=== PATIENT | female | born 1975 | race Caucasian/White ===

== ENCOUNTER 2022-09-27 07:20 | Outpatient (OUT) | payer OTHER, SELFPAY | END 2022-09-27 07:21 | disposition home or self-care (01) | LOC: LAB 07:24 | PROVIDERS: PCP Nurse Practitioner; Visit Provider Nurse Practitioner | DX: E55.9 Vitamin D deficiency, unspecified (principal) | CPT/HCPCS: 36415; 82306 ==

== ENCOUNTER 2022-10-06 09:23 | Outpatient (OUT) | payer OTHER, SELFPAY ==
--- NOTE | 2022-10-06 09:49 | XR_ITS ---
[address] [address] Patient Name: CACHORRO HAGAN MRN: [id number] date: 1975 Sex: F Assigned Patient Location: LAB Current Patient Location: LAB Accession/Order Number: [id number] Exam Date: 10/06/2022 09:54 Report Date: 10/06/2022 10:14 At the request of: ED CHAPMAN Procedure: XR chest 2V PROCEDURE: XR chest 2V DATE: 10/06/2022 8:54 AM CDT COMPARISONS: None. CLINICAL INDICATION: 46 years Female Dyspnea R06.00 FINDINGS: The cardiomediastinal silhouette and pulmonary vasculature are within normal limits. The lungs are clear. There is no evidence of pleural effusion or pneumothorax. XR/XR chest 2V IMPRESSION: Chest radiograph is within normal limits. Electronically authenticated by: ZURI MACKENZIE Date: 10/06/2022 10:14
[2022-10-06 09:59] LABS: Bilirubin Urine NEGATIVE (NEGATIVE); Blood Urine NEGATIVE (NEGATIVE); Clarity Urine CLEAR (CLEAR); Color Urine YELLOW (YELLOW); Glucose Urine UA NEGATIVE (NEGATIVE); Ketones Urine NEGATIVE (NEGATIVE); Leukocyte Esterase Urine NEGATIVE (NEGATIVE); Nitrite Urine NEGATIVE (NEGATIVE); Protein Urine NEGATIVE (NEG/TRACE); Specific Gravity Urine >=1.030 (1.005-1.025); Urobilinogen Urine 0.2 EU/dL (0.2-1.0)
[2022-10-06 10:00] LABS: Basophils Percent Auto 0.4 % (0.2-2.0); Eosinophils Absolute Auto 0.1 10^3/uL (0.0-0.7); Eosinophils Percent Auto 1.5 % (0.9-7.0); Hematocrit 40.7 % (36.0-48.0); Hemoglobin 13.3 g/dL (12.0-16.0); Immature Granulocytes Abs Auto 0.05 10^3/uL (0.00-0.03); Immature Granulocytes Pct Auto 0.5 % (0.0-0.5); Lymphocytes Absolute Auto 2.8 10^3/uL (1.2-3.8); Lymphocytes Percent Auto 29.4 % (20.5-60.0); Mean Corpuscular HGB Conc 32.7 g/dL (29.9-35.2); Mean Corpuscular Hemoglobin 29.8 pg (26.7-34.0); Mean Corpuscular Volume 91.3 fL (81.0-99.0); Mean Platelet Volume 8.3 fL (9.5-13.5); Monocytes Absolute Auto 0.4 10^3/uL (0.3-0.8); Monocytes Percent Auto 4.6 % (1.7-12.0); Neutrophils Percent Auto 63.6 % (43.0-75.0); Platelet Count 321 10^3/uL (150-450); Red Blood Count 4.46 10^6/uL (4.20-5.40); Red Cell Distribution Width 13.6 % (11.0-15.0); White Blood Count 9.5 10^3/uL (4.0-11.0)
[2022-10-06 10:10] LABS: Estimated Average Glucose 117 mg/dL; Glycohemoglobin A1C 5.7 % (4.5-6.2)
[2022-10-06 10:14] LABS: Alanine Aminotransferase 33 U/L (14-59); Albumin Globulin Ratio 0.9; Albumin Level 3.8 g/dL (3.4-5.0); Alkaline Phosphatase 91 U/L (46-116); Anion Gap 14.8; Aspartate Amino Transferase 26 U/L (15-37); BUN Creatinine Ratio 11.8; Bilirubin Total 0.3 mg/dL (0.2-1.0); Calcium 9.4 mg/dL (8.5-10.1); Carbon Dioxide 22.1 mmol/L (21.0-32.0); Chloride 103 mmol/L (98-107); Estimated GFR (African America >60 (>=60); Estimated GFR (Non-African Ame >60 (>=60); Globulin 4.1 g/dL; Glucose 105 mg/dL (74-106); Potassium 3.9 mmol/L (3.5-5.1); Sodium 136 mmol/L (136-145); Total Protein 7.9 g/dL (6.4-8.2)
[2022-10-06 10:22] LABS: Erythrocyte Sedimentation Rate 35 mm/hr (<=20)
[2022-10-06 10:25] LABS: Thyroid Stimulating Hormone 6.601 uIU/mL (0.358-3.740)
[2022-10-06 10:27] LABS: RBC Urine NONE SEEN #/HPF (0-2); WBC Urine 0-2 #/HPF (NONE SEEN)
[2022-10-06 10:28] LABS: Bacteria Urine NONE SEEN #/HPF (NONE SEEN); Mucus Urine MODERATE (NONE SEEN); Squamous Epithelial Cell Urine MODERATE #/LPF (NONE/RARE)
[2022-10-06 11:30] LABS: Free T4 1.06 ng/dL (0.76-1.46)
[2022-10-07 06:12] LABS: Thyroid Peroxidase (TPO) Ab 33 IU/mL (0-34); Vitamin B12 450 pg/mL (232-1245)
[2022-10-07 16:11] LABS: Thyroglobulin Antibody <1.0 IU/mL (0.0-0.9)
== END 2022-10-06 09:24 | disposition home or self-care (01) ==
LOC: LAB 09:24
PROVIDERS: PCP Nurse Practitioner; Visit Provider Nurse Practitioner
DX: E03.9 Hypothyroidism, unspecified (principal); E55.9 Vitamin D deficiency, unspecified; R53.83 Other fatigue; E66.01 Morbid (severe) obesity due to excess calories; R06.00 Dyspnea, unspecified
CPT/HCPCS: 36415; 71046; 80053; 81001; 82306; 82607; 83036; 83540; 84439; 84443; 85025; 85652; 86140; 86376; 86800

== ENCOUNTER 2022-10-07 10:35 | Outpatient (OUT) | payer OTHER, SELFPAY ==
[2022-10-07 11:21] LABS: D Dimer 0.31 mg/L FEU (<=0.59)
== END 2022-10-07 10:42 | disposition home or self-care (01) ==
PROVIDERS: PCP Nurse Practitioner; Visit Provider Nurse Practitioner
DX: R07.9 Chest pain, unspecified (principal); R06.02 Shortness of breath
CPT/HCPCS: 36415; 85378

== ENCOUNTER 2022-11-01 12:50 | Outpatient (OUT) | payer OTHER, SELFPAY ==
--- NOTE | 2022-11-01 14:07 | RT_ITS ---
The [facility] Test Date: 2022-11-01 Pat Name: CACHORRO DORADO Department: Room: - Gender: Female [employer]illing [employer] Operator: Layo Peres RRT : 1975 Requested By: ED CHAPMAN Order Number: [id number] Reading MD: Grant Figueroa Interpretive Statements Pulmonary function testing was completed according to ATS criteria. Findings were considered accurate and reproducible, with exception of DLCO which did not meet ATS standards. No bronchodilator was administered due to normal spirometric values. No prior studies available for comparison. Spirometry: -FEV1/FVC: Normal @ 88% -FEV1: Normal @ 85% -FVC: Mildly reduced @ 77% Lung volumes by plethysmography: -RV: Reduced @ 48% -TLC: Normal @ 84% Diffusion capacity: -DLCO: Mild reduction @ 70% when corrected for Hb 13.3g/dL Flow-volume loop: -Mild restrictive pattern Impressions: -Spirometry shows a mild restrictive pattern with a reduced RV and normal TLC: this suggests an obesity pattern based on stated BMI of 51.1. DLCO is mildly decreased - unclear if this is due to not meeting ATS standards or if there is a true mild diffusion impairment. Clinical correlation required. Electronically Signed On 11-01-2022 17:29:16 EDT by Grant Figueroa
--- NOTE | 2022-11-01 14:25 | CA_ITS ---
Patient: CACHORRO DORADO Exam Date: 11/01/2022 : 1975 Gender:F Ordering : AIDEN ED CHAPMAN [facility] Admission #: [id number] Family : Order #: [id number] CLICK HERE TO VIEW EXAM ECHOCARDIOGRAM REPORT PROCEDURE: CA ECHO DOPPLER COMPLETE INDICATIONS: DYSPNEA COMPARISON: None. DESCRIPTION: COMPLETE ECHOCARDIOGRAM Real-time transthoracic echocardiography with 2D, M-mode, spectral and color flow Doppler performed. QUALITY: Technically difficult due to patients condition. LEFT VENTRICLE: Normal chamber size. Normal left ventricular wall thickness. Normal systolic function. LV EF: Normal left ventricular ejection fraction, (>55%). DIASTOLIC: Normal diastolic function. ATRIAL SEPTUM: LEFT ATRIUM: Normal chamber size. RIGHT ATRIUM: Normal chamber size. RIGHT VENTRICLE: Normal chamber size. TRICUSPID VALVE: Normal mobility and thickness. No stenosis with trivial regurgitation. No evidence of pulmonary hypertension. RVSP 25 mmHg MITRAL VALVE: Normal mobility and thickness. No evidence of mitral valve stenosis. There is no mitral annular calcification. No mitral regurgitation. AORTIC VALVE: Normal trileaflet appearance. No visible sclerosis. Normal leaflet mobility. No evidence of aortic valve stenosis. No aortic regurgitation. AORTIC ROOT: Normal diameter and appearance. PULMONIC VALVE: Not well visualized. No stenosis. No regurgitation. PERICARDIUM: No evidence of pericardial effusion. IVC: Collapses with inspirations. IVC is normal in size. PLEURA: CONCLUSION: 1. Technically difficult study due to poor sound transmission. 2. Normal ventricular systolic function. LVEF is 55 to 60%. 3. No significant valvular dysfunction. 4. Normal right-sided pressures. Adult Echocardiography Procedure Report Left Ventricle LVEDD (3.7 - 5.6 cm): 4.46 cm LVESD (2.2 - 4.0 cm): 3.09 cm LVIVS thickness (0.6 - 1.2 cm): 1.09 cm LVPW thickness (0.5 - 1.0 cm): 1.00 cm LVOT Max Gradient: 2 mm[Hg] Peak Velocity (LVOT): 75.30 cm/s LVOT Diameter 2.10 cm Left Ventricular Ejection Fraction: 58.50 % Left Atrium Left Atrium Systolic Dimension: 3.70 cm Mitral Valve MV E to A Ratio: 1.10 Mitral Valve A-Wave Peak Velocity: 82.40 cm/s Mitral Valve E-Wave Peak Velocity: 92.80 cm/s Right Ventricle Aorta AO Root Diam: 3.50 cm Aortic Valve AoV Area (Peak Pato): 3.00 cm2 Peak Velocity(Antegrade Flow): 86.90 cm/s Peak Gradient(Antegrade Flow): 3 mm[Hg] Tricuspid Valve Peak Velocity (Regurgitant Flow): 235.00 cm/s Peak Velocity: 79.60 cm/s Pulmonic Valve Peak Velocity: 95.00 cm/s, 107.00 cm/s Peak Gradient: 4 mm[Hg] Right Atrium Dictated by: Andrew Carias M.D. on 11/01/2022 at 19:43 Approved by: Andrew Carias M.D. on 11/01/2022 at 19:45
== END 2022-11-01 12:51 | disposition home or self-care (01) ==
LOC: CARD 12:51
PROVIDERS: PCP Nurse Practitioner; Visit Provider Nurse Practitioner
DX: R06.00 Dyspnea, unspecified (principal)
CPT/HCPCS: 93306; 94010; 94726; 94729

== ENCOUNTER 2023-01-04 20:17 | Emergency (ER) | payer OTHER, SELFPAY ==
[2023-01-04 20:26] VITALS: BP 153/94; PULSE 88; RESP 20; TEMP 36.7; O2SAT 98; BMI 48.1
--- NOTE | 2023-01-04 20:40 | CT_ITS ---
The [address] [address] Patient Name: CACHORRO DORADO MRN: [id number] date: 1975 Sex: F Assigned Patient Location: ER Current Patient Location: Accession/Order Number: [id number] Exam Date: 01/04/2023 21:18 Report Date: 01/04/2023 21:56 At the request of: BRIAN DUMONT Procedure: CT head/brain wo con EXAMINATION: CT head/brain wo con HISTORY: Headache - TECHNIQUE: CT head without contrast. All CT scans at this facility use dose modulation, iterative reconstruction, and/or weight based dosing when appropriate to reduce radiation dose to as low as reasonably achievable. COMPARISON: None. RESULT: Post-operative change: None. Acute change: No evidence of an acute intracranial process. Hemorrhage: No evidence of acute intracranial hemorrhage. Mass Lesion / Mass Effect: No evidence of an intracranial mass or extraaxial fluid collection. No significant mass effect. Chronic change: None apparent. Parenchyma: No significant parenchymal volume loss. Ventricles: Normal caliber and morphology. Other: The calvarium, skull base, imaged paranasal sinuses, mastoids, orbits and extracranial soft tissues are unremarkable. CT/CT head/brain wo con IMPRESSION: 1. No acute intracranial abnormality; no acute infarct, intracranial hemorrhage or extra-axial collection. Electronically authenticated by: NIXON KNIGHT Date: 01/04/2023 21:56
--- NOTE | 2023-01-04 20:41 | ED.HA1 ---
HPI - Headache General Chief Complaint: Headache Stated Complaint: Migraine, Nausea/Vomiting Time Seen by Provider: 01/04/23 20:26 Source: patient and family Limitations: no limitations History of Present Illness HPI Narrative: patient is a 47-year-old female who presents to the emergency department for the evaluation of headache that began this morning. She states she has a history of migraines although they are infrequent. She states her typical headaches are located behind the right eye. She states this headache today is much more significant and radiates from the back of the right eye to the back of the head and right side of the neck. She did not take any medications prior to arrival. She has had nausea and vomiting. She denies visual changes, she has chronic paresthesias to the hands and legs from neuropathy that is not different or worse today. She has had minimal sinus symptoms but no other flulike illness. No fevers, no concern for . She denies any injuries or traumas. She states she does feel like she has vertigo since the headache started today. Related Data Home Medications Medication Instructions Recorded Confirmed albuterol sulfate 90 mcg/actuation inhalation 01/04/23 aerosol inhaler diclofenac sodium 75 mg mg PO 01/04/23 tablet,delayed release ergocalciferol (vitamin D2) 1,250 01/04/23 mcg (50,000 unit) capsule (Vitamin D2) gabapentin enacarbil 600 mg mg PO 01/04/23 tablet,extended release (Horizant ER) levothyroxine 25 mcg tablet mcg 01/04/23 montelukast 10 mg tablet mg 01/04/23 naltrexone 1.5 mg capsule mg PO 01/04/23 omeprazole 40 mg capsule,delayed mg 01/04/23 release sertraline 50 mg tablet mg 01/04/23 solifenacin 10 mg tablet mg PO 01/04/23 Previous Rx's Medication Instructions Recorded xgdqjbklho-howetoeyuwixj-epbmqhdo 1 cap PO Q6H PRN headache #10 caps 01/04/23 50 mg-300 mg-40 mg capsule (Fioricet) methocarbamol 750 mg tablet 750 mg PO TID PRN pain #12 tabs 01/04/23 ondansetron 4 mg disintegrating 4 mg PO Q6H PRN nausea and 01/04/23 tablet vomiting #12 tabs Allergies Allergy/AdvReac Type Severity Reaction Status Date / Time duloxetine [From Cymbalta] Allergy Verified 01/04/23 20:31 nalbuphine [From Nubain] Allergy Verified 01/04/23 20:31 Sulfa (Sulfonamide Allergy Verified 01/04/23 20:31 Antibiotics) topiramate [From Topamax] Allergy Verified 01/04/23 20:31 Review of Systems ROS Constitutional Denies: fever or chills Ears, nose, mouth, and throat Denies: throat pain or neck pain Respiratory Denies: shortness of breath or cough Gastrointestinal Reports: nausea and vomiting Musculoskeletal Denies: back pain, neck pain, extremity pain or extremity swelling Integumentary/Breast Denies: rash Neurological Reports: headache, numbness in extremities and vertigo Hematologic/Lymphatic Denies: easy bruising PFSH PFSH Social History Smoking status: Never smoker Exam Narrative Exam Narrative: Gen.: Awake, alert, in no distress Head: Normocephalic, atraumatic ENT: Moist mucous membranes; no posterior cervical tenderness, no nuchal rigidity or meningismus Respiratory: No respiratory distress, lungs clear bilaterally Cardio: Regular rate and rhythm Extremities: Moves extremities equally Psych: Normal mood and affect Neuro: No focal neuro deficit Skin: Warm, dry, intact Constitutional Vital Signs, click to edit/add: Last Vital Signs Temp 98.0 F 01/04/23 20:26 Pulse 70 01/04/23 23:01 Resp 16 01/04/23 23:01 BP 122/76 01/04/23 23:01 Pulse Ox 96 01/04/23 23:01 O2 Del Method Room Air 01/04/23 20:26 Course Vital Signs Vital signs: Vital Signs Temperature 98.0 F 01/04/23 20:26 Pulse Rate 88 01/04/23 20:26 Respiratory Rate 20 01/04/23 20:26 Blood Pressure 153/94 H 01/04/23 20:26 Pulse Oximetry 98 01/04/23 20:26 Oxygen Delivery Method Room Air 01/04/23 20:26 Temperature 98.0 F 01/04/23 20:26 Pulse Rate 70 01/04/23 23:01 Respiratory Rate 16 01/04/23 23:01 Blood Pressure 122/76 01/04/23 23:01 Pulse Oximetry 96 01/04/23 23:01 Oxygen Delivery Method Room Air 01/04/23 20:26 MDM - Headache MDM Narrative Medical decision making narrative: patient treated with IV fluids, Reglan, Benadryl, Decadron, Norflex. CT of the brain is unremarkable and lab studies are stable, patient with mild elevation of CRP and sedimentation rate's but no critical values. CRP and sedimentation rate were elevated previously on lab study several months ago. She has no focal neuro deficits in the Emergency Room. She was given additional Toradol and Valium after her CT resulted negative. she is resting comfortably, stable vital signs and no focal neuro deficits. She will be discharged home with Zofran and Fioricet, follow-up with PCP and return to the Emergency Room if symptoms change or worsen Medical Records Attestation: I reviewed the patient's medical records. Lab Data Attestation: I reviewed the patient's lab results. Labs: Lab Results 01/04/23 Range/Units 21:00 WBC 10.8 (4.0-11.0) 10^3/uL RBC 4.42 (4.20-5.40) 10^6/uL Hgb 12.9 (12.0-16.0) g/dL Hct 40.6 (36.0-48.0) % MCV 91.9 (81.0-99.0) fL MCH 29.2 (26.7-34.0) pg MCHC 31.8 (29.9-35.2) g/dL RDW 13.7 (11.0-15.0) % Plt Count 326 (150-450) 10^3/uL MPV 8.2 L (9.5-13.5) fL Neut % (Auto) 65.0 (43.0-75.0) % Lymph % (Auto) 25.8 (20.5-60.0) % [place] % (Auto) 5.3 (1.7-12.0) % Eos % (Auto) 2.4 (0.9-7.0) % Baso % (Auto) 0.6 (0.2-2.0) % Neut # (Auto) 7.1 H (1.4-6.5) 10^3/uL Lymph # (Auto) 2.8 (1.2-3.8) 10^3/uL [place] # (Auto) 0.6 (0.3-0.8) 10^3/uL Eos # (Auto) 0.3 (0.0-0.7) 10^3/uL Baso # (Auto) 0.1 (0.0-0.1) 10^3/uL Abs Immat Gran (auto) 0.10 H (0.00-0.03) 10^3/uL Imm/Tot Granulo (auto) 0.9 H (0.0-0.5) % ESR 49 H (<=20) mm/hr Sodium 132 L (136-145) mmol/L Potassium 3.8 (3.5-5.1) mmol/L Chloride 103 (98-107) mmol/L Carbon Dioxide 21.1 (21.0-32.0) mmol/L Anion Gap 11.7 BUN 18.0 (7.0-18.0) mg/dL Creatinine 0.83 (0.55-1.02) mg/dL Est GFR ( Amer) >60 (>=60) Est GFR (Non-Af Amer) >60 (>=60) BUN/Creatinine Ratio 21.7 Glucose 104 (74-106) mg/dL Calcium 8.7 (8.5-10.1) mg/dL Total Bilirubin 0.2 (0.2-1.0) mg/dL AST 14 L (15-37) U/L ALT 26 (14-59) U/L Alkaline Phosphatase 92 (46-116) U/L C-Reactive Protein 3.9 H (<=1.0) mg/dL Total Protein 7.3 (6.4-8.2) g/dL Albumin 3.2 L (3.4-5.0) g/dL Globulin 4.1 g/dL Albumin/Globulin Ratio 0.[address] scan - head: Attestation: I have reviewed the pertinent imaging results. Radiologist's impression: Procedure: CT head/brain wo con EXAMINATION: CT head/brain wo con HISTORY: Headache - TECHNIQUE: CT head without contrast. All CT scans at this facility use dose modulation, iterative reconstruction, and/or weight based dosing when appropriate to reduce radiation dose to as low as reasonably achievable. COMPARISON: None. RESULT: Post-operative change: None. Acute change: No evidence of an acute intracranial process. Hemorrhage: No evidence of acute intracranial hemorrhage. Mass Lesion / Mass Effect: No evidence of an intracranial mass or extraaxial fluid collection. No significant mass effect. Chronic change: None apparent. Parenchyma: No significant parenchymal volume loss. Ventricles: Normal caliber and morphology. Other: The calvarium, skull base, imaged paranasal sinuses, mastoids, orbits and extracranial soft tissues are unremarkable. IMPRESSION: 1. No acute intracranial abnormality; no acute infarct, intracranial hemorrhage or extra-axial collection. Electronically authenticated by: NIXON KNIGHT Date: 01/04/2023 21:56 Discharge Plan Discharge Chief Complaint: Headache Clinical Impression: Headache Patient Disposition: Home, Self-Care Time of Disposition Decision: 22:28 Condition: Good Prescriptions / Home Meds: New methocarbamol 750 mg tablet 750 mg PO TID PRN (Reason: pain) Qty: 12 0RF ondansetron 4 mg tablet,disintegrating 4 mg PO Q6H PRN (Reason: nausea and vomiting) Qty: 12 0RF ysrvbmzcgx-pugiqsledymsy-tlxz [Fioricet] 50-300-40 mg capsule 1 cap PO Q6H PRN (Reason: headache) Qty: 10 0RF Rx Instructions: DX: R51.9 No Action levothyroxine 25 mcg tablet diclofenac sodium 75 mg tablet,delayed release (DR/EC) PO montelukast 10 mg tablet ergocalciferol (vitamin D2) [Vitamin D2] 1,250 mcg (50,000 unit) capsule albuterol sulfate 90 mcg/actuation HFA aerosol inhaler INHALATION Horizant 600 mg tablet extended release PO naltrexone 1.5 mg capsule PO omeprazole 40 mg capsule,delayed release(DR/EC) sertraline 50 mg tablet solifenacin 10 mg tablet PO Instructions: Acute Headache (ED) Stand Alone Forms: Portal Instructions Referrals: Odalis Gu [Primary Care Provider] - 1 week Discharge Date/Time: 01/04/23 23:14
[2023-01-04] MEDS: ORPHENADRINE 60 MG/ 2 ML VIAL IV (21:08)
[2023-01-04] MEDS: 0.9 % SODIUM CHLORIDE 1,000 ML 999 ML IV (21:08)
[2023-01-04] MEDS: DEXAMETHASONE SODIUM PHOSPHATE 10 MG/ML VIAL IV (21:08)
[2023-01-04] MEDS: DIPHENHYDRAMINE HCL 50 MG/ML (1ML) VIAL 25 MG IV (21:08)
[2023-01-04] MEDS: METOCLOPRAMIDE HCL 10 MG/2 ML VIAL INJ (21:08)
[2023-01-04] MEDS: ONDANSETRON PF 4 MG/2 ML VIAL IV (21:19)
[2023-01-04 21:25] LABS: Basophils Absolute Auto 0.1 10^3/uL (0.0-0.1); Basophils Percent Auto 0.6 % (0.2-2.0); Eosinophils Absolute Auto 0.3 10^3/uL (0.0-0.7); Eosinophils Percent Auto 2.4 % (0.9-7.0); Hematocrit 40.6 % (36.0-48.0); Hemoglobin 12.9 g/dL (12.0-16.0); Immature Granulocytes Pct Auto 0.9 % (0.0-0.5); Lymphocytes Absolute Auto 2.8 10^3/uL (1.2-3.8); Lymphocytes Percent Auto 25.8 % (20.5-60.0); Mean Corpuscular HGB Conc 31.8 g/dL (29.9-35.2); Mean Corpuscular Hemoglobin 29.2 pg (26.7-34.0); Mean Corpuscular Volume 91.9 fL (81.0-99.0); Mean Platelet Volume 8.2 fL (9.5-13.5); Monocytes Absolute Auto 0.6 10^3/uL (0.3-0.8); Monocytes Percent Auto 5.3 % (1.7-12.0); Neutrophils Absolute Auto 7.1 10^3/uL (1.4-6.5); Platelet Count 326 10^3/uL (150-450); Red Blood Count 4.42 10^6/uL (4.20-5.40); Red Cell Distribution Width 13.7 % (11.0-15.0); White Blood Count 10.8 10^3/uL (4.0-11.0)
[2023-01-04 21:59] LABS: Alanine Aminotransferase 26 U/L (14-59); Albumin Globulin Ratio 0.8; Albumin Level 3.2 g/dL (3.4-5.0); Alkaline Phosphatase 92 U/L (46-116); Anion Gap 11.7; Aspartate Amino Transferase 14 U/L (15-37); BUN Creatinine Ratio 21.7; Bilirubin Total 0.2 mg/dL (0.2-1.0); C Reactive Protein 3.9 mg/dL (<=1.0); Calcium 8.7 mg/dL (8.5-10.1); Carbon Dioxide 21.1 mmol/L (21.0-32.0); Chloride 103 mmol/L (98-107); Erythrocyte Sedimentation Rate 49 mm/hr (<=20); Estimated GFR (African America >60 (>=60); Estimated GFR (Non-African Ame >60 (>=60); Globulin 4.1 g/dL; Glucose 104 mg/dL (74-106); Potassium 3.8 mmol/L (3.5-5.1); Sodium 132 mmol/L (136-145); Total Protein 7.3 g/dL (6.4-8.2)
[2023-01-04] MEDS: DIAZEPAM 5 MG/ML - 2 ML INJ SYRINGE 2.5 MG IV (22:15)
[2023-01-04] MEDS: KETOROLAC TROMETHAMINE 30 MG/ML VIAL IVP (22:15)
[2023-01-04 23:01] VITALS: BP 122/76; PULSE 70; RESP 16; O2SAT 96
[2023-01-04] MEDS: BUTALB/ACETAMINOPHEN/CAFFEINE 50-325-40MG TABLET 1 TAB PO (23:10)
[2023-01-04] MEDS: ONDANSETRON 4 MG RAPDIS TABLET SL (23:11)
== END 2023-01-04 23:14 | disposition home or self-care (01) ==
PROVIDERS: Physician Assistant; Emergency Provider Emergency Medicine; PCP Nurse Practitioner
DX: R51.9 Headache, unspecified (principal); G62.9 Polyneuropathy, unspecified; Z79.899 Other long term (current) drug therapy; Z79.890 Hormone replacement therapy
CPT/HCPCS: 36415; 70450; 80053; 85025; 85652; 86140; 96361; 96372; 96374; 96375; 99285; J1100

== ENCOUNTER 2023-01-13 10:36 | Emergency (ER) | payer OTHER, SELFPAY ==
[2023-01-13 10:42] VITALS: BP 123/82; PULSE 88; RESP 16; TEMP 36.6; O2SAT 96; BMI 48.4
--- NOTE | 2023-01-13 11:05 | ECG_ITS ---
The [facility] Test Date: 2023-01-13 Pat Name: CACHORRO DORADO Department: Room: - Gender: Female Corporation Pilot: : 1975 Requested By: ED CHAPMAN Order Number: [id number] Reading MD: SERENITY ELLIS Measurements Intervals [place] Rate: 80 P: 57 MS: 176 QRS: -3 QRSD: 74 T: 39 QT: 354 QTc: 390 Interpretive Statements 1100 Sinus rhythm 3113 Cannot rule out anterior myocardial infarction, probably old 8102 Low QRS voltage in chest leads 9150 abnormal ECG No previous ECG available for comparison Electronically Signed On 01-14-2023 7:02:53 EDT by SERENITY ELLIS
--- NOTE | 2023-01-13 11:06 | ED_ITS ---
HPI - Dizziness General Chief Complaint: Dizziness Stated Complaint: DIZZINESS Time Seen by Provider: 01/13/23 10:45 Source: patient Mode of arrival: Wheelchair Limitations: other Limitations comment: dizziness History of Present Illness HPI Narrative: 47-year-old female presents for dizziness. She was at work today when it came on abruptly and she felt like she couldn't walk straight. She had to have somebody drive her here. She was here last week for similar circumstances and was diagnosed with vertigo. She hasn't had any medicine for it today. No fever or headache or localized weakness. Related Data Home Medications Medication Instructions Recorded Confirmed albuterol sulfate 90 mcg/actuation inhalation 01/04/23 aerosol inhaler diclofenac sodium 75 mg mg PO 01/04/23 tablet,delayed release ergocalciferol (vitamin D2) 1,250 01/04/23 mcg (50,000 unit) capsule (Vitamin D2) gabapentin enacarbil 600 mg mg PO 01/04/23 tablet,extended release (Horizant ER) levothyroxine 25 mcg tablet mcg 01/04/23 montelukast 10 mg tablet mg 01/04/23 naltrexone 1.5 mg capsule mg PO 01/04/23 omeprazole 40 mg capsule,delayed mg 01/04/23 release sertraline 50 mg tablet mg 01/04/23 solifenacin 10 mg tablet mg PO 01/04/23 Previous Rx's Medication Instructions Recorded bpkzzfxesj-oxqzupdhtdzmq-sjecwyqj 1 cap PO Q6H PRN headache #10 caps 01/04/23 50 mg-300 mg-40 mg capsule (Fioricet) methocarbamol 750 mg tablet 750 mg PO TID PRN pain #12 tabs 01/04/23 ondansetron 4 mg disintegrating 4 mg PO Q6H PRN nausea and 01/04/23 tablet vomiting #12 tabs sgibefkllx-tefrbvrlfimuc-kmpdzfyf 1 cap PO Q6H PRN pain #20 caps 01/13/23 50 mg-300 mg-40 mg capsule (Fioricet) diazepam 5 mg tablet (Valium) 5 mg PO Q8H PRN dizziness or 01/13/23 vertigo #14 tabs methocarbamol 750 mg tablet 750 mg PO Q8H pain #20 tabs 01/13/23 Allergies Allergy/AdvReac Type Severity Reaction Status Date / Time duloxetine [From Cymbalta] Allergy Verified 01/13/23 10:48 nalbuphine [From Nubain] Allergy Verified 01/13/23 10:48 Sulfa (Sulfonamide Allergy Verified 01/13/23 10:48 Antibiotics) topiramate [From Topamax] Allergy Verified 01/13/23 10:48 Review of Systems ROS Narrative A ten point review of systems is negative except as noted above. PFSH PFSH Social History Smoking status: Never smoker Exam Narrative Exam Narrative: Nurses note and vital signs reviewed and patient is not hypoxic. General: The patient appears well and in no apparent distress. Patient is resting comfortably on cart. Skin: Warm, dry, no pallor noted. There is no rash noted. Head: Normocephalic, atraumatic Eye: Normal conjunctiva, no drainage Ears, Nose, Mouth, and Throat: oral mucosa is moist. Nares patent. Cardiovascular: Regular Rate and Rhythm Respiratory: Patient is in no distress, no accessory muscle use, lungs are clear to auscultation, no wheezing, rales or rhonchi Back: non-tender GI: obese and nontender Musculoskeletal: The patient has no evidence of calf tenderness, no pitting edema, symmetrical pulses noted bilaterally Neurological: A&O x4, normal speech; upper and lower extremity strength intact. Psychiatric: Cooperative Constitutional Vital Signs, click to edit/add: Last Vital Signs Temp 97.8 F 01/13/23 10:42 Pulse 88 01/13/23 10:42 Resp 16 01/13/23 10:42 BP 123/82 01/13/23 10:42 Pulse Ox 96 01/13/23 10:42 O2 Del Method Room Air 01/13/23 10:42 Course Vital Signs Vital signs: Vital Signs Temperature 97.8 F 01/13/23 10:42 Pulse Rate 88 01/13/23 10:42 Respiratory Rate 16 01/13/23 10:42 Blood Pressure 123/82 01/13/23 10:42 Pulse Oximetry 96 01/13/23 10:42 Oxygen Delivery Method Room Air 01/13/23 10:42 Temperature 97.8 F 01/13/23 10:42 Pulse Rate 88 01/13/23 10:42 Respiratory Rate 16 01/13/23 10:42 Blood Pressure 123/82 01/13/23 10:42 Pulse Oximetry 96 01/13/23 10:42 Oxygen Delivery Method Room Air 01/13/23 10:42 MDM - Dizziness MDM Narrative Medical decision making narrative: CAT scan from last week was reviewed and found to be negative. She is feeling improved now with IV Valium and will be discharged home on Valium. Treatment diagnosis and follow-up were discussed with the patient. Differential Diagnosis Differential diagnosis: Likely benign paroxysmal positional vertigo, orthostatic hypotension and cerebrovascular accident Medical Records Attestation: I reviewed the patient's medical records. Lab Data Attestation: I reviewed the patient's lab results. Labs: Lab Results 01/13/23 Range/Units 11:13 WBC 8.7 (4.0-11.0) 10^3/uL RBC 4.22 (4.20-5.40) 10^6/uL Hgb 12.5 (12.0-16.0) g/dL Hct 37.5 (36.0-48.0) % MCV 88.9 (81.0-99.0) fL MCH 29.6 (26.7-34.0) pg MCHC 33.3 (29.9-35.2) g/dL RDW 13.6 (11.0-15.0) % Plt Count 308 (150-450) 10^3/uL MPV 8.2 L (9.5-13.5) fL Neut % (Auto) 65.5 (43.0-75.0) % Lymph % (Auto) 26.7 (20.5-60.0) % [place] % (Auto) 4.9 (1.7-12.0) % Eos % (Auto) 1.3 (0.9-7.0) % Baso % (Auto) 0.6 (0.2-2.0) % Neut # (Auto) 5.7 (1.4-6.5) 10^3/uL Lymph # (Auto) 2.3 (1.2-3.8) 10^3/uL [place] # (Auto) 0.4 (0.3-0.8) 10^3/uL Eos # (Auto) 0.1 (0.0-0.7) 10^3/uL Baso # (Auto) 0.1 (0.0-0.1) 10^3/uL Abs Immat Gran (auto) 0.09 H (0.00-0.03) 10^3/uL Imm/Tot Granulo (auto) 1.0 H (0.0-0.5) % Sodium 136 (136-145) mmol/L Potassium 4.0 (3.5-5.1) mmol/L Chloride 102 (98-107) mmol/L Carbon Dioxide 23.9 (21.0-32.0) mmol/L Anion Gap 14.1 BUN 14.0 (7.0-18.0) mg/dL Creatinine 0.91 (0.55-1.02) mg/dL Est GFR ( Amer) >60 (>=60) Est GFR (Non-Af Amer) >60 (>=60) BUN/Creatinine Ratio 15.4 Glucose 102 (74-106) mg/dL Calcium 9.1 (8.5-10.1) mg/dL Discharge Plan Discharge Chief Complaint: Dizziness Clinical Impression: Benign paroxysmal positional vertigo Patient Disposition: Home, Self-Care Time of Disposition Decision: 13:12 Condition: Good Mode of Transportation: Private Vehicle Prescriptions / Home Meds: New diazepam [Valium] 5 mg tablet 5 mg PO Q8H PRN (Reason: dizziness or vertigo) Qty: 14 0RF lizaazkhqg-rxigigzknezoz-teph [Fioricet] 50-300-40 mg capsule 1 cap PO Q6H PRN (Reason: pain) Qty: 20 0RF methocarbamol 750 mg tablet 750 mg PO Q8H Qty: 20 0RF No Action levothyroxine 25 mcg tablet diclofenac sodium 75 mg tablet,delayed release (DR/EC) PO montelukast 10 mg tablet ergocalciferol (vitamin D2) [Vitamin D2] 1,250 mcg (50,000 unit) capsule albuterol sulfate 90 mcg/actuation HFA aerosol inhaler INHALATION Horizant 600 mg tablet extended release PO naltrexone 1.5 mg capsule PO omeprazole 40 mg capsule,delayed release(DR/EC) sertraline 50 mg tablet solifenacin 10 mg tablet PO methocarbamol 750 mg tablet 750 mg PO TID PRN (Reason: pain) Qty: 12 0RF ondansetron 4 mg tablet,disintegrating 4 mg PO Q6H PRN (Reason: nausea and vomiting) Qty: 12 0RF ffjaruiovp-jjtnfqdaqgmox-eizh [Fioricet] 50-300-40 mg capsule 1 cap PO Q6H PRN (Reason: headache) Qty: 10 0RF Rx Instructions: DX: R51.9 Instructions: Vertigo (ED) Stand Alone Forms: Portal Instructions Referrals: Odalis Gu [Primary Care Provider] - 1 week Discharge Date/Time: 01/13/23 13:25
[2023-01-13 11:22] LABS: Basophils Absolute Auto 0.1 10^3/uL (0.0-0.1); Basophils Percent Auto 0.6 % (0.2-2.0); Eosinophils Absolute Auto 0.1 10^3/uL (0.0-0.7); Eosinophils Percent Auto 1.3 % (0.9-7.0); Hematocrit 37.5 % (36.0-48.0); Hemoglobin 12.5 g/dL (12.0-16.0); Immature Granulocytes Abs Auto 0.09 10^3/uL (0.00-0.03); Lymphocytes Absolute Auto 2.3 10^3/uL (1.2-3.8); Lymphocytes Percent Auto 26.7 % (20.5-60.0); Mean Corpuscular HGB Conc 33.3 g/dL (29.9-35.2); Mean Corpuscular Hemoglobin 29.6 pg (26.7-34.0); Mean Corpuscular Volume 88.9 fL (81.0-99.0); Mean Platelet Volume 8.2 fL (9.5-13.5); Monocytes Absolute Auto 0.4 10^3/uL (0.3-0.8); Monocytes Percent Auto 4.9 % (1.7-12.0); Neutrophils Absolute Auto 5.7 10^3/uL (1.4-6.5); Neutrophils Percent Auto 65.5 % (43.0-75.0); Platelet Count 308 10^3/uL (150-450); Red Blood Count 4.22 10^6/uL (4.20-5.40); Red Cell Distribution Width 13.6 % (11.0-15.0); White Blood Count 8.7 10^3/uL (4.0-11.0)
[2023-01-13] MEDS: DIAZEPAM 5 MG/ML - 2 ML INJ SYRINGE 2.5 MG IV (11:23)
[2023-01-13 11:32] LABS: Anion Gap 14.1; BUN Creatinine Ratio 15.4; Calcium 9.1 mg/dL (8.5-10.1); Carbon Dioxide 23.9 mmol/L (21.0-32.0); Chloride 102 mmol/L (98-107); Estimated GFR (African America >60 (>=60); Estimated GFR (Non-African Ame >60 (>=60); Glucose 102 mg/dL (74-106); Sodium 136 mmol/L (136-145)
[2023-01-13] MEDS: KETOROLAC TROMETHAMINE 30 MG/ML VIAL IVP (11:58)
--- NOTE | 2023-01-13 12:49 | PC.NURSE ---
pt walked to bathroom & back -- pt did not experience any dizziness or unsteady gait
== END 2023-01-13 13:25 | disposition home or self-care (01) ==
PROVIDERS: Emergency Provider Emergency Medicine; PCP Nurse Practitioner
DX: H81.10 Benign paroxysmal vertigo, unspecified ear (principal); Z79.899 Other long term (current) drug therapy; Z79.890 Hormone replacement therapy
CPT/HCPCS: 36415; 80048; 85025; 93005; 96374; 96375; 99285

== ENCOUNTER 2023-03-31 12:01 | Outpatient (OUT) | payer OTHER, SELFPAY ==
--- OUTSIDE RECORDS SUMMARY | 2023-03-31 12:04 | XMS_ITS | CCD ---
Author Name Unknown Address [address] [place] [address] Organization [facility] Care Team Providers Care Marine Diesel Technician Name Role Phone ODALIS GU Primary Care Physician Rola Reinoso Unavailable Padma Ramirez Unavailable Jessica Dong Unavailable Rylan Collado Unavailable DO Rylan Collado Attending Provider [phone] Odalis Gu Primary Care Provider [phone] Yelitza Johnson Unavailable Rola Gant Unavailable AICHHOLZ, EXERCISE SPECIALIST ODALIS Attending Unavailable AICHHOLZ, EXERCISE SPECIALIST ODALIS Admitting Unavailable AICHHOLZ, EXERCISE SPECIALIST ODALIS Primary Care Unavailable DR RAMBO SEVERINO V Consulting Unavailable AICHHOLZ, EXERCISE SPECIALIST ODALIS Consulting Unavailable AICHHOLZ, EXERCISE SPECIALIST ODALIS Attending Unavailable AICHHOLZ, EXERCISE SPECIALIST ODALIS Consulting Unavailable AICHHOLZ, EXERCISE SPECIALIST ODALIS Admitting Unavailable AICHHOLZ, EXERCISE SPECIALIST ODALIS Primary Care Unavailable AICHHOLZ, EXERCISE SPECIALIST ODALIS Attending Unavailable AICHHOLZ, EXERCISE SPECIALIST ODALIS Consulting Unavailable AICHHOLZ, EXERCISE SPECIALIST ODALIS Admitting Unavailable AICHHOLZ, EXERCISE SPECIALIST ODALIS Primary Care Unavailable AICHHOLZ, EXERCISE SPECIALIST ODALIS Attending Unavailable AICHHOLZ, EXERCISE SPECIALIST ODALIS Consulting Unavailable AICHHOLZ, EXERCISE SPECIALIST ODALIS Admitting Unavailable AICHHOLZ, EXERCISE SPECIALIST ODALIS Primary Care Unavailable DR PADMA RANDOLPH Consulting Unavailable DR PADMA RANDOLPH Attending Unavailable AICHHOLZ, EXERCISE SPECIALIST ODALIS Primary Care Unavailable DR PADMA RANDOLPH Admitting Unavailable AICHHOLZ, EXERCISE SPECIALIST ODALIS Primary Care Unavailable JOSÉ MIGUEL ., DR LOVELACE Consulting Unavailable HOY ., DR LOVELACE Attending Unavailable HOY ., DR LOVELACE Admitting Unavailable KATHY CURRAN Consulting Unavailable FRANCISCA DOMINGUEZ Consulting Unavailable DORIS CROWE Consulting Unavailable MACKENZIE ., DOTTIE Consulting Unavailable MACKENZIE ., DOTTIE Attending Unavailable AICHHOLZ, EXERCISE SPECIALIST ODALIS Primary Care Unavailable MACKENZIE ., DOTTIE Admitting Unavailable AICHHOLZ, EXERCISE SPECIALIST ODALIS Primary Care Unavailable PAY ., DR DURHAM Consulting Unavailable PAY ., DR DURHAM Attending Unavailable PAY ., DR DURHAM Admitting Unavailable AICHHOLZ, EXERCISE SPECIALIST ODALIS Attending Unavailable AICHHOLZ, EXERCISE SPECIALIST ODALIS Primary Care Unavailable AICHHOLZ, EXERCISE SPECIALIST ODALIS Admitting Unavailable AICHHOLZ, EXERCISE SPECIALIST ODALIS Attending Unavailable AICHHOLZ, EXERCISE SPECIALIST ODALIS Primary Care Unavailable AICHHOLZ, EXERCISE SPECIALIST ODALIS Consulting Unavailable AICHHOLZ, EXERCISE SPECIALIST ODALIS Admitting Unavailable MARCELINO, DR DEEP Ruffin Consulting Unavailable AICHHOLZ, EXERCISE SPECIALIST ODALIS Attending Unavailable AICHHOLZ, EXERCISE SPECIALIST ODALIS Primary Care Unavailable AICHHOLZ, EXERCISE SPECIALIST ODALIS Consulting Unavailable AICHHOLZ, EXERCISE SPECIALIST ODALIS Admitting Unavailable AICHHOLZ, EXERCISE SPECIALIST ODALIS Attending Unavailable AICHHOLZ, EXERCISE SPECIALIST ODALIS Primary Care Unavailable MERE, DR RAMBO Hoang Consulting Unavailable AICHHOLZ, EXERCISE SPECIALIST ODALIS Admitting Unavailable AICHHOLZ, EXERCISE SPECIALIST ODALIS Consulting Unavailable AICHHOLZ, EXERCISE SPECIALIST ODALIS Attending Unavailable AICHHOLZ, EXERCISE SPECIALIST ODALIS Admitting Unavailable AICHHOLZ, EXERCISE SPECIALIST ODALIS Primary Care Unavailable AICHHOLZ, EXERCISE SPECIALIST ODALIS Consulting Unavailable AICHHOLZ, EXERCISE SPECIALIST ODALIS Attending Unavailable AICHHOLZ, EXERCISE SPECIALIST ODALIS Admitting Unavailable AICHHOLZ, EXERCISE SPECIALIST ODALIS Primary Care Unavailable AICHHOLZ, ODALIS Attending Unavailable MD Rambo Martinez Attending Provider Riccardo, Odalis J Primary Care Provider Riccardo, Odalis J Referring Provider Rambo Martinez Unavailable Riccardo, Odalis J Referring Unavailable Aichholz, Odalis J Primary Care Unavailable Rambo Martinez Attending Unavailable Rambo Martinez Admitting Unavailable Allergies Allergy Classification Reported Allergen(s) Allergy Type Date of Onset Reaction(s) Facility (11 sources) DULoxetine; Translations: [duloxetine] Drug Allergy 02-09-20 19 Eruption of skin (disorder) [facility] Other (1 source) Nalbuphine; Translations: [nalbuphine] Drug Allergy 05-26-19 16 Headache (finding), Hallucinations (finding) [facility] (11 sources) Sulfacetamide; Translations: [sodium sulfacetamide ophthalmic] Drug Allergy Eruption of skin (disorder) [facility] Other (1 source) Sulfonamides (Antibiotic); Translations: [sulfa drugs] Drug allergy Eruption of skin (disorder) [facility] (11 sources) topiramate; Translations: [topiramate] Drug Allergy Clouded consciousness (finding) [facility]urio [facility] [employer] Other (12 sources) Nalbuphine; Translations: [Nubain] Drug Allergy 05-27-19 16 hallucinations and violent headache [facility] (1 source) DULoxetine Drug Allergy 02-10-20 19 [facility] (2 sources) Sulfonamides (Antibiotic) Drug allergy (disorder) 05-27-19 16 [facility] (1 source) topiramate Drug Allergy [facility] Medications Current Medications Medication Drug Class(es) Dates Sig (Normalized) Sig (Original) [id number] actuat albuterol 0.09 mg/actuat metered dose inhaler (10 sources) beta2-Adrenergic Agonist Start: 05-24-2022 take 2 puff(s) by inhalation every four to six hours as needed Albuterol Sulfate HFA 108 (90 Base) MCG/ACT 2 puffs as needed Inhalation every 4-6 hours for 14 days Apr, Active Start: 05-24-2022 take 2 puff(s) by in halation every four to six hours as needed Albuterol Sulfate HFA 108 (90 Base) MCG/ACT 2 puffs as needed Inhalation every 4-6 hours for 14 days Apr, Active Start: 05-24-2022 take 2 puff(s) by in halation every four to six hours as needed Albuterol Sulfate HFA 108 (90 Base) MCG/ACT 2 puffs as needed Inhalation every 4-6 hours for 14 days Apr, Active Start: 06-18-2017 take 2 puff(s) by in halation every six hours as needed Ventolin HFA 108 (90 Base) MCG/ACT 2 puffs as needed Inhalation every 6 hrs May, Not-Taking Start: 06-18-2017 albuterol HFA 90 mcg/inh MDI (1 source) Start: 06-01-2021 take 2 puff(s) by inhalation every six hours as needed for wheezing albuterol HFA 90 mcg/inh MDI 2 puff(s), Inhalation, q6hr as needed for wheezing, Refill(s) 0 Start Date: 06/01/21 Status: Ordered azithromycin 250 mg oral tablet (2 sources) Macrolide Antimicrobial Start: 05-24-2022 Azithromycin 250 MG 2 tablet on the first day, then 1 tablet daily for 4 days Orally Once a day for 5 day(s) Apr, Active baclofen 10 mg oral tablet (1 source) gamma-Aminobutyric Acid-ergic Agonist dextromethorphan hydrobromide 1.5 mg/ml / pyrilamine maleate 1.5 mg/ml oral solution (7 sources) Uncompetitive S-ejbhbj-H-asparta te Receptor Antagonist, Sigma-1 Agonist Start: 05-24-2022 take 10 mL by mouth every eight hours Baker DM 7.5-7.5 MG/5ML 10 mL Orally every 8 hours for 5 days Apr, Active Start: 03-26-2021 diclofenac sodium 75 mg delayed release oral tablet (10 sources) Nonsteroidal Anti-inflammatory Drug take 1 tablet by mouth every twelve hours Diclofenac Sodium 75 MG 1 tablet Orally Twice a day for 30 day(s) Active Diclofenac 75mg Tab-DR (1 source) Start: take 1 tablet by mouth once daily Diclofenac 75mg Tab-DR = 1 tab(s), Oral, Daily, Refills(s) 0 Start Date: 06/01/21 Status: Ordered fluticasone (1 source) Corticosteroid Start: Flonase Refill(s) 0 Start Date: 06/01/21 Status: Ordered gabapentin enacarbil 300 mg extended release oral tablet (2 sources) Anti-epileptic Agent take 1 tablet by mouth once daily at mealtime Horizant 300 MG 1 tablet in the evening (5pm) with food Orally Once a day Active gemtesa 75 mg tablet (1 source) take 1 tablet by mouth every twenty-four hours Gemtesa 75 MG 1 tablet Orally Once a day Active levothyroxine sodium 0.2 mg oral tablet (11 sources) l-Thyroxine Start: 022 take 1 tablet by mouth once daily levothyroxine 200 mcg (0.2 mg) Tab 200 mcg = 1 tab(s), Oral, Daily, Refills(s) 0 Start Date: 06/01/21 Status: Ordered take 1 tablet by mikey th every twenty-four hours Levothyroxine Sodium 200 MCG 1 capsule p.o. Daily pt states dose is 175 mcg Active take 1 tablet by mikey th every twenty-four hours Levothyroxine Sodium 150 MCG 1 capsule p.o. Daily pt states dose is 175 mcg Active Lidocaine & Adhesive Sheets 5 % (Patch) (2 sources) Start: 01-25-2023 Lidocaine & Adhesive Sheets 5 % (Patch) as directed Externally Dec, Active loperamide hydrochloride 2 mg oral capsule (2 sources) Opioid Agonist take 1 capsule by mouth every six hours Loperamide HCl 2 MG 1 capsule as needed Orally Four times a day Active losartan potassium 50 mg oral tablet (1 source) Angiotensin 2 Receptor Kennedy Losartan Potassium 5 0 MG Oral for 30 Days Active methylPREDNISolone 4 mg oral tablet (6 sources) Corticosteroid Start: 05-24-2022 methylPREDNISolone 4 MG as directed Orally for daily dose take half with breakfast, half with dinner for 6 days Apr, Active Start: 06-18-2017 Medrol (Driss) 4 MG as directed Orally May, Not-Taking montelukast 5 mg chewable tablet (2 sources) Leukotriene Receptor Antagonist Singulair 5 MG as directed Orally Active omeprazole 40 mg delayed release oral capsule (6 sources) Proton Pump Inhibitor take 1 capsule by mouth once daily Omeprazole 40 MG 1 capsule 30 minutes before morning meal Orally Once a day Active OXcarbazepine 300 mg oral tablet (11 sources) Anti-epileptic Agent Start: Trileptal 300 mg Tab 750 mg = 2.5 tab(s), Oral, Daily, Refills(s) 0 Start Date: 06/01/21 Status: Ordered take 0.5 tablet by m outh in the morning, then take 2 tablets by mouth twice daily at bedtime OXcarbazepine 300 MG 1/2 tab am, 2 at hs Orally bid Active pantoprazole 40 mg extended release oral tablet (1 source) Proton Pump Inhibitor Start: 06-01-2021 take 1 tablet by mouth once daily Pantoprazole [address] Tab 40 mg = 1 tab(s), Oral, Daily, Refills(s) 0 Start Date: 06/01/21 Status: Ordered pramipexole dihydrochloride 0.25 mg oral tablet (3 sources) Nonergot Dopamine Agonist Start: 06-01-2021 take 1 tablet by mouth at bedtime pramipexole 0.25 mg Tab 0.25 mg = 1 tab(s), Oral, Bedtime, Refills(s) 0 Start Date: 06/01/21 Status: Ordered Pramipexole Dihy drochloride 0.75 MG Oral for 30 Days Active sertraline 50 mg oral tablet (2 sources) Serotonin Reuptake Inhibitor take 1 tablet by mouth every twenty-four hours Zoloft 50 MG 1 tablet Orally Once a day Active take 1 tablet by mikey th every twenty-four hours Zoloft 100 MG 1 tablet Orally Once a day Active spironolactone 100 mg oral tablet (9 sources) Aldosterone Antagonist Start: 06-01-2021 take 1 tablet by mouth once daily spironolactone 100 mg Tab 100 mg = 1 tab(s), Oral, Daily, Refills(s) 0 Start Date: 06/01/21 Status: Ordered Spironolactone A ctive SUMAtriptan 25 mg oral tablet (1 source) Serotonin-1b and Serotonin-1d Receptor Agonist Start: 06-01-2021 take 1 tablet by mouth once Imitrex 25 mg Tab 25 mg = 1 tab(s), Oral, Once, Refills(s) 0 Start Date: 06/01/21 Status: Ordered 24 hr trospium chloride 60 mg extended release oral capsule (7 sources) Cholinergic Muscarinic Antagonist Start: 06-01-2021 take 1 capsule by mouth once daily in the morning trospium 60 mg oral capsule, extended release 60 mg = 1 cap(s), Oral, qAM Start Date: 06/01/21 Status: Ordered vibegron 75 MG Oral Tablet [Gemtesa] (5 sources) take 1 tablet by mouth every twenty-four hours Gemtesa 75 MG 1 tablet Orally Once a day Active Vitamin D (10 sources) Vitamin D Active Completed/Discontinued Medications Medication Drug Class(es) Dates Sig (Normalized) Sig (Original) doxycycline monohydrate 100 mg oral capsule (4 sources) Tetracycline-cla ss Drug Start: 06-18-2017 take 1 capsule by mouth every twelve hours Doxycycline Monohydrate 100 MG 1 capsule Orally every 12 hrs for 7 days May, Not-Taking ergocalciferol 1.25 mg oral capsule (1 source) Provitamin D2 Compound Start: 06-01-2021 take 1 capsule by mouth every week Vitamin D 50,000 intl units (1.25 mg) oral capsule 50,000 International_Unit = 1 cap(s), Oral, qWeek, Refills(s) 0 Start Date: 06/01/21 Status: Ordered Methocarbamol (4 sources) Muscle Relaxant Methocarbamol Not-Taking pregabalin (4 sources) Lyrica Not-Takin g sucralfate 1000 mg oral tablet (7 sources) Aluminum Complex Start: 07-03-2021 take 1 tablet by mouth at bedtime sucralfate tab 120 EA, TAKE ONE TABLET BY MOUTH BEFORE MEALS AND AT BEDTIME, Refills(s) 0 Start Date: 07/03/21 Status: Ordered take 1 tablet by mikey th every twelve hours Sucralfate 1 GM 1 tablet on an empty stomach Orally Twice a day Active take 1 tablet by mouth twice cleo ly Sucralfate 1 GM 1 tablet on an empty stomach Orally Twice a day Active TENS Unit (10 sources) Start: 11-08-2019 TENS Unit Use as directed. Oct, Not-Taking/PRN Start: 11-08-2019 TENS Unit Use as directed. Oct, Not-Taking Start: 11-08-2019 TENS Unit Use as directed. Oct, Active Start: 11-08-2019 topiramate (4 sources) Topiramate Not-T aking triamcinolone acetonide 40 mg/ml injectable suspension (6 sources) Corticosteroid Start: 05-04-2022 Kenalog-40 Apr, 40 mg Wrist Splint - (9 sources) Start: 08-08-2021 Wrist Splint - as directed left thumb sprain July, Not-Taking/PRN Start: 08-08-2021 Wrist Splint - as directed left thumb sprain July, Not-Taking Start: 08-08-2021 Wrist Splint - as directed left thumb sprain July, Active Problems Active Problems Problem Classification Problem Date Documented Da te Episodic/Chronic Anxiety disorders (3 sources) Anxiety disorder, unspecified; Translations: [Claustrophobia] Onset: 2 Chronic Chronic obstructive pulmonary disease and bronchiectasis (1 source) Bronchitis, not specified as acute or chronic Episodic Disorders of lipid metabolism (2 sources) Hyperlipidemia; Translations: [Pure hypercholesterolemia, unspecified] Onset: 2 06-01-2021 Chronic Esophageal disorders (2 sources) Gastroesophageal reflux disease; Translations: [Gastro-esophageal reflux disease without esophagitis] Onset: 2 06-01-2021 Chronic Essential hypertension (3 sources) Essential (primary) hypertension; Translations: [Essential hypertension] Onset: 2 Chronic Gastritis and duodenitis (2 sources) Chronic superficial gastritis; Translations: [Chronic superficial gastritis without bleeding] Onset: 2 Chronic Headache; including migraine (3 sources) Migraine; Translations: [Migraine, unspecified, not intractable, without status migrainosus] 06-01-2021 Chronic Miscellaneous mental health disorders (2 sources) Chronic insomnia; Translations: [Psychophysiologic insomnia] Chronic Mood disorders (1 source) Major depressive disorder, single episode, unspecified; Translations: [OMAR DEPRESS D/O SINGLE EPIS UNS] Onset: 2 Chronic Nutritional deficiencies (5 sources) Vitamin D deficiency; Translations: [Vitamin D deficiency, unspecified] Onset: 3 06-01-2021 Chronic Osteoarthritis (1 source) Unspecified osteoarthritis, unspecified site; Translations: [UNSPECIFIED OSTEOARTHRITIS UNS SITE] Onset: 2 Chronic Other circulatory disease (1 source) Feeling of lump in throat 06-03-2021 Episodic Other connective tissue disease (11 sources) Fibromyalgia; Translations: [Fibromyalgia] 06-01-2021 Episodic Other diseases of bladder and urethra (1 source) Urethral stricture 06-01-2021 Episodic Other gastrointestinal disorders (1 source) Dysphagia 06-01-2021 Episodic Other hereditary and degenerative nervous system conditions (1 source) Restless legs; Translations: [Restless legs syndrome] Chronic Other hereditary and degenerative nervous system conditions (1 source) Restless legs syndrome Chronic Other nervous system disorders (1 source) Neuropathy 06-01-2021 Chronic Other nervous system disorders (10 sources) Chronic pain; Translations: [Other chronic pain] Chronic Other nervous system disorders (1 source) Polyneuropathy, unspecified; Translations: [POLYNEUROPATHY UNSPECIFIED] Onset: 2 Chronic Other nervous system disorders (1 source) Circadian rhythm sleep disorder of shift work type; Translations: [Circadian rhythm sleep disorder, shift work type] Chronic Other nervous system disorders (1 source) Circadian rhythm sleep disorder, shift work type Chronic Other nutritional; endocrine; and metabolic disorders (2 sources) Body mass index 40+ - severely obese; Translations: [Body mass index (BMI) 50.0-59.9, adult] 06-03-2021 Chronic Other nutritional; endocrine; and metabolic disorders (1 source) Morbid (severe) obesity due to excess calories; Translations: [MORBID SEVERE OBES D/T EXCESS TAWNYA] Onset: 3 Chronic Other nutritional; endocrine; and metabolic disorders (1 source) Body mass index (BMI) 45.0-49.9, adult; Translations: [BODY MASS INDEX BMI 45.0-49.9 ADULT] Onset: 2 Chronic Other nutritional; endocrine; and metabolic disorders (1 source) Body mass index (BMI) 50.0-59.9, adult Chronic Other nutritional; endocrine; and metabolic disorders (1 source) History of iron deficiency; Translations: [Personal history of other endocrine, nutritional and metabolic disease] Episodic Other nutritional; endocrine; and metabolic disorders (1 source) Personal history of other endocrine, nutritional and metabolic disease Episodic Other upper respiratory disease (1 source) Nasal congestion Episodic Ovarian cyst (1 source) Cyst of ovary 06-01-2021 Episodic Residual codes; unclassified (2 sources) Obstructive sleep apnea syndrome; Translations: [Obstructive sleep apnea (adult) (pediatric)] 06-01-2021 Chronic Residual codes; unclassified (1 source) Sleep apnea, unspecified; Translations: [SLEEP APNEA UNSPECIFIED] Onset: 2 Chronic Residual codes; unclassified (1 source) Sleep apnea; Translations: [Sleep apnea, unspecified] Chronic Residual codes; unclassified (1 source) Obstructive sleep apnea (adult) (pediatric) Chronic Residual codes; unclassified (1 source) Obstructive sleep apnea (adult)(pediatric); Translations: [Obstructive sleep apnea (adult) (pediatric)] Onset: 3 Chronic Residual codes; unclassified (1 source) Bilateral lower limb edema 06-01-2021 Episodic Residual codes; unclassified (1 source) Insomnia 06-01-2021 Episodic Residual codes; unclassified (1 source) Localized edema; Translations: [LOCALIZED EDEMA] Onset: 3 Episodic Residual codes; unclassified (1 source) Other specified health status Episodic Spondylosis; intervertebral disc disorders; other back problems (10 sources) Arthritis of lumbosacral spine; Translations: [Spondylosis without myelopathy or radiculopathy, lumbosacral region] Chronic Sprains and strains (11 sources) Unspecified sprain of left thumb, initial encounter; Translations: [Unspecified sprain of left thumb, subsequent encounter] Onset: 2 Resolved: 2 Episodic Thyroid disorders (4 sources) Hypothyroidism; Translations: [Hypothyroidism, unspecified] Onset: 3 06-01-2021 Chronic Unclassified (1 source) Patient encounter status 06-03-2021 Unclassified (3 sources) LOW BACK PAIN, UNSPECIFIED; Translations: [LOW BACK PAIN, UNSPECIFIED] Onset: 2 Unclassified (4 sources) CONTACT W/AND (SUSP) EXPOS COVID-19; Translations: [CONTACT W/AND (SUSP) EXPOS COVID-19] Onset: 2 Viral infection (1 source) COVID-19; Translations: [COVID-19] Onset: 2 Past or Other Problems Problem Classification Problem Date Documented Date Episodic/Chronic Disorders of teeth and jaw (4 sources) Other specified disorders of teeth and supporting structures; Translations: [OTH SPEC DISORDERS TEETH SUPP STRCT] Onset: 01-06-2022 Episodic Immunizations and screening for infectious disease (1 source) Contact with and (suspected) exposure to other viral communicable diseases Onset: 03-26-2021 Resolved: 03-26-2021 Episodic Other aftercare (1 source) Other termite treater (current) drug therapy; Translations: [OTH HALF-WAY CURRENT DRUG THERAPY] Onset: 02-10-2022 Episodic Other connective tissue disease (1 source) Pain in left finger(s) Onset: 08-08-2021 Resolved: 08-08-2021 Episodic Other connective tissue disease (1 source) Fibromyalgia; Translations: [FIBROMYALGIA] Onset: 02-10-2022 Episodic Other nervous system disorders (1 source) Atypical facial pain; Translations: [ATYPICAL FACIAL PAIN] Onset: 01-07-2022 Episodic Other non-traumatic joint disorders (4 sources) Pain in left shoulder; Translations: [PAIN IN LEFT SHOULDER] Onset: 04-14-2022 Episodic Other screening for suspected conditions (not mental disorders or infectious disease) (4 sources) Encounter for screening mammogram for malignant neoplasm of breast; Translations: [ENC SCR MAMMO MALIG NEOPLASM BREAST] Onset: 11-26-2021 Episodic Residual codes; unclassified (1 source) Family history of malignant neoplasm of trachea, bronchus and lung; Translations: [FAM HX MALIG NEOPLSM TRACH BRON LNG] Onset: 11-27-2021 Episodic Spondylosis; intervertebral disc disorders; other back problems (1 source) Intervertebral disc disorders with radiculopathy, lumbar region; Translations: [IV DISC D/O W/RADICULOPATHY LUMB] Onset: 02-10-2022 Episodic Unclassified (1 source) Contact with and (suspected) exposure to covid-19 Z20.822 Unclassified (1 source) LOW BACK PAIN, UNSPECIFIED; Translations: [LOW BACK PAIN, UNSPECIFIED] Onset: 02-02-2022 Unclassified (1 source) CONTACT W/AND (SUSP) EXPOS COVID-19; Translations: [CONTACT W/AND (SUSP) EXPOS COVID-19] Onset: 01-05-2022 Results Test Name Value Interpretation Reference Range [facility] SARS-CoV-2 (COVID-19) RNA LILIANA+probe Ql (Unsp spec) Not detected Normal NOT DETECTED [facility] Comment on above: Performed By: #### C [facility] #### [facility] [address] [place] [address] Dr. Verenice Smallwood SYMPTOMATIC COVID-19 ANTIGEN on 08-11-2022 EUA Statement SEE BELOW Normal [facility] Comment on above: Result Comment: This test has not been FDA cleared or approved, but has been authorized by the FDA under an Emergency Use Authorization (EUA) for use by authorized laboratories certified under CLIA that meet the requirements to perform moderate or high complexity testing. This test has been authorized only for the detection of proteins from SARS-CoV-2, not for any other viruses or pathogens. The emergency use of this test is authorized for the duration of the declaration that circumstances exist justifying the authorization of emergency use of in vitro diagnostic tests for detection and/or diagnosis of Covid-19 under section 564(b)(1) of the Act, 21 U.S.C. 360bbb-3(b)(1), unless the declaration is terminated or authorization is revoked sooner. Performed By: #### C VDAGS #### [facility] [address] [place] [address] Dr. Verenice Smallwood SARS-CoV-2 (COVID-19) RNA LILIANA+probe Ql (Unsp spec) Negative Normal NEGATIVE [facility] Comment on above: Performed By: #### C VDAGS #### [facility] [address] [place] [address] Dr. Verenice Smallwood XR DEXA BONE DENSITYon 07-12 XR DEXA BONE DENSITY EXAMINATION: XR DEXA BONE DENSITY, 07/12/2022 10:50 AM EDT HISTORY: Vitamin D deficiency COMPARISON: None. TECHNIQUE: Dual-energy X-ray absorptiometry (DEXA) bone density study performed for the axial skeleton. FINDINGS: Bone mineral density AP spine L1-L4 measures 1.417 g/sq cm. T score 2.0. WHO classification: Normal. Lowest bone mineral density right femoral neck measures 1.111 g/sq cm. T score 0.5. WHO classification: Normal IMPRESSION: Normal bone mineral density. Low fracture risk Electronically authenticated by: RAMBO SEVERINO Date: 2022-07-12 18:19 Normal [facility] PHOSPHORUSon 07-02-2022 Phosphate [Mass/Vol] 3.2 mg/dL Normal 2.6-4.7 [facility] Comment on above: Performed By: #### P HOS #### [facility] [address] [place] [address] Dr. Verenice Smallwood PROGESTERONEon 06-29-2022 Progesterone 0.4 ng/mL Normal [facility] [facility] Comment on above: Result Comment: Foll icular phase 0.1 - 0.9 Luteal phase 1.8 - 23.9 Ovulation phase 0.1 - 12.0 First trimester 11.0 - 44.3 Second trimester 25.4 - 83.3 Third trimester 58.7 - 214.0 Postmenopausal 0.0 - 0.1 Performed By: #### C VDTBH #### [facility] [address] [place] [address] Dr. Verenice Smallwood PTH INTACTon 06-29-2022 PTH, Intact 35 pg/mL Normal 15-65 [facility] Comment on above: Performed By: #### C RP, BMP #### [facility] [address] [place] [address] Dr. Verenice Smallwood CBC AUTO DIFFon 06-09-2022 BASO # 0.1 103/ul Normal 0.0-0.1 [facility] Comment on above: Performed By: #### C BC #### [facility] [address] [place] [address] Dr. Verenice Smallwood Basophils/100 WBC (Bld) 0.7 % Normal 0.2-2.0 [facility] Comment on above: Performed By: #### C BC #### [facility] [address] [place] [address] Dr. Verenice Smallwood EO # 0.1 103/ul Normal 0.0-0.7 [facility] Comment on above: Performed By: #### C BC #### [facility] [address] [place] [address] Dr. Verenice Smallwood Eosinophils/100 WBC (Bld) 1.6 % Normal 0.9-7.0 [facility] Comment on above: Performed By: #### C BC #### [facility] [address] [place] [address] Dr. Verenice Smallwood Erythrocyte distribution width (RBC) [Ratio] 12.9 % Normal 11.0-15.0 [facility] Comment on above: Performed By: #### C BC #### [facility] [address] [place] [address] Dr. Verenice Smallwood Hematocrit (Bld) [Volume fraction] 44.6 % Normal 36.0-48.0 [facility] Comment on above: Performed By: #### C BC #### [facility] [address] [place] [address] Dr. Verenice Smallwood Hemoglobin (Bld) [Mass/Vol] 14.6 g/dL Normal 12.0-16.0 [facility] Comment on above: Performed By: #### C BC #### [facility] [address] [place] [address] Dr. Verenice Smallwood IG # 0.10 10e3/ul Critically high 0.00-0.03 [facility] Comment on above: Performed By: #### C BC #### [facility] [address] [place] [address] Dr. Verenice Smallwood IG % 1.1 % Critically high 0.0-0.5 [facility] Comment on above: Performed By: #### C BC #### [facility] [address] [place] [address] Dr. Verenice Smallwood LYMPH # 2.4 103/ul Normal 1.2-3.8 [facility] Comment on above: Performed By: #### C BC #### [facility] [address] [place] [address] Dr. Verenice Smallwood Lymphocytes/100 WBC (Bld) 27.3 % Normal 20.5-60.0 [facility] Comment on above: Performed By: #### C BC #### [facility] [address] [place] [address] Dr. Verenice Smallwood MANUAL DIFF REQ NO Normal [facility] Comment on above: Performed By: #### C BC #### [facility] [address] [place] [address] Dr. Verenice Smallwood MCH (RBC) [Entitic mass] 30.2 pg Normal 26.7-34.0 [facility] Comment on above: Performed By: #### C BC #### [facility] [address] [address] [address] Verenice Smallwood MCHC (RBC) [Mass/Vol] 32.7 g/dL Normal 29.9-35.2 [facility] Comment on above: Performed By: #### C BC #### [facility] [address] [address] [address] Verenice Smallwood MCV (RBC) [Entitic vol] 92.1 fL Normal 81.0-99.0 [facility] Comment on above: Performed By: #### C BC #### [facility] [address] [place] [address] Dr. Verenice Smallwood MONO # 0.6 103/ul Normal 0.3-0.8 [facility] Comment on above: Performed By: #### C BC #### [facility] [address] [place] [address] Dr. Verenice Smallwood Monocytes/100 WBC (Bld) 6.3 % Normal 1.7-12.0 [facility] Comment on above: Performed By: #### C BC #### [facility] [address] [place] [address] Dr. Verenice Smallwood NEUT # 5.5 103/ul Normal 1.4-6.5 [facility] Comment on above: Performed By: #### C BC #### [facility] [address] [place] [address] Dr. Verenice Smallwood Neutrophils/100 WBC (Bld) 63.0 % Normal 43.0-75.0 [facility] Comment on above: Performed By: #### C BC #### [facility] [address] [place] [address] Dr. Verenice Smallwood Platelet mean volume (Bld) [Entitic vol] 8.4 fL Critically low 9.5-13.5 [facility] Comment on above: Performed By: #### C BC #### [facility] [address] [place] [address] Dr. Verenice Smallwood PLT 300 103/ul Normal 150-450 [facility] Comment on above: Performed By: #### C BC #### [facility] [address] [place] [address] Dr. Verenice Smallwood RBC 4.84 106/ul Normal 4.20-5.40 [facility] Comment on above: Performed By: #### C BC #### [facility] [address] [place] [address] Dr. Verenice Smallwood WBC 8.8 103/ul Normal 4.0-11.0 [facility] Comment on above: Performed By: #### C BC #### [facility] [address] [place] [address] Dr. Verenice Smallwood FREE T4on 06-09-2022 Free T4 [Mass/Vol] 1.08 ng/dL Normal 0.76-1.46 [facility] Comment on above: Performed By: #### C RP, BMP #### [facility] [address] [place] [address] Dr. Verenice Smallwood GLYCOHEMOGLOBIN A1Con 2022 ADA RECOMMENDATION SEE BELOW Normal [facility] Comment on above: Result Comment: ADA RECOMMENDED LIMIT 4.0 - 6.0 ADA THERAPEUTIC TARGET < 7.0 ACTION SUGGESTED > 7.0 Performed By: #### C BC #### [facility] [address] [place] [address] Dr. Verenice Smallwood Glucose [Mass/Vol] 123 mg/dL Normal [facility] Comment on above: Performed By: #### C BC #### [facility] [address] [place] [address] Dr. Verenice Smallwood HbA1c (Bld) [Mass fraction] 5.9 % Normal 4.5-6.2 [facility] Comment on above: Performed By: #### C BC #### [facility] [address] [place] [address] Dr. Verenice Smallwood LIPID PROFILEon 06-09-2022 CHOL-HDL RATIO NORM SEE BELOW Normal [facility] Comment on above: Result Comment: 3.3 - 4.4 LOW RISK 4.4 - 7.1 AVERAGE RISK 7.1 - 11.0 MODERATE RISK >11.0 HIGH RISK Performed By: #### C BC #### [facility] [address] [place], [place] [address] Dr. Verenice Smallwood Cholesterol [Mass/Vol] 255 mg/dL Critically high <=200 [facility] Comment on above: Performed By: #### C BC #### [facility] [address] [place], [place] [address] Dr. Verenice Smallwood Cholesterol in HDL [Mass/Vol] 56 mg/dL Normal 40-60 [facility] Comment on above: Performed By: #### C BC #### [facility] [address] [address] [address] Verenice Smallwood Cholesterol in LDL [Mass/Vol] 144.6 mg/dL Normal [facility] Comment on above: Performed By: #### C BC #### [facility] [address] [address] [address] Verenice Smallwood Cholesterol.total /Cholesterol in HDL [Mass ratio] 4.6 {ratio} Normal [facility] Comment on above: Performed By: #### C BC #### [facility] [address] [address] [address] Verenice Smallwood HDL NORMAL > or = 60 mg/dl - LO W CARDIOVASCULAR RISK <40 mg/dl - HIGH CARDIOVASCULAR RISK Normal [facility] Comment on above: Performed By: #### C BC #### [facility] [address] [id number] Verenice Smallwood LDL CALC NORMAL SEE BELOW Normal [facility] Comment on above: Result Comment: <100 mg/dl OPTIMAL 100 - 129 mg/dl NEAR OR ABOVE OPTIMAL 130 - 159 mg/dl BORDERLINE HIGH 160 - 189 mg/dl HIGH >190 mg/dl VERY HIGH Performed By: #### C BC #### [facility] [address] [id number] Verenice Smallwood Triglyceride [Mass/Vol] 272 mg/dL Critically high <=150 [facility] Comment on above: Performed By: #### C BC #### [facility] [address] [id number] Verenice Smallwood VLDL CALC 54.4 mg/dL Normal [facility] Comment on above: Performed By: #### C BC #### [facility] [address] [place] [address] Dr. Verenice Smallwood PROF 14(COMP METB)on 023 Albumin [Mass/Vol] 3.7 g/dL Normal 3.4-5.0 [facility] Comment on above: Performed By: #### C BC #### [facility] [address] [place] [address] Dr. Verenice Smallwood Albumin/Globulin [Mass ratio] 0.9 {ratio} Normal [facility] Comment on above: Performed By: #### C BC #### [facility] [address] [place] [address] Dr. Verenice Smallwood ALP [Catalytic activity/Vol] 80 U/L Normal 46-116 [facility] Comment on above: Performed By: #### C BC #### [facility] [address] [place] [address] Dr. Verenice Smallwood ALT [Catalytic activity/Vol] 29 U/L Normal 14-59 [facility] Comment on above: Performed By: #### C BC #### [facility] [address] [place] [address] Dr. Verenice Smallwood Anion gap [Moles/Vol] 13.4 mmol/L Normal [facility] Comment on above: Performed By: #### C BC #### [facility] [address] [place] [address] Dr. Verenice Smallwood AST [Catalytic activity/Vol] 24 U/L Normal 15-37 [facility] Comment on above: Performed By: #### C BC #### [facility] [address] [place] [address] Dr. Verenice Smallwood Bilirubin [Mass/Vol] 0.2 mg/dL Normal 0.2-1.0 [facility] Comment on above: Performed By: #### C BC #### [facility] [address] [place] [address] Dr. Verenice Smallwood Calcium [Mass/Vol] 9.7 mg/dL Normal 8.5-10.1 [facility] Comment on above: Performed By: #### C BC #### [facility] [address] [place] [address] Dr. Verenice Smallwood Chloride [Moles/Vol] 104 mmol/L Normal 98-107 [facility] Comment on above: Performed By: #### C BC #### [facility] [address] [place] [address] Dr. Verenice Smallwood CO2 [Moles/Vol] 25.4 mmol/L Normal 21.0-32.0 [facility] Comment on above: Performed By: #### C BC #### [facility] [address] [place] [address] Dr. Verenice Smallwood Creatinine [Mass/Vol] 0.77 mg/dL Normal 0.55-1.02 [facility] Comment on above: Performed By: #### C BC #### [facility] [address] [place] [address] Dr. Verenice Smallwood EGFR-AF SLOVENIAN >60 Normal >=60 [facility] Comment on above: Performed By: #### C BC #### [facility] [address] [place] [address] Dr. Verenice Smallwood EGFR-NON AF SLOVENIAN >60 Normal >=60 [facility] Comment on above: Performed By: #### C BC #### [facility] [address] [place] [address] Dr. Verenice Smallwood Globulin (S) [Mass/Vol] 4.1 g/dL Normal [facility] Comment on above: Performed By: #### C BC #### [facility] [address] [place] [address] Dr. Verenice Smallwood Glucose [Mass/Vol] 110 mg/dL Critically high 74-106 [facility] Comment on above: Performed By: #### C BC #### [facility] [address] [place] [address] Dr. Verenice Smallwood Potassium [Moles/Vol] 4.8 mmol/L Normal 3.5-5.1 [facility] Comment on above: Performed By: #### C BC #### [facility] [address] [place] [address] Dr. Verenice Smallwood Protein [Mass/Vol] 7.8 g/dL Normal 6.4-8.2 [facility] Comment on above: Performed By: #### C BC #### [facility] [address] [place] [address] Dr. Verenice Smallwood Sodium [Moles/Vol] 138 mmol/L Normal 136-145 [facility] Comment on above: Performed By: #### C BC #### [facility] [address] [place] [address] Dr. Verenice Smallwood Urea nitrogen [Mass/Vol] 15.0 mg/dL Normal 7.0-18.0 [facility] Comment on above: Performed By: #### C BC #### [facility] [address] [place] [address] Dr. Verenice Smallwood Urea nitrogen/Creatini ne [Mass ratio] 19.5 mg/mg Normal [facility] Comment on above: Performed By: #### C BC #### [facility] [address] [place] [address] Dr. Verenice Smallwood TSHon 06-09-2022 TSH 1.964 uIU/mL Normal 0.358-3.740 [facility] Comment on above: Performed By: #### C BC #### [facility] [address] [place] [address] Dr. Verenice Smallwood UA RANDOM W/MICROSCOPICon BACTERIA TRACE Abnormal NONE SEEN [facility] Comment on above: Performed By: #### C BC #### [facility] [address] [place] [address] Dr. Verenice Smallwood Bilirubin Ql (U) Negative Normal NEGATIVE [facility] Comment on above: Performed By: #### C BC #### [facility] [address] [place] [address] Dr. Verenice Smallwood CAST NONE SEEN Normal NONE SEEN [facility] Comment on above: Performed By: #### C BC #### [facility] [address] [place] [address] Dr. Verenice Smallwood Clarity (U) CLEAR Normal CLEAR [facility] Comment on above: Performed By: #### C BC #### [facility] [address] [place] [address] Dr. Verenice Smallwood Color (U) LT. YELLOW Normal YELLOW [facility] Comment on above: Performed By: #### C BC #### [facility] [address] [place] [address] Dr. Verenice Smallwood Crystals LM Nom (Urine sed) NONE SEEN Normal NONE SEEN [facility] Comment on above: Performed By: #### C BC #### [facility] [address] [place] [address] Dr. Verenice Smallwood Epithelial cells LM Ql (Urine sed) FEW Abnormal NONE SEEN /RARE [facility] Comment on above: Performed By: #### C BC #### [facility] [address] [place] [address] Dr. Verenice Smallwood Glucose Ql (U) Negative Normal NEGATIVE [facility] Comment on above: Performed By: #### C BC #### [facility] [address] [place] [address] Dr. Verenice Smallwood Hemoglobin Ql (U) Negative Normal NEGATIVE [facility] Comment on above: Performed By: #### C BC #### [facility] [address] [place] [address] Dr. Verenice Smallwood Ketones Ql (U) Negative Normal NEGATIVE [facility] Comment on above: Performed By: #### C BC #### [facility] [address] [place] [address] Dr. Verenice Smallwood LEUKOCYTES Negative Normal NEGATIVE [facility] Comment on above: Performed By: #### C BC #### [facility] [address] [place] [address] Dr. Verenice Smallwood MUCOUS NONE SEEN Normal NONE SEEN [facility] Comment on above: Performed By: #### C BC #### [facility] [address] [place] [address] Dr. Verenice Smallwood Nitrite Ql (U) Negative Normal NEGATIVE [facility] Comment on above: Performed By: #### C BC #### [facility] [address] [place] [address] Dr. Verenice Smallwood pH (U) 6.0 [pH] Normal 5-9 [facility] Comment on above: Performed By: #### C BC #### [facility] [address] [place] [address] Dr. Verenice Smallwood RBC NONE SEEN Abnormal 0-2 [facility] Comment on above: Performed By: #### C BC #### [facility] [address] [place] [address] Dr. Verenice Smallwood SPEC GRAVITY 1.025 Normal 1.005-<=1.0 25 [facility] Comment on above: Performed By: #### C BC #### [facility] [address] [place] [address] Dr. Verenice Smallwood UA PROTEIN Negative Normal NEGATIVE/ TRACE [facility] Comment on above: Performed By: #### C BC #### [facility] [address] [place] [address] Dr. Verenice Smallwood Urobilinogen Qn (U) 0.2 {Brett'U}/dL Normal 0.2 - 1.0 [facility] Comment on above: Performed By: #### C BC #### [facility] [address] [place] [address] Dr. Verenice Smallwood WBC NONE SEEN Normal NONE SEEN [facility] Comment on above: Performed By: #### C BC #### [facility] [address] [place] [address] Dr. Verenice Smallwood VITAMIN D 25 OHon 06-09-2022 VIT D 25-OH 23.2 ng/mL Normal [facility] Comment on above: Performed By: #### C RP, BMP #### [facility] [address] [place] [address] Dr. Verenice Smallwood VIT D RANGES SEE BELOW Normal [facility] Comment on above: Result Comment: <20 ng/mL Vit D deficient 20 - <30 ng/mL Vit D insufficient 30 - 100 ng/mL Vit D sufficient >100 ng/mL Potential Toxicity Performed By: #### C RP, BMP #### [facility] [address] [place] [address] Dr. Verenice Smallwood COVID + FLU Quick Testingon 05-24-2022 SARS-CoV-2 (COVID-19) RNA LILIANA+probe Ql (Unsp spec) Negative [facility] [employer] Other COVID + FLU Quick Testing Negative [facility] [employer] Other CBC AUTO DIFFon 02-04-2022 BASO # 0.1 103/ul Normal 0.0-0.1 [facility] Comment on above: Performed By: #### C RP, BMP #### [facility] [address] [place] [address] Dr. Verenice Smallwood Basophils/100 WBC (Bld) 0.4 % Normal 0.2-2.0 [facility] Comment on above: Performed By: #### C RP, BMP #### [facility] [address] [place] [address] Dr. Verenice Smallwood EO # 0.0 103/ul Normal 0.0-0.7 [facility] Comment on above: Performed By: #### C RP, BMP #### [facility] [address] [place] [address] Dr. Verenice Smallwood Eosinophils/100 WBC (Bld) 0.1 % Critically low 0.9-7.0 [facility] Comment on above: Performed By: #### C RP, BMP #### [facility] [address] [place] [address] Dr. Verenice Smallwood Erythrocyte distribution width (RBC) [Ratio] 14.2 % Normal 11.0-15.0 [facility] Comment on above: Performed By: #### C RP, BMP #### [facility] [address] [place] [address] Dr. Verenice Smallwood Hematocrit (Bld) [Volume fraction] 41.6 % Normal 36.0-48.0 [facility] Comment on above: Performed By: #### C RP, BMP #### [facility] [address] [place] [address] Dr. Verenice Smallwood Hemoglobin (Bld) [Mass/Vol] 13.6 g/dL Normal 12.0-16.0 [facility] Comment on above: Performed By: #### C RP, BMP #### [facility] [address] [address] [address] Verenice Smallwood IG # 0.38 10e3/ul Critically high 0.00-0.03 [facility] Comment on above: Performed By: #### C RP, BMP #### [facility] [address] [address] [address] Verenice Smallwood IG % 2.6 % Critically high 0.0-0.5 [facility] Comment on above: Performed By: #### C RP, BMP #### [facility] [address] [place] [address] Dr. Verenice Smallwood LYMPH # 1.5 103/ul Normal 1.2-3.8 [facility] Comment on above: Performed By: #### C RP, BMP #### [facility] [address] [place] [address] Dr. Verenice Smallwood Lymphocytes/100 WBC (Bld) 10.6 % Critically low 20.5-60.0 [facility] Comment on above: Performed By: #### C RP, BMP #### [facility] [address] [place] [address] Dr. Verenice Smallwood MANUAL DIFF REQ NO Normal [facility] Comment on above: Performed By: #### C RP, BMP #### [facility] [address] [place] [address] Dr. Verenice Smallwood MCH (RBC) [Entitic mass] 29.5 pg Normal 26.7-34.0 [facility] Comment on above: Performed By: #### C RP, BMP #### [facility] [address] [place] [address] Dr. Verenice Smallwood MCHC (RBC) [Mass/Vol] 32.7 g/dL Normal 29.9-35.2 [facility] Comment on above: Performed By: #### C RP, BMP #### [facility] [address] [place] [address] Dr. Verenice Smallwood MCV (RBC) [Entitic vol] 90.2 fL Normal 81.0-99.0 [facility] Comment on above: Performed By: #### C RP, BMP #### [facility] [address] [place] [address] Dr. Verenice Smallwood MONO # 0.3 103/ul Normal 0.3-0.8 [facility] Comment on above: Performed By: #### C RP, BMP #### [facility] [address] [place] [address] Dr. Verenice Smallwood Monocytes/100 WBC (Bld) 2.3 % Normal 1.7-12.0 [facility] Comment on above: Performed By: #### C RP, BMP #### [facility] [address] [place] [address] Dr. Verenice Smallwood NEUT # 12.2 103/ul Critically high 1.4-6.5 [facility] Comment on above: Performed By: #### C RP, BMP #### [facility] [address] [place] [address] Dr. Verenice Smallwood Neutrophils/100 WBC (Bld) 84.0 % Critically high 43.0-75.0 [facility] Comment on above: Performed By: #### C RP, BMP #### [facility] [address] [place] [address] Dr. Verenice Smallwood Platelet mean volume (Bld) [Entitic vol] 8.4 fL Critically low 9.5-13.5 [facility] Comment on above: Performed By: #### C RP, BMP #### [facility] [address] [place] [address] Dr. Verenice Smallwood PLT 337 103/ul Normal 150-450 [facility] Comment on above: Performed By: #### C RP, BMP #### [facility] [address] [place] [address] Dr. Verenice Smallwood RBC 4.61 106/ul Normal 4.20-5.40 [facility] Comment on above: Performed By: #### C RP, BMP #### [facility] [address] [place] [address] Dr. Verenice Smallwood WBC 14.5 103/ul Critically high 4.0-11.0 [facility] Comment on above: Performed By: #### C RP, BMP #### [facility] [address] [address] [address] Verenice Smallwood CRPon 02-04-2022 CRP [Mass/Vol] mg/L Normal <=1.0 [facility] Comment on above: Performed By: #### C BC #### [facility] [address] [place] [address] Dr. Verenice Smallwood PROF 14(COMP METB)on 022 Albumin [Mass/Vol] 3.0 g/dL Critically low 3.4-5.0 [facility] Comment on above: Performed By: #### C BC #### [facility] [address] [place] [address] Dr. eVrenice Smallwood Albumin/Globulin [Mass ratio] 0.8 {ratio} Normal [facility] Comment on above: Performed By: #### C BC #### [facility] [address] [place] [address] Dr. Verenice Smallwood ALP [Catalytic activity/Vol] 65 U/L Normal 46-116 [facility] Comment on above: Performed By: #### C BC #### [facility] [address] [place] [address] Dr. Verenice Smallwood ALT [Catalytic activity/Vol] 18 U/L Normal 14-59 [facility] Comment on above: Performed By: #### C BC #### [facility] [address] [place] [address] Dr. Verenice Smallwood Anion gap [Moles/Vol] 12.3 mmol/L Normal [facility] Comment on above: Performed By: #### C BC #### [facility] [address] [place] [address] Dr. Verenice Smallwood AST [Catalytic activity/Vol] 11 U/L Critically low 15-37 [facility] Comment on above: Performed By: #### C BC #### [facility] [address] [place] [address] Dr. Verenice Smallwood Bilirubin [Mass/Vol] 0.1 mg/dL Critically low 0.2-1.0 [facility] Comment on above: Performed By: #### C BC #### [facility] [address] [address] [address] Verenice Smallwood Calcium [Mass/Vol] 8.7 mg/dL Normal 8.5-10.1 [facility] Comment on above: Performed By: #### C BC #### [facility] [address] [address] [address] Verenice Smallwood Chloride [Moles/Vol] 101 mmol/L Normal 98-107 [facility] Comment on above: Performed By: #### C BC #### [facility] [address] [address] [address] Verenice Smallwood CO2 [Moles/Vol] 23.1 mmol/L Normal 21.0-32.0 [facility] Comment on above: Performed By: #### C BC #### [facility] [address] [place] [address] Dr. Verenice Smallwood Creatinine [Mass/Vol] 0.92 mg/dL Normal 0.55-1.02 [facility] Comment on above: Performed By: #### C BC #### [facility] [address] [place] [address] Dr. Verenice Smallwood EGFR-AF SLOVENIAN >60 Normal >=60 [facility] Comment on above: Performed By: #### C BC #### [facility] [address] [place] [address] Dr. Verenice Smallwood EGFR-NON AF SLOVENIAN >60 Normal >=60 [facility] Comment on above: Performed By: #### C BC #### [facility] [address] [address] [address] Verenice Smallwood Globulin (S) [Mass/Vol] 3.8 g/dL Normal [facility] Comment on above: Performed By: #### C BC #### [facility] [address] [place] [address] Dr. Verenice Smallwood Glucose [Mass/Vol] 161 mg/dL Critically high 74-106 [facility] Comment on above: Performed By: #### C BC #### [facility] [address] [place] [address] Dr. Verenice Smallwood Potassium [Moles/Vol] 4.4 mmol/L Normal 3.5-5.1 [facility] Comment on above: Performed By: #### C BC #### [facility] [address] [place] [address] Dr. Verenice Smallwood Protein [Mass/Vol] 6.8 g/dL Normal 6.4-8.2 [facility] Comment on above: Performed By: #### C BC #### [facility] [address] [place] [address] Dr. Verenice Smallwood Sodium [Moles/Vol] 132 mmol/L Critically low 136-145 [facility] Comment on above: Performed By: #### C BC #### [facility] [address] [place] [address] Dr. Verenice Smallwood Urea nitrogen [Mass/Vol] 25.0 mg/dL Critically high 7.0-18.0 [facility] Comment on above: Performed By: #### C BC #### [facility] [address] [place] [address] Dr. Verenice Smallwood Urea nitrogen/Creatini ne [Mass ratio] 27.2 mg/mg Normal [facility] Comment on above: Performed By: #### C BC #### [facility] [address] [place] [address] Dr. Verenice Smallwood CBC AUTO DIFFon 02-03-2022 BASO # 0.0 103/ul Normal 0.0-0.1 [facility] Comment on above: Performed By: #### C BC #### [facility] [address] [place] [address] Dr. Verenice Smallwood Basophils/100 WBC (Bld) 0.3 % Normal 0.2-2.0 [facility] Comment on above: Performed By: #### C BC #### [facility] [address] [place] [address] Dr. Verenice Smallwood EO # 0.0 103/ul Normal 0.0-0.7 [facility] Comment on above: Performed By: #### C BC #### [facility] [address] [place] [address] Dr. Verenice Smallwood Eosinophils/100 WBC (Bld) 0.0 % Critically low 0.9-7.0 [facility] Comment on above: Performed By: #### C BC #### [facility] [address] [place] [address] Dr. Verenice Smallwood Erythrocyte distribution width (RBC) [Ratio] 13.6 % Normal 11.0-15.0 [facility] Comment on above: Performed By: #### C BC #### [facility] [address] [place] [address] Dr. Verenice Smallwood Hematocrit (Bld) [Volume fraction] 40.5 % Normal 36.0-48.0 [facility] Comment on above: Performed By: #### C BC #### [facility] [address] [place] [address] Dr. Verenice Smallwood Hemoglobin (Bld) [Mass/Vol] 13.4 g/dL Normal 12.0-16.0 [facility] Comment on above: Performed By: #### C BC #### [facility] [address] [place] [address] Dr. Verenice Smallwood IG # 0.24 10e3/ul Critically high 0.00-0.03 [facility] Comment on above: Performed By: #### C BC #### [facility] [address] [place] [address] Dr. Verenice Smallwood IG % 2.0 % Critically high 0.0-0.5 [facility] Comment on above: Performed By: #### C BC #### [facility] [address] [place] [address] Dr. Verenice Smallwood LYMPH # 1.5 103/ul Normal 1.2-3.8 [facility] Comment on above: Performed By: #### C BC #### [facility] [address] [place] [address] Dr. Verenice Smallwood Lymphocytes/100 WBC (Bld) 12.3 % Critically low 20.5-60.0 [facility] Comment on above: Performed By: #### C BC #### [facility] [address] [place] [address] Dr. Verenice Smallwood MANUAL DIFF REQ NO Normal [facility] Comment on above: Performed By: #### C BC #### [facility] [address] [place] [address] Dr. Verneice Smallwood MCH (RBC) [Entitic mass] 29.8 pg Normal 26.7-34.0 [facility] Comment on above: Performed By: #### C BC #### [facility] [address] [place] [address] Dr. Verenice Smallwood MCHC (RBC) [Mass/Vol] 33.1 g/dL Normal 29.9-35.2 [facility] Comment on above: Performed By: #### C BC #### [facility] [address] [place] [address] Dr. Verenice Smallwood MCV (RBC) [Entitic vol] 90.2 fL Normal 81.0-99.0 [facility] Comment on above: Performed By: #### C BC #### [facility] [address] [place] [address] Dr. Verenice Smallwood MONO # 0.2 103/ul Critically low 0.3-0.8 [facility] Comment on above: Performed By: #### C BC #### [facility] [address] [place] [address] Dr. Verenice Smallwood Monocytes/100 WBC (Bld) 1.5 % Critically low 1.7-12.0 [facility] Comment on above: Performed By: #### C BC #### [facility] [address] [place] [address] Dr. Verenice Smallwood NEUT # 10.0 103/ul Critically high 1.4-6.5 [facility] Comment on above: Performed By: #### C BC #### [facility] [address] [place] [address] Dr. Verenice Smallwood Neutrophils/100 WBC (Bld) 83.9 % Critically high 43.0-75.0 [facility] Comment on above: Performed By: #### C BC #### [facility] [address] [place] [address] Dr. Verenice Smallwood Platelet mean volume (Bld) [Entitic vol] 8.5 fL Critically low 9.5-13.5 [facility] Comment on above: Performed By: #### C BC #### [facility] [address] [place] [address] Dr. Verenice Smallwood PLT 309 103/ul Normal 150-450 [facility] Comment on above: Performed By: #### C BC #### [facility] [address] [place] [address] Dr. Verenice Smallwood RBC 4.49 106/ul Normal 4.20-5.40 [facility] Comment on above: Performed By: #### C BC #### [facility] [address] [place] [address] Dr. Verenice Smallwood WBC 11.9 103/ul Critically high 4.0-11.0 [facility] Comment on above: Performed By: #### C BC #### [facility] [address] [place] [address] Dr. Verenice Smallwood CRPon 02-03-2022 CRP [Mass/Vol] mg/L Normal <=1.0 [facility] Comment on above: Performed By: #### C MP, CRP #### [facility] [address] [place] [address] Dr. Verenice Smallwood PROF 14(COMP METB)on 022 Albumin [Mass/Vol] 3.1 g/dL Critically low 3.4-5.0 [facility] Comment on above: Performed By: #### C MP, CRP #### [facility] [address] [place] [address] Dr. Verenice Smallwood Albumin/Globulin [Mass ratio] 0.8 {ratio} Normal [facility] Comment on above: Performed By: #### C MP, CRP #### [facility] [address] [place] [address] Dr. Verenice Smallwood ALP [Catalytic activity/Vol] 66 U/L Normal 46-116 [facility] Comment on above: Performed By: #### C MP, CRP #### [facility] [address] [place] [address] Dr. Verenice Smallwood ALT [Catalytic activity/Vol] 22 U/L Normal 14-59 [facility] Comment on above: Performed By: #### C MP, CRP #### [facility] [address] [place] [address] Dr. Verenice Smallwood Anion gap [Moles/Vol] 11.4 mmol/L Normal [facility] Comment on above: Performed By: #### C MP, CRP #### [facility] [address] [address] [address] Verenice Smallwood AST [Catalytic activity/Vol] 11 U/L Critically low 15-37 [facility] Comment on above: Performed By: #### C MP, CRP #### [facility] [address] [place] [address] Dr. Verenice Smallwood Bilirubin [Mass/Vol] 0.1 mg/dL Critically low 0.2-1.0 [facility] Comment on above: Performed By: #### C MP, CRP #### [facility] [address] [place] [address] Dr. Verenice Smallwood Calcium [Mass/Vol] 8.9 mg/dL Normal 8.5-10.1 [facility] Comment on above: Performed By: #### C MP, CRP #### [facility] [address] [place] [address] Dr. Verenice Smallwood Chloride [Moles/Vol] 102 mmol/L Normal 98-107 [facility] Comment on above: Performed By: #### C MP, CRP #### [facility] [address] [place] [address] Dr. Verenice Smallwood CO2 [Moles/Vol] 22.0 mmol/L Normal 21.0-32.0 [facility] Comment on above: Performed By: #### C MP, CRP #### [facility] [address] [place] [address] Dr. Verenice Smallwood Creatinine [Mass/Vol] 0.84 mg/dL Normal 0.55-1.02 [facility] Comment on above: Performed By: #### C MP, CRP #### [facility] [address] [place] [address] Dr. Verenice Smallwood EGFR-AF SLOVENIAN >60 Normal >=60 [facility] Comment on above: Performed By: #### C MP, CRP #### [facility] [address] [place] [address] Dr. Verenice Smallwood EGFR-NON AF SLOVENIAN >60 Normal >=60 [facility] Comment on above: Performed By: #### C MP, CRP #### [facility] [address] [address] [address] Verenice Smallwood Globulin (S) [Mass/Vol] 4.0 g/dL Normal [facility] Comment on above: Performed By: #### C MP, CRP #### [facility] [address] [address] [address] Verenice Smallwood Glucose [Mass/Vol] 158 mg/dL Critically high 74-106 [facility] Comment on above: Performed By: #### C MP, CRP #### [facility] [address] [address] [address] Verenice Smallwood Potassium [Moles/Vol] 4.4 mmol/L Normal 3.5-5.1 [facility] Comment on above: Performed By: #### C MP, CRP #### [facility] [address] [place] [address] Dr. Verenice Smallwood Protein [Mass/Vol] 7.1 g/dL Normal 6.4-8.2 [facility] Comment on above: Performed By: #### C MP, CRP #### [facility] [address] [place] [address] Dr. Verenice Smallwood Sodium [Moles/Vol] 131 mmol/L Critically low 136-145 [facility] Comment on above: Performed By: #### C MP, CRP #### [facility] [address] [address] [address] Verenice Smallwood Urea nitrogen [Mass/Vol] 20.0 mg/dL Critically high 7.0-18.0 [facility] Comment on above: Performed By: #### C MP, CRP #### [facility] [address] [address] [address] Verenice Smallwood Urea nitrogen/Creatini ne [Mass ratio] 23.8 mg/mg Normal [facility] Comment on above: Performed By: #### C MP, CRP #### [facility] [address] [place] [address] Dr. Verenice Smallwood CBC AUTO DIFFon 02-02-2022 BASO # 0.1 103/ul Normal 0.0-0.1 [facility] Comment on above: Performed By: #### C BC #### [facility] [address] [place] [address] Dr. Verenice Smallwood Basophils/100 WBC (Bld) 0.5 % Normal 0.2-2.0 [facility] Comment on above: Performed By: #### C BC #### [facility] [address] [place] [address] Dr. Verenice Smallwood EO # 0.1 103/ul Normal 0.0-0.7 [facility] Comment on above: Performed By: #### C BC #### [facility] [address] [place] [address] Dr. Verenice Smallwood Eosinophils/100 WBC (Bld) 1.2 % Normal 0.9-7.0 [facility] Comment on above: Performed By: #### C BC #### [facility] [address] [place] [address] Dr. Verenice Smallwood Erythrocyte distribution width (RBC) [Ratio] 14.3 % Normal 11.0-15.0 [facility] Comment on above: Performed By: #### C BC #### [facility] [address] [place] [address] Dr. Verenice Smallwood Hematocrit (Bld) [Volume fraction] 41.1 % Normal 36.0-48.0 [facility] Comment on above: Performed By: #### C BC #### [facility] [address] [place] [address] Dr. Verenice Smallwood Hemoglobin (Bld) [Mass/Vol] 13.7 g/dL Normal 12.0-16.0 [facility] Comment on above: Performed By: #### C BC #### [facility] [address] [place] [address] Dr. Verenice Smallwood IG # 0.16 10e3/ul Critically high 0.00-0.03 [facility] Comment on above: Performed By: #### C BC #### [facility] [address] [place] [address] Dr. Verenice Smallwood IG % 1.6 % Critically high 0.0-0.5 [facility] Comment on above: Performed By: #### C BC #### [facility] [address] [place] [address] Dr. Verenice Smallwood LYMPH # 3.1 103/ul Normal 1.2-3.8 [facility] Comment on above: Performed By: #### C BC #### [facility] [address] [place] [address] Dr. Verenice Smallwood Lymphocytes/100 WBC (Bld) 30.2 % Normal 20.5-60.0 [facility] Comment on above: Performed By: #### C BC #### [facility] [address] [place] [address] Dr. Verenice Smallwood MANUAL DIFF REQ NO Normal [facility] Comment on above: Performed By: #### C BC #### [facility] [address] [place] [address] Dr. Verenice Smallwood MCH (RBC) [Entitic mass] 30.2 pg Normal 26.7-34.0 [facility] Comment on above: Performed By: #### C BC #### [facility] [address] [place] [address] Dr. Verenice Smallwood MCHC (RBC) [Mass/Vol] 33.3 g/dL Normal 29.9-35.2 [facility] Comment on above: Performed By: #### C BC #### [facility] [address] [place] [address] Dr. Verenice Smallwood MCV (RBC) [Entitic vol] 90.5 fL Normal 81.0-99.0 [facility] Comment on above: Performed By: #### C BC #### [facility] [address] [place] [address] Dr. Verenice Smallwood MONO # 0.5 103/ul Normal 0.3-0.8 [facility] Comment on above: Performed By: #### C BC #### [facility] [address] [place] [address] Dr. Verenice Smallwood Monocytes/100 WBC (Bld) 4.7 % Normal 1.7-12.0 [facility] Comment on above: Performed By: #### C BC #### [facility] [address] [place] [address] Dr. Verenice Smallwood NEUT # 6.3 103/ul Normal 1.4-6.5 [facility] Comment on above: Performed By: #### C BC #### [facility] [address] [place] [address] Dr. Verenice Smallwood Neutrophils/100 WBC (Bld) 61.8 % Normal 43.0-75.0 [facility] Comment on above: Performed By: #### C BC #### [facility] [address] [place] [address] Dr. Verenice Smallwood Platelet mean volume (Bld) [Entitic vol] 8.6 fL Critically low 9.5-13.5 [facility] Comment on above: Performed By: #### C BC #### [facility] [address] [place] [address] Dr. Verenice Smallwood PLT 313 103/ul Normal 150-450 [facility] Comment on above: Performed By: #### C BC #### [facility] [address] [place] [address] Dr. Verenice Smallwood RBC 4.54 106/ul Normal 4.20-5.40 [facility] Comment on above: Performed By: #### C BC #### [facility] [address] [place] [address] Dr. Verenice Smallwood WBC 10.1 103/ul Normal 4.0-11.0 [facility] Comment on above: Performed By: #### C BC #### [facility] [address] [place] [address] Dr. Verenice Smallowod CRPon 02-02-2022 CRP 0.3 mg/dL Normal <=1.0 [facility] Comment on above: Performed By: #### C RP, [facility] #### [facility] [address] [address] [address] LSPINE WO CONon 2 CT LSPINE WO CON CT LSPINE WO CON INDICATION: 46 years old; Female.DORSALGIA, UNSPECIFIED. Acute on chronic low back pain. Left-sided lumbar pain worse today. TECHNIQUE: CT of the lumbar spine.Contrast None. Sagittal and coronal images as well as axial reconstructions through the disc spaces were produced. 3-D reformats were created and reviewed for better evaluation of the lumbar spine alignment. Ionizing radiation dose reduced via iterative reconstruction/FBP blend and body size kV/mA adjustment. COMPARISON: Lumbar MRI dated 12/08/2018. FINDINGS: POSTOPERATIVE CHANGES: None ALIGNMENT AND LORDOSIS: Normal lumbar lordosis. No spondylolysis or spondylolisthesis. VERTEBRAE: No fracture or vertebral body collapse is seen. No lytic or blastic lesions. DISC LEVELS: L1-L2: Disc space narrowing. Anterior osteophyte formation. No focal disc herniation. There is facet degeneration and ligamentous thickening, worse on the right than the left. Central canal is patent. Neural foramina are patent. L2-L3: No disc herniation. No spinal canal or foraminal narrowing. L3-L4: No disc herniation. No spinal canal or foraminal narrowing. L4-L5: Disc bulging and endplate osteophyte formation. Facet degeneration. No focal disc herniation. Central canal, neural foramina, and lateral recesses are patent. L5-S1: Question left, lateral, intraforaminal protrusion type disc herniation, image 70/series 4. There is compression of the left L5 nerve root. Correlation with MRI is recommended. Facet degeneration is noted. No bony stenosis is seen. LOWER THORACIC DISCS: Disc space narrowing with anterior osteophyte formation at T12-L1 and T11-T12. Central canal and neural foramina remain patent. The study does not visualize the distal cord or conus. OTHER: Posterior paraspinal muscles and psoas muscles are intact. IMPRESSION: 1. No fracture or vertebral body collapse is seen. No spondylolysis or spondylolisthesis. 2. Question left, lateral, intraforaminal disc protrusion at L5-S1 with compression of left L5 nerve root. Further evaluation with MRI is recommended for better visualization. 3. Scattered degenerative changes in the facets. Electronically authenticated by: FRANCISCA DOMINGUEZ Date: 2022-02-02 06:54 Normal [facility] CULTURE URINEon 02-02-2022 CULTURE URINE Culture Observations : NO GROWTH. Normal [facility] Comment on above: Performed By: #### C RP, BMP #### [facility] [address] [place] [address] Dr. Verenice Smallwood Covid-19 PCR ([facility])on SARS-CoV-2 (COVID-19) RNA LILIANA+probe Ql (Unsp spec) Not detected Normal NOT DETECTED [facility] Comment on above: Result Comment: When diagnostic testing is negative, the possibility of a false negative should be considered in the context of a patient's recent exposures and the presence of clinical signs and symptoms consistent with SARS-CoV-2. This test is not yet approved or cleared by the [place] FDA. When there are no FDA-approved or cleared tests available, and other criteria are met, FDA can make tests available under an emergency access mechanism called an Emergency Use Authorization (EUA). The EUA for this test is supported by the [place] [employer] of Health and Human Service's declaration that circumstances exist to justify the emergency use of in vitro diagnostics for the detection and/or diagnosis of the virus that causes COVID-19. This EUA will remain in effect for the duration of the COVID-19 declaration justifying emergency of IVDs, unless it is terminated or revoked by the FDA (after which the test may no longer be used). Performed By: #### C RP, BMP #### [facility] [address] [place] [address] Dr. Verenice Smallwood PROF CHEM 8 (BAS METB)on Anion gap [Moles/Vol] 7.3 mmol/L Normal [facility] Comment on above: Performed By: #### C RP, BMP #### [facility] [address] [place] [address] Dr. Verenice Smallwood Calcium [Mass/Vol] 8.5 mg/dL Normal 8.5-10.1 [facility] Comment on above: Performed By: #### C RP, BMP #### [facility] [address] [address] [address] Verenice Smallwood Chloride [Moles/Vol] 103 mmol/L Normal 98-107 [facility] Comment on above: Performed By: #### C RP, BMP #### [facility] [address] [place] [address] Dr. Verenice Smallwood CO2 [Moles/Vol] 26.5 mmol/L Normal 21.0-32.0 [facility] Comment on above: Performed By: #### C RP, BMP #### [facility] [address] [place] [address] Dr. Verenice Smallwood Creatinine [Mass/Vol] 0.78 mg/dL Normal 0.55-1.02 [facility] Comment on above: Performed By: #### C RP, BMP #### [facility] [address] [place] [address] Dr. Verenice Smallwood EGFR-AF SLOVENIAN >60 Normal >=60 [facility] Comment on above: Performed By: #### C RP, BMP #### [facility] [address] [place] [address] Dr. Verenice Smallwood EGFR-NON AF SLOVENIAN >60 Normal >=60 [facility] Comment on above: Performed By: #### C RP, BMP #### [facility] [address] [place] [address] Dr. Verenice Smallwood Glucose [Mass/Vol] 115 mg/dL Critically high 74-106 [facility] Comment on above: Performed By: #### C RP, BMP #### [facility] [address] [place] [address] Dr. Verenice Smallwood Potassium [Moles/Vol] 3.8 mmol/L Normal 3.5-5.1 [facility] Comment on above: Performed By: #### C RP, BMP #### [facility] [address] [place] [address] Dr. Verenice Smallwood Sodium [Moles/Vol] 133 mmol/L Critically low 136-145 [facility] Comment on above: Performed By: #### C RP, BMP #### [facility] [address] [place] [address] Dr. Verenice Smallwood Urea nitrogen [Mass/Vol] 17.0 mg/dL Normal 7.0-18.0 [facility] Comment on above: Performed By: #### C RP, BMP #### [facility] [address] [place] [address] Dr. Verenice Smallwood Urea nitrogen/Creatini ne [Mass ratio] 21.8 mg/mg Normal [facility] Comment on above: Performed By: #### C RP, BMP #### [facility] [address] [place] [address] Dr. Verenice Smallwood SED RATE [facility] 2021 SED RATE 39 mm/hr Critically high <=20 [facility] Comment on above: Performed By: #### C BC #### [facility] [address] [place] [address] Dr. Verenice Smallwood UA RANDOM W/MICROSCOPICon BACTERIA MODERATE Abnormal NONE SEEN [facility] Comment on above: Performed By: #### C BC #### [facility] [address] [place] [address] Dr. Verenice Smallwood Bilirubin Ql (U) Negative Normal NEGATIVE [facility] Comment on above: Performed By: #### C BC #### [facility] [address] [place] [address] Dr. Verenice Smallwood CAST NONE SEEN Normal NONE SEEN [facility] Comment on above: Performed By: #### C BC #### [facility] [address] [place] [address] Dr. Verenice Smallwood Clarity (U) CLEAR Normal CLEAR [facility] Comment on above: Performed By: #### C BC #### [facility] [address] [place] [address] Dr. Verenice Smallwood Color (U) YELLOW Normal YELLOW [facility] Comment on above: Performed By: #### C BC #### [facility] [address] [place] [address] Dr. Verenice Smallwood Crystals LM Nom (Urine sed) NONE SEEN Normal NONE SEEN [facility] Comment on above: Performed By: #### C BC #### [facility] [address] [place] [address] Dr. Verenice Smallwood Epithelial cells LM Ql (Urine sed) FEW Abnormal NONE SEEN /RARE [facility] Comment on above: Performed By: #### C BC #### [facility] [address] [place] [address] Dr. Verenice Smallwood Glucose Ql (U) Negative Normal NEGATIVE [facility] Comment on above: Performed By: #### C BC #### [facility] [address] [place] [address] Dr. Verenice Smallwood Hemoglobin Ql (U) Negative Normal NEGATIVE [facility] Comment on above: Performed By: #### C BC #### [facility] [address] [place] [address] Dr. Verenice Smallwood Ketones Ql (U) Negative Normal NEGATIVE [facility] Comment on above: Performed By: #### C BC #### [facility] [address] [place] [address] Dr. Verenice Smallwood LEUKOCYTES Negative Normal NEGATIVE [facility] Comment on above: Performed By: #### C BC #### [facility] [address] [place] [address] Dr. Verenice Smallwood MUCOUS NONE SEEN Normal NONE SEEN [facility] Comment on above: Performed By: #### C BC #### [facility] [address] [place] [address] Dr. Verenice Smallwood Nitrite Ql (U) Negative Normal NEGATIVE [facility] Comment on above: Performed By: #### C BC #### [facility] [address] [place] [address] Dr. Verenice Smallwood pH (U) 6.0 [pH] Normal 5-9 [facility] Comment on above: Performed By: #### C BC #### [facility] [address] [place] [address] Dr. Verenice Smallwood RBC NONE SEEN Abnormal 0-2 [facility] Comment on above: Performed By: #### C BC #### [facility] [address] [place] [address] Dr. Verenice Smallwood SPEC GRAVITY >=1.030 Abnormal 1.005-<=1.0 25 [facility] Comment on above: Performed By: #### C BC #### [facility] [address] [place] [address] Dr. Verenice Smallwood UA PROTEIN Negative Normal NEGATIVE/ TRACE [facility] Comment on above: Performed By: #### C BC #### [facility] [address] [place] [address] Dr. Verenice Smallwood Urobilinogen Qn (U) 0.2 {Brett'U}/dL Normal 0.2 - 1.0 [facility] Comment on above: Performed By: #### C BC #### [facility] [address] [place] [address] Dr. Verenice Smallwood WBC 0-2 Abnormal NONE SEEN [facility] Comment on above: Performed By: #### C BC #### [facility] [address] [place] [address] Dr. Verenice Smallwood Covid-19 PCR (CVDTB)on 12-26 SARS-CoV-2 (COVID-19) RNA LILIANA+probe Ql (Unsp spec) Not detected Normal NOT DETECTED [facility] Comment on above: Result Comment: This test is not yet approved or cleared by the [place] FDA. When there are no FDA-approved or cleared tests available, and other criteria are met, FDA can make tests available under an emergency access mechanism called an Emergency Use Authorization (EUA). The EUA for this test is supported by the [place] of Health and Human Service's (HHS's) declaration that circumstances exist to justify the emergency use of in vitro diagnostics for the detection and/or diagnosis of the virus that causes COVID-19. This EUA will remain in effect (meaning this test can be used) for the duration of the COVID-19 declaration justifying emergency of IVDs, unless it is terminated or revoked by FDA (after which the test may no longer be used). When diagnostic testing is negative, the possibility of a false negative should be considered in the context of a patient's recent exposures and the presence of clinical signs and symptoms consistent with SARS-CoV-2. Performed By: #### C VDTBH #### [facility] [address] [place], [place] [id number] Dr. Verenice Smallwood MG MAMM SCREEN 3D LAMIN CADon 11-26-2021 MG MAMM SCREEN 3D LAMIN CAD Patient: CACHORRO DORADO Exam Date: 11/26/2021 : 1975 Gender:F Ordering : AIDEN ODALIS GU [facility] Admission #: [id number] Family : Order #: [id number] CLICK HERE TO VIEW EXAM RADIOLOGY REPORT PROCEDURE: MAMMOGRAM SCREENING 3D BILATERAL CAD COMPARISON: MG MAMM SCREEN 3D LAMIN CAD, 07/25/2020. INDICATIONS: Screening mammography Calculator Name NCI Breast Cancer Risk Assessment Tool 5 Year Breast Cancer Risk 0.60% Lifetime Breast Cancer Risk 6.20% Personal Breast Cancer No Personal Ovarian Cancer No Treatments None Family Cancers Grandmother-maternal with lung cancer at age 65. LOCATION: [facility] BREAST COMPOSITION: Scattered areas fibroglandular density. FINDINGS: DIAGNOSTIC CATEGORY 2--BENIGN FINDING. NO CHANGE FROM COMPARISON. Scattered benign-appearing calcifications are present. Scattered benign-appearing lymph nodes are present. RIGHT BREAST: No significant suspicious finding. Stable focal asymmetry upper outer quadrant, I favor fibroglandular tissue. LEFT BREAST: No significant suspicious finding. RECOMMENDATIONS: ROUTINE MAMMOGRAM AND CLINICAL EVALUATION IN 12 MONTHS. PLEASE NOTE: A NORMAL MAMMOGRAM DOES NOT EXCLUDE THE POSSIBILITY OF BREAST CANCER. A CLINICALLY SUSPICIOUS PALPABLE LUMP SHOULD BE BIOPSIED. Dictated by: Rambo Severino MD on 11/26/2021 at 12:36 Approved by: Rambo Severino MD on 11/26/2021 at 12:38 Normal [facility] XR hand LT min 3V*on 022 XR hand LT min 3V* [facility] Other XR hand LT min 3V* [facility] Other XR hand LT min 3V* [address] [place] [address] [facility] Other XR hand LT min 3V* [place] [address] [facility] Other XR hand LT min 3V* XRay Report [facility] Other XR hand LT min 3V* Signed [facility] Other XR hand LT min 3V* Patient: Cachorro Sebastian [facility] Other XR hand LT min 3V* #: [id number] [facility] Other XR hand LT min 3V* : 1975 Acct:[id number] [facility] Other XR hand LT min 3V* Age/Sex: 45 / F ADM Date: 08/08/21 [facility] Other XR hand LT min 3V* Loc: XDUCLY Room: Type: [facility] Other XR hand LT min 3V* Attending Dr: Padma XIAO [facility] Other XR hand LT min 3V* Ordering Provider: NINOSKA Mejia [facility] Other XR hand LT min 3V* Date of Service: 08/08/21 [facility] Other XR hand LT min 3V* XR/XR hand LT min 3V*: PAIN [facility] Other XR hand LT min 3V* Copies to: NINOSKA Mejia [facility] Other XR hand LT min 3V* Left hand 08/08/2021. [facility] Other XR hand LT min 3V* CLINICAL DATA: Left thumb pain after injury. [facility] Other XR hand LT min 3V* FINDINGS: 3 views of the left hand were obtained. [facility] Other XR hand LT min 3V* No acute fracture or dislocation is identified. No other bony abnormality is seen. No significant [facility] Other XR hand LT min 3V* soft tissue swelling is noted. [facility] Other XR hand LT min 3V* XR/XR hand LT min 3V* [facility] Other XR hand LT min 3V* IMPRESSION: No acute bony abnormality. [facility] Other XR hand LT min 3V* Impression dictated by: Eric Li Jr., M.D.08/08/2021 1:28 PM [facility] Other XR hand LT min 3V* Dictation Location: [place] [address] [facility] Other XR hand LT min 3V* Transcribed By: FRANK 08/08/21 [facility] Other XR hand LT min 3V* Dictated By: Eric Li Jr, MD 08/08/21 [facility] Other XR hand LT min 3V* Signed By: [facility] Other XR hand LT min 3V* 08/08/21 [facility] Other Ambulatory Visit Summaryon 0 07-03-2021 Ambulatory Visit Summary CACHORRO DORADO :1975 Visit Date:07/03/2021 Ambulatory Visit Instructions Your Care Team Attending Physician - LEXX BAGLEY, Francisca Ruffin Primary Care Physician - ODALIS GU CNP This Is Your Medications List albuterol (albuterol HFA 90 mcg/inh MDI) diclofenac (Diclofenac 75mg Tab-DR) ergocalciferol (Vitamin D 50,000 intl units (1.25 mg) oral capsule) fluticasone nasal (Flonase) levothyroxine (levothyroxine 200 mcg (0.2 mg) Tab) oxcarbazepine (Trileptal 300 mg Tab) pantoprazole (Pantoprazole [address] Tab) pramipexole (pramipexole 0.25 mg Tab) spironolactone (spironolactone 100 mg Tab) sucralfate (sucralfate tab) sumatriptan (Imitrex 25 mg Tab) trospium (trospium 60 mg oral capsule, extended release) Procedures Performed Colonoscopy (06/24/2021), EGD - Esophagogastroduodenoscopy (06/24/2021), History of selective lumbar nerve block, Laparoscopic cholecystectomy. Medications What How Much When Instructions Unchanged albuterol (albuterol HFA 90 mcg/ inh MDI) 2 Puffs Inhalation Every 6 hours as needed for as needed for wheezing Unchanged diclofenac (Diclofenac 75mg Tab-DR) 1 Tablets By Mouth Every day Unchanged ergocalciferol (Vitamin D 50,000 intl units (1.25 mg) oral capsule) 1 Capsules By Mouth Every week Unchanged fluticasone nasal (Flonase) Unchanged levothyroxine (levothyroxine 200 mcg (0.2 mg) Tab) 1 Tablets By Mouth Every day Unchanged oxcarbazepine (Trileptal 300 mg Tab) 2.5 Tablets By Mouth Every day Unchanged pantoprazole (Pantoprazole [address] Tab) 1 Tablets By Mouth Every day Unchanged pramipexole (pramipexole 0.25 mg Tab) 1 Tablets By Mouth At bedtime Unchanged spironolactone (spironolactone 100 mg Tab) 1 Tablets By Mouth Every day Unchanged sucralfate (sucralfate tab) 120 EA, TAKE ONE TABLET BY MOUTH BEFORE MEALS AND AT BEDTIME Unchanged sumatriptan (Imitrex 25 mg Tab) 1 Tablets By Mouth Once Unchanged trospium (trospium 60 mg oral capsule, extended release) 1 Capsules By Mouth Once a day (in the morning) Allergies DULoxetine (Eruption of skin) nalbuphine (Headache, Hallucinations) sulfa drugs (Rash) sulfacetamide sodium ophthalmic (Rash) topiramate (Confusion) Problems Ongoing - Any problem that you are currently receiving treatment for. Bilateral lower extremity edema BMI 45.0-49.9, adult Dysphagia Fibromyalgia GERD (gastroesophageal reflux disease) Globus sensation Hyperlipidemia Hypothyroidism Insomnia Migraines Neuropathy DAGO (obstructive sleep apnea) Ovarian cyst Screening for malignant neoplasm of colon Urethral meatal stenosis Vitamin D deficiency Normal [facility] General Surgery Office/Clini c Noteon 07-03-2021 General Surgery Office/Clinic Note Chief Complaint post operative follow up HPI Staff 9 day post operative follow up post colonoscopy and EGD with antral biopsy. Intermittently takes Carafate, does note symptoms are better when she is able to take this consistently. History of Present Illness 9 days s/p EGD with biopsy and colonoscopy; mild chemical gastritis, likely due to medications; small ulcerations; bx negative for H pylori; colonoscopy wnl; some improvement with Protonix and Carafate. Review of Systems ROS - Provider Constitutional: no fever, no sweats, no weight loss. Eyes: no glasses, no blurred vision, no visual loss. ENMT: no dentures, no hoarseness, no swallowing difficulties, no hearing loss, no ear infection(s), no nose bleeds. Cardiovascular: normal blood pressure, no chest pain, regular heartbeat, no heart murmur. Respiratory: no shortness of breath, no cough, no asthma, no wheezing. Gastrointestinal: mild nausea, no vomiting, no diarrhea, no constipation, no blood in stool, no change in bowel habits, mild abdominal pain, no hepatitis. Genitourinary: no kidney stones, no urine infection, no dysuria. Musculoskeletal: yes pain, no weakness. Skin: no changing moles, no rash, no skin lumps. Neurologic: no seizures, no epilepsy, no headache. Psychiatric: no emotional or psychiatric problem. Heme/Lymph: no bleeding problems, no anemia, no blood clots, no transfusions. Allergy/Immunologic: no swollen lymph nodes/glands, no IV drug abuse. Other: Additional ROS info: Except as noted in the above Review of Systems and in the History of Present Illness, all other systems have been reviewed and are negative or noncontributory. Assessment/Plan 1. Chronic superficial gastritis without bleeding (K29.30: Chronic superficial gastritis without bleeding) doing well on Protonix and Carafate; likely related to medications; minimize ibuprofen, take with food; call with problems/questions. Follow-up No qualifying data available Problem List/Past Medical History Ongoing Bilateral lower extremity edema BMI 45.0-49.9, adult Dysphagia Fibromyalgia Gastritis GERD (gastroesophageal reflux disease) Globus sensation Hyperlipidemia Hypothyroidism Insomnia Migraines Neuropathy DAGO (obstructive sleep apnea) Ovarian cyst Screening for malignant neoplasm of colon Urethral meatal stenosis Vitamin D deficiency Historical No qualifying data Procedure/Surgical History Colonoscopy (06/24/2021), EGD - Esophagogastroduodenoscopy (06/24/2021), History of selective lumbar nerve block, Laparoscopic cholecystectomy. Medications albuterol HFA 90 mcg/inh MDI, 2 puff(s), Inhalation, q6hr, PRN Diclofenac 75mg Tab-DR, 1 tab(s), Oral, Daily Flonase Imitrex 25 mg Tab, 25 mg= 1 tab(s), Oral, Once levothyroxine 200 mcg (0.2 mg) Tab, 200 mcg= 1 tab(s), Oral, Daily Pantoprazole [address] Tab, 40 mg= 1 tab(s), Oral, Daily pramipexole 0.25 mg Tab, 0.25 mg= 1 tab(s), Oral, Bedtime spironolactone 100 mg Tab, 100 mg= 1 tab(s), Oral, Daily sucralfate tab Trileptal 300 mg Tab, 750 mg= 2.5 tab(s), Oral, Daily trospium 60 mg oral capsule, extended release, 60 mg= 1 cap(s), Oral, qAM Vitamin D 50,000 intl units (1.25 mg) oral capsule, [address] International_Unit= 1 cap(s), Oral, qWeek Allergies DULoxetine (Eruption of skin) nalbuphine (Headache, Hallucinations) sulfa drugs (Rash) sulfacetamide sodium ophthalmic (Rash) topiramate (Confusion) Social History Alcohol - Denies Alcohol Use, 06/03/2021 Substance Abuse - Denies Substance Abuse, 06/03/2021 Tobacco Never (less than 100 in lifetime) Tobacco Use:. Never Smokeless Tobacco Use:., 06/03/2021 Family History Hypothyroidism: Mother. Immunizations Vaccine Date Status Comments influenza virus vaccine, inactivated - Not Given Patient Refuses Normal [facility] Comment on above: Result Comment: Elec tronically Signed By: LEXX BAGLEY, Francisca Mcarthur\Date and Time Signed: 07/03/21 15:19 EDT Pathology Noteon 06-26-2021 Pathology Note [id number]#1.00CD:127 Normal [facility] Outside Colonoscopyon 2021 Outside Colonoscopy [id number]#1.00CD:127 [facility] Reminderson 06-25-2021 Reminders - From: Leigh Ann Duncan LPN To: N - Clinical; Sent: 06/25/2021 09:44:37 EDT Show up: 05/25/2031 07:00:00 EST Subject: colonoscopy recall Due Date/Time: 06/25/2031 07:00:00 EDT Reminder/Recall Patient is due for screening colonoscopy 06/25/2031. [facility] Lab Reportson 06-23-2021 Lab Reports [id number]#1.00CD:127 [facility] Pre-Certification Formon Pre-Certification Form [id number]#1.00CD:127 [facility] Consent for Procedure/Surger yon 06-04-2021 Consent for Procedure/Surgery [id number]#1.00CD:127 [facility] Ambulatory Visit Summaryon 0 06-03-2021 Ambulatory Visit Summary CACHORRO DORADO :1975 Visit Date:06/03/2021 Ambulatory Visit Instructions Your Care Team Attending Physician - LEXX BAGLEY, Francisca Ruffin Primary Care Physician - ODALIS GU CNP Referring Physician - ODALIS GU CNP This Is Your Medications List Contact prescribing physician if questions or concerns albuterol (albuterol HFA 90 mcg/inh MDI) diclofenac (Diclofenac 75mg Tab-DR) ergocalciferol (Vitamin D 50,000 intl units (1.25 mg) oral capsule) fluticasone nasal (Flonase) levothyroxine (levothyroxine 200 mcg (0.2 mg) Tab) oxcarbazepine (Trileptal 300 mg Tab) pantoprazole (Pantoprazole [address] Tab) pramipexole (pramipexole 0.25 mg Tab) spironolactone (spironolactone 100 mg Tab) sumatriptan (Imitrex 25 mg Tab) trospium (trospium 60 mg oral capsule, extended release) Procedures Performed History of selective lumbar nerve block, Laparoscopic cholecystectomy. Discharge Vitals Temperature (Temporal Artery) 36.3 ?C Heart Rate (Peripheral) 80 Respiratory Rate 16 Blood Pressure 144/90 Height 170.2 cm Height 170.18 cm Weight 133.3 kg Weight 133.3 kg BMI 46.03 Medications What How Much When Instructions Unchanged albuterol (albuterol HFA 90 mcg/ inh MDI) 2 Puffs Inhalation Every 6 hours as needed for as needed for wheezing Contact prescribing physician if questions or concerns Unchanged diclofenac (Diclofenac 75mg Tab-DR) 1 Tablets By Mouth Every day Contact prescribing physician if questions or concerns Unchanged ergocalciferol (Vitamin D 50,000 intl units (1.25 mg) oral capsule) 1 Capsules By Mouth Every week Contact prescribing physician if questions or concerns Unchanged fluticasone nasal (Flonase) Contact prescribing physician if questions or concerns Unchanged levothyroxine (levothyroxine 200 mcg (0.2 mg) Tab) 1 Tablets By Mouth Every day Contact prescribing physician if questions or concerns Unchanged oxcarbazepine (Trileptal 300 mg Tab) 2.5 Tablets By Mouth Every day Contact prescribing physician if questions or concerns Unchanged pantoprazole (Pantoprazole [address] Tab) 1 Tablets By Mouth Every day Contact prescribing physician if questions or concerns Unchanged pramipexole (pramipexole 0.25 mg Tab) 1 Tablets By Mouth At bedtime Contact prescribing physician if questions or concerns Unchanged spironolactone (spironolactone 100 mg Tab) 1 Tablets By Mouth Every day Contact prescribing physician if questions or concerns Unchanged sumatriptan (Imitrex 25 mg Tab) 1 Tablets By Mouth Once Contact prescribing physician if questions or concerns Unchanged trospium (trospium 60 mg oral capsule, extended release) 1 Capsules By Mouth Once a day (in the morning) Contact prescribing physician if questions or concerns Medications and Immunizations Administered Not Given influenza virus vaccine, inactivated, Patient Refuses Allergies DULoxetine (Eruption of skin) nalbuphine (Headache, Hallucinations) sulfa drugs (Rash) sulfacetamide sodium ophthalmic (Rash) topiramate (Confusion) Problems Ongoing - Any problem that you are currently receiving treatment for. Bilateral lower extremity edema BMI 45.0-49.9, adult Dysphagia Fibromyalgia GERD (gastroesophageal reflux disease) Hyperlipidemia Hypothyroidism Insomnia Migraines Neuropathy DAGO (obstructive sleep apnea) Ovarian cyst Urethral meatal stenosis Vitamin D deficiency Normal [facility] Physician Referralon 022 Physician Referral [id number]#[id number]:127 Normal [facility] COVID Quick Testingon 2020 Result Negative [facility] Other Quick Fluon 03-26-2021 FLUAV Ab CF (S) [Titer] Negative [facility] Other FLUBV Ab CF (S) [Titer] Negative [facility] Other Vital Signs Date Time Vital Sign Value Performing Clinician Facility 03-10-2023 13:00-0500 Body height 166.37 cm Rambo Martinez Other [facility] Other 03-10-2023 13:00-0500 Body mass index (BMI) [Ratio] 52.11 kg/m2 Rambo Martinez Other [facility] Other 03-10-2023 13:00-0500 Body weight 144.24 kg Rambo Martinez Other [facility] Other 03-10-2023 13:00-0500 Diastolic blood pressure 94 mm[Hg] Rambo Martinez Other [facility] Other 03-10-2023 13:00-0500 SaO2% (BldA) [Mass fraction] 97 % Rambo Martinez Other [facility] Other 03-10-2023 13:00-0500 Systolic blood pressure 155 mm[Hg] Rambo Martinez Other [facility] Other 05-24-2022 09:15-0500 Body height 166.37 cm Rola Stalin Other [facility] Other 05-24-2022 09:15-0500 Body mass index (BMI) [Ratio] 49.49 kg/m2 Rola Gant Other [facility] Other 05-24-2022 09:15-0500 Body temperature 97.8 [degF] Rola Gant Other [facility] Other 05-24-2022 09:15-0500 Body weight 136.99 kg Rola Gant Other [facility] Other 05-24-2022 09:15-0500 Respiratory rate 18 /min Rola Gant Other [facility] Other 05-24-2022 09:15-0500 SaO2% (BldA) [Mass fraction] 97 % Rola Gant Other [facility] Other 05-04-2022 10:15-0500 Body height 166.37 cm Yelitza Johnson Other [facility] Other 05-04-2022 10:15-0500 Body mass index (BMI) [Ratio] 50.11 kg/m2 Yelitza Johnson Other [facility] Other 05-04-2022 10:15-0500 Body weight 138.71 kg Yelitza Johnson Other [facility] Other 08-15-2021 12:20-0400 Body height 166.37 cm Jessiac Dong Other [facility] Other 08-15-2021 12:20-0400 Body mass index (BMI) [Ratio] 48.34 kg/m2 Jessica Dong Other [facility] Other 08-15-2021 12:20-0400 Body temperature 96.8 [degF] Jessica Dong Other [facility] Other 08-15-2021 12:20-0400 Body weight 133.81 kg Jessica Dong Other [facility] Other 08-15-2021 12:20-0400 Diastolic blood pressure 92 mm[Hg] Jessica Dong Other [facility] Other 08-15-2021 12:20-0400 Respiratory rate 18 /min Jessica Dong Other [facility] Other 08-15-2021 12:20-0400 SaO2% (BldA) [Mass fraction] 99 % Jessica Dong Other [facility] Other 08-15-2021 12:20-0400 Systolic blood pressure 135 mm[Hg] Jessica Dong Other [facility] Other 08-08-2021 13:25-0400 Body height 166.37 cm Padma Nortonmond Other [facility] Other 08-08-2021 13:25-0400 Body mass index (BMI) [Ratio] 48.4 kg/m2 Padma Ashley Other [facility] Other 08-08-2021 13:25-0400 Body temperature 96.8 [degF] Padma Ashley Other [facility] Other 08-08-2021 13:25-0400 Body weight 133.99 kg Padma Nortonmond Other [facility] Other 08-08-2021 13:25-0400 Diastolic blood pressure 88 mm[Hg] Padma Ashley Other [facility] Other 08-08-2021 13:25-0400 Respiratory rate 16 /min Padma Ashley Other [facility] Other 08-08-2021 13:25-0400 SaO2% (BldA) [Mass fraction] 99 % Padma Ramirez Other [facility] Other 08-08-2021 13:25-0400 Systolic blood pressure 133 mm[Hg] Padma Nortonmond Other [facility] Other 03-26-2021 11:15-0500 Body height 166.37 cm Rola Ginty Other [facility] Other 03-26-2021 11:15-0500 Body mass index (BMI) [Ratio] 46.86 kg/m2 Rola Ginty Other [facility] Other 03-26-2021 11:15-0500 Body temperature 97.6 [degF] Rola Ginty Other [facility] Other 03-26-2021 11:15-0500 Body weight 129.73 kg Rola Ginty Other [facility] Other 03-26-2021 11:15-0500 Respiratory rate 18 /min Rola Ginty Other [facility] Other 03-26-2021 11:15-0500 SaO2% (BldA) [Mass fraction] 99 % Rola Sabrinasanjeev Other [facility] Other Encounters Encounter Date Encounter Type Care Provider Facility Start: 03-10-2023 End: 03-10-2023 ambulatory Odalis Fox Matiloreleikayez Facility:[facility] Start: 03-10-2023 Office outpatient ne w 60 minutes Rambo [facility] Start: 03-10-2023 End: 03-10-2023 ambulatory Odalis Fox Matiloreleiholz Work Phone: [facility] Work Phone: Start: 03-10-2023 End: 03-10-2023 Patient encounter procedure Odalis Marcelinoz Work Phone: [facility] Work Phone: Start: 02-23-2023 End: 02-23-2023 ambulatory ODALIS BRIANNAHOLZ Not Available Start: 01-25-2023 End: 01-25-2023 ambulatory Yelitza Johnson Other [facility] Other Start: 01-25-2023 Office outpatient visit 15 minutes Yelitza [facility] Start: 08-12-2022 ambulatory EXERCISE SPECIALIST ODALIS AICHHOLZ Facil ity:[facility] Start: 08-11-2022 ambulatory EXERCISE SPECIALIST ODALIS AICHHOLZ Facil ity:[facility] Start: 07-12-2022 End: 07-13-2022 ambulatory EXERCISE SPECIALIST ODALIS AICHHOLZ Facility:[facility] Start: 07-02-2022 End: 07-03-2022 ambulatory EXERCISE SPECIALIST ODALIS AICHHOLZ Facility:[facility] Start: 06-28-2022 End: 06-29-2022 ambulatory EXERCISE SPECIALIST ODALIS AICHHOLZ Facility:[facility] Start: 06-09-2022 End: 06-10-2022 ambulatory EXERCISE SPECIALIST ODALIS AICHHOLZ Facility:[facility] Start: 06-08-2022 End: 06-08-2022 ambulatory Yelitza Calvey Other [facility] Other Start: 06-08-2022 Office outpatient visit 15 minutes Yelitza Calvey [facility] Start: 05-24-2022 End: 05-24-2022 ambulatory Rola Gant Other [facility] Other Start: 05-24-2022 Office outpatient visit 25 minutes Rola Montes De Ocaler [facility] Start: 05-04-2022 End: 05-04-2022 ambulatory Yelitza Calvey Other [facility] Other Start: 05-04-2022 Office outpatient visit 15 minutes Yelitza Calvey [facility] Start: 04-14-2022 Office outpatient ne w 30 minutes Yelitza Calvey [facility] Start: 04-14-2022 End: 04-14-2022 ambulatory EXERCISE SPECIALIST ODALIS AICHHOLZ [place] [facility] Other Start: 04-01-2022 End: 04-02-2022 ambulatory EXERCISE SPECIALIST ODALIS AICHHOLZ Facility:[facility] Start: 02-02-2022 End: 02-04-2022 ambulatory EXERCISE SPECIALIST ODALIS AICHHOLZ Facility:[facility] Start: 01-30-2022 End: 01-30-2022 ambulatory DOTTIE MANN . Facility:[facility] Start: 01-06-2022 End: 01-06-2022 ambulatory EXERCISE SPECIALIST ODALIS AICHHOLZ Facility:[facility] Start: 01-05-2022 End: 01-05-2022 ambulatory EXERCISE SPECIALIST ODALIS AICHHOLZ Facility:[facility] Start: 12-19-2021 End: 12-19-2021 Patient encounter procedure DO Rylan Collado Work Phone: [facility] [place] Start: 11-26-2021 End: 11-27-2021 ambulatory EXERCISE SPECIALIST ODALIS AICHHOLZ Facility:[facility] Start: 11-18-2021 End: 11-18-2021 ambulatory Rylan Collado Other [facility] Other Start: 11-18-2021 Office outpatient ne w 45 minutes Rylan Collado [facility] Start: 08-26-2021 End: 09-26-[address] PADMA RANDOLPH Facility:[facility] Start: 08-15-2021 End: 08-15-2021 ambulatory Jessica Dong Other [facility] Other Start: 08-15-2021 Office outpatient visit 15 minutes Jessica Dong [facility] Start: 08-08-2021 End: 08-08-2021 ambulatory Padma Ramirez Other [facility] Other Start: 08-08-2021 Office outpatient visit 15 minutes Padma Ramirez [facility] Start: 07-03-2021 End: 07-03-2021 Patient encounter procedure Francisca HALLMAN [facility] Start: 03-26-2021 End: 03-26-2021 ambulatory Rola Ginty Other [facility] Other Start: 03-26-2021 Office outpatient visit 15 minutes Rola Ginty [facility] Procedures Date Procedure Procedure Detail Performing Clinician Start: 06-24-2021 Colonoscopy Francisca HALLMAN Start: 06-24-2021 Esophagogastroduodenoscopy Francisca NILL History of selective lumbar nerve block Francisca NILL Laparoscopic cholecystectomy Francisca REYNOSOL Plan of Treatment Date Care Activity Detail Author Start: 12-19-2021 MRI of left hand MR hand LT wo con F [facility] Immunizations Immunization Date Immunization Notes Care Provider Fa cility NEGATED: Highlighted row has not occurred!06-03-2021 influenza virus vaccine, unspecified formulation Francisca REYNOSOL [facility] Payers Date Payer Category Payer Self-pay [id number] 1975 Unknown [id number] 2.16.84 [id number] 1974 Unknown [id number] 2.16.84 0.1.135480.3.579.2.593 1974 Unknown [id number] 2.16.84 0.1.644745.3.579.2.593 1974 Unknown [id number] 2.16.84 0.1.134783.3.579.2.593 1974 Unknown [id number] 2.16.84 0.1.378614.3.579.2.593 1974 Unknown [id number] 2.16.84 0.1.831297.3.579.2.593 1974 Unknown [id number] 2.16.84 0.1.493010.3.579.2.593 1974 Unknown [id number] 2.16.84 0.1.892773.3.579.2.593 1974 Unknown [id number] 2.16.84 0.1.341077.3.579.2.593 1974 Unknown [id number] 2.16.84 0.1.200470.3.579.2.593 1974 Unknown [id number] 2.16.84 0.1.292517.3.579.2.593 1974 Unknown [id number] 2.16.84 0.1.734887.3.579.2.593 1974 Unknown [id number] 2.16.84 0.1.792545.3.579.2.593 1974 Unknown [id number] 2.16.84 0.1.585358.3.579.2.593 1974 Unknown [id number] 2.16.840 .1.002354.3.579.2.1259 1959 Private Health Insurance [id number] 2.16.840.1.150737.19 1959 Private Health Insurance [id number] 2.16.840.1.952257.19 1959 Private Health Insurance [id number] 1959 Unknown [id number] Unknown [id number] 2.16. 840.1.774231.19 Unknown [id number] 2.16.8 40.1.762043.19 Unknown [id number] 2.16.8 40.1.335512.3.579.2.531 Social History Date Type Detail Facility Start: 06-03-2021 Tobacco smoking status Never s moked tobacco (finding) [facility] Other Tobacco smoking status Never [facility] Sex Assigned At Female [facility] Start: 1975 Sex Assigned At Female [facility] Clinical Notes 06-03-2021 to 03-10-2023 Note Date & Type Note Facility 03-10-2023 Evaluation note Encounter Date Diagnosis Assessment Notes Feb, Obstructive sleep apnea (ICD-10 - G47.33) She presents with an extraordinarily complex sleep disorders picture, and with objectively documented obstructive sleep apnea. Progress note from her primary provider reports a sleep study in February 2021 showed an apnea index of 16 with significant hypoxia down to 83%. This documented obstructive sleep apnea has been untreated due to intolerance of pressure and mask claustrophobia. Untreated sleep apnea contributes to just turbulence in sleep, and will add to excessive sleepiness even when adequate sleep time is present. I discussed these issues with her and she expresses good understanding. Given the complexity of the situation we will start by addressing other issues but do plan to come back and address the sleep apnea again Feb, Chronic insomnia (ICD-10 - F51.04) Her primary presenting complaints center on her substantial insomnia, which is primarily psychophysiologic. However the insomnia is made worse both by her shiftwork sleep patterns and in particular her restless legs. Her sleep patterns are variable enough and complex enough that it was quite difficult to sort out what is going on, but it became clear that psychophysiologic component was substantial. I reviewed the principles of good sleep hygiene and I encouraged her to not be awake in bed if unable to sleep. Because of the demands of her work and life schedule, she does not feel it is practical to have the same sleep schedule every day. After discussion I suggested that on workdays she should stay out of the bed until 1300 and plan on awakening at 2000. On nonwork days she should plan on staying out of the bed until 2300 and getting up at 0700. If unable to sleep rather than getting on her phone or watching TV she should by the side of the bed and read something boring. She should not lay awake in bed tossing and turning. Extensive discussion, and extent handouts provided. Call if poor response and returned in 4 to 6 weeks otherwise Feb, Shift work sleep disorder (ICD-10 - G47.26) Her widely varying sleep sessions may almost negate the circadian rhythm system's ability to aid her sleep patterns. I did discuss the possibility of keeping close to the same sleep schedule every day, but as this would involve dramatic life changes on her nonwork days she does not feel this is practical. The wide variations in attempted sleep times may make sleeping in the daytime on workdays particularly difficult. Strategies to minimize these problems were discussed Feb, Intolerance of continuous positive airway pressure (CPAP) ventilation (ICD-10 - Z78.9) She was unable to tolerate positive airway pressure treatment in the past. However from what I can see she was treated with a full facemask and with fixed pressure CPAP, both of which can be very difficult to tolerate. It is possible that a different interface and particularly auto CPAP settings may be better tolerated. Given current BMI, however, inspire therapy would not be an option Feb, BMI 50.0-59.9, adult (ICD-10 - Z68.43) Weight reduction would be broadly beneficial for overall health, but would also have direct benefits on apnea severity and sleep quality. Even moderate weight reduction can affect DAGO and snoring, and in some patients weight reduction can completely resolve sleep apnea Feb, Restless leg syndrome (ICD-10 - G25.81) She has significant restless leg symptoms despite taking substantial doses of long-acting gabapentin and pramipexole. Some patients with this pattern may have iron deficiency, and this can be a major factor in perpetuating restless leg symptoms. Augmentation is also a possibility with pramipexole. We will continue current medication therapy until the situation becomes more clear. However I will check iron studies to make sure that iron deficiency is not part of the problem. If restless legs continue to be difficult, alternate agents such as ropinirole could be considered Feb, Essential hypertension (ICD-10 - I10) Uncontrolled sleep apnea can significantly increase blood pressures, and there is a strong association between untreated apnea and requiring multiple medications for hypertension treatment. Control of sleep apnea will frequently have a positive effect on blood pressure control, and may additionally reduce blood pressure lability. Feb, Acquired hypothyroidism (ICD-10 - E03.9) Hypothyroidism can worsen sleep apnea directly through changes in resting muscle tone and increased soft tissue fluid, but these changes return to baseline with euthyroid status. Controlled hypothyroidism should not increase fatigue, should not adversely affect sleep apnea, and should not lead to progressive weight gain Feb, Nasal congestion (ICD-10 - R09.81) Nasal congestion complicated CPAP toleration. Appropriate humidification, avoidance of leakage, and appropriate mask selection may reduce this problem. In some patients addition of Flonase or other congestion interventions may help with CPAP toleration Feb, Migraine without status migrainosus, not intractable, unspecified migraine type (ICD-10 - G43.909) Headaches of all types, but particularly migraine headaches, are sensitive to sleep quality and quantity. Many patients with headache find improvements in severity and frequency after sleep problems are resolved. Feb, History of iron deficiency (ICD-10 - Z86.39) She reports past history of iron deficiency, but does not think these labs have been checked recently. Feb, Claustrophobia (ICD-10 - F40.240) Wake accommodation trials and appropriate mask selection may improve toleration of positive airway pressure treatment and claustrophobic patient's Feb, Other The diagnosis of Sleep Apnea was reviewed in detail. The patient expresses good understanding, We also reviewed the medical and accident risks associated with sleep apnea and excessive fatigue. The patient is advised to adhere to a proper sleep hygiene schedule and to assure adequate total sleep time; The patient was advised to continue efforts at progressive weight loss, including decreased overall caloric intake quantity and better food choices.The patient was advised to call or return any difficulties arise, including changes in symptoms and/or problems with treatment [facility] Other 10-31-2023 Evaluation note* Encounter Date Diagnosis Assessment Notes Treatment Notes Treatment Clinical Notes Dec, Unspecified sprain of left thumb, initial encounter (ICD-10 - S63.602A) Extensive discussion was had about the current condition and treatment options available. We will submit for a cortisone injection with [facility]. We discussed use of Voltaren gel and Lidocaine patch to the affected area. Activity as tolerated. [facility] Other 03-14-2023 Evaluation note* Encounter Date Diagnosis Assessment Notes Treatment Notes Treatment Clinical Notes May, Unspecified sprain of left thumb, initial encounter (ICD-10 - S63.602A) Discussed with patient she is progressing well from injury. Continue to progress activity as tolerated. Patient given order for neoprene sleeve Patient may continue working with wearing a neoprene sleeve/ brace for added protection [facility] Other 02-27-2023 Evaluation note* Encounter Date Diagnosis Assessment Notes Treatment Notes Treatment Clinical Notes Apr, Contact with and (suspected) exposure to covid-19 (ICD-10 - Z20.822) Apr, Bronchitis (ICD-10 - J40) Advised patient that rapid COVID/Influenza A/B test was negative today in office. Discussed diagnosis with patient in detail. Advised patient that cough may linger for 3 weeks. Will treat today with antibiotic. Reviewed allergies and recent antibiotic use. Advised to take medications as prescribed, reviewed side effects of steroid, take with food and plenty of water, finish entire course. Encouraged supportive care as directed, push fluids and rest, may use Tylenol as needed for fever/discomfort, cool mist humidifier. May use Baker as needed for cough, do not take any other OTCs while using Baker. Patient to follow up with PCP in 2-3 days. Immediate eval if SOB, difficulty breathing, chest pain, dizziness, or other concerning symptoms. Patient verbalizes understanding and is agreeable to treatment plan [facility] Other 02-07-2023 Evaluation note* Encounter Date Diagnosis Assessment Notes Treatment Notes Treatment Clinical Notes Apr, Unspecified sprain of left thumb, initial encounter (ICD-10 - S63.602A) We performed a cortisone injection into the CMC joint under sterile technique. The patient tolerated this well without complication. We discussed that the finger may feel numb and tingle for hours after this injection. Instructed patient to continue to wear splint for activities. Continue current work restrictions [facility] Other 01-18-2023 Evaluation note* Encounter Date Diagnosis Assessment Notes Treatment Notes Treatment Clinical Notes Mar, Unspecified sprain of left thumb, initial encounter (ICD-10 - S63.602A) We will submit for [facility] approval for cortisone injection MCP joint/UCL Continue current work restrictions [facility] Other 01-05-2023 NotePROCEDURE: XR SHOULDER LT 2V or > HISTORY: Pain of left shoulder joint ; acute; no known injury COMPARISON: None. FINDINGS: BONES:No fracture, acute abnormality, or significant arthropathy. SOFT TISSUES:No visible soft tissue swelling. EFFUSION:None visible. OTHER: Negative. IMPRESSION: 1. Normal examination. Electronically authenticated by: DEEP BENSON Date: 2022-04-01 10:27[facility]08-24-2022 Evaluation note* Encounter Date Diagnosis Assessment Notes Treatment Notes Treatment Clinical Notes Oct, Unspecified sprain of left thumb, initial encounter (ICD-10 - S63.602A) Charity presents with left thumb sprain which is now 3 months old. At this juncture we have discussed the findings and diagnosis as well as personally reviewed appropriate imaging and performed interpretation of related testing and examination with the patient in office today. Prior medical notes and history have been reviewed. Today it is difficult on exam to differentiate injury pain from her fibromyalgia pain. She is also 3 months out from her injury. At this point I would move forward an MRI of the thumb to evaluate for any ligamentous injury since any sprain or strain should be healed at this point. We will continue thumb spica brace at this time. Continue work restrictions. Follow-up after MRI is complete for further recommendations The patient has been involved in our cooperative treatment plan and agrees to move forward with treatment at this time. Radiographs reviewed and discussed in detail with patient. Imaging appears unremarkable. Advised patient to continue with brace. Patient is not improving as expected with time and conservative treatment. An MRI will be necessary to assess for an injury that could require surgical treatment. Will follow up with patient to review MRI imaging. Advised patient to continue with therapy. Patient voices understanding and states no further questions at this time. continue work restrictions. Oct, Other See orders for this visit as documented in the electronic medical record. [facility] Other 05-21-2022 Evaluation note* Encounter Date Diagnosis Assessment Notes Treatment Notes Treatment Clinical Notes July, Sprain of left thumb, unspecified site of digit, subsequent encounter (ICD-10 - S63.602D) patient symptoms are not getting any better. Recommend follow up with [facility] with possible one of Dr. Thompson for further evaluation or ortho at this point. Continue restrictions and use of brace [facility] Other 05-14-2022 Evaluation note* Encounter Date Diagnosis Assessment Notes Treatment Notes Treatment Clinical Notes July, Pain of left thumb (ICD-10 - M79.645) July, Sprain of left thumb, unspecified site of digit, initial encounter (ICD-10 - S63.602A) Wear the brace at all times for comfort and compression. Take Tylenol as needed for pain. Ice and elevate your wrist 2-3 times a day. You may return to work today. Follow-up with the urgent care or [facility] occupational health in 1 week for recheck [facility] Other 03-09-2022 NoteChief Complaint consultation for epigastric pain, GERD and dysphagia HPI Staff 45 year old female presents on consultation from Odalis Gu for epigastric pain, GERD and dysphagia. Reports several month history of stated symptoms. Prescribed Omeprazole 20mg daily. Symptoms did not improve and Omeprazole was increased to 40mg. This was not effective either so prescription was changed to Pantoprazole 40mg daily. Verbalized she has been taking this for awhile without change in symptoms. Reports she has globus sensation with difficulty swallowing both solids and liquids. Denies nausea or vomiting. No bowel changes. History of Present Illness 45 yo female with h/o hypothyroidism, migraine headaches, fibromyalgia, DAGO, obesity, GERD, referred for refractory GERD symptoms; patient reports worsening GERD over last several months; epigastric pain radiating into chest, pressure; globus sensation; intermittent regurgitation, and dysphagia that can occur with pills or solid foods, eventually goes down; no wt loss or wt gain; no N/V; was on omeprazole and dose increased, with no improvement; switched to Pantoprazole early April without improvement; occurs through out the day and at night; denies change in bms or blood in stools; only abdominal operation LS cholecystectomy; no previous endoscopy. takes Diclofenac daily, no asa, no SBE prophylaxis; no fmhx of GI malignancy or IBD. Review of Systems PHQ Score Initial Depression Screen Score: 0 ROS - Provider Constitutional: no fever, no sweats, no weight loss. Eyes: no glasses, no blurred vision, no visual loss. ENMT: no dentures, no hoarseness, no swallowing difficulties, no hearing loss, no ear infection(s),no nose bleeds. Cardiovascular: normal blood pressure, no chest pain, regular heartbeat, no heart murmur. Respiratory: no shortness of breath, no cough, no asthma, no wheezing. Gastrointestinal: no nausea, no vomiting, no diarrhea, no constipation, no blood in stool, no change in bowel habits, no abdominal pain, no hepatitis. Genitourinary: no kidney stones, no urine infection, no dysuria. Musculoskeletal: no pain, no weakness. Skin: no changing moles, no rash, no skin lumps. Neurologic: no seizures, no epilepsy, no headache. Psychiatric: no emotional or psychiatric problem. Heme/Lymph: no bleeding problems, no anemia, no blood clots, no transfusions. Allergy/Immunologic: no swollen lymph nodes/glands, no IV drug abuse. Other: Additional ROS info: Except as noted in the above Review of Systems and in the History of Present Illness, all other systems have been reviewed and are negative or noncontributory. Physical Exam Vitals & Measurements T: 36.3 ?C(Temporal Artery) HR: 80(Peripheral) RR: 16 BP: 144/90 HT: 170.2 cm HT: 170.18 cm WT: 133.3 kg WT: 133.3 kg BMI: 46.03 HEENT: normal conjunctiva, sclera clear, no scleral icterus, EOM intact, PERRLA, oral mucosa moist without lesions. Neck: trachea midline, no mass, symmetric, no thyromegaly or nodules, no adenopathy Respiratory: lungs CTA, respirations non labored. Cardiovascular: regular rate and rhythm, no murmur, no pedal edema or varicosities. Gastrointestinal: obese, soft, non distended, no tenderness, no masses, no palpable hernias, diastasis recti no, no hepatosplenomegaly; normal bs Lymphatic: no cervical adenopathy, Musculoskeletal: normal gait, digits and nails without infection, nodes, cyanosis, clubbing. Skin: no rashes, no lesions, no ulcers, no subcutaneous nodules, induration. Psychiatric/Neuro: oriented to time, place, person, judgement normal, affect appropriate for age, insight intact, no focal deficits. Tests: , review of old records completed, Discussed surgical options, risks, and possible complications with patient. Assessment/Plan 1. GERD (gastroesophageal reflux disease) (K21.9: Gastro-esophageal reflux disease without esophagitis) plan EGD for further evaluation, informed consent obtained. 2. Dysphagia (R13.10: Dysphagia, unspecified) see # 1 3. Globus sensation (R19.8: Other specified symptoms and signs involving the digestive system and abdomen) see # 1 4. Screening for malignant neoplasm of colon (Z12.11: Encounter for screening for malignant neoplasm of colon) plan colonoscopy with anesthesia at time of EGD, informed consent obtained. Follow-up No qualifying data available Problem List/Past Medical History Ongoing Bilateral lower extremity edema BMI 45.0-49.9, adult Dysphagia Fibromyalgia GERD (gastroesophageal reflux disease) Globus sensation Hyperlipidemia Hypothyroidism Insomnia Migraines Neuropathy DAGO (obstructive sleep apnea) Ovarian cyst Screening for malignant neoplasm of colon Urethral meatal stenosis Vitamin D deficiency Historical No qualifying data Procedure/Surgical History History of selective lumbar nerve block, Laparoscopic cholecystectomy. Medications albuterol HFA 90 mcg/inh MDI, 2 puff(s), Inhalation, q6hr, PRN Diclof (more content not included)...[facility]Comment [facility]:Result Comment: Electronically Signed By: LEXX BAGLEY, Francisca Mcarthur\Date and Time Signed: 06/03/21 16:49 ESTEvaluation + Plan note No data available for this section General Surgery Ej Evaluation noteNortInd[facility] [employer] Other Evaluation noteNo assessment information available [facility] Work Phone: Histiuu general Narrative - ReportedN[facility]Ind[facility] [employer] Other Hissatr general Narrative - Reported* Type Description Date Medical History Hypothyroidism Medical History Fibromyalgia Medical History Small fiber neuropathy Medical History Vitamin D deficiency Surgical History cholecystectomy [facility] [employer] Other Hisgyat general Narrative - Reported* Type Description Date Medical History Hypothyroidism Medical History Fibromyalgia Medical History Small fiber neuropathy Medical History Vitamin D deficiency Medical History Osteoarthritis lower back Medical History degenerative disc disease Surgical History cholecystectomy [facility] [employer] Other Histrxh general Narrative - Reported* Type Description Date Medical History Hypothyroidism Medical History Fibromyalgia Medical History Small fiber neuropathy Medical History Vitamin D deficiency Medical History Osteoarthritis lower back Medical History degenerative disc disease Medical History obstructive sleep apnea Medical History restless leg syndrome Surgical History cholecystectomy [facility] [employer] Other Hospital Discharge instructions No data available for this section General Surgery Black Summary Purpose Family History No Family History Records FoundNo Family History Records FoundNo Family History Records FoundNo Family History Records Found Advance Directives No Advanced Directives Records Found Advance Directive Response Recorded Date/ Time Advance Directives No August 12 2 12:46pm Advance Directive Response Recorded Date/ Time Advance Directives No August 12 2 11:46am Chief Complaint and Reason for Visit Chief Complaint S63.602A Chief Complaint dago intolerance of p ap Additional Source Comments INFORMATION SOURCE (unrecogn ized section and content) DATE CREATED AUTHOR [facility]06/20[facility] DATE CREATED AUTHOR AUTHOR'S ORGANIZ ATION 08/12/2022 [facility] DATE CREATED AUTHOR AUTHOR'S ORGANIZ ATION 02/25/2023 [facility] EPIC DATE CREATED AUTHOR AUTHOR'S ORGANIZ ATION 03/18/2023 [facility] REASON FOR VISIT (unrecogniz ed section and content) BWC INITIAL LEFT THUMB INJUR Y, PAT REQUIREDF/U BWCLeft Thumb InjuryLeft Thumb PainCORTISONE LT THUMB BWC APPROVEDCHEST CONGESTION, COUGH, SORE THROATRecheck Left ThumbBWC LT THUMB PAINNo Information Care Teams (unrecognized sec tion and content) Team Status: Inactive Member Role Status Dates Rylan Collado DO Attending Provider Active Odalis Gu Primary Care Provider Active Team Status: Active Member Role Status Dates Odalis uG Primary Care Provider Active Team Status: Inactive Member Role Status Dates Rambo Martinez MD Attending Provider Active Odalis Gu Primary Care Provider, Referring Provi shima Active Goals (unrecognized section and content) Goals may be documented in a n alternate section FOR RECORDS PERTAINING TO PATIENTS WHO ARE OR HAVE BEEN ENROLLED IN A CHEMICAL DEPENDENCY/SUBSTANCEABUSE PROGRAM, SOME INFORMATION MAY BE OMITTED. This clinical summary was aggregated from multiple sources. Caution should be exercised in using it in the provision of clinical care. This summary normalizes information from multiple sources, and as a consequence, information in this document may materially change the coding, format and clinical context of patient data. In addition, data may be omitted in some cases. CLINICAL DECISIONS SHOULD BE BASED ON THE PRIMARY CLINICAL RECORDS. [facility]. provides no warranty or guarantee of the accuracy or completeness of information in this document.
[2023-03-31 12:29] LABS: Basophils Absolute Auto 0.1 10^3/uL (0.0-0.1); Basophils Percent Auto 0.5 % (0.2-2.0); Eosinophils Absolute Auto 0.3 10^3/uL (0.0-0.7); Eosinophils Percent Auto 2.4 % (0.9-7.0); Hematocrit 39.1 % (36.0-48.0); Hemoglobin 12.4 g/dL (12.0-16.0); Immature Granulocytes Abs Auto 0.12 10^3/uL (0.00-0.03); Immature Granulocytes Pct Auto 1.1 % (0.0-0.5); Lymphocytes Absolute Auto 2.4 10^3/uL (1.2-3.8); Lymphocytes Percent Auto 22.7 % (20.5-60.0); Mean Corpuscular HGB Conc 31.7 g/dL (29.9-35.2); Mean Corpuscular Hemoglobin 28.6 pg (26.7-34.0); Mean Corpuscular Volume 90.3 fL (81.0-99.0); Mean Platelet Volume 8.3 fL (9.5-13.5); Monocytes Absolute Auto 0.6 10^3/uL (0.3-0.8); Monocytes Percent Auto 5.4 % (1.7-12.0); Neutrophils Absolute Auto 7.2 10^3/uL (1.4-6.5); Neutrophils Percent Auto 67.9 % (43.0-75.0); Platelet Count 307 10^3/uL (150-450); Red Blood Count 4.33 10^6/uL (4.20-5.40); Red Cell Distribution Width 13.4 % (11.0-15.0); White Blood Count 10.6 10^3/uL (4.0-11.0)
[2023-03-31 13:04] LABS: Percent Iron Saturation 24.2 %
== END 2023-03-31 12:02 | disposition home or self-care (01) ==
LOC: LAB 12:02
PROVIDERS: PCP Nurse Practitioner
DX: G25.81 Restless legs syndrome (principal); Z86.39 Personal history of other endocrine, nutritional and metabolic disease
CPT/HCPCS: 36415; 83540; 83550; 85025

== ENCOUNTER 2023-04-14 20:26 | Emergency (ER) | payer OTHER, SELFPAY ==
[2023-04-14 20:31] VITALS: BP 162/95; PULSE 85; RESP 18; TEMP 37.1; O2SAT 99; BMI 48.3
--- OUTSIDE RECORDS SUMMARY | 2023-04-14 20:50 | XMS_ITS | CCD ---
Author Name Unknown Address [address] [facility] [address] [place] [address] Organization [facility] Care Team Providers Care Chaperon Name Role Phone ODALIS GU Primary Care Physician [phone] Rola Reinoso Unavailable Padma Ramirez Unavailable Jessica Dong Unavailable Rylan Collado Unavailable DO Rylan Collado Attending Provider Odalis Gu Primary Care Provider Yelitza Johnson Unavailable Rola Gant Unavailable AICHHOLZ, RAG ROOM SUPERVISOR ODALIS Attending Unavailable AICHHOLZ, RAG ROOM SUPERVISOR ODALIS Admitting Unavailable AICHHOLZ, RAG ROOM SUPERVISOR ODALIS Primary Care Unavailable DR RAMBO SEVERINO V Consulting Unavailable AICHHOLZ, RAG ROOM SUPERVISOR ODALIS Consulting Unavailable AICHHOLZ, RAG ROOM SUPERVISOR ODALIS Attending Unavailable AICHHOLZ, RAG ROOM SUPERVISOR ODALIS Consulting Unavailable AICHHOLZ, RAG ROOM SUPERVISOR ODALIS Admitting Unavailable AICHHOLZ, RAG ROOM SUPERVISOR ODALIS Primary Care Unavailable AICHHOLZ, RAG ROOM SUPERVISOR ODALIS Attending Unavailable AICHHOLZ, RAG ROOM SUPERVISOR ODALIS Consulting Unavailable AICHHOLZ, RAG ROOM SUPERVISOR ODALIS Admitting Unavailable AICHHOLZ, RAG ROOM SUPERVISOR ODALIS Primary Care Unavailable AICHHOLZ, RAG ROOM SUPERVISOR ODALIS Attending Unavailable AICHHOLZ, RAG ROOM SUPERVISOR ODALIS Consulting Unavailable AICHHOLZ, RAG ROOM SUPERVISOR ODALIS Admitting Unavailable AICHHOLZ, RAG ROOM SUPERVISOR ODALIS Primary Care Unavailable DR PADMA RANDOLPH Consulting Unavailable DR PADMA RANDOLPH Attending Unavailable AICHHOLZ, RAG ROOM SUPERVISOR ODALIS Primary Care Unavailable DR PADMA RANDOLPH Admitting Unavailable AICHHOLZ, RAG ROOM SUPERVISOR ODALIS Primary Care Unavailable JOSÉ MIGUEL ., DR LOVELACE Consulting Unavailable HOY ., DR LOVELACE Attending Unavailable HOY ., DR LOVELACE Admitting Unavailable KATHY CURRAN Consulting Unavailable FRANCISCA DOMINGUEZ Consulting Unavailable DORIS CROWE Consulting Unavailable MACKENZIE ., DOTTIE Consulting Unavailable MACKENZIE ., DOTTIE Attending Unavailable AICHHOLZ, RAG ROOM SUPERVISOR ODALIS Primary Care Unavailable MACKENZIE ., DOTTIE Admitting Unavailable AICHHOLZ, RAG ROOM SUPERVISOR ODALIS Primary Care Unavailable PAY ., DR DURHAM Consulting Unavailable PAY ., DR DURHAM Attending Unavailable PAY ., DR DURHAM Admitting Unavailable AICHHOLZ, RAG ROOM SUPERVISOR ODALIS Attending Unavailable AICHHOLZ, RAG ROOM SUPERVISOR ODALIS Primary Care Unavailable AICHHOLZ, RAG ROOM SUPERVISOR ODALIS Admitting Unavailable AICHHOLZ, RAG ROOM SUPERVISOR ODALIS Attending Unavailable AICHHOLZ, RAG ROOM SUPERVISOR ODALIS Primary Care Unavailable AICHHOLZ, RAG ROOM SUPERVISOR ODALIS Consulting Unavailable AICHHOLZ, RAG ROOM SUPERVISOR ODALIS Admitting Unavailable MARCELINO, DR DEEP Ruffin Consulting Unavailable AICHHOLZ, RAG ROOM SUPERVISOR ODALIS Attending Unavailable AICHHOLZ, RAG ROOM SUPERVISOR ODALIS Primary Care Unavailable AICHHOLZ, RAG ROOM SUPERVISOR ODALIS Consulting Unavailable AICHHOLZ, RAG ROOM SUPERVISOR ODALIS Admitting Unavailable AICHHOLZ, RAG ROOM SUPERVISOR ODALIS Attending Unavailable AICHHOLZ, RAG ROOM SUPERVISOR ODALIS Primary Care Unavailable MERE, DR RAMBO Hoang Consulting Unavailable AICHHOLZ, RAG ROOM SUPERVISOR ODALIS Admitting Unavailable AICHHOLZ, RAG ROOM SUPERVISOR ODALIS Consulting Unavailable AICHHOLZ, RAG ROOM SUPERVISOR ODALIS Attending Unavailable AICHHOLZ, RAG ROOM SUPERVISOR ODALIS Admitting Unavailable AICHHOLZ, RAG ROOM SUPERVISOR ODALIS Primary Care Unavailable AICHHOLZ, RAG ROOM SUPERVISOR ODALIS Consulting Unavailable AICHHOLZ, RAG ROOM SUPERVISOR ODALIS Attending Unavailable AICHHOLZ, RAG ROOM SUPERVISOR ODALIS Admitting Unavailable AICHHOLZ, RAG ROOM SUPERVISOR ODALIS Primary Care Unavailable AICHHOLZ, ODALIS Attending Unavailable MD Rambo Martinez Attending Provider [phone] Riccardo, Odalis J Primary Care Provider Riccardo, Odalis J Referring Provider [phone] Rambo Martinez Unavailable Riccardo, Odalis J Referring Unavailable Aichholz, Odalis J Primary Care Unavailable Rambo Martinez Attending Unavailable Rambo Martinez Admitting Unavailable Allergies Allergy Classification Reported Allergen(s) Allergy Type Date of Onset Reaction(s) Facility (11 sources) DULoxetine; Translations: [duloxetine] Drug Allergy 02-09-20 19 Eruption of skin (disorder) [employer] Other (1 source) Nalbuphine; Translations: [nalbuphine] Drug Allergy 05-26-19 16 Headache (finding), Hallucinations (finding) [facility] [place] (11 sources) Sulfacetamide; Translations: [sodium sulfacetamide ophthalmic] Drug Allergy Eruption of skin (disorder) [employer] Other (1 source) Sulfonamides (Antibiotic); Translations: [sulfa drugs] Drug allergy Eruption of skin (disorder) [facility] [place] (11 sources) topiramate; Translations: [topiramate] Drug Allergy Clouded consciousness (finding) [facility] [employer] Other (12 sources) Nalbuphine; Translations: [Nubain] Drug Allergy 05-27-19 16 hallucinations and violent headache [facility] (1 source) DULoxetine Drug Allergy 02-10-20 19 [facility] (2 sources) Sulfonamides (Antibiotic) Drug allergy (disorder) 05-27-19 16 [facility] (1 source) topiramate Drug Allergy [facility] Medications Current Medications Medication Drug Class(es) Dates Sig (Normalized) Sig (Original) [id number] actuat albuterol 0.09 mg/actuat metered dose [...] 1.5 mg/ml oral solution (7 sources) Uncompetitive P-iyjmbi-F-asparta te Receptor Antagonist, Sigma-1 Agonist Start: 05-24-2022 take 10 mL by mouth every eight hours [place] DM 7.5-7.5 MG/5ML 10 mL Orally every [...] 03-26-2021 Episodic Other aftercare (1 source) Other longterm (current) drug therapy; Translations: [OTH HIV COUNSELOR CURRENT DRUG THERAPY] Onset: 02-10-2022 Episodic Other [...] Value Interpretation Reference Range [facility] SARS-CoV-2 (COVID-19) RNA LILIANA+probe Ql (Unsp spec) Not detected Normal NOT DETECTED [facility] Comment on above: Performed By: #### C [facility] #### [facility] [address] [place] [address] Dr. Verenice Smallwood SYMPTOMATIC COVID-19 ANTIGEN on 08-11-2022 EUA Statement SEE BELOW Normal [facility] Comment on above: Result Comment: This test [...] sooner. Performed By: #### C VDAGS #### [facility] [address] [place] [address] Dr. Verenice Smallwood SARS-CoV-2 (COVID-19) RNA LILIANA+probe Ql (Unsp spec) Negative Normal NEGATIVE [facility] Comment on above: Performed By: #### C VDAGS #### [facility] [address] [place] [address] Dr. Verenice Smallwood XR DEXA BONE DENSITYon [...] RAMBO SEVERINO Date: 2022-07-12 18:19 Normal [facility] PHOSPHORUSon 07-02-2022 Phosphate [Mass/Vol] 3.2 mg/dL Normal 2.6-4.7 [facility] Comment on above: Performed By: #### P HOS #### [facility] [address] [place] [address] Dr. Verenice Smallwood PROGESTERONEon 06-29-2022 Progesterone 0.4 ng/mL Normal [facility] Comment on above: Result Comment: Foll icular phase 0.1 - 0.9 Luteal phase 1.8 - 23.9 Ovulation phase 0.1 - 12.0 First trimester 11.0 - 44.3 Second trimester 25.4 - 83.3 Third trimester 58.7 - 214.0 Postmenopausal 0.0 - 0.1 Performed By: #### C VDTBH #### [facility] [address] [place] [address] Dr. Verenice Smallwood PTH INTACTon 06-29-2022 PTH, Intact 35 pg/mL Normal 15-65 [facility] Comment on above: Performed By: #### C RP, BMP #### [facility] [address] [place] [address] Dr. Verenice Smallwood CBC AUTO DIFFon 06-09-2022 BASO # 0.1 103/ul Normal 0.0-0.1 [facility] Comment on above: Performed By: #### C BC #### [facility] [address] [place] [address] Dr. Verenice Smallwood Basophils/100 WBC (Bld) 0.7 % Normal 0.2-2.0 [facility] Comment on above: Performed By: #### C BC #### [facility] [address] [place] [address] Dr. Verenice Smallwood EO # 0.1 103/ul Normal 0.0-0.7 [facility] Comment on above: Performed By: #### C BC #### [facility] [address] [place] [address] Dr. Verenice Smallwood Eosinophils/100 WBC (Bld) 1.6 % Normal 0.9-7.0 [facility] Comment on above: Performed By: #### C BC #### [facility] [address] [place] [address] Dr. Verenice Smallwood Erythrocyte distribution width (RBC) [Ratio] 12.9 % Normal 11.0-15.0 [facility] Comment on above: Performed By: #### C BC #### [facility] [address] [place] [address] Dr. Verenice Smallwood Hematocrit (Bld) [Volume fraction] 44.6 % Normal 36.0-48.0 [facility] Comment on above: Performed By: #### C BC #### [facility] [address] [place] [address] Dr. Verenice Smallwood Hemoglobin (Bld) [Mass/Vol] 14.6 g/dL Normal 12.0-16.0 [facility] Comment on above: Performed By: #### C BC #### [facility] [address] [place] [address] Dr. Verenice Smallwood IG # 0.10 10e3/ul Critically high 0.00-0.03 [facility] Comment on above: Performed By: #### C BC #### [facility] [address] [place] [address] Dr. Verenice Smallwood IG % 1.1 % Critically high 0.0-0.5 [facility] Comment on above: Performed By: #### C BC #### [facility] [address] [place] [address] Dr. Verenice Smallwood LYMPH # 2.4 103/ul Normal 1.2-3.8 [facility] Comment on above: Performed By: #### C BC #### [facility] [address] [place] [address] Dr. Verenice Smallwood Lymphocytes/100 WBC (Bld) 27.3 % Normal 20.5-60.0 [facility] Comment on above: Performed By: #### C BC #### [facility] [address] [place] [address] Dr. Verenice Smallwood MANUAL DIFF REQ NO Normal [facility] Comment on above: Performed By: #### C BC #### [facility] [address] [place] [address] Dr. Verenice Smallwood MCH (RBC) [Entitic mass] 30.2 pg Normal 26.7-34.0 [facility] Comment on above: Performed By: #### C BC #### [facility] [address] [address] [address] Verenice Smallwood MCHC (RBC) [Mass/Vol] 32.7 g/dL Normal 29.9-35.2 [facility] Comment on above: Performed By: #### C BC #### [facility] [address] [address] [address] Verenice Smallwood MCV (RBC) [Entitic vol] 92.1 fL Normal 81.0-99.0 [facility] Comment on above: Performed By: #### C BC #### [facility] [address] [place] [address] Dr. Verenice Smallwood MONO # 0.6 103/ul Normal 0.3-0.8 [facility] Comment on above: Performed By: #### C BC #### [facility] [address] [place] [address] Dr. Verenice Smallwood Monocytes/100 WBC (Bld) 6.3 % Normal 1.7-12.0 [facility] Comment on above: Performed By: #### C BC #### [facility] [address] [place] [address] Dr. Verenice Smallwood NEUT # 5.5 103/ul Normal 1.4-6.5 [facility] Comment on above: Performed By: #### C BC #### [facility] [address] [place] [address] Dr. Verenice Smallwood Neutrophils/100 WBC (Bld) 63.0 % Normal 43.0-75.0 [facility] Comment on above: Performed By: #### C BC #### [facility] [address] [place] [address] Dr. Verenice Smallwood Platelet mean volume (Bld) [Entitic vol] 8.4 fL Critically low 9.5-13.5 [facility] Comment on above: Performed By: #### C BC #### [facility] [address] [place] [address] Dr. Verenice Smallwood PLT 300 103/ul Normal 150-450 [facility] Comment on above: Performed By: #### C BC #### [facility] [address] [place] [address] Dr. Verenice Smallwood RBC 4.84 106/ul Normal 4.20-5.40 [facility] Comment on above: Performed By: #### C BC #### [facility] [address] [place] [address] Dr. Verenice Smallwood WBC 8.8 103/ul Normal 4.0-11.0 [facility] Comment on above: Performed By: #### C BC #### [facility] [address] [place] [address] Dr. Verenice Smallwood FREE T4on 06-09-2022 Free T4 [Mass/Vol] 1.08 ng/dL Normal 0.76-1.46 [facility] Comment on above: Performed By: #### C RP, BMP #### [facility] [address] [place] [address] Dr. Verenice Smallwood GLYCOHEMOGLOBIN A1Con 2022 ADA RECOMMENDATION SEE BELOW Normal [facility] Comment on above: Result Comment: ADA RECOMMENDED LIMIT 4.0 - 6.0 ADA THERAPEUTIC TARGET < 7.0 ACTION SUGGESTED > 7.0 Performed By: #### C BC #### [facility] [address] [place] [address] Dr. Verenice Smallwood Glucose [Mass/Vol] 123 mg/dL Normal [facility] Comment on above: Performed By: #### C BC #### [facility] [address] [place] [address] Dr. Verenice Smallwood HbA1c (Bld) [Mass fraction] 5.9 % Normal 4.5-6.2 [facility] Comment on above: Performed By: #### C BC #### [facility] [address] [place] [address] Dr. Verenice Smallwood LIPID PROFILEon 06-09-2022 CHOL-HDL RATIO NORM SEE BELOW Normal [facility] Comment on above: Result Comment: 3.3 - 4.4 LOW RISK 4.4 - 7.1 AVERAGE RISK 7.1 - 11.0 MODERATE RISK >11.0 HIGH RISK Performed By: #### C BC #### [facility] [address] [place], [place] [address] Dr. Verenice Smallwood Cholesterol [Mass/Vol] 255 mg/dL Critically high <=200 [facility] Comment on above: Performed By: #### C BC #### [facility] [address] [place], [place] [address] Dr. Verenice Smallwood Cholesterol in HDL [Mass/Vol] 56 mg/dL Normal 40-60 [facility] Comment on above: Performed By: #### C BC #### [facility] [address] [address] [address] Verenice Smallwood Cholesterol in LDL [Mass/Vol] 144.6 mg/dL Normal [facility] Comment on above: Performed By: #### C BC #### [facility] [address] [address] [address] Verenice Smallwood Cholesterol.total /Cholesterol in HDL [Mass ratio] 4.6 {ratio} Normal [facility] Comment on above: Performed By: #### C BC #### [facility] [address] [address] [address] Verenice Smallwood HDL NORMAL > or = 60 mg/dl - LO W CARDIOVASCULAR RISK <40 mg/dl - HIGH CARDIOVASCULAR RISK Normal [facility] Comment on above: Performed By: #### C BC #### [facility] [address] [id number] Verenice Smallwood LDL CALC NORMAL SEE BELOW Normal [facility] Comment on above: Result Comment: <100 mg/dl OPTIMAL 100 - 129 mg/dl NEAR OR ABOVE OPTIMAL 130 - 159 mg/dl BORDERLINE HIGH 160 - 189 mg/dl HIGH >190 mg/dl VERY HIGH Performed By: #### C BC #### [facility] [address] [id number] Verenice Smallwood Triglyceride [Mass/Vol] 272 mg/dL Critically high <=150 [facility] Comment on above: Performed By: #### C BC #### [facility] [address] [id number] Verenice Smallwood VLDL CALC 54.4 mg/dL Normal [facility] Comment on above: Performed By: #### C BC #### [facility] [address] [place] [address] Dr. Verenice Smallwood PROF 14(COMP METB)on 023 Albumin [Mass/Vol] 3.7 g/dL Normal 3.4-5.0 [facility] Comment on above: Performed By: #### C BC #### [facility] [address] [place] [address] Dr. Verenice Smallwood Albumin/Globulin [Mass ratio] 0.9 {ratio} Normal [facility] Comment on above: Performed By: #### C BC #### [facility] [address] [place] [address] Dr. Verenice Smallwood ALP [Catalytic activity/Vol] 80 U/L Normal 46-116 [facility] Comment on above: Performed By: #### C BC #### [facility] [address] [place] [address] Dr. Verenice Smallwood ALT [Catalytic activity/Vol] 29 U/L Normal 14-59 [facility] Comment on above: Performed By: #### C BC #### [facility] [address] [place] [address] Dr. Verenice Smallwood Anion gap [Moles/Vol] 13.4 mmol/L Normal [facility] Comment on above: Performed By: #### C BC #### [facility] [address] [place] [address] Dr. Verenice Smallwood AST [Catalytic activity/Vol] 24 U/L Normal 15-37 [facility] Comment on above: Performed By: #### C BC #### [facility] [address] [place] [address] Dr. Verenice Smallwood Bilirubin [Mass/Vol] 0.2 mg/dL Normal 0.2-1.0 [facility] Comment on above: Performed By: #### C BC #### [facility] [address] [place] [address] Dr. Verenice Smallwood Calcium [Mass/Vol] 9.7 mg/dL Normal 8.5-10.1 [facility] Comment on above: Performed By: #### C BC #### [facility] [address] [place] [address] Dr. Verenice Smallwood Chloride [Moles/Vol] 104 mmol/L Normal 98-107 [facility] Comment on above: Performed By: #### C BC #### [facility] [address] [place] [address] Dr. Verenice Smallwood CO2 [Moles/Vol] 25.4 mmol/L Normal 21.0-32.0 [facility] Comment on above: Performed By: #### C BC #### [facility] [address] [place] [address] Dr. Verenice Smallwood Creatinine [Mass/Vol] 0.77 mg/dL Normal 0.55-1.02 [facility] Comment on above: Performed By: #### C BC #### [facility] [address] [place] [address] Dr. Verenice Smallwood EGFR-AF TONGAN >60 Normal >=60 [facility] Comment on above: Performed By: #### C BC #### [facility] [address] [place] [address] Dr. Verenice Smallwood EGFR-NON AF TONGAN >60 Normal >=60 [facility] Comment on above: Performed By: #### C BC #### [facility] [address] [place] [address] Dr. Verenice Smallwood Globulin (S) [Mass/Vol] 4.1 g/dL Normal [facility] Comment on above: Performed By: #### C BC #### [facility] [address] [place] [address] Dr. Verenice Smallwood Glucose [Mass/Vol] 110 mg/dL Critically high 74-106 [facility] Comment on above: Performed By: #### C BC #### [facility] [address] [place] [address] Dr. Verenice Smallwood Potassium [Moles/Vol] 4.8 mmol/L Normal 3.5-5.1 [facility] Comment on above: Performed By: #### C BC #### [facility] [address] [place] [address] Dr. Verenice Smallwood Protein [Mass/Vol] 7.8 g/dL Normal 6.4-8.2 [facility] Comment on above: Performed By: #### C BC #### [facility] [address] [place] [address] Dr. Verenice Smallwood Sodium [Moles/Vol] 138 mmol/L Normal 136-145 [facility] Comment on above: Performed By: #### C BC #### [facility] [address] [place] [address] Dr. Verenice Smallwood Urea nitrogen [Mass/Vol] 15.0 mg/dL Normal 7.0-18.0 [facility] Comment on above: Performed By: #### C BC #### [facility] [address] [place] [address] Dr. Verenice Smallwood Urea nitrogen/Creatini ne [Mass ratio] 19.5 mg/mg Normal [facility] Comment on above: Performed By: #### C BC #### [facility] [address] [place] [address] Dr. Verenice Smallwood TSHon 06-09-2022 TSH 1.964 uIU/mL Normal 0.358-3.[address] [facility] Comment on above: Performed By: #### C BC #### [facility] [address] [place] [address] Dr. Verenice Smallwood UA RANDOM W/MICROSCOPICon BACTERIA TRACE Abnormal NONE SEEN [facility] Comment on above: Performed By: #### C BC #### [facility] [address] [place] [address] Dr. Verenice Smallwood Bilirubin Ql (U) Negative Normal NEGATIVE [facility] Comment on above: Performed By: #### C BC #### [facility] [address] [place] [address] Dr. Verenice Smallwood CAST NONE SEEN Normal NONE SEEN [facility] Comment on above: Performed By: #### C BC #### [facility] [address] [place] [address] Dr. Verenice Smallwood Clarity (U) CLEAR Normal CLEAR [facility] Comment on above: Performed By: #### C BC #### [facility] [address] [place] [address] Dr. Verenice Smallwood Color (U) LT. YELLOW Normal YELLOW [facility] Comment on above: Performed By: #### C BC #### [facility] [address] [place] [address] Dr. Verenice Smallwood Crystals LM Nom (Urine sed) NONE SEEN Normal NONE SEEN [facility] Comment on above: Performed By: #### C BC #### [facility] [address] [place] [address] Dr. Verenice Smallwood Epithelial cells LM Ql (Urine sed) FEW Abnormal NONE SEEN /RARE [facility] Comment on above: Performed By: #### C BC #### [facility] [address] [place] [address] Dr. Verenice Smallwood Glucose Ql (U) Negative Normal NEGATIVE [facility] Comment on above: Performed By: #### C BC #### [facility] [address] [place] [address] Dr. Verenice Smallwood Hemoglobin Ql (U) Negative Normal NEGATIVE [facility] Comment on above: Performed By: #### C BC #### [facility] [address] [place] [address] Dr. Verenice Smallwood Ketones Ql (U) Negative Normal NEGATIVE [facility] Comment on above: Performed By: #### C BC #### [facility] [address] [place] [address] Dr. Verenice Smallwood LEUKOCYTES Negative Normal NEGATIVE [facility] Comment on above: Performed By: #### C BC #### [facility] [address] [place] [address] Dr. Verenice Smallwood MUCOUS NONE SEEN Normal NONE SEEN [facility] Comment on above: Performed By: #### C BC #### [facility] [address] [place] [address] Dr. Verenice Smallwood Nitrite Ql (U) Negative Normal NEGATIVE [facility] Comment on above: Performed By: #### C BC #### [facility] [address] [place] [address] Dr. Verenice Smallwood pH (U) 6.0 [pH] Normal 5-9 [facility] Comment on above: Performed By: #### C BC #### [facility] [address] [place] [address] Dr. Verenice [place] RBC NONE SEEN Abnormal 0-2 [facility] Comment on above: Performed By: #### C BC #### [facility] [address] [place] [address] Dr. Verenice Smallwood SPEC GRAVITY 1.025 Normal 1.005-<=1.0 25 [facility] Comment on above: Performed By: #### C BC #### [facility] [address] [place] [address] Dr. Verenice Smallwood UA PROTEIN Negative Normal NEGATIVE/ TRACE [facility] Comment on above: Performed By: #### C BC #### [facility] [address] [place] [address] Dr. Verenice Smallwood Urobilinogen Qn (U) 0.2 {Brett'U}/dL Normal 0.2 - 1.0 [facility] Comment on above: Performed By: #### C BC #### [facility] [address] [place] [address] Dr. Verenice Smallwood WBC NONE SEEN Normal NONE SEEN [facility] Comment on above: Performed By: #### C BC #### [facility] [address] [place] [address] Dr. Verenice Smallwood VITAMIN D 25 OHon 06-09-2022 VIT D 25-OH 23.2 ng/mL Normal [facility] Comment on above: Performed By: #### C RP, BMP #### [facility] [address] [place] [address] Dr. Verenice Smallwood VIT D RANGES SEE BELOW Normal [facility] Comment on above: Result Comment: <20 ng/mL Vit D deficient 20 - <30 ng/mL Vit D insufficient 30 - 100 ng/mL Vit D sufficient >100 ng/mL Potential Toxicity Performed By: #### C RP, BMP #### [facility] [address] [place] [address] Dr. Verenice Smallwood COVID + FLU Quick Testingon 05-24-2022 SARS-CoV-2 (COVID-19) RNA LILIANA+probe Ql (Unsp spec) Negative [facility] [employer] Other COVID + FLU Quick Testing Negative [facility] [employer] Other CBC AUTO DIFFon 02-04-2022 BASO # 0.1 103/ul Normal 0.0-0.1 [facility] Comment on above: Performed By: #### C RP, BMP #### [facility] [address] [place] [address] Dr. Verenice Smallwood Basophils/100 WBC (Bld) 0.4 % Normal 0.2-2.0 [facility] Comment on above: Performed By: #### C RP, BMP #### [facility] [address] [place] [address] Dr. Verenice Smallwood EO # 0.0 103/ul Normal 0.0-0.7 [facility] Comment on above: Performed By: #### C RP, BMP #### [facility] [address] [place] [address] Dr. Verenice Smallwood Eosinophils/100 WBC (Bld) 0.1 % Critically low 0.9-7.0 [facility] Comment on above: Performed By: #### C RP, BMP #### [facility] [address] [place] [address] Dr. Verenice Smallwood Erythrocyte distribution width (RBC) [Ratio] 14.2 % Normal 11.0-15.0 [facility] Comment on above: Performed By: #### C RP, BMP #### [facility] [address] [place] [address] Dr. Verenice Smallwood Hematocrit (Bld) [Volume fraction] 41.6 % Normal 36.0-48.0 [facility] Comment on above: Performed By: #### C RP, BMP #### [facility] [address] [place] [address] Dr. Verenice Smallwood Hemoglobin (Bld) [Mass/Vol] 13.6 g/dL Normal 12.0-16.0 [facility] Comment on above: Performed By: #### C RP, BMP #### [facility] [address] [address] [address] Verenice Smallwood IG # 0.38 10e3/ul Critically high 0.00-0.03 [facility] Comment on above: Performed By: #### C RP, BMP #### [facility] [address] [address] [address] Verenice Smallwood IG % 2.6 % Critically high 0.0-0.5 [facility] Comment on above: Performed By: #### C RP, BMP #### [facility] [address] [place] [address] Dr. Verenice Smallwood LYMPH # 1.5 103/ul Normal 1.2-3.8 [facility] Comment on above: Performed By: #### C RP, BMP #### [facility] [address] [place] [address] Dr. Verenice Smallwood Lymphocytes/100 WBC (Bld) 10.6 % Critically low 20.5-60.0 [facility] Comment on above: Performed By: #### C RP, BMP #### [facility] [address] [place] [address] Dr. Verenice Smallwood MANUAL DIFF REQ NO Normal [facility] Comment on above: Performed By: #### C RP, BMP #### [facility] [address] [place] [address] Dr. Verenice Smallwood MCH (RBC) [Entitic mass] 29.5 pg Normal 26.7-34.0 [facility] Comment on above: Performed By: #### C RP, BMP #### [facility] [address] [place] [address] Dr. Verenice Smallwood MCHC (RBC) [Mass/Vol] 32.7 g/dL Normal 29.9-35.2 [facility] Comment on above: Performed By: #### C RP, BMP #### [facility] [address] [place] [address] Dr. Verenice Smallwood MCV (RBC) [Entitic vol] 90.2 fL Normal 81.0-99.0 [facility] Comment on above: Performed By: #### C RP, BMP #### [facility] [address] [place] [address] Dr. Verenice Smallwood MONO # 0.3 103/ul Normal 0.3-0.8 [facility] Comment on above: Performed By: #### C RP, BMP #### [facility] [address] [place] [address] Dr. Verenice Smallwood Monocytes/100 WBC (Bld) 2.3 % Normal 1.7-12.0 [facility] Comment on above: Performed By: #### C RP, BMP #### [facility] [address] [place] [address] Dr. Verenice Smallwood NEUT # 12.2 103/ul Critically high 1.4-6.5 [facility] Comment on above: Performed By: #### C RP, BMP #### [facility] [address] [place] [address] Dr. Verenice Smallwood Neutrophils/100 WBC (Bld) 84.0 % Critically high 43.0-75.0 [facility] Comment on above: Performed By: #### C RP, BMP #### [facility] [address] [place] [address] Dr. Verenice Smallwood Platelet mean volume (Bld) [Entitic vol] 8.4 fL Critically low 9.5-13.5 [facility] Comment on above: Performed By: #### C RP, BMP #### [facility] [address] [place] [address] Dr. Verenice Smallwood PLT 337 103/ul Normal 150-450 [facility] Comment on above: Performed By: #### C RP, BMP #### [facility] [address] [place] [address] Dr. Verenice Smallwood RBC 4.61 106/ul Normal 4.20-5.40 [facility] Comment on above: Performed By: #### C RP, BMP #### [facility] [address] [place] [address] Dr. Verenice Smallwood WBC 14.5 103/ul Critically high 4.0-11.0 [facility] Comment on above: Performed By: #### C RP, BMP #### [facility] [address] [address] [address] Verenice Smallwood CRPon 02-04-2022 CRP [Mass/Vol] mg/L Normal <=1.0 [facility] Comment on above: Performed By: #### C BC #### [facility] [address] [place] [address] Dr. Verenice Smallwood PROF 14(COMP METB)on 022 Albumin [Mass/Vol] 3.0 g/dL Critically low 3.4-5.0 [facility] Comment on above: Performed By: #### C BC #### [facility] [address] [place] [address] Dr. Verenice Smallwood Albumin/Globulin [Mass ratio] 0.8 {ratio} Normal [facility] Comment on above: Performed By: #### C BC #### [facility] [address] [place] [address] Dr. Verenice Smallwood ALP [Catalytic activity/Vol] 65 U/L Normal 46-116 [facility] Comment on above: Performed By: #### C BC #### [facility] [address] [place] [address] Dr. Verenice Smallwood ALT [Catalytic activity/Vol] 18 U/L Normal 14-59 [facility] Comment on above: Performed By: #### C BC #### [facility] [address] [place] [address] Dr. Verenice Smallwood Anion gap [Moles/Vol] 12.3 mmol/L Normal [facility] Comment on above: Performed By: #### C BC #### [facility] [address] [place] [address] Dr. Verenice Smallwood AST [Catalytic activity/Vol] 11 U/L Critically low 15-37 [facility] Comment on above: Performed By: #### C BC #### [facility] [address] [place] [address] Dr. Verenice Smallwood Bilirubin [Mass/Vol] 0.1 mg/dL Critically low 0.2-1.0 [facility] Comment on above: Performed By: #### C BC #### [facility] [address] [address] [address] Verenice Smallwood Calcium [Mass/Vol] 8.7 mg/dL Normal 8.5-10.1 [facility] Comment on above: Performed By: #### C BC #### [facility] [address] [address] [address] Verenice Smallwood Chloride [Moles/Vol] 101 mmol/L Normal 98-107 [facility] Comment on above: Performed By: #### C BC #### [facility] [address] [address] [address] Verenice Smallwood CO2 [Moles/Vol] 23.1 mmol/L Normal 21.0-32.0 [facility] Comment on above: Performed By: #### C BC #### [facility] [address] [place] [address] Dr. Verenice Smallwood Creatinine [Mass/Vol] 0.92 mg/dL Normal 0.55-1.02 [facility] Comment on above: Performed By: #### C BC #### [facility] [address] [place] [address] Dr. Verenice Smallwood EGFR-AF TONGAN >60 Normal >=60 [facility] Comment on above: Performed By: #### C BC #### [facility] [address] [place] [address] Dr. Verenice Smallwood EGFR-NON AF TONGAN >60 Normal >=60 [facility] Comment on above: Performed By: #### C BC #### [facility] [address] [address] [address] Verenice Smallwood Globulin (S) [Mass/Vol] 3.8 g/dL Normal [facility] Comment on above: Performed By: #### C BC #### [facility] [address] [place] [address] Dr. Verenice Smallwood Glucose [Mass/Vol] 161 mg/dL Critically high 74-106 [facility] Comment on above: Performed By: #### C BC #### [facility] [address] [place] [address] Dr. Verenice Smallwood Potassium [Moles/Vol] 4.4 mmol/L Normal 3.5-5.1 [facility] Comment on above: Performed By: #### C BC #### [facility] [address] [place] [address] Dr. Verenice Smallwood Protein [Mass/Vol] 6.8 g/dL Normal 6.4-8.2 [facility] Comment on above: Performed By: #### C BC #### [facility] [address] [place] [address] Dr. Verenice Smallwood Sodium [Moles/Vol] 132 mmol/L Critically low 136-145 [facility] Comment on above: Performed By: #### C BC #### [facility] [address] [place] [address] Dr. Verenice Smallwood Urea nitrogen [Mass/Vol] 25.0 mg/dL Critically high 7.0-18.0 [facility] Comment on above: Performed By: #### C BC #### [facility] [address] [place] [address] Dr. Verenice Smallwood Urea nitrogen/Creatini ne [Mass ratio] 27.2 mg/mg Normal [facility] Comment on above: Performed By: #### C BC #### [facility] [address] [place] [address] Dr. Verenice Smallwood CBC AUTO DIFFon 02-03-2022 BASO # 0.0 103/ul Normal 0.0-0.1 [facility] Comment on above: Performed By: #### C BC #### [facility] [address] [place] [address] Dr. Verenice Smallwood Basophils/100 WBC (Bld) 0.3 % Normal 0.2-2.0 [facility] Comment on above: Performed By: #### C BC #### [facility] [address] [place] [address] Dr. Verenice Smallwood EO # 0.0 103/ul Normal 0.0-0.7 [facility] Comment on above: Performed By: #### C BC #### [facility] [address] [place] [address] Dr. Verenice Smallwood Eosinophils/100 WBC (Bld) 0.0 % Critically low 0.9-7.0 [facility] Comment on above: Performed By: #### C BC #### [facility] [address] [place] [address] Dr. Verenice Smallwood Erythrocyte distribution width (RBC) [Ratio] 13.6 % Normal 11.0-15.0 [facility] Comment on above: Performed By: #### C BC #### [facility] [address] [place] [address] Dr. Verenice Smallwood Hematocrit (Bld) [Volume fraction] 40.5 % Normal 36.0-48.0 [facility] Comment on above: Performed By: #### C BC #### [facility] [address] [place] [address] Dr. Verenice Smallwood Hemoglobin (Bld) [Mass/Vol] 13.4 g/dL Normal 12.0-16.0 [facility] Comment on above: Performed By: #### C BC #### [facility] [address] [place] [address] Dr. Verenice Smallwood IG # 0.24 10e3/ul Critically high 0.00-0.03 [facility] Comment on above: Performed By: #### C BC #### [facility] [address] [place] [address] Dr. Verenice Smallwood IG % 2.0 % Critically high 0.0-0.5 [facility] Comment on above: Performed By: #### C BC #### [facility] [address] [place] [address] Dr. Verenice Smallwood LYMPH # 1.5 103/ul Normal 1.2-3.8 [facility] Comment on above: Performed By: #### C BC #### [facility] [address] [place] [address] Dr. Verenice Smallwood Lymphocytes/100 WBC (Bld) 12.3 % Critically low 20.5-60.0 [facility] Comment on above: Performed By: #### C BC #### [facility] [address] [place] [address] Dr. Verenice Smallwood MANUAL DIFF REQ NO Normal [facility] Comment on above: Performed By: #### C BC #### [facility] [address] [place] [address] Dr. Verenice Smallwood MCH (RBC) [Entitic mass] 29.8 pg Normal 26.7-34.0 [facility] Comment on above: Performed By: #### C BC #### [facility] [address] [place] [address] Dr. Verenice Smallwood MCHC (RBC) [Mass/Vol] 33.1 g/dL Normal 29.9-35.2 [facility] Comment on above: Performed By: #### C BC #### [facility] [address] [place] [address] Dr. Verenice Smallwood MCV (RBC) [Entitic vol] 90.2 fL Normal 81.0-99.0 [facility] Comment on above: Performed By: #### C BC #### [facility] [address] [place] [address] Dr. Verenice Smallwood MONO # 0.2 103/ul Critically low 0.3-0.8 [facility] Comment on above: Performed By: #### C BC #### [facility] [address] [place] [address] Dr. Verenice Smallwood Monocytes/100 WBC (Bld) 1.5 % Critically low 1.7-12.0 [facility] Comment on above: Performed By: #### C BC #### [facility] [address] [place] [address] Dr. Verenice Smallwood NEUT # 10.0 103/ul Critically high 1.4-6.5 [facility] Comment on above: Performed By: #### C BC #### [facility] [address] [place] [address] Dr. Verenice Smallwood Neutrophils/100 WBC (Bld) 83.9 % Critically high 43.0-75.0 [facility] Comment on above: Performed By: #### C BC #### [facility] [address] [place] [address] Dr. Verenice Smallwood Platelet mean volume (Bld) [Entitic vol] 8.5 fL Critically low 9.5-13.5 [facility] Comment on above: Performed By: #### C BC #### [facility] [address] [place] [address] Dr. Verenice Smallwood PLT 309 103/ul Normal 150-450 [facility] Comment on above: Performed By: #### C BC #### [facility] [address] [place] [address] Dr. Verenice Smallwood RBC 4.49 106/ul Normal 4.20-5.40 [facility] Comment on above: Performed By: #### C BC #### [facility] [address] [place] [address] Dr. Verenice Smallwood WBC 11.9 103/ul Critically high 4.0-11.0 [facility] Comment on above: Performed By: #### C BC #### [facility] [address] [place] [address] Dr. Verenice Smallwood CRPon 02-03-2022 CRP [Mass/Vol] mg/L Normal <=1.0 [facility] Comment on above: Performed By: #### C MP, CRP #### [facility] [address] [place] [address] Dr. Verenice Smallwood PROF 14(COMP METB)on 022 Albumin [Mass/Vol] 3.1 g/dL Critically low 3.4-5.0 [facility] Comment on above: Performed By: #### C MP, CRP #### [facility] [address] [place] [address] Dr. Verenice Smallwood Albumin/Globulin [Mass ratio] 0.8 {ratio} Normal [facility] Comment on above: Performed By: #### C MP, CRP #### [facility] [address] [place] [address] Dr. Verneice Smallwood ALP [Catalytic activity/Vol] 66 U/L Normal 46-116 [facility] Comment on above: Performed By: #### C MP, CRP #### [facility] [address] [place] [address] Dr. Verenice Smallwood ALT [Catalytic activity/Vol] 22 U/L Normal 14-59 [facility] Comment on above: Performed By: #### C MP, CRP #### [facility] [address] [place] [address] Dr. Verenice Smallwood Anion gap [Moles/Vol] 11.4 mmol/L Normal [facility] Comment on above: Performed By: #### C MP, CRP #### [facility] [address] [address] [address] Verenice Smallwood AST [Catalytic activity/Vol] 11 U/L Critically low 15-37 [facility] Comment on above: Performed By: #### C MP, CRP #### [facility] [address] [place] [address] Dr. Verenice Smallwood Bilirubin [Mass/Vol] 0.1 mg/dL Critically low 0.2-1.0 [facility] Comment on above: Performed By: #### C MP, CRP #### [facility] [address] [place] [address] Dr. Verenice Smallwood Calcium [Mass/Vol] 8.9 mg/dL Normal 8.5-10.1 [facility] Comment on above: Performed By: #### C MP, CRP #### [facility] [address] [place] [address] Dr. Verenice Smallwood Chloride [Moles/Vol] 102 mmol/L Normal 98-107 [facility] Comment on above: Performed By: #### C MP, CRP #### [facility] [address] [place] [address] Dr. Verenice Smallwood CO2 [Moles/Vol] 22.0 mmol/L Normal 21.0-32.0 [facility] Comment on above: Performed By: #### C MP, CRP #### [facility] [address] [place] [address] Dr. Verenice Smallwood Creatinine [Mass/Vol] 0.84 mg/dL Normal 0.55-1.02 [facility] Comment on above: Performed By: #### C MP, CRP #### [facility] [address] [place] [address] Dr. Verenice Smallwood EGFR-AF TONGAN >60 Normal >=60 [facility] Comment on above: Performed By: #### C MP, CRP #### [facility] [address] [place] [address] Dr. Verenice Smallwood EGFR-NON AF TONGAN >60 Normal >=60 [facility] Comment on above: Performed By: #### C MP, CRP #### [facility] [address] [address] [address] Verenice Smallwood Globulin (S) [Mass/Vol] 4.0 g/dL Normal [facility] Comment on above: Performed By: #### C MP, CRP #### [facility] [address] [address] [address] Verenice Smallwood Glucose [Mass/Vol] 158 mg/dL Critically high 74-106 [facility] Comment on above: Performed By: #### C MP, CRP #### [facility] [address] [address] [address] Verenice Smallwood Potassium [Moles/Vol] 4.4 mmol/L Normal 3.5-5.1 [facility] Comment on above: Performed By: #### C MP, CRP #### [facility] [address] [place] [address] Dr. Verenice Smallwood Protein [Mass/Vol] 7.1 g/dL Normal 6.4-8.2 [facility] Comment on above: Performed By: #### C MP, CRP #### [facility] [address] [place] [address] Dr. Verenice Smallwood Sodium [Moles/Vol] 131 mmol/L Critically low 136-145 [facility] Comment on above: Performed By: #### C MP, CRP #### [facility] [address] [address] [address] Verenice Smallwood Urea nitrogen [Mass/Vol] 20.0 mg/dL Critically high 7.0-18.0 [facility] Comment on above: Performed By: #### C MP, CRP #### [facility] [address] [address] [address] Verenice Smallwood Urea nitrogen/Creatini ne [Mass ratio] 23.8 mg/mg Normal [facility] Comment on above: Performed By: #### C MP, CRP #### [facility] [address] [place] [address] Dr. Verenice Smallwood CBC AUTO DIFFon 02-02-2022 BASO # 0.1 103/ul Normal 0.0-0.1 [facility] Comment on above: Performed By: #### C BC #### [facility] [address] [place] [address] Dr. Verenice Smallwood Basophils/100 WBC (Bld) 0.5 % Normal 0.2-2.0 [facility] Comment on above: Performed By: #### C BC #### [facility] [address] [place] [address] Dr. Verenice Smallwood EO # 0.1 103/ul Normal 0.0-0.7 [facility] Comment on above: Performed By: #### C BC #### [facility] [address] [place] [address] Dr. Verenice Smallwood Eosinophils/100 WBC (Bld) 1.2 % Normal 0.9-7.0 [facility] Comment on above: Performed By: #### C BC #### [facility] [address] [place] [address] Dr. Verenice Smallwood Erythrocyte distribution width (RBC) [Ratio] 14.3 % Normal 11.0-15.0 [facility] Comment on above: Performed By: #### C BC #### [facility] [address] [place] [address] Dr. Verenice Smallwood Hematocrit (Bld) [Volume fraction] 41.1 % Normal 36.0-48.0 [facility] Comment on above: Performed By: #### C BC #### [facility] [address] [place] [address] Dr. Verenice Smallwood Hemoglobin (Bld) [Mass/Vol] 13.7 g/dL Normal 12.0-16.0 [facility] Comment on above: Performed By: #### C BC #### [facility] [address] [place] [address] Dr. Verenice Smallwood IG # 0.16 10e3/ul Critically high 0.00-0.03 [facility] Comment on above: Performed By: #### C BC #### [facility] [address] [place] [address] Dr. Verenice Smallwood IG % 1.6 % Critically high 0.0-0.5 [facility] Comment on above: Performed By: #### C BC #### [facility] [address] [place] [address] Dr. Verenice Smallwood LYMPH # 3.1 103/ul Normal 1.2-3.8 [facility] Comment on above: Performed By: #### C BC #### [facility] [address] [place] [address] Dr. Verenice Smallwood Lymphocytes/100 WBC (Bld) 30.2 % Normal 20.5-60.0 [facility] Comment on above: Performed By: #### C BC #### [facility] [address] [place] [address] Dr. Verenice Smallwood MANUAL DIFF REQ NO Normal [facility] Comment on above: Performed By: #### C BC #### [facility] [address] [place] [address] Dr. Verenice Smallwood MCH (RBC) [Entitic mass] 30.2 pg Normal 26.7-34.0 [facility] Comment on above: Performed By: #### C BC #### [facility] [address] [place] [address] Dr. Verenice Smallwood MCHC (RBC) [Mass/Vol] 33.3 g/dL Normal 29.9-35.2 [facility] Comment on above: Performed By: #### C BC #### [facility] [address] [place] [address] Dr. Verenice Smallwood MCV (RBC) [Entitic vol] 90.5 fL Normal 81.0-99.0 [facility] Comment on above: Performed By: #### C BC #### [facility] [address] [place] [address] Dr. Verenice Smallwood MONO # 0.5 103/ul Normal 0.3-0.8 [facility] Comment on above: Performed By: #### C BC #### [facility] [address] [place] [address] Dr. Verenice Smallwood Monocytes/100 WBC (Bld) 4.7 % Normal 1.7-12.0 [facility] Comment on above: Performed By: #### C BC #### [facility] [address] [place] [address] Dr. Verenice Smallwood NEUT # 6.3 103/ul Normal 1.4-6.5 [facility] Comment on above: Performed By: #### C BC #### [facility] [address] [place] [address] Dr. Verenice Smallwood Neutrophils/100 WBC (Bld) 61.8 % Normal 43.0-75.0 [facility] Comment on above: Performed By: #### C BC #### [facility] [address] [place] [address] Dr. Verenice Smallwood Platelet mean volume (Bld) [Entitic vol] 8.6 fL Critically low 9.5-13.5 [facility] Comment on above: Performed By: #### C BC #### [facility] [address] [place] [address] Dr. Verenice Smallwood PLT 313 103/ul Normal 150-450 [facility] Comment on above: Performed By: #### C BC #### [facility] [address] [place] [address] Dr. Verenice Smallwood RBC 4.54 106/ul Normal 4.20-5.40 [facility] Comment on above: Performed By: #### C BC #### [facility] [address] [place] [address] Dr. Verneice Smallwood WBC 10.1 103/ul Normal 4.0-11.0 [facility] Comment on above: Performed By: #### C BC #### [facility] [address] [place] [address] Dr. Verenice Smallwood CRPon 02-02-2022 CRP 0.3 mg/dL Normal <=1.0 [facility] Comment on above: Performed By: #### C RP, [facility] #### [facility] [address] LSPINE WO CONon [...] FRANCISCA DOMINGUEZ Date: 2022-02-02 06:54 Normal [facility] CULTURE URINEon 02-02-2022 CULTURE URINE Culture Observations : NO GROWTH. Normal [facility] Comment on above: Performed By: #### C RP, BMP #### [facility] [address] [place] [address] Dr. Verenice Smallwood Covid-19 PCR ([facility])on SARS-CoV-2 (COVID-19) RNA LILIANA+probe Ql (Unsp spec) Not detected Normal NOT DETECTED [facility] Comment on above: Result Comment: When [...] for this test is supported by the [place] of Health and Human Service's declaration that [...] Performed By: #### C RP, BMP #### [facility] [address] [place] [address] Dr. Verenice Smallwood PROF CHEM 8 (BAS METB)on Anion gap [Moles/Vol] 7.3 mmol/L Normal [facility] Comment on above: Performed By: #### C RP, BMP #### [facility] [address] [place] [address] Dr. Verenice Smallwood Calcium [Mass/Vol] 8.5 mg/dL Normal 8.5-10.1 [facility] Comment on above: Performed By: #### C RP, BMP #### [facility] [address] [address] [address] Verenice Smallwood Chloride [Moles/Vol] 103 mmol/L Normal 98-107 [facility] Comment on above: Performed By: #### C RP, BMP #### [facility] [address] [place] [address] Dr. Verenice Smallwood CO2 [Moles/Vol] 26.5 mmol/L Normal 21.0-32.0 [facility] Comment on above: Performed By: #### C RP, BMP #### [facility] [address] [place] [address] Dr. Verenice Smallwood Creatinine [Mass/Vol] 0.78 mg/dL Normal 0.55-1.02 [facility] Comment on above: Performed By: #### C RP, BMP #### [facility] [address] [place] [address] Dr. Verenice Smallwood EGFR-AF TONGAN >60 Normal >=60 [facility] Comment on above: Performed By: #### C RP, BMP #### [facility] [address] [place] [address] Dr. Verenice Smallwood EGFR-NON AF TONGAN >60 Normal >=60 [facility] Comment on above: Performed By: #### C RP, BMP #### [facility] [address] [place] [address] Dr. Verenice Smallwood Glucose [Mass/Vol] 115 mg/dL Critically high 74-106 [facility] Comment on above: Performed By: #### C RP, BMP #### [facility] [address] [place] [address] Dr. Verenice Smallwood Potassium [Moles/Vol] 3.8 mmol/L Normal 3.5-5.1 [facility] Comment on above: Performed By: #### C RP, BMP #### [facility] [address] [place] [address] Dr. Verenice Smallwood Sodium [Moles/Vol] 133 mmol/L Critically low 136-145 [facility] Comment on above: Performed By: #### C RP, BMP #### [facility] [address] [place] [address] Dr. Verenice Smallwood Urea nitrogen [Mass/Vol] 17.0 mg/dL Normal 7.0-18.0 [facility] Comment on above: Performed By: #### C RP, BMP #### [facility] [address] [place] [address] Dr. Verenice Smallwood Urea nitrogen/Creatini ne [Mass ratio] 21.8 mg/mg Normal [facility] Comment on above: Performed By: #### C RP, BMP #### [facility] [address] [place] [address] Dr. Verenice Smallwood [facility] 39 mm/hr Critically high <=20 [facility] Comment on above: Performed By: #### C BC #### [facility] [address] [place] [address] Dr. Verenice Smallwood UA RANDOM W/MICROSCOPICon BACTERIA MODERATE Abnormal NONE SEEN [facility] Comment on above: Performed By: #### C BC #### [facility] [address] [place] [address] Dr. Verenice Smallwood Bilirubin Ql (U) Negative Normal NEGATIVE [facility] Comment on above: Performed By: #### C BC #### [facility] [address] [place] [address] Dr. Verenice Smallwood CAST NONE SEEN Normal NONE SEEN [facility] Comment on above: Performed By: #### C BC #### [facility] [address] [place] [address] Dr. Verenice Smallwood Clarity (U) CLEAR Normal CLEAR [facility] Comment on above: Performed By: #### C BC #### [facility] [address] [place] [address] Dr. Verenice Smallwood Color (U) YELLOW Normal YELLOW [facility] Comment on above: Performed By: #### C BC #### [facility] [address] [place] [address] Dr. Verenice Smallwood Crystals LM Nom (Urine sed) NONE SEEN Normal NONE SEEN [facility] Comment on above: Performed By: #### C BC #### [facility] [address] [place] [address] Dr. Verenice Smallwood Epithelial cells LM Ql (Urine sed) FEW Abnormal NONE SEEN /RARE [facility] Comment on above: Performed By: #### C BC #### [facility] [address] [place] [address] Dr. Verenice Smallwood Glucose Ql (U) Negative Normal NEGATIVE [facility] Comment on above: Performed By: #### C BC #### [facility] [address] [place] [address] Dr. Verenice Smallwood Hemoglobin Ql (U) Negative Normal NEGATIVE [facility] Comment on above: Performed By: #### C BC #### [facility] [address] [place] [address] Dr. Verenice Smallwood Ketones Ql (U) Negative Normal NEGATIVE [facility] Comment on above: Performed By: #### C BC #### [facility] [address] [place] [address] Dr. Verenice Smallwood LEUKOCYTES Negative Normal NEGATIVE [facility] Comment on above: Performed By: #### C BC #### [facility] [address] [place] [address] Dr. Verenice Smallwood MUCOUS NONE SEEN Normal NONE SEEN [facility] Comment on above: Performed By: #### C BC #### [facility] [address] [place] [address] Dr. Verenice Smallwood Nitrite Ql (U) Negative Normal NEGATIVE [facility] Comment on above: Performed By: #### C BC #### [facility] [address] [place] [address] Dr. Verenice Smallwood pH (U) 6.0 [pH] Normal 5-9 [facility] Comment on above: Performed By: #### C BC #### [facility] [address] [place] [address] Dr. Verenice Smallwood RBC NONE SEEN Abnormal 0-2 [facility] Comment on above: Performed By: #### C BC #### [facility] [address] [place] [address] Dr. Verenice Smallwood SPEC GRAVITY >=1.030 Abnormal 1.005-<=1.0 25 [facility] Comment on above: Performed By: #### C BC #### [facility] [address] [place] [address] Dr. Verenice Smallwood UA PROTEIN Negative Normal NEGATIVE/ TRACE [facility] Comment on above: Performed By: #### C BC #### [facility] [address] [place] [address] Dr. Verenice Smallwood Urobilinogen Qn (U) 0.2 {Brett'U}/dL Normal 0.2 - 1.0 [facility] Comment on above: Performed By: #### C BC #### [facility] [address] [place] [address] Dr. Verenice Smallwood WBC 0-2 Abnormal NONE SEEN [facility] Comment on above: Performed By: #### C BC #### [facility] [address] [place] [address] Dr. Verenice Smallwood Covid-19 PCR ([facility])on 12-26 SARS-CoV-2 (COVID-19) RNA LILIANA+probe Ql (Unsp spec) Not detected Normal NOT DETECTED [facility] Comment on above: Result Comment: This test is not yet approved or cleared by the [place] FDA. When there are no FDA-approved or cleared tests available, and other criteria are met, FDA can make tests available under an emergency access mechanism called an Emergency Use Authorization (EUA). The EUA for this test is supported by the Horticulture Supervisor of Health and Human Service's (HHS's) declaration [...] SARS-CoV-2. Performed By: #### C VDTBH #### [facility] [address] [place], [place] [id number] Dr. Verenice Smallwood MG MAMM SCREEN 3D LAMIN CADon 11-26-2021 MG MAMM SCREEN 3D LAMIN CAD Patient: CACHORRO DORADO Exam Date: 11/26/2021 : 1975 Gender:F Ordering : AIDEN ODALIS GU [facility] Admission #: [id number] Family : Order #: [id number] CLICK HERE TO VIEW EXAM RADIOLOGY REPORT [...] lung cancer at age 64. LOCATION: [facility] BREAST COMPOSITION: Scattered areas fibroglandular density. [...] MD on 11/26/2021 at 12:38 Normal [facility] XR hand LT min 3V*on 022 XR hand LT min 3V* [facility] [employer] Other XR hand LT min 3V* [facility] [employer] Other XR hand LT min 3V* [address] [place] [address] [employer] Other XR hand LT min 3V* [place] [address] [employer] Other XR hand LT min 3V* XRay Report [employer] Other XR hand LT min 3V* Signed [employer] Other XR hand LT min 3V* Patient: Cachorro Sebastian [employer] Other XR hand LT min 3V* #: [id number] [employer] Other XR hand LT min 3V* : 1975 Acct:[id number] [employer] Other XR hand LT min 3V* Age/Sex: 45 / F ADM Date: 08/08/21 [employer] Other XR hand LT min 3V* Loc: XDUCLY Room: Type: [facility] [employer] Other XR hand LT min 3V* Attending Dr: Padma XIAO [employer] Other XR hand LT min 3V* Ordering Provider: NINOSKA Mejia [employer] Other XR hand LT min 3V* Date of Service: 08/08/21 [employer] Other XR hand LT min 3V* XR/XR hand LT min 3V*: PAIN [employer] Other XR hand LT min 3V* Copies to: NINOSKA Mejia [employer] Other XR hand LT min 3V* Left hand 08/08/2021. [employer] Other XR hand LT min 3V* CLINICAL DATA: Left thumb pain after injury. [employer] Other XR hand LT min 3V* FINDINGS: 3 views of the left hand were obtained. [employer] Other XR hand LT min 3V* No acute fracture or dislocation is identified. No other bony abnormality is seen. No significant [employer] Other XR hand LT min 3V* soft tissue swelling is noted. [employer] Other XR hand LT min 3V* XR/XR hand LT min 3V* [employer] Other XR hand LT min 3V* IMPRESSION: No acute bony abnormality. [employer] Other XR hand LT min 3V* Impression dictated by: Eric Li Jr., M.D.08/08/2021 1:28 PM [employer] Other XR hand LT min 3V* Dictation Location: [place] [address] [employer] Other XR hand LT min 3V* Transcribed By: FRANK 08/08/21 [facility] [employer] Other XR hand LT min 3V* Dictated By: Eric Li Jr, MD 08/08/21 [facility] [employer] Other XR hand LT min 3V* Signed By: [employer] Other XR hand LT min 3V* 08/08/21 [facility] [employer] Other Ambulatory Visit Summaryon 0 07-03-2021 Ambulatory [...] Urethral meatal stenosis Vitamin D deficiency Normal [facility] General Surgery Office/Clini c Noteon 07-03-2021 [...] 50,000 intl units (1.25 mg) oral capsule, 58603 International_Unit= 1 cap(s), Oral, qWeek Allergies DULoxetine [...] inactivated - Not Given Patient Refuses Normal [facility] Comment on above: Result Comment: Elec tronically Signed By: LEXX BAGLEY, Francisca Mcarthur\Date and Time Signed: 07/03/21 15:19 EDT Pathology Noteon 06-26-2021 Pathology Note [id number]#1.00CD:127 Normal [facility] Outside Colonoscopyon 2021 Outside Colonoscopy [id number]#1.00CD:127 [facility] Reminderson 06-25-2021 Reminders - From: Leigh Ann Duncan LPN To: N - Clinical; Sent: 06/25/2021 09:44:37 EDT Show up: 05/25/2031 07:00:00 EST Subject: colonoscopy recall Due Date/Time: 06/25/2031 07:00:00 EDT Reminder/Recall Patient is due for screening colonoscopy 06/25/2031. [facility] Lab Reportson 06-23-2021 Lab Reports [id number]#1.00CD:127 [facility] Pre-Certification Formon Pre-Certification Form [id number]#1.00CD:127 [facility] Consent for Procedure/Surger yon 06-04-2021 Consent for Procedure/Surgery [id number]#1.00CD:127 [facility] Ambulatory Visit Summaryon 0 06-03-2021 Ambulatory Visit [...] Urethral meatal stenosis Vitamin D deficiency Normal [facility] Physician Referralon 022 Physician Referral [id number]#1.00CD:127 Normal [facility] COVID Quick Testingon 2020 Result Negative [employer] Other Quick Fluon 03-26-2021 FLUAV Ab CF (S) [Titer] Negative [employer] Other FLUBV Ab CF (S) [Titer] Negative [facility] Other Vital Signs Date Time Vital Sign Value Performing Clinician Facility 03-10-2023 13:00-0500 Body height 166.37 cm Rambo Martinez Other [facility] Other 03-10-2023 13:00-0500 Body mass index (BMI) [Ratio] 52.11 kg/m2 Rambo Martinez Other [facility] Other 03-10-2023 13:00-0500 Body weight 144.24 kg Rambo Martinez Other [facility] Other 03-10-2023 13:00-0500 Diastolic blood pressure 94 mm[Hg] Rambo Martinez Other [facility] Other 03-10-2023 13:00-0500 SaO2% (BldA) [Mass fraction] 97 % Rambo Martinez Other [facility] Other 03-10-2023 13:00-0500 Systolic blood pressure 155 mm[Hg] Rambo Martinez Other [facility] Other 05-24-2022 09:15-0500 Body height 166.37 cm Rola Stalin Other [facility] Other 05-24-2022 09:15-0500 Body mass index (BMI) [Ratio] 49.49 kg/m2 Rola Gant Other [facility] Other 05-24-2022 09:15-0500 Body temperature 97.8 [degF] Rola Gant Other [facility] Other 05-24-2022 09:15-0500 Body weight 136.99 kg Rola Gant Other [facility] Other 05-24-2022 09:15-0500 Respiratory rate 18 /min Rola Gant Other [facility] Other 05-24-2022 09:15-0500 SaO2% (BldA) [Mass fraction] 97 % Rola Gant Other [facility] Other 05-04-2022 10:15-0500 Body height 166.37 cm Yelitza Johnson Other [facility] Other 05-04-2022 10:15-0500 Body mass index (BMI) [Ratio] 50.11 kg/m2 Yelitza Johnson Other [facility] Other 05-04-2022 10:15-0500 Body weight 138.71 kg Yelitza Johnson Other [facility] Other 08-15-2021 12:20-0400 Body height 166.37 cm Jessica Dong Other [facility] Other 08-15-2021 12:20-0400 Body mass index (BMI) [Ratio] 48.34 kg/m2 Jessica Dong Other [facility] Other 08-15-2021 12:20-0400 Body temperature 96.8 [degF] Jessica Dong Other [facility] Other 08-15-2021 12:20-0400 Body weight 133.81 kg Jessica Dong Other [facility] Other 08-15-2021 12:20-0400 Diastolic blood pressure 92 mm[Hg] Jessica Dong Other [facility] Other 08-15-2021 12:20-0400 Respiratory rate 18 /min Jessica Dong Other [facility] Other 08-15-2021 12:20-0400 SaO2% (BldA) [Mass fraction] 99 % Jessica Dong Other [facility] Other 08-15-2021 12:20-0400 Systolic blood pressure 135 mm[Hg] Jessica Dong Other [facility] Other 08-08-2021 13:25-0400 Body height 166.37 cm Padma Nortonmond Other [facility] Other 08-08-2021 13:25-0400 Body mass index (BMI) [Ratio] 48.4 kg/m2 Padma Ashley Other [facility] Other 08-08-2021 13:25-0400 Body temperature 96.8 [degF] Padma Ashley Other [facility] Other 08-08-2021 13:25-0400 Body weight 133.99 kg Padma Nortonmond Other [facility] Other 08-08-2021 13:25-0400 Diastolic blood pressure 88 mm[Hg] Padma Ashley Other [facility] Other 08-08-2021 13:25-0400 Respiratory rate 16 /min Padma Ashley Other [facility] Other 08-08-2021 13:25-0400 SaO2% (BldA) [Mass fraction] 99 % Padma Ramirez Other [facility] Other 08-08-2021 13:25-0400 Systolic blood pressure 133 mm[Hg] Padma Nortonmond Other [facility] Other 03-26-2021 11:15-0500 Body height 166.37 cm Rola Ginty Other [facility] Other 03-26-2021 11:15-0500 Body mass index (BMI) [Ratio] 46.86 kg/m2 Rola Ginty Other [facility] Other 03-26-2021 11:15-0500 Body temperature 97.6 [degF] Rola Ginty Other [facility] Other 03-26-2021 11:15-0500 Body weight 129.73 kg Rola Ginty Other [facility] Other 03-26-2021 11:15-0500 Respiratory rate 18 /min Rola Ginty Other [employer] Other 03-26-2021 11:15-0500 SaO2% (BldA) [Mass fraction] 99 % Rola Sabrinasanjeev Other [employer] Other Encounters Encounter Date Encounter Type Care Provider Facility Start: 03-10-2023 End: 03-10-2023 ambulatory Odalis Fox Matiloreleikayez Facility:[facility] Start: 03-10-2023 Office outpatient ne w 60 minutes Rambo [facility] Start: 03-10-2023 End: 03-10-2023 ambulatory Odalis Fox Matiloreleiholz Work Phone: [facility] Work Phone: Start: 03-10-2023 End: 03-10-2023 Patient encounter procedure Odalis Marcelinoz Work Phone: [facility] Work Phone: Start: 02-23-2023 End: 02-23-2023 ambulatory ODALIS BRIANNAHOLZ Not Available Start: 01-25-2023 End: 01-25-2023 ambulatory Yelitza Johnson Other [employer] Other Start: 01-25-2023 Office outpatient visit 15 minutes Y[facility] Start: 08-12-2022 ambulatory [employer] SUPERVISOR ODALIS AICHHOLZ Facil ity:[facility] Start: 08-11-2022 ambulatory [employer] SUPERVISOR ODALIS AICHHOLZ Facil ity:[facility] Start: 07-12-2022 End: 07-13-2022 ambulatory [employer] SUPERVISOR ODALIS AICHHOLZ Facility:[facility] Start: 07-02-2022 End: 07-03-2022 ambulatory R[employer] RO[employer] SUPERVISOR ODALIS AICHHOLZ Facility:[facility] Start: 06-28-2022 End: 06-29-2022 ambulatory RAG RO[employer] SUPERVISOR ODALIS AICHHOLZ Facility:[facility] Start: 06-09-2022 End: 06-10-2022 ambulatory R[employer] RO[employer] SUPERVISOR ODALIS AICHHOLZ Facility:[facility] Start: 06-08-2022 End: 06-08-2022 ambulatory Yelitza Calvey Other [employer] Other Start: 06-08-2022 Office outpatient visit 15 minutes Yelitza Calvey [facility] Start: 05-24-2022 End: 05-24-2022 ambulatory Rola Gant Other [employer] Other Start: 05-24-2022 Office outpatient visit 25 minutes Rola Montes De Ocaler [facility] Start: 05-04-2022 End: 05-04-2022 ambulatory Yelitza Calvey Other [employer] Other Start: 05-04-2022 Office outpatient visit 15 minutes Yelitza Calvey [facility] Start: 04-14-2022 Office outpatient ne w 30 minutes Yelitza Calvey [facility] Start: 04-14-2022 End: 04-14-2022 ambulatory [employer]AG RO[employer] SUPERVISOR ODALIS AICHHOLZ [employer] Other Start: 04-01-2022 End: 04-02-2022 ambulatory RAG ROOM SUPERVISOR ODALIS AICHHOLZ Facility:[facility] Start: 02-02-2022 End: 02-04-2022 ambulatory RAG RO[employer] SUPERVISOR ODALIS AICHHOLZ Facility:[facility] Start: 01-30-2022 End: 01-30-2022 ambulatory DOTTIE MANN . Facility:[facility] Start: 01-06-2022 End: 01-06-2022 ambulatory RAG RO[employer] SUPERVISOR ODALIS AICHHOLZ Facility:[facility] Start: 01-05-2022 End: 01-05-2022 ambulatory RAG ROOM SUPERVISOR ODALIS AICHHOLZ Facility:[facility] Start: 12-19-2021 End: 12-19-2021 Patient encounter procedure DO Rylan Collado Work Phone: [facility] Start: 11-26-2021 End: 11-27-2021 ambulatory RAG RO[employer] SUPERVISOR ODALIS AICHHOLZ Facility:[facility] Start: 11-18-2021 End: 11-18-2021 ambulatory Rylan Collado Other [employer] Other Start: 11-18-2021 Office outpatient ne w 45 minutes Rylan Collado [facility] Start: 08-26-2021 End: 09-26-[address] PADMA RANDOLPH Facility:[facility] Start: 08-15-2021 End: 08-15-2021 ambulatory Jessica Dong Other [employer] Other Start: 08-15-2021 Office outpatient visit 15 minutes Jessica Dong [facility] Start: 08-08-2021 End: 08-08-2021 ambulatory Padma Ramirez Other [employer] Other Start: 08-08-2021 Office outpatient visit 15 minutes Padma Ramirez [facility] Start: 07-03-2021 End: 07-03-2021 Patient encounter procedure Francisca HALLMAN General Surgery [facility] Start: 03-26-2021 End: 03-26-2021 ambulatory Rola Ginty Other [employer] Other Start: 03-26-2021 Office outpatient visit 15 minutes Rola Ginty [facility] Procedures Date Procedure Procedure Detail Performing Clinician Start: 06-24-2021 Colonoscopy Francisca HALLMAN Start: 06-24-2021 Esophagogastroduodenoscopy Francisca NILL History of selective lumbar nerve block Francisca NILL Laparoscopic cholecystectomy Francisca REYNOSOL Plan of Treatment Date Care Activity Detail Author Start: 12-19-2021 MRI of left hand MR hand LT wo con [facility] Immunizations Immunization Date Immunization Notes Care Provider Fa cility NEGATED: Highlighted row has not occurred!06-03-2021 influenza virus vaccine, unspecified formulation Francisca REYNOSOL [facility] [place] Payers Date Payer Category Payer Self-pay [id number] 1975 Unknown [id number] [id number] [id number] 1975 Unknown [id number] 2.16.84 [id number] 1975 Unknown [id number] 2.16.84 [id number] 1975 Unknown [id number] 2.16.84 [id number] 1975 Unknown [id number] 2.16.84 [id number] 1975 Unknown [id number] 2.16.84 0.1.572857.3.579.2.593 1975 Unknown [id number] 2.16.84 0.1.856967.3.579.2.593 1974 Unknown [id number] 2.16.84 0.1.247738.3.579.2.593 1974 Unknown [id number] 2.16.84 0.1.613200.3.579.2.593 1974 Unknown [id number] 2.16.84 0.1.869254.3.579.2.593 1974 Unknown [id number] 2.16.84 0.1.829867.3.579.2.593 1974 Unknown [id number] 2.16.84 0.1.732554.3.579.2.593 1974 Unknown [id number] 2.16.84 0.1.260544.3.579.2.593 1974 Unknown [id number] 2.16.84 0.1.782383.3.579.2.593 1974 Unknown [id number] 2.16.840 .1.860642.3.579.2.1259 1959 Private Health Insurance [id number] 2.16.840.1.733778.19 1959 Private Health Insurance [id number] 2.16.840.1.531184.19 1959 Private Health Insurance [id number] 1959 Unknown [id number] Unknown [id number] 2.16. 840.1.889703.19 Unknown [id number] 2.16.8 40.1.727065.19 Unknown [id number] 2.16.8 40.1.479605.3.579.2.531 Social History Date Type Detail Facility Start: 06-03-2021 Tobacco smoking status Never s moked tobacco (finding) [facility] Other Tobacco smoking status Never [facility] Sex Assigned At Female [facility] Start: 1975 Sex Assigned At Female F [facility] Clinical Notes 06-03-2021 to 03-10-2023 Note [...] changes in symptoms and/or problems with treatment [facility] Other 10-31-2023 Evaluation note* Encounter Date Diagnosis Assessment Notes Treatment Notes Treatment Clinical Notes Dec, Unspecified sprain of left thumb, initial encounter (ICD-10 - S63.602A) Extensive discussion was had about the current condition and treatment options available. We will submit for a cortisone injection with [facility]. We discussed use of Voltaren gel and Lidocaine patch to the affected area. Activity as tolerated. [facility] Other 03-14-2023 Evaluation note* Encounter Date Diagnosis Assessment Notes Treatment Notes Treatment Clinical Notes May, Unspecified sprain of left thumb, initial encounter (ICD-10 - S63.602A) Discussed with patient she is progressing well from injury. Continue to progress activity as tolerated. Patient given order for neoprene sleeve Patient may continue working with wearing a neoprene sleeve/ brace for added protection [facility] Other 02-27-2023 Evaluation note* Encounter Date Diagnosis [...] for fever/discomfort, cool mist humidifier. May use [place] as needed for cough, do not take any other OTCs while using [place]. Patient to follow up with PCP in 2-3 days. Immediate eval if SOB, difficulty breathing, chest pain, dizziness, or other concerning symptoms. Patient verbalizes understanding and is agreeable to treatment plan [facility] Other 02-07-2023 Evaluation note* Encounter Date Diagnosis [...] splint for activities. Continue current work restrictions [facility] Other 01-18-2023 Evaluation note* Encounter Date Diagnosis Assessment Notes Treatment Notes Treatment Clinical Notes Mar, Unspecified sprain of left thumb, initial encounter (ICD-10 - S63.602A) We will submit for [facility] approval for cortisone injection MCP joint/UCL Continue current work restrictions [facility] Other 01-05-2023 NotePROCEDURE: XR SHOULDER LT 2V or > HISTORY: Pain of left shoulder joint ; acute; no known injury COMPARISON: None. FINDINGS: BONES:No fracture, acute abnormality, or significant arthropathy. SOFT TISSUES:No visible soft tissue swelling. EFFUSION:None visible. OTHER: Negative. IMPRESSION: 1. Normal examination. Electronically authenticated by: DEEP BENSON Date: 2022-04-01 10:27[facility]08-24-2022 Evaluation note* Encounter Date Diagnosis Assessment Notes [...] as documented in the electronic medical record. [facility] Other 05-21-2022 Evaluation note* Encounter Date Diagnosis Assessment Notes Treatment Notes Treatment Clinical Notes July, Sprain of left thumb, unspecified site of digit, subsequent encounter (ICD-10 - S63.602D) patient symptoms are not getting any better. Recommend follow up with [facility] at [facility] with possible one of Dr. Thompson for further evaluation or ortho at this point. Continue restrictions and use of brace [facility] Other 05-14-2022 Evaluation note* Encounter Date Diagnosis [...] today. Follow-up with the urgent care or [facility] occupational health in 1 week for recheck [facility] Other 03-09-2022 NoteChief Complaint consultation for epigastric [...] Inhalation, q6hr, PRN Diclof (more content not included)...[facility]Comment [facility] above:Result Comment: Electronically Signed By: LEXX BAGLEY, Francisca Mcarthur\Date and Time Signed: 06/03/21 16:49 ESTEvaluation + Plan note No data available for this section General Surgery [place] Evaluation noteNortJames [facility]. [facility] Other Evaluation noteNo assessment information available [facility] Work Phone: Hiswlkw general Narrative - ReportedNortJames E. Van Zand[facility] Other Hisdlxb general Narrative - Reported* Type Description Date Medical History Hypothyroidism Medical History Fibromyalgia Medical History Small fiber neuropathy Medical History Vitamin D deficiency Surgical History cholecystectomy [facility] Other Hisbhhx general Narrative - Reported* Type Description Date Medical History Hypothyroidism Medical History Fibromyalgia Medical History Small fiber neuropathy Medical History Vitamin D deficiency Medical History Osteoarthritis lower back Medical History degenerative disc disease Surgical History cholecystectomy [facility] [employer] Other Hisameh general Narrative - Reported* Type Description Date Medical History Hypothyroidism Medical History Fibromyalgia Medical History Small fiber neuropathy Medical History Vitamin D deficiency Medical History Osteoarthritis lower back Medical History degenerative disc disease Medical History obstructive sleep apnea Medical History restless leg syndrome Surgical History cholecystectomy [facility] Other Hospital Discharge instructions No data available for this section General Surgery [place] Summary Purpose Family History No Family History [...] and content) DATE CREATED AUTHOR [facility]06/2021 [facility] DATE CREATED AUTHOR AUTHOR'S ORGANIZ ATION 08/12/2022 [facility] DATE CREATED AUTHOR AUTHOR'S ORGANIZ ATION 02/25/2023 [facility] EPIC DATE CREATED AUTHOR AUTHOR'S ORGANIZ ATION 03/18/2023 [facility] REASON FOR VISIT (unrecogniz ed section and [...] Status: Active Member Role Status Dates Odalis Gu Primary Care Provider Active Team Status: Inactive [...] BE BASED ON THE PRIMARY CLINICAL RECORDS. [employer] [facility]. provides no warranty or guarantee of the accuracy or completeness of information in this document.
--- NOTE | 2023-04-14 21:49 | CT_ITS ---
The [address] [address] Patient Name: CACHORRO DORADO MRN: [id number] date: 1975 Sex: F Assigned Patient Location: ER Current Patient Location: Accession/Order Number: [id number] Exam Date: 04/14/2023 22:50 Report Date: 04/14/2023 23:30 At the request of: KELLY HENRY Procedure: CT abdomen pelvis w con EXAM: CT abdomen pelvis w con REASON FOR EXAM: Female, 47 years, upper abdominal pain, previous cholecystectomy. TECHNIQUE: Computed tomography of the abdomen and pelvis is performed in the axial projection from the lung bases to the pubic symphysis. Sagittal and coronal reconstructed images are performed. Dose reduction techniques were achieved by using automated exposure control and/or adjustment of mA and/or KVP according to patient size and/or use of iterative reconstruction technique. Images were obtained following intravenous contrast administration. Study was performed without oral contrast. COMPARISON: None. FINDINGS: Lung bases: The lung bases are clear. There is no pleural effusion. The visualized portions of the heart are unremarkable. Liver: There is diffuse decreased attenuation throughout the liver consistent with steatosis. The liver appears slightly enlarged. There is a small peripherally enhancing lesion measuring 1.2 cm in the lateral right lobe of the liver, which may represent a hemangioma. There is a focal enhancing lesion adjacent to the gallbladder fossa as well which measures 2.8 cm., which may represent a transient hepatic attenuation difference. Gallbladder: The gallbladder has been removed. Spleen: The spleen is normal. Pancreas: The pancreas is normal. Adrenal glands: The adrenal glands are normal bilaterally. Right kidney: The kidney is normal in size. There is no renal calculus or hydronephrosis. Left kidney: The kidney is normal in size. There is no renal calculus or hydronephrosis. Stomach: The stomach is normal. Small bowel: The small bowel is normal. Large bowel: The colon is normal. There is a moderate amount of stool throughout the colon. Appendix: The appendix is visualized, and is normal. Aorta: The aorta is normal. IVC: The IVC is normal. Retroperitoneum: Normal retroperitoneum. Bladder: The bladder is normal. Pelvic organs: Normal uterus. There is a dominant follicle within the right ovary. Small ovarian calcifications are seen. Abdominal wall: There is a small fat-containing umbilical hernia. Osseous structures: There are degenerative changes within the spine. CT/CT abdomen pelvis w con IMPRESSION: Hepatic steatosis and mild hepatomegaly. Small peripherally enhancing lesion along the right lateral margin of the liver may represent a hemangioma. There is a homogeneously enhancing region along the gallbladder fossa which may represent a transient hepatic attenuation difference lesion. No bowel obstruction or acute renal pathology. Normal appendix. Electronically authenticated by: MOE RUSSELL Date: 04/14/2023 23:30
--- NOTE | 2023-04-14 21:50 | ED.ABDPAIN1 ---
HPI - Abdominal Pain General Chief Complaint: Abdominal Pain Stated Complaint: Right side Flank Pain Time Seen by Provider: 04/14/23 20:58 Source: patient Mode of arrival: walk-in History of Present Illness HPI narrative: 47-year-old female presents for abdominal pain. It's in the right upper quadrant and she's had this for the last two days. It's made her nauseous. No trauma or fever. She had cholecystectomy thirteen years ago. Sometimes it wraps around to her right flank but it starts in the right upper quadrant. No lower abdominal pain or left-sided pain. Related Data Home Medications Medication Instructions Recorded Confirmed albuterol sulfate 90 mcg/actuation inhalation 01/04/23 aerosol inhaler diclofenac sodium 75 mg mg PO 01/04/23 tablet,delayed release ergocalciferol (vitamin D2) 1,250 01/04/23 mcg (50,000 unit) capsule (Vitamin D2) gabapentin enacarbil 600 mg mg PO 01/04/23 tablet,extended release ([facility]) levothyroxine 25 mcg tablet mcg 01/04/23 montelukast 10 mg tablet mg 01/04/23 naltrexone 1.5 mg capsule mg PO 01/04/23 omeprazole 40 mg capsule,delayed mg 01/04/23 release sertraline 50 mg tablet mg 01/04/23 solifenacin 10 mg tablet mg PO 01/04/23 Previous Rx's Medication Instructions Recorded rlfleadlvp-axihzwszwaxjk-gebdxbyz 1 cap PO Q6H PRN headache #10 caps 01/04/23 50 mg-300 mg-40 mg capsule (Fioricet) methocarbamol 750 mg tablet 750 mg PO TID PRN pain #12 tabs 01/04/23 ondansetron 4 mg disintegrating 4 mg PO Q6H PRN nausea and 01/04/23 tablet vomiting #12 tabs glfahdknuy-waupjifllnrnm-wqheeokv 1 cap PO Q6H PRN pain #20 caps 01/13/23 50 mg-300 mg-40 mg capsule (Fioricet) diazepam 5 mg tablet (Valium) 5 mg PO Q8H PRN dizziness or 01/13/23 vertigo #14 tabs methocarbamol 750 mg tablet 750 mg PO Q8H pain #20 tabs 01/13/23 acetaminophen 300 mg-codeine 30 mg 1 tab PO Q6H PRN pain 5 days #20 04/14/23 tablet tabs Allergies Allergy/AdvReac Type Severity Reaction Status Date / Time duloxetine [From Cymbalta] Allergy Verified 01/13/23 10:48 nalbuphine [From Nubain] Allergy Verified 01/13/23 10:48 Sulfa (Sulfonamide Allergy Verified 01/13/23 10:48 Antibiotics) topiramate [From Topamax] Allergy Verified 01/13/23 10:48 Review of Systems ROS Narrative A ten point review of systems is negative except as noted above. PFSH PFSH Social History Smoking status: Never smoker Exam Narrative Exam Narrative: Nurses note and vital signs reviewed and patient is not hypoxic. General: The patient appears well and in no apparent distress. Patient is resting comfortably on cart. Skin: Warm, dry, no pallor noted. There is no rash noted. Head: Normocephalic, atraumatic Eye: Normal conjunctiva, no drainage Ears, Nose, Mouth, and Throat: oral mucosa is moist. Nares patent. Cardiovascular: Regular Rate and Rhythm Respiratory: Patient is in no distress, no accessory muscle use, lungs are clear to auscultation, no wheezing, rales or rhonchi Back: non-tender, no CVA tenderness bilaterally to percussion. GI: minimal tenderness to palpation only in the right upper quadrant, no masses appreciated. No rebound, guarding, or rigidity noted. Musculoskeletal: The patient has no evidence of calf tenderness, no pitting edema, symmetrical pulses noted bilaterally Neurological: A&O, normal speech Psychiatric: Cooperative Constitutional Vital Signs, click to edit/add: Last Vital Signs Temp 98.7 F 04/14/23 20:31 Pulse 85 04/14/23 20:31 Resp 18 04/14/23 20:31 BP 136/83 04/14/23 22:26 Pulse Ox 95 04/14/23 22:30 O2 Del Method Room Air 04/14/23 20:31 Course Vital Signs Vital signs: Vital Signs Temperature 98.7 F 04/14/23 20:31 Pulse Rate 85 04/14/23 20:31 Respiratory Rate 18 04/14/23 20:31 Blood Pressure 162/95 H 04/14/23 20:31 Pulse Oximetry 99 04/14/23 20:31 Oxygen Delivery Method Room Air 04/14/23 20:31 Temperature 98.7 F 04/14/23 20:31 Pulse Rate 85 04/14/23 20:31 Respiratory Rate 18 04/14/23 20:31 Blood Pressure 136/83 04/14/23 22:26 Pulse Oximetry 95 04/14/23 22:30 Oxygen Delivery Method Room Air 04/14/23 20:31 MDM - Abdominal Pain MDM Narrative Medical decision making narrative: workup including CAT scan and blood work is negative. She is going to call her PCP in the morning and was given a Tylenol 3 here and prescribed same. I have performed a prescription history review. Treatment diagnosis and follow-up were discussed with the patient. Differential Diagnosis Differential diagnosis: Likely abdominal pain, constipation, gastroenteritis, pancreatitis and small bowel obstruction Lab Data Attestation: I reviewed the patient's lab results. Labs: Lab Results 04/14/23 Range/Units 21:50 WBC 10.3 (4.0-11.0) 10^3/uL RBC 4.49 (4.20-5.40) 10^6/uL Hgb 13.0 (12.0-16.0) g/dL Hct 39.8 (36.0-48.0) % MCV 88.6 (81.0-99.0) fL MCH 29.0 (26.7-34.0) pg MCHC 32.7 (29.9-35.2) g/dL RDW 13.3 (11.0-15.0) % Plt Count 337 (150-450) 10^3/uL MPV 8.3 L (9.5-13.5) fL Neut % (Auto) 61.3 (43.0-75.0) % Lymph % (Auto) 28.1 (20.5-60.0) % [place] % (Auto) 5.8 (1.7-12.0) % Eos % (Auto) 2.8 (0.9-7.0) % Baso % (Auto) 0.6 (0.2-2.0) % Neut # (Auto) 6.3 (1.4-6.5) 10^3/uL Lymph # (Auto) 2.9 (1.2-3.8) 10^3/uL [place] # (Auto) 0.6 (0.3-0.8) 10^3/uL Eos # (Auto) 0.3 (0.0-0.7) 10^3/uL Baso # (Auto) 0.1 (0.0-0.1) 10^3/uL Abs Immat Gran (auto) 0.14 H (0.00-0.03) 10^3/uL Imm/Tot Granulo (auto) 1.4 H (0.0-0.5) % Sodium 133 L (136-145) mmol/L Potassium 3.6 (3.5-5.1) mmol/L Chloride 98 (98-107) mmol/L Carbon Dioxide 26.3 (21.0-32.0) mmol/L Anion Gap 12.3 BUN 13.0 (7.0-18.0) mg/dL Creatinine 0.98 (0.55-1.02) mg/dL Est GFR ( Amer) >60 (>=60) Est GFR (Non-Af Amer) >60 (>=60) BUN/Creatinine Ratio 13.3 Glucose 110 H (74-106) mg/dL Calcium 9.0 (8.5-10.1) mg/dL Total Bilirubin 0.2 (0.2-1.0) mg/dL Direct Bilirubin 0.1 (0.0-0.2) mg/dL AST 16 (15-37) U/L ALT 25 (14-59) U/L Alkaline Phosphatase 99 (46-116) U/L Total Protein 7.8 (6.4-8.2) g/dL Albumin 3.4 (3.4-5.0) g/dL Globulin 4.4 g/dL Albumin/Globulin Ratio 0.8 Amylase 33 (25-115) U/L Lipase 27.0 (16.0-77.0) U/L Serum HCG, Qual Negative (NEGATIVE) Imaging Data CT scan - abdomen: Radiologist's impression: ITS Impressions Abdomen/Pelvis CT 04/14/23 21:49 IMPRESSION: Hepatic steatosis and mild hepatomegaly. Small peripherally enhancing lesion along the right lateral margin of the liver may represent a hemangioma. There is a homogeneously enhancing region along the gallbladder fossa which may represent a transient hepatic attenuation difference lesion. No bowel obstruction or acute renal pathology. Normal appendix. Electronically authenticated by: MOE RUSSELL Date: 04/14/2023 23:30 Discharge Plan Discharge Chief Complaint: Abdominal Pain Clinical Impression: Abdominal pain Patient Disposition: Home, Self-Care Time of Disposition Decision: 23:43 Condition: Good Mode of Transportation: Private Vehicle Prescriptions / Home Meds: New acetaminophen-codeine 300-30 mg tablet 1 tab PO Q6H PRN (Reason: pain) 5 Days Qty: 20 0RF No Action levothyroxine 25 mcg tablet diclofenac sodium 75 mg tablet,delayed release (DR/EC) PO montelukast 10 mg tablet ergocalciferol (vitamin D2) [Vitamin D2] 1,250 mcg (50,000 unit) capsule albuterol sulfate 90 mcg/actuation HFA aerosol inhaler INHALATION [facility] 600 mg tablet extended release PO naltrexone 1.5 mg capsule PO omeprazole 40 mg capsule,delayed release(DR/EC) sertraline 50 mg tablet solifenacin 10 mg tablet PO methocarbamol 750 mg tablet 750 mg PO TID PRN (Reason: pain) Qty: 12 0RF ondansetron 4 mg tablet,disintegrating 4 mg PO Q6H PRN (Reason: nausea and vomiting) Qty: 12 0RF lgsxnkwdso-pdkydrnxbyjyh-ezzg [Fioricet] 50-300-40 mg capsule 1 cap PO Q6H PRN (Reason: headache) Qty: 10 0RF Rx Instructions: DX: R51.9 diazepam [Valium] 5 mg tablet 5 mg PO Q8H PRN (Reason: dizziness or vertigo) Qty: 14 0RF ibpvuandts-ywtpvpieiyfea-sjyl [Fioricet] 50-300-40 mg capsule 1 cap PO Q6H PRN (Reason: pain) Qty: 20 0RF methocarbamol 750 mg tablet 750 mg PO Q8H Qty: 20 0RF Instructions: Abdominal Pain (ED) Additional Instructions: call your PCP in the morning for follow-up Stand Alone Forms: Portal Instructions Referrals: Odalis Gu NP [Primary Care Provider] - 1 week
[2023-04-14 21:59] LABS: Basophils Absolute Auto 0.1 10^3/uL (0.0-0.1); Basophils Percent Auto 0.6 % (0.2-2.0); Eosinophils Absolute Auto 0.3 10^3/uL (0.0-0.7); Eosinophils Percent Auto 2.8 % (0.9-7.0); Hematocrit 39.8 % (36.0-48.0); Immature Granulocytes Abs Auto 0.14 10^3/uL (0.00-0.03); Immature Granulocytes Pct Auto 1.4 % (0.0-0.5); Lymphocytes Absolute Auto 2.9 10^3/uL (1.2-3.8); Lymphocytes Percent Auto 28.1 % (20.5-60.0); Mean Corpuscular HGB Conc 32.7 g/dL (29.9-35.2); Mean Corpuscular Volume 88.6 fL (81.0-99.0); Mean Platelet Volume 8.3 fL (9.5-13.5); Monocytes Absolute Auto 0.6 10^3/uL (0.3-0.8); Monocytes Percent Auto 5.8 % (1.7-12.0); Neutrophils Absolute Auto 6.3 10^3/uL (1.4-6.5); Neutrophils Percent Auto 61.3 % (43.0-75.0); Platelet Count 337 10^3/uL (150-450); Red Blood Count 4.49 10^6/uL (4.20-5.40); Red Cell Distribution Width 13.3 % (11.0-15.0); White Blood Count 10.3 10^3/uL (4.0-11.0)
[2023-04-14 22:13] LABS: Alanine Aminotransferase 25 U/L (14-59); Albumin Globulin Ratio 0.8; Albumin Level 3.4 g/dL (3.4-5.0); Alkaline Phosphatase 99 U/L (46-116); Amylase 33 U/L (25-115); Anion Gap 12.3; Aspartate Amino Transferase 16 U/L (15-37); BUN Creatinine Ratio 13.3; Bilirubin Direct 0.1 mg/dL (0.0-0.2); Bilirubin Total 0.2 mg/dL (0.2-1.0); Carbon Dioxide 26.3 mmol/L (21.0-32.0); Chloride 98 mmol/L (98-107); Estimated GFR (African America >60 (>=60); Estimated GFR (Non-African Ame >60 (>=60); Globulin 4.4 g/dL; Glucose 110 mg/dL (74-106); HCG Qualitative NEGATIVE (NEGATIVE); Potassium 3.6 mmol/L (3.5-5.1); Sodium 133 mmol/L (136-145); Total Protein 7.8 g/dL (6.4-8.2)
[2023-04-14 22:26] VITALS: BP 136/83; O2SAT 100
[2023-04-14 22:30] VITALS: O2SAT 95
[2023-04-15 00:04] VITALS: BP 147/98; PULSE 85; O2SAT 98
== END 2023-04-15 00:08 | disposition home or self-care (01) ==
PROVIDERS: Emergency Provider Emergency Medicine; PCP Nurse Practitioner
DX: R10.9 Unspecified abdominal pain (principal); Z79.899 Other long term (current) drug therapy; Z79.890 Hormone replacement therapy
CPT/HCPCS: 36415; 74177; 80048; 80076; 81001; 82150; 83690; 84703; 85025; 99284; Q9967

== ENCOUNTER 2023-06-01 10:10 | Outpatient (REF) | payer OTHER, SELFPAY ==
--- OUTSIDE RECORDS SUMMARY | 2023-06-01 10:19 | XMS_ITS | CCD ---
Author Name Unknown Address [address] [facility] [place] [address] [place] [address] Organization [facility] Care Team Providers Care Neon Installer Name Role Phone ODALIS GU Primary Care Physician Rola Reinoso Unavailable Padma Ramirez Unavailable Jessica Dong Unavailable Rylan Collado Unavailable DO Rylan Collado Attending Provider Odalis Gu Primary Care Provider Yelitza Johnson Unavailable Rola Gant Unavailable AICHHOLZ, WET WHEELER ODALIS Attending Unavailable AICHHOLZ, WET WHEELER ODALIS Admitting Unavailable AICHHOLZ, WET WHEELER ODALIS Primary Care Unavailable DR RAMOB SEVERINO V Consulting Unavailable AICHHOLZ, WET WHEELER ODALIS Consulting Unavailable AICHHOLZ, WET WHEELER ODALIS Attending Unavailable AICHHOLZ, WET WHEELER ODALIS Consulting Unavailable AICHHOLZ, WET WHEELER ODALIS Admitting Unavailable AICHHOLZ, WET WHEELER ODALIS Primary Care Unavailable AICHHOLZ, WET WHEELER ODALIS Attending Unavailable AICHHOLZ, WET WHEELER ODALIS Consulting Unavailable AICHHOLZ, WET WHEELER ODALIS Admitting Unavailable AICHHOLZ, WET WHEELER ODALIS Primary Care Unavailable AICHHOLZ, WET WHEELER ODALIS Attending Unavailable AICHHOLZ, WET WHEELER ODALIS Consulting Unavailable AICHHOLZ, WET WHEELER ODALIS Admitting Unavailable AICHHOLZ, WET WHEELER ODALIS Primary Care Unavailable DR PADMA RANDOLPH Consulting Unavailable DR PADMA RANDOLPH Attending Unavailable AICHHOLZ, WET WHEELER ODALIS Primary Care Unavailable DR PADMA RANDOLPH Admitting Unavailable AICHHOLZ, WET WHEELER ODALIS Primary Care Unavailable HOY ., DR LOVELACE Consulting Unavailable HOY ., DR LOVELACE Attending Unavailable HOY ., DR LOVELACE Admitting Unavailable KATHY CURRAN Consulting Unavailable FRANCISCA DOMINGUEZ Consulting Unavailable DORIS CROWE Consulting Unavailable MACKENZIE ., DOTTIE Consulting Unavailable MACKENZIE ., DOTTIE Attending Unavailable AICHHOLZ, WET WHEELER ODALIS Primary Care Unavailable MACKENZIE ., DOTTIE Admitting Unavailable AICHHOLZ, WET WHEELER ODALIS Primary Care Unavailable PAY ., DR DURHAM Consulting Unavailable PAY ., DR DURHAM Attending Unavailable PAY ., DR DURHAM Admitting Unavailable AICHHOLZ, WET WHEELER ODALIS Attending Unavailable AICHHOLZ, WET WHEELER ODALIS Primary Care Unavailable AICHHOLZ, WET WHEELER ODALIS Admitting Unavailable AICHHOLZ, WET WHEELER ODALIS Attending Unavailable AICHHOLZ, WET WHEELER ODALIS Primary Care Unavailable AICHHOLZ, WET WHEELER ODALIS Consulting Unavailable AICHHOLZ, WET WHEELER ODALIS Admitting Unavailable MARCELINO, DR DEEP Ruffin Consulting Unavailable AICHHOLZ, WET WHEELER ODALIS Attending Unavailable AICHHOLZ, WET WHEELER ODALIS Primary Care Unavailable AICHHOLZ, WET WHEELER ODALIS Consulting Unavailable AICHHOLZ, WET WHEELER ODALIS Admitting Unavailable AICHHOLZ, WET WHEELER ODALIS Attending Unavailable AICHHOLZ, WET WHEELER ODALIS Primary Care Unavailable MERE, DR RAMBO Hoang Consulting Unavailable AICHHOLZ, WET WHEELER ODALIS Admitting Unavailable AICHHOLZ, WET WHEELER ODALIS Consulting Unavailable AICHHOLZ, WET WHEELER ODALIS Attending Unavailable AICHHOLZ, WET WHEELER ODALIS Admitting Unavailable AICHHOLZ, WET WHEELER DOALIS Primary Care Unavailable AICHHOLZ, WET WHEELER ODALIS Consulting Unavailable AICHHOLZ, WET WHEELER ODALIS Attending Unavailable AICHHOLZ, WET WHEELER ODALIS Admitting Unavailable AICHHOLZ, WET WHEELER ODALIS Primary Care Unavailable MD Rambo Martinez Attending Provider [phone] Aichholz, Odalis J Primary Care Provider Aicalfredz, Odalis J Referring Provider Rambo Martinez Unavailable AICHHOLZ, ODALIS Attending Unavailable AICHHOLZ, ODALIS Attending Unavailable Aichholz, Odalis J Referring Unavailable Aichholz, Odalis J Primary Care Unavailable Rambo Martinez Attending Unavailable Juan, Rambo N. Admitting Unavailable Allergies Allergy Classification Reported Allergen(s) Allergy Type Date of Onset Reaction(s) Facility (11 sources) DULoxetine; Translations: [duloxetine] Drug Allergy 02-09-20 19 Eruption of skin (disorder) [employer] Other (1 source) Nalbuphine; Translations: [nalbuphine] Drug Allergy 05-26-19 16 Headache (finding), Hallucinations (finding) [facility] [place] (11 sources) Sulfacetamide; Translations: [sodium sulfacetamide ophthalmic] Drug Allergy Eruption of skin (disorder) [employer] Other (1 source) Sulfonamides (Antibiotic); Translations: [sulfa drugs] Drug allergy Eruption of skin (disorder) [facility] (11 sources) topiramate; Translations: [topiramate] Drug Allergy Clouded consciousness (finding) [employer] Other (12 sources) Nalbuphine; Translations: [Nubain] Drug Allergy 05-27-19 16 hallucinations and violent headache [facility] (1 source) DULoxetine Drug Allergy 02-10-20 19 [facility] (2 sources) Sulfonamides (Antibiotic) Drug allergy (disorder) 05-27-19 16 [facility] (1 source) topiramate Drug Allergy [facility] (1 source) DULoxetine Drug Allergy 03-10-20 [facility] (1 source) Nalbuphine Drug Allergy 03-10-20 [facility] (1 source) Sulfacetamide Drug Allergy 03-10-20 [facility] (1 source) topiramate Drug Allergy 03-10-20 [facility] Medications Current Medications Medication Drug Class(es) Dates Sig (Normalized) Sig (Original) [id number] 60 actuat albuterol 0.09 mg/actuat metered dose [...] 1.5 mg/ml oral solution (7 sources) Uncompetitive T-qizfuc-J-asparta te Receptor Antagonist, Sigma-1 Agonist Start: 05-24-2022 take 10 mL by mouth every eight hours [place] DM 7.5-7.5 MG/5ML 10 mL Orally every [...] mg oral tablet (11 sources) l-Thyroxine Start: take 1 tablet by mouth once [...] infection (1 source) COVID-19; Translations: [COVID-19] Onset: Past or Other Problems Problem Classification Problem [...] 03-26-2021 Episodic Other aftercare (1 source) Other terminal carman (current) drug therapy; Translations: [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 Verenice Smallwood SYMPTOMATIC COVID-19 ANTIGEN on 08-11-2022 EUA Statement SEE BELOW Normal [facility] Comment on above: Result Comment: This [...] sooner. Performed By: #### C VDAGS #### [facility] [address] [place] [address] Verenice Smallwood SARS-CoV-2 (COVID-19) RNA LILIANA+probe Ql (Unsp spec) Negative Normal NEGATIVE [facility] Comment on above: Performed By: #### C VDAGS #### [facility] [address] [place] [address] Verenice Smallwood XR DEXA BONE DENSITYon [...] by: RAMBO SEVERINO Date: 2022-07-12 18:19 Normal [facility] PHOSPHORUSon 07-02-2022 Phosphate [Mass/Vol] 3.2 mg/dL Normal 2.6-4.7 [facility] Comment on above: Performed By: #### P HOS #### [facility] [address] [place] [address] Dr. Verenice Smallwood PROGESTERONEon 06-29-2022 Progesterone 0.4 ng/mL Normal [facility] Comment on above: Result Comment: Foll icular phase 0.1 - 0.9 Luteal phase 1.8 - 23.9 Ovulation phase 0.1 - 12.0 First trimester 11.0 - 44.3 Second trimester 25.4 - 83.3 Third trimester 58.7 - 214.0 Postmenopausal 0.0 - 0.1 Performed By: #### C VDTBH #### [facility] [address] [place] [address] Dr. Verenice Smallwood PTH INTACTon 06-29-2022 PTH, Intact 35 pg/mL Normal 15-65 [facility] Comment on above: Performed By: #### C RP, BMP #### [facility] [address] [place] [address] Dr. Verenice Smallwood CBC AUTO DIFFon 06-09-2022 BASO # 0.1 103/ul Normal 0.0-0.1 [facility] Comment on above: Performed By: #### C BC #### [facility] [address] [place] [address] Dr. Verenice Smallwood Basophils/100 WBC (Bld) 0.7 % Normal 0.2-2.0 [facility] Comment on above: Performed By: #### C BC #### [facility] [address] [place] [address] Dr. Verenice Smallwood EO # 0.1 103/ul Normal 0.0-0.7 [facility] Comment on above: Performed By: #### C BC #### [facility] [address] [place] [address] Dr. Verenice Smallwood Eosinophils/100 WBC (Bld) 1.6 % Normal 0.9-7.0 [facility] Comment on above: Performed By: #### C BC #### [facility] [address] [place] [address] Dr. Verenice Smallwood Erythrocyte distribution width (RBC) [Ratio] 12.9 % Normal 11.0-15.0 [facility] Comment on above: Performed By: #### C BC #### [facility] [address] [place] [address] Dr. Verenice Smallwood Hematocrit (Bld) [Volume fraction] 44.6 % Normal 36.0-48.0 [facility] Comment on above: Performed By: #### C BC #### [facility] [address] [place] [address] Dr. Verenice Smallwood Hemoglobin (Bld) [Mass/Vol] 14.6 g/dL Normal 12.0-16.0 [facility] Comment on above: Performed By: #### C BC #### [facility] [address] [place] [address] Dr. Verenice Smallwood IG # 0.10 10e3/ul Critically high 0.00-0.03 [facility] Comment on above: Performed By: #### C BC #### [facility] [address] [place] [address] Dr. Verenice Smallwood IG % 1.1 % Critically high 0.0-0.5 [facility] Comment on above: Performed By: #### C BC #### [facility] [address] [place] [address] Dr. Verenice Smallwood LYMPH # 2.4 103/ul Normal 1.2-3.8 [facility] Comment on above: Performed By: #### C BC #### [facility] [address] [place] [address] Dr. Verenice Smallwood Lymphocytes/100 WBC (Bld) 27.3 % Normal 20.5-60.0 [facility] Comment on above: Performed By: #### C BC #### [facility] [address] [place] [address] Dr. Verenice Smallwood MANUAL DIFF REQ NO Normal [facility] Comment on above: Performed By: #### C BC #### [facility] [address] [place] [address] Dr. Verenice Smallwood MCH (RBC) [Entitic mass] 30.2 pg Normal 26.7-34.0 [facility] Comment on above: Performed By: #### C BC #### [facility] [address] [place] [address] Dr. Verenice Smallwood MCHC (RBC) [Mass/Vol] 32.7 g/dL Normal 29.9-35.2 [facility] Comment on above: Performed By: #### C BC #### [facility] [address] [place] [address] Dr. Verenice Smallwood MCV (RBC) [Entitic vol] 92.1 fL Normal 81.0-99.0 [facility] Comment on above: Performed By: #### C BC #### [facility] [address] [place] [address] Dr. Verenice Smallwood MONO # 0.6 103/ul Normal 0.3-0.8 [facility] Comment on above: Performed By: #### C BC #### [facility] [address] [place] [address] Dr. Verenice Smallwood Monocytes/100 WBC (Bld) 6.3 % Normal 1.7-12.0 [facility] Comment on above: Performed By: #### C BC #### [facility] [address] [place] [address] Dr. Verenice Smallwood NEUT # 5.5 103/ul Normal 1.4-6.5 [facility] Comment on above: Performed By: #### C BC #### [facility] [address] [place] [address] Dr. Verenice Smallwood Neutrophils/100 WBC (Bld) 63.0 % Normal 43.0-75.0 [facility] Comment on above: Performed By: #### C BC #### [facility] [address] [address] [address] Verenice Smallwood Platelet mean volume (Bld) [Entitic vol] 8.4 fL Critically low 9.5-13.5 [facility] Comment on above: Performed By: #### C BC #### [facility] [address] [place] [address] Dr. Verenice Smallwood PLT 300 103/ul Normal 150-450 [facility] Comment on above: Performed By: #### C BC #### [facility] [address] [place] [address] Dr. Verenice Smallwood RBC 4.84 106/ul Normal 4.20-5.40 [facility] Comment on above: Performed By: #### C BC #### [facility] [address] [place] [address] Dr. Verenice Smallwood WBC 8.8 103/ul Normal 4.0-11.0 [facility] Comment on above: Performed By: #### C BC #### [facility] [address] [place] [address] Dr. Verenice Smallwood FREE T4on 06-09-2022 Free T4 [Mass/Vol] 1.08 ng/dL Normal 0.76-1.46 [facility] Comment on above: Performed By: #### C RP, BMP #### [facility] [address] [place] [address] Dr. Verenice Smallwood GLYCOHEMOGLOBIN A1Con 2022 ADA RECOMMENDATION SEE BELOW Normal [facility] Comment on above: Result Comment: ADA RECOMMENDED LIMIT 4.0 - 6.0 ADA THERAPEUTIC TARGET < 7.0 ACTION SUGGESTED > 7.0 Performed By: #### C BC #### [facility] [address] [place] [address] Dr. Verenice Smallwood Glucose [Mass/Vol] 123 mg/dL Normal [facility] Comment on above: Performed By: #### C BC #### [facility] [address] [place] [address] Dr. Verenice Smallwood HbA1c (Bld) [Mass fraction] 5.9 % Normal 4.5-6.2 [facility] Comment on above: Performed By: #### C BC #### [facility] [address] [address] [address] Verenice Smallwood LIPID PROFILEon 06-09-2022 CHOL-HDL RATIO NORM SEE BELOW Normal [facility] Comment on above: Result Comment: 3.3 - 4.4 LOW RISK 4.4 - 7.1 AVERAGE RISK 7.1 - 11.0 MODERATE RISK >11.0 HIGH RISK Performed By: #### C BC #### [facility] [address] [address] [address] Verenice Smallwood Cholesterol [Mass/Vol] 255 mg/dL Critically high <=200 [facility] Comment on above: Performed By: #### C BC #### [facility] [address] [place] [address] Dr. Verenice Smallwood Cholesterol in HDL [Mass/Vol] 56 mg/dL Normal 40-60 [facility] Comment on above: Performed By: #### C BC #### [facility] [address] [place] [address] Dr. Verenice Smallwood Cholesterol in LDL [Mass/Vol] 144.6 mg/dL Normal [facility] Comment on above: Performed By: #### C BC #### [facility] [address] [place] [address] Dr. Verenice Smallwood Cholesterol.total /Cholesterol in HDL [Mass ratio] 4.6 {ratio} Normal [facility] Comment on above: Performed By: #### C BC #### [facility] [address] [place] [address] Dr. Verenice Smallwood HDL NORMAL > or = 60 mg/dl - LO W CARDIOVASCULAR RISK <40 mg/dl - HIGH CARDIOVASCULAR RISK Normal [facility] Comment on above: Performed By: #### C BC #### [facility] [id number] Verenice Smallwood LDL CALC NORMAL SEE BELOW Normal [facility] Comment on above: Result Comment: <100 mg/dl OPTIMAL 100 - 129 mg/dl NEAR OR ABOVE OPTIMAL 130 - 159 mg/dl BORDERLINE HIGH 160 - 189 mg/dl HIGH >190 mg/dl VERY HIGH Performed By: #### C BC #### [facility] [address] [place] [address] Dr. Verenice Smallwood Triglyceride [Mass/Vol] 272 mg/dL Critically high <=150 [facility] Comment on above: Performed By: #### C BC #### [facility] [address] [place] [address] Dr. Verenice Smallwood VLDL CALC 54.4 mg/dL Normal [facility] Comment on above: Performed By: #### C BC #### [facility] [address] [place] [address] Dr. Verenice Smallwood PROF 14(COMP METB)on 023 Albumin [Mass/Vol] 3.7 g/dL Normal 3.4-5.0 [facility] Comment on above: Performed By: #### C BC #### [facility] [address] [place] [address] Dr. Verenice Smallwood Albumin/Globulin [Mass ratio] 0.9 {ratio} Normal [facility] Comment on above: Performed By: #### C BC #### [facility] [address] [place] [address] Dr. Verenice Smallwood ALP [Catalytic activity/Vol] 80 U/L Normal 46-116 [facility] Comment on above: Performed By: #### C BC #### [facility] [address] [place] [address] Dr. Verenice Smallwood ALT [Catalytic activity/Vol] 29 U/L Normal 14-59 [facility] Comment on above: Performed By: #### C BC #### [facility] [address] [place] [address] Dr. Verenice Smallwood Anion gap [Moles/Vol] 13.4 mmol/L Normal [facility] Comment on above: Performed By: #### C BC #### [facility] [address] [place] [address] Dr. Verenice Smallwood AST [Catalytic activity/Vol] 24 U/L Normal 15-37 [facility] Comment on above: Performed By: #### C BC #### [facility] [address] [place] [address] Dr. Verenice Smallwood Bilirubin [Mass/Vol] 0.2 mg/dL Normal 0.2-1.0 [facility] Comment on above: Performed By: #### C BC #### [facility] [address] [place] [address] Dr. Verenice Smallwood Calcium [Mass/Vol] 9.7 mg/dL Normal 8.5-10.1 [facility] Comment on above: Performed By: #### C BC #### [facility] [address] [place] [address] Dr. Verenice Smallwood Chloride [Moles/Vol] 104 mmol/L Normal 98-107 [facility] Comment on above: Performed By: #### C BC #### [facility] [address] [place] [address] Dr. Verenice Smallwood CO2 [Moles/Vol] 25.4 mmol/L Normal 21.0-32.0 [facility] Comment on above: Performed By: #### C BC #### [facility] [address] [place] [address] Dr. Verenice Smallwood Creatinine [Mass/Vol] 0.77 mg/dL Normal 0.55-1.02 [facility] Comment on above: Performed By: #### C BC #### [facility] [address] [place] [address] Dr. Verenice Smallwood EGFR-AF VIETNAMESE >60 Normal >=60 [facility] Comment on above: Performed By: #### C BC #### [facility] [address] [place] [address] Dr. Verenice Smallwood EGFR-NON AF VIETNAMESE >60 Normal >=60 [facility] Comment on above: Performed By: #### C BC #### [facility] [address] [place] [address] Dr. Verenice Smallwood Globulin (S) [Mass/Vol] 4.1 g/dL Normal [facility] Comment on above: Performed By: #### C BC #### [facility] [address] [place] [address] Dr. Verenice Smallwood Glucose [Mass/Vol] 110 mg/dL Critically high 74-106 [facility] Comment on above: Performed By: #### C BC #### [facility] [address] [address] [address] Verenice Smallwood Potassium [Moles/Vol] 4.8 mmol/L Normal 3.5-5.1 [facility] Comment on above: Performed By: #### C BC #### [facility] [address] [address] [address] Verenice Smallwood Protein [Mass/Vol] 7.8 g/dL Normal 6.4-8.2 [facility] Comment on above: Performed By: #### C BC #### [facility] [address] [address] [address] Verenice Smallwood Sodium [Moles/Vol] 138 mmol/L Normal 136-145 [facility] Comment on above: Performed By: #### C BC #### [facility] [address] [address] [address] Verenice Smallwood Urea nitrogen [Mass/Vol] 15.0 mg/dL Normal 7.0-18.0 [facility] Comment on above: Performed By: #### C BC #### [facility] [address] [address] [address] Verenice Smallwood Urea nitrogen/Creatini ne [Mass ratio] 19.5 mg/mg Normal [facility] Comment on above: Performed By: #### C BC #### [facility] [address] [address] [address] Verenice Smallwood TSHon 06-09-2022 TSH 1.964 uIU/mL Normal 0.358-3.740 [facility] Comment on above: Performed By: #### C BC #### [facility] [address] [address] [address] Verenice Smallwood UA RANDOM W/MICROSCOPICon BACTERIA TRACE Abnormal NONE SEEN [facility] Comment on above: Performed By: #### C BC #### [facility] [address] [address] [address] Verenice Smallwood Bilirubin Ql (U) Negative Normal NEGATIVE [facility] Comment on above: Performed By: #### C BC #### [facility] [address] [place] [address] Dr. Verenice Smallwood CAST NONE SEEN Normal NONE SEEN [facility] Comment on above: Performed By: #### C BC #### [facility] [address] [place] [address] Dr. Verenice Smallwood Clarity (U) CLEAR Normal CLEAR [facility] Comment on above: Performed By: #### C BC #### [facility] [address] [place] [address] Dr. Verenice Smallwood Color (U) LT. YELLOW Normal YELLOW [facility] Comment on above: Performed By: #### C BC #### [facility] [address] [place] [address] Dr. Verenice Smallwood Crystals LM Nom (Urine sed) NONE SEEN Normal NONE SEEN [facility] Comment on above: Performed By: #### C BC #### [facility] [address] [place] [address] Dr. Verenice Smallwood Epithelial cells LM Ql (Urine sed) FEW Abnormal NONE SEEN /RARE [facility] Comment on above: Performed By: #### C BC #### [facility] [address] [place] [address] Dr. Verenice Smallwood Glucose Ql (U) Negative Normal NEGATIVE [facility] Comment on above: Performed By: #### C BC #### [facility] [address] [place] [address] Dr. Verenice Smallwood Hemoglobin Ql (U) Negative Normal NEGATIVE [facility] Comment on above: Performed By: #### C BC #### [facility] [address] [place] [address] Dr. Verenice Smallwood Ketones Ql (U) Negative Normal NEGATIVE [facility] Comment on above: Performed By: #### C BC #### [facility] [address] [place] [address] Dr. Verenice Smallwood LEUKOCYTES Negative Normal NEGATIVE [facility] Comment on above: Performed By: #### C BC #### [facility] [address] [place] [address] Dr. Verenice Smallwood MUCOUS NONE SEEN Normal NONE SEEN [facility] Comment on above: Performed By: #### C BC #### [facility] [address] [place] [address] Dr. Verenice Smallwood Nitrite Ql (U) Negative Normal NEGATIVE [facility] Comment on above: Performed By: #### C BC #### [facility] [address] [place] [address] Dr. Verenice Smallwood pH (U) 6.0 [pH] Normal 5-9 [facility] Comment on above: Performed By: #### C BC #### [facility] [address] [place] [address] Dr. Verenice Smallwood RBC NONE SEEN Abnormal 0-2 [facility] Comment on above: Performed By: #### C BC #### [facility] [address] [place] [address] Dr. Verenice Smallwood SPEC GRAVITY 1.025 Normal 1.005-<=1.0 25 [facility] Comment on above: Performed By: #### C BC #### [facility] [address] [place] [address] Dr. Verenice Smallwood UA PROTEIN Negative Normal NEGATIVE/ TRACE [facility] Comment on above: Performed By: #### C BC #### [facility] [address] [place] [address] Dr. Verenice Smallwood Urobilinogen Qn (U) 0.2 {Bertt'U}/dL Normal 0.2 - 1.0 [facility] Comment on above: Performed By: #### C BC #### [facility] [address] [place] [address] Dr. Verenice Smallwood WBC NONE SEEN Normal NONE SEEN [facility] Comment on above: Performed By: #### C BC #### [facility] [address] [place] [address] Dr. Verenice Smallwood VITAMIN D 25 OHon 06-09-2022 VIT D 25-OH 23.2 ng/mL Normal [facility] Comment on above: Performed By: #### C RP, BMP #### [facility] [address] [place] [address] Dr. Verenice Smallwood VIT D RANGES SEE BELOW Normal [facility] Comment on above: Result Comment: <20 ng/mL Vit D deficient 20 - <30 ng/mL Vit D insufficient 30 - 100 ng/mL Vit D sufficient >100 ng/mL Potential Toxicity Performed By: #### C RP, BMP #### [facility] [address] [place] [address] Dr. Verenice Smallwood COVID + FLU Quick Testingon 05-24-2022 SARS-CoV-2 (COVID-19) RNA LILIANA+probe Ql (Unsp spec) Negative [facility] [employer] Other COVID + FLU Quick Testing Negative [facility] [employer] Other CBC AUTO DIFFon 02-04-2022 BASO # 0.1 103/ul Normal 0.0-0.1 [facility] Comment on above: Performed By: #### C RP, BMP #### [facility] [address] [place] [address] Dr. Verenice Smallwood Basophils/100 WBC (Bld) 0.4 % Normal 0.2-2.0 [facility] Comment on above: Performed By: #### C RP, BMP #### [facility] [address] [place] [address] Dr. Verenice Smallwood EO # 0.0 103/ul Normal 0.0-0.7 [facility] Comment on above: Performed By: #### C RP, BMP #### [facility] [address] [place] [address] Dr. Verenice Smallwood Eosinophils/100 WBC (Bld) 0.1 % Critically low 0.9-7.0 [facility] Comment on above: Performed By: #### C RP, BMP #### [facility] [address] [place] [address] Dr. Verenice Smallwood Erythrocyte distribution width (RBC) [Ratio] 14.2 % Normal 11.0-15.0 [facility] Comment on above: Performed By: #### C RP, BMP #### [facility] [address] [place] [address] Dr. Verenice Smallwood Hematocrit (Bld) [Volume fraction] 41.6 % Normal 36.0-48.0 [facility] Comment on above: Performed By: #### C RP, BMP #### [facility] [address] [place] [address] Dr. Verenice Smallwood Hemoglobin (Bld) [Mass/Vol] 13.6 g/dL Normal 12.0-16.0 [facility] Comment on above: Performed By: #### C RP, BMP #### [facility] [address] [place] [address] Dr. Verenice Smallwood IG # 0.38 10e3/ul Critically high 0.00-0.03 [facility] Comment on above: Performed By: #### C RP, BMP #### [facility] [address] [place] [address] Dr. Verenice Smallwood IG % 2.6 % Critically high 0.0-0.5 [facility] Comment on above: Performed By: #### C RP, BMP #### [facility] [address] [place] [address] Dr. Verenice Smallwood LYMPH # 1.5 103/ul Normal 1.2-3.8 [facility] Comment on above: Performed By: #### C RP, BMP #### [facility] [address] [place] [address] Dr. Verenice Smallwood Lymphocytes/100 WBC (Bld) 10.6 % Critically low 20.5-60.0 [facility] Comment on above: Performed By: #### C RP, BMP #### [facility] [address] [place] [address] Dr. Verenice Smallwood MANUAL DIFF REQ NO Normal [facility] Comment on above: Performed By: #### C RP, BMP #### [facility] [address] [place] [address] Dr. Verenice Smallwood MCH (RBC) [Entitic mass] 29.5 pg Normal 26.7-34.0 [facility] Comment on above: Performed By: #### C RP, BMP #### [facility] [address] [place] [address] Dr. Verenice Smallwood MCHC (RBC) [Mass/Vol] 32.7 g/dL Normal 29.9-35.2 [facility] Comment on above: Performed By: #### C RP, BMP #### [facility] [address] [place] [address] Dr. Verenice Smallwood MCV (RBC) [Entitic vol] 90.2 fL Normal 81.0-99.0 [facility] Comment on above: Performed By: #### C RP, BMP #### [facility] [address] [place] [address] Dr. Verenice Smallwood MONO # 0.3 103/ul Normal 0.3-0.8 [facility] Comment on above: Performed By: #### C RP, BMP #### [facility] [address] [place] [address] Dr. Verenice Smallwood Monocytes/100 WBC (Bld) 2.3 % Normal 1.7-12.0 [facility] Comment on above: Performed By: #### C RP, BMP #### [facility] [address] [place] [address] Dr. Verenice Smallwood NEUT # 12.2 103/ul Critically high 1.4-6.5 [facility] Comment on above: Performed By: #### C RP, BMP #### [facility] [address] [place] [address] Dr. Verenice Smallwood Neutrophils/100 WBC (Bld) 84.0 % Critically high 43.0-75.0 [facility] Comment on above: Performed By: #### C RP, BMP #### [facility] [address] [place] [address] Dr. Verenice Smallwood Platelet mean volume (Bld) [Entitic vol] 8.4 fL Critically low 9.5-13.5 [facility] Comment on above: Performed By: #### C RP, BMP #### [facility] [address] [place] [address] Dr. Verenice Smallwood PLT 337 103/ul Normal 150-450 [facility] Comment on above: Performed By: #### C RP, BMP #### [facility] [address] [place] [address] Dr. Verenice Smallwood RBC 4.61 106/ul Normal 4.20-5.40 [facility] Comment on above: Performed By: #### C RP, BMP #### [facility] [address] [place] [address] Dr. Verenice Smallwood WBC 14.5 103/ul Critically high 4.0-11.0 [facility] Comment on above: Performed By: #### C RP, BMP #### [facility] [address] [place] [address] Dr. Verenice Smallwood CRPon 02-04-2022 CRP [Mass/Vol] mg/L Normal <=1.0 [facility] Comment on above: Performed By: #### C BC #### [facility] [address] [place] [address] Dr. Verenice Smallwood PROF 14(COMP METB)on 022 Albumin [Mass/Vol] 3.0 g/dL Critically low 3.4-5.0 [facility] Comment on above: Performed By: #### C BC #### [facility] [address] [place] [address] Dr. Verenice Smallwood Albumin/Globulin [Mass ratio] 0.8 {ratio} Normal [facility] Comment on above: Performed By: #### C BC #### [facility] [address] [place] [address] Dr. Verenice Smallwood ALP [Catalytic activity/Vol] 65 U/L Normal 46-116 [facility] Comment on above: Performed By: #### C BC #### [facility] [address] [place] [address] Dr. Verenice Smallwood ALT [Catalytic activity/Vol] 18 U/L Normal 14-59 [facility] Comment on above: Performed By: #### C BC #### [facility] [address] [place] [address] Dr. Verenice Smallwood Anion gap [Moles/Vol] 12.3 mmol/L Normal [facility] Comment on above: Performed By: #### C BC #### [facility] [address] [place] [address] Dr. Verenice Smallwood AST [Catalytic activity/Vol] 11 U/L Critically low 15-37 [facility] Comment on above: Performed By: #### C BC #### [facility] [address] [place] [address] Dr. Verenice Smallwood Bilirubin [Mass/Vol] 0.1 mg/dL Critically low 0.2-1.0 [facility] Comment on above: Performed By: #### C BC #### [facility] [address] [place] [address] Dr. Verenice Smallwood Calcium [Mass/Vol] 8.7 mg/dL Normal 8.5-10.1 [facility] Comment on above: Performed By: #### C BC #### [facility] [address] [place] [address] Dr. Verenice Smallwood Chloride [Moles/Vol] 101 mmol/L Normal 98-107 [facility] Comment on above: Performed By: #### C BC #### [facility] [address] [place] [address] Dr. Verenice Smallwood CO2 [Moles/Vol] 23.1 mmol/L Normal 21.0-32.0 [facility] Comment on above: Performed By: #### C BC #### [facility] [address] [place] [address] Dr. Verenice Smallwood Creatinine [Mass/Vol] 0.92 mg/dL Normal 0.55-1.02 [facility] Comment on above: Performed By: #### C BC #### [facility] [address] [place] [address] Dr. Verenice Smallwood EGFR-AF VIET[place]ESE >60 Normal >=60 [facility] Comment on above: Performed By: #### C BC #### [facility] [address] [place] [address] Dr. Verenice Smallwood EGFR-NON AF VI[place]ESE >60 Normal >=60 [facility] Comment on above: Performed By: #### C BC #### [facility] [address] [place] [address] Dr. Verenice Smallwood Globulin (S) [Mass/Vol] 3.8 g/dL Normal [facility] Comment on above: Performed By: #### C BC #### [facility] [address] [address] [address] Verenice Smallwood Glucose [Mass/Vol] 161 mg/dL Critically high 74-106 [facility] Comment on above: Performed By: #### C BC #### [facility] [address] [address] [address] Verenice Smallwood Potassium [Moles/Vol] 4.4 mmol/L Normal 3.5-5.1 [facility] Comment on above: Performed By: #### C BC #### [facility] [address] [address] [address] Verenice Smallwood Protein [Mass/Vol] 6.8 g/dL Normal 6.4-8.2 [facility] Comment on above: Performed By: #### C BC #### [facility] [address] [place] [address] Dr. Verenice Smallwood Sodium [Moles/Vol] 132 mmol/L Critically low 136-145 [facility] Comment on above: Performed By: #### C BC #### [facility] [address] [address] [address] Verenice Smallwood Urea nitrogen [Mass/Vol] 25.0 mg/dL Critically high 7.0-18.0 [facility] Comment on above: Performed By: #### C BC #### [facility] [address] [place] [address] Dr. Verenice Smallwood Urea nitrogen/Creatini ne [Mass ratio] 27.2 mg/mg Normal [facility] Comment on above: Performed By: #### C BC #### [facility] [address] [address] [address] Verenice Smallwood CBC AUTO DIFFon 02-03-2022 BASO # 0.0 103/ul Normal 0.0-0.1 [facility] Comment on above: Performed By: #### C BC #### [facility] [address] [address] [address] Verenice Smallwood Basophils/100 WBC (Bld) 0.3 % Normal 0.2-2.0 [facility] Comment on above: Performed By: #### C BC #### [facility] [address] [address] [address] Verenice Smallwood EO # 0.0 103/ul Normal 0.0-0.7 [facility] Comment on above: Performed By: #### C BC #### [facility] [address] [address] [address] Verenice Smallwood Eosinophils/100 WBC (Bld) 0.0 % Critically low 0.9-7.0 [facility] Comment on above: Performed By: #### C BC #### [facility] [address] [place] [address] Dr. Verenice Smallwood Erythrocyte distribution width (RBC) [Ratio] 13.6 % Normal 11.0-15.0 [facility] Comment on above: Performed By: #### C BC #### [facility] [address] [place] [address] Dr. Verenice Smallwood Hematocrit (Bld) [Volume fraction] 40.5 % Normal 36.0-48.0 [facility] Comment on above: Performed By: #### C BC #### [facility] [address] [place] [address] Dr. Verenice Smallwood Hemoglobin (Bld) [Mass/Vol] 13.4 g/dL Normal 12.0-16.0 [facility] Comment on above: Performed By: #### C BC #### [facility] [address] [place] [address] Dr. Verenice Smallwood IG # 0.24 10e3/ul Critically high 0.00-0.03 [facility] Comment on above: Performed By: #### C BC #### [facility] [address] [place] [address] Dr. Verenice Smallwood IG % 2.0 % Critically high 0.0-0.5 [facility] Comment on above: Performed By: #### C BC #### [facility] [address] [place] [address] Dr. Verenice Smallwood LYMPH # 1.5 103/ul Normal 1.2-3.8 [facility] Comment on above: Performed By: #### C BC #### [facility] [address] [place] [address] Dr. Verenice Smallwood Lymphocytes/100 WBC (Bld) 12.3 % Critically low 20.5-60.0 [facility] Comment on above: Performed By: #### C BC #### [facility] [address] [place] [address] Dr. Verneice Smallwood MANUAL DIFF REQ NO Normal [facility] Comment on above: Performed By: #### C BC #### [facility] [address] [place] [address] Dr. Verenice Smallwood MCH (RBC) [Entitic mass] 29.8 pg Normal 26.7-34.0 [facility] Comment on above: Performed By: #### C BC #### [facility] [address] [place] [address] Dr. Verenice Smallwood MCHC (RBC) [Mass/Vol] 33.1 g/dL Normal 29.9-35.2 [facility] Comment on above: Performed By: #### C BC #### [facility] [address] [place] [address] Dr. Verenice Smallwood MCV (RBC) [Entitic vol] 90.2 fL Normal 81.0-99.0 [facility] Comment on above: Performed By: #### C BC #### [facility] [address] [place] [address] Dr. Verenice Smallwood MONO # 0.2 103/ul Critically low 0.3-0.8 [facility] Comment on above: Performed By: #### C BC #### [facility] [address] [place] [address] Dr. Verenice Smallwood Monocytes/100 WBC (Bld) 1.5 % Critically low 1.7-12.0 [facility] Comment on above: Performed By: #### C BC #### [facility] [address] [place] [address] Dr. Verenice Smallwood NEUT # 10.0 103/ul Critically high 1.4-6.5 [facility] Comment on above: Performed By: #### C BC #### [facility] [address] [address] [address] Verenice Smallwood Neutrophils/100 WBC (Bld) 83.9 % Critically high 43.0-75.0 [facility] Comment on above: Performed By: #### C BC #### [facility] [address] [address] [address] Verenice Smallwood Platelet mean volume (Bld) [Entitic vol] 8.5 fL Critically low 9.5-13.5 [facility] Comment on above: Performed By: #### C BC #### [facility] [address] [address] [address] Verenice Smallwood PLT 309 103/ul Normal 150-450 [facility] Comment on above: Performed By: #### C BC #### [facility] [address] [place] [address] Dr. Verenice Smallwood RBC 4.49 106/ul Normal 4.20-5.40 [facility] Comment on above: Performed By: #### C BC #### [facility] [address] [place] [address] Dr. Verenice Smallwood WBC 11.9 103/ul Critically high 4.0-11.0 [facility] Comment on above: Performed By: #### C BC #### [facility] [address] [place] [address] Dr. Verenice Smallwood CRPon 02-03-2022 CRP [Mass/Vol] mg/L Normal <=1.0 [facility] Comment on above: Performed By: #### C MP, CRP #### [facility] [address] [place] [address] Dr. Verenice Smallwood PROF 14(COMP METB)on 022 Albumin [Mass/Vol] 3.1 g/dL Critically low 3.4-5.0 [facility] Comment on above: Performed By: #### C MP, CRP #### [facility] [address] [place] [address] Dr. Verenice Smallwood Albumin/Globulin [Mass ratio] 0.8 {ratio} Normal [facility] Comment on above: Performed By: #### C MP, CRP #### [facility] [address] [address] [address] Verenice Smallwood ALP [Catalytic activity/Vol] 66 U/L Normal 46-116 [facility] Comment on above: Performed By: #### C MP, CRP #### [facility] [address] [address] [address] Verenice Smallwood ALT [Catalytic activity/Vol] 22 U/L Normal 14-59 [facility] Comment on above: Performed By: #### C MP, CRP #### [facility] [address] [address] [address] Verenice Smallwood Anion gap [Moles/Vol] 11.4 mmol/L Normal [facility] Comment on above: Performed By: #### C MP, CRP #### [facility] [address] [address] [address] Verenice Smallwood AST [Catalytic activity/Vol] 11 U/L Critically low 15-37 [facility] Comment on above: Performed By: #### C MP, CRP #### [facility] [address] [address] [address] Verenice Smallwood Bilirubin [Mass/Vol] 0.1 mg/dL Critically low 0.2-1.0 [facility] Comment on above: Performed By: #### C MP, CRP #### [facility] [address] [place] [address] Dr. Verenice Smallwood Calcium [Mass/Vol] 8.9 mg/dL Normal 8.5-10.1 [facility] Comment on above: Performed By: #### C MP, CRP #### [facility] [address] [address] [address] Verenice Smallwood Chloride [Moles/Vol] 102 mmol/L Normal 98-107 [facility] Comment on above: Performed By: #### C MP, CRP #### [facility] [address] [address] [address] Verenice Smallwood CO2 [Moles/Vol] 22.0 mmol/L Normal 21.0-32.0 [facility] Comment on above: Performed By: #### C MP, CRP #### [facility] [address] [address] [address] Verenice Smallwood Creatinine [Mass/Vol] 0.84 mg/dL Normal 0.55-1.02 [facility] Comment on above: Performed By: #### C MP, CRP #### [facility] [address] [address] [address] Verenice Smallwood EGFR-AF VIET[place]ESE >60 Normal >=60 [facility] Comment on above: Performed By: #### C MP, CRP #### [facility] [address] [address] [address] Verenice Smallwood EGFR-NON AF VIET[place]ESE >60 Normal >=60 [facility] Comment on above: Performed By: #### C MP, CRP #### [facility] [address] [address] [address] Verenice Smallwood Globulin (S) [Mass/Vol] 4.0 g/dL Normal [facility] Comment on above: Performed By: #### C MP, CRP #### [facility] [address] [address] [address] Verenice Smallwood Glucose [Mass/Vol] 158 mg/dL Critically high 74-106 [facility] Comment on above: Performed By: #### C MP, CRP #### [facility] [address] [address] [address] Verenice Smallwood Potassium [Moles/Vol] 4.4 mmol/L Normal 3.5-5.1 [facility] Comment on above: Performed By: #### C MP, CRP #### [facility] [address] [address] [address] Verenice Smallwood Protein [Mass/Vol] 7.1 g/dL Normal 6.4-8.2 [facility] Comment on above: Performed By: #### C MP, CRP #### [facility] [address] [place] [address] Dr. Verenice Smallwood Sodium [Moles/Vol] 131 mmol/L Critically low 136-145 [facility] Comment on above: Performed By: #### C MP, CRP #### [facility] [address] [place] [address] Dr. Verenice Smallwood Urea nitrogen [Mass/Vol] 20.0 mg/dL Critically high 7.0-18.0 [facility] Comment on above: Performed By: #### C MP, CRP #### [facility] [address] [place] [address] Dr. Verenice Smallwood Urea nitrogen/Creatini ne [Mass ratio] 23.8 mg/mg Normal [facility] Comment on above: Performed By: #### C MP, CRP #### [facility] [address] [place] [address] Dr. Verenice Smallwood CBC AUTO DIFFon 02-02-2022 BASO # 0.1 103/ul Normal 0.0-0.1 [facility] Comment on above: Performed By: #### C BC #### [facility] [address] [place] [address] Dr. Verenice Smallwood Basophils/100 WBC (Bld) 0.5 % Normal 0.2-2.0 [facility] Comment on above: Performed By: #### C BC #### [facility] [address] [place] [address] Dr. Verenice Smallwood EO # 0.1 103/ul Normal 0.0-0.7 [facility] Comment on above: Performed By: #### C BC #### [facility] [address] [place] [address] Dr. Verenice Smallwood Eosinophils/100 WBC (Bld) 1.2 % Normal 0.9-7.0 [facility] Comment on above: Performed By: #### C BC #### [facility] [address] [place] [address] Dr. Verenice Smallwood Erythrocyte distribution width (RBC) [Ratio] 14.3 % Normal 11.0-15.0 [facility] Comment on above: Performed By: #### C BC #### [facility] [address] [place] [address] Dr. Verenice Smallwood Hematocrit (Bld) [Volume fraction] 41.1 % Normal 36.0-48.0 [facility] Comment on above: Performed By: #### C BC #### [facility] [address] [place] [address] Dr. Verenice Smallwood Hemoglobin (Bld) [Mass/Vol] 13.7 g/dL Normal 12.0-16.0 [facility] Comment on above: Performed By: #### C BC #### [facility] [address] [place] [address] Dr. Verenice Smallwood IG # 0.16 10e3/ul Critically high 0.00-0.03 [facility] Comment on above: Performed By: #### C BC #### [facility] [address] [place] [address] Dr. Verenice Smallwood IG % 1.6 % Critically high 0.0-0.5 [facility] Comment on above: Performed By: #### C BC #### [facility] [address] [place] [address] Dr. Verenice Smallwood LYMPH # 3.1 103/ul Normal 1.2-3.8 [facility] Comment on above: Performed By: #### C BC #### [facility] [address] [place] [address] Dr. Verenice Smallwood Lymphocytes/100 WBC (Bld) 30.2 % Normal 20.5-60.0 [facility] Comment on above: Performed By: #### C BC #### [facility] [address] [place] [address] Dr. Verenice Smallwood MANUAL DIFF REQ NO Normal [facility] Comment on above: Performed By: #### C BC #### [facility] [address] [place] [address] Dr. Verenice Smallwood MCH (RBC) [Entitic mass] 30.2 pg Normal 26.7-34.0 [facility] Comment on above: Performed By: #### C BC #### [facility] [address] [place] [address] Dr. Verenice Smallwood MCHC (RBC) [Mass/Vol] 33.3 g/dL Normal 29.9-35.2 [facility] Comment on above: Performed By: #### C BC #### [facility] [address] [address] [address] Verenice Smallwood MCV (RBC) [Entitic vol] 90.5 fL Normal 81.0-99.0 [facility] Comment on above: Performed By: #### C BC #### [facility] [address] [address] [address] Verenice Smallwood MONO # 0.5 103/ul Normal 0.3-0.8 [facility] Comment on above: Performed By: #### C BC #### [facility] [address] [address] [address] Verenice Smallwood Monocytes/100 WBC (Bld) 4.7 % Normal 1.7-12.0 [facility] Comment on above: Performed By: #### C BC #### [facility] [address] [place] [address] Dr. Verenice Smallwood NEUT # 6.3 103/ul Normal 1.4-6.5 [facility] Comment on above: Performed By: #### C BC #### [facility] [address] [place] [address] Dr. Verenice Smallwood Neutrophils/100 WBC (Bld) 61.8 % Normal 43.0-75.0 [facility] Comment on above: Performed By: #### C BC #### [facility] [address] [place] [address] Dr. Verenice Smallwood Platelet mean volume (Bld) [Entitic vol] 8.6 fL Critically low 9.5-13.5 [facility] Comment on above: Performed By: #### C BC #### [facility] [address] [place] [address] Dr. Verenice Smallwood PLT 313 103/ul Normal 150-450 [facility] Comment on above: Performed By: #### C BC #### [facility] [address] [place] [address] Dr. Verenice Smallwood RBC 4.54 106/ul Normal 4.20-5.40 [facility] Comment on above: Performed By: #### C BC #### [facility] [address] [place] [address] Dr. Verenice Smallwood WBC 10.1 103/ul Normal 4.0-11.0 [facility] Comment on above: Performed By: #### C BC #### [facility] [address] [address] [address] Verenice Smallwood CRPon 02-02-2022 CRP 0.3 mg/dL Normal <=1.0 [facility] Comment on above: Performed By: #### C RP, BMP #### [facility] [address] [address] LSPINE WO CONon [...] FRANCISCA DOMINGUEZ Date: 2022-02-02 06:54 Normal [facility] CULTURE URINEon 02-02-2022 CULTURE URINE Culture Observations : NO GROWTH. Normal [facility] Comment on above: Performed By: #### C VONNIE, JOHNY #### [facility] [address] [place] [address] Dr. Verenice Smallwood Covid-19 PCR ([facility])on SARS-CoV-2 (COVID-19) RNA LILIANA+probe Ql (Unsp spec) Not detected Normal NOT DETECTED [facility] Comment on above: Result Comment: When [...] for this test is supported by the Tool And Production Planner of Health and Human Service's declaration that [...] be used). Performed By: #### C RP, JOHNY #### [facility] [address] [place], [place] [address] Dr. Verenice Smallwood PROF CHEM 8 (BAS METB)on Anion gap [Moles/Vol] 7.3 mmol/L Normal [facility] Comment on above: Performed By: #### C RP, BMP #### [facility] [address] [address] [address] Verenice Smallwood Calcium [Mass/Vol] 8.5 mg/dL Normal 8.5-10.1 [facility] Comment on above: Performed By: #### C RP, BMP #### [facility] [address] [place] [address] Dr. Verenice Smallwood Chloride [Moles/Vol] 103 mmol/L Normal 98-107 [facility] Comment on above: Performed By: #### C RP, BMP #### [facility] [address] [place] [address] Dr. Verenice Smallwood CO2 [Moles/Vol] 26.5 mmol/L Normal 21.0-32.0 [facility] Comment on above: Performed By: #### C RP, BMP #### [facility] [address] [place] [address] Dr. Verenice Smallwood Creatinine [Mass/Vol] 0.78 mg/dL Normal 0.55-1.02 [facility] Comment on above: Performed By: #### C RP, BMP #### [facility] [address] [place] [address] Dr. Verenice Smallwood EGFR-AF VIETNAMESE >60 Normal >=60 [facility] Comment on above: Performed By: #### C RP, BMP #### [facility] [address] [place] [address] Dr. Verenice Smallwood EGFR-NON AF VIETNAMESE >60 Normal >=60 [facility] Comment on above: Performed By: #### C RP, BMP #### [facility] [address] [place] [address] Dr. Verenice Smallwood Glucose [Mass/Vol] 115 mg/dL Critically high 74-106 [facility] Comment on above: Performed By: #### C RP, BMP #### [facility] [address] [place] [address] Dr. Verenice Smallwood Potassium [Moles/Vol] 3.8 mmol/L Normal 3.5-5.1 [facility] Comment on above: Performed By: #### C RP, BMP #### [facility] [address] [address] [address] Verenice Smallwood Sodium [Moles/Vol] 133 mmol/L Critically low 136-145 [facility] Comment on above: Performed By: #### C RP, BMP #### [facility] [address] [place] [address] Dr. Verenice Smallwood Urea nitrogen [Mass/Vol] 17.0 mg/dL Normal 7.0-18.0 [facility] Comment on above: Performed By: #### C RP, BMP #### [facility] [address] [place] [address] Dr. Verenice Smallwood Urea nitrogen/Creatini ne [Mass ratio] 21.8 mg/mg Normal [facility] Comment on above: Performed By: #### C RP, BMP #### [facility] [address] [place] [address] Dr. Verenice Smallwood [facility]ATE 39 mm/hr Critically high <=20 [facility] Comment on above: Performed By: #### C BC #### [facility] [address] [place] [address] Dr. Verenice Smallwood UA RANDOM W/MICROSCOPICon BACTERIA MODERATE Abnormal NONE SEEN [facility] Comment on above: Performed By: #### C BC #### [facility] [address] [place] [address] Dr. Verenice Smallwood Bilirubin Ql (U) Negative Normal NEGATIVE [facility] Comment on above: Performed By: #### C BC #### [facility] [address] [place] [address] Dr. Verenice Smallwood CAST NONE SEEN Normal NONE SEEN [facility] Comment on above: Performed By: #### C BC #### [facility] [address] [place] [address] Dr. Verenice Smallwood Clarity (U) CLEAR Normal CLEAR [facility] Comment on above: Performed By: #### C BC #### [facility] [address] [place] [address] Dr. Verenice Smallwood Color (U) YELLOW Normal YELLOW [facility] Comment on above: Performed By: #### C BC #### [facility] [address] [place] [address] Dr. Verenice Smallwood Crystals LM Nom (Urine sed) NONE SEEN Normal NONE SEEN [facility] Comment on above: Performed By: #### C BC #### [facility] [address] [place] [address] Dr. Verenice Smallwood Epithelial cells LM Ql (Urine sed) FEW Abnormal NONE SEEN /RARE [facility] Comment on above: Performed By: #### C BC #### [facility] [address] [place] [address] Dr. Verenice Smallwood Glucose Ql (U) Negative Normal NEGATIVE [facility] Comment on above: Performed By: #### C BC #### [facility] [address] [place] [address] Dr. Verenice Smallwood Hemoglobin Ql (U) Negative Normal NEGATIVE [facility] Comment on above: Performed By: #### C BC #### [facility] [address] [place] [address] Dr. Verenice Smallwood Ketones Ql (U) Negative Normal NEGATIVE [facility] Comment on above: Performed By: #### C BC #### [facility] [address] [place] [address] Dr. Verenice Smallwood LEUKOCYTES Negative Normal NEGATIVE [facility] Comment on above: Performed By: #### C BC #### [facility] [address] [place] [address] Dr. Verenice Smallwood MUCOUS NONE SEEN Normal NONE SEEN [facility] Comment on above: Performed By: #### C BC #### [facility] [address] [place] [address] Dr. Verenice Smallwood Nitrite Ql (U) Negative Normal NEGATIVE [facility] Comment on above: Performed By: #### C BC #### [facility] [address] [place] [address] Dr. Verenice Smallwood pH (U) 6.0 [pH] Normal 5-9 [facility] Comment on above: Performed By: #### C BC #### [facility] [address] [place] [address] Dr. Verenice Smallwood RBC NONE SEEN Abnormal 0-2 [facility] Comment on above: Performed By: #### C BC #### [facility] [address] [place] [address] Dr. Verenice Smallwood SPEC GRAVITY >=1.030 Abnormal 1.005-<=1.0 25 [facility] Comment on above: Performed By: #### C BC #### [facility] [address] [place] [address] Dr. Verenice Smallwood UA PROTEIN Negative Normal NEGATIVE/ TRACE [facility] Comment on above: Performed By: #### C BC #### [facility] [address] [place] [address] Dr. Verenice Smallwood Urobilinogen Qn (U) 0.2 {Brett'U}/dL Normal 0.2 - 1.0 [facility] Comment on above: Performed By: #### C BC #### [facility] [address] [place] [address] Dr. Verenice Smallwood WBC 0-2 Abnormal NONE SEEN [facility] Comment on above: Performed By: #### C BC #### [facility] [address] [place] [address] Dr. Verenice Smallwood [facility] SARS-CoV-2 (COVID-19) RNA LILIANA+probe Ql (Unsp spec) Not detected Normal NOT DETECTED [facility] Comment on above: Result Comment: This test is not yet approved or cleared by the [place] FDA. When there are no FDA-approved or cleared tests available, and other criteria are met, FDA can make tests available under an emergency access mechanism called an Emergency Use Authorization (EUA). The EUA for this test is supported by the Tool And Production Planner of Health and Human Service's (HHS's) declaration [...] consistent with SARS-CoV-2. Performed By: #### C VDTB #### [facility] [id number] Verenice Smallwood MG MAMM SCREEN 3D LAMIN CADon 11-26-2021 MG MAMM SCREEN 3D LAMIN CAD Patient: CACHORRO DORADO Exam Date: 11/26/2021 : 1975 Gender:F Ordering : AIDEN ODALIS ADELA WET WHEELER Admission #: [id number] Family : Order #: [id number] CLICK HERE TO VIEW EXAM RADIOLOGY REPORT [...] lung cancer at age 64. LOCATION: [facility] BREAST COMPOSITION: Scattered areas fibroglandular density. [...] MD on 11/26/2021 at 12:38 Normal [facility] XR hand LT min 3V*on 022 XR hand LT min 3V* [facility] [employer] Other XR hand LT min 3V* [facility] [employer] Other XR hand LT min 3V* [address] [employer] Other XR hand LT min 3V* AGUSTO Davison [address] [employer] Other XR hand LT min 3V* XRay Report [employer] Other XR hand LT min 3V* Signed [employer] Other XR hand LT min 3V* Patient: Cachorro Sebastian [employer] Other XR hand LT min 3V* #: [id number] [employer] Other XR hand LT min 3V* : 1975 Acct:[id number] [employer] Other XR hand LT min 3V* Age/Sex: 45 / F ADM Date: 08/08/21 [employer] Other XR hand LT min 3V* Loc: XDUCLY Room: Type: [facility] [employer] Other XR hand LT min 3V* Attending Dr: Padma XIAO [employer] Other XR hand LT min 3V* Ordering Provider: NINOSKA Mejia [employer] Other XR hand LT min 3V* Date of Service: 08/08/21 [employer] Other XR hand LT min 3V* XR/XR hand LT min 3V*: PAIN [employer] Other XR hand LT min 3V* Copies to: NINOSKA Mejia [employer] Other XR hand LT min 3V* Left hand 08/08/2021. [employer] Other XR hand LT min 3V* CLINICAL DATA: Left thumb pain after injury. [employer] Other XR hand LT min 3V* FINDINGS: 3 views of the left hand were obtained. [employer] Other XR hand LT min 3V* No acute fracture or dislocation is identified. No other bony abnormality is seen. No significant [employer] Other XR hand LT min 3V* soft tissue swelling is noted. [employer] Other XR hand LT min 3V* XR/XR hand LT min 3V* [employer] Other XR hand LT min 3V* IMPRESSION: No acute bony abnormality. [employer] Other XR hand LT min 3V* Impression dictated by: Eric Li Jr., M.D.08/08/2021 1:28 PM [employer] Other XR hand LT min 3V* Dictation Location: [address] [address] [employer] Other XR hand LT min 3V* Transcribed By: FRANK 08/08/21 [facility] [employer] Other XR hand LT min 3V* Dictated By: Eric Li Jr, MD 08/08/21 [facility] [employer] Other XR hand LT min 3V* Signed By: [employer] Other XR hand LT min 3V* 08/08/21 [facility] [employer] Other Ambulatory Visit Summaryon 0 07-03-2021 Ambulatory [...] Urethral meatal stenosis Vitamin D deficiency Normal [facility] General Surgery Office/Clini c Noteon 07-03-2021 General [...] 50,000 intl units (1.25 mg) oral capsule, 85200 International_Unit= 1 cap(s), Oral, qWeek Allergies DULoxetine [...] inactivated - Not Given Patient Refuses Normal [facility] Comment on above: Result Comment: Elec tronically Signed By: LEXX BAGLEY, Francisca Ruffin\.br\Date and Time Signed: 07/03/21 15:19 EDT Pathology Noteon 06-26-2021 Pathology Note [id number]#1.00CD:127 [facility] Outside Colonoscopyon 2021 Outside Colonoscopy [id number]#1.00CD:127 [facility] Reminderson 06-25-2021 Reminders - From: Leigh Ann Duncan LPN To: N - Clinical; Sent: 06/25/2021 09:44:37 EDT Show up: 05/25/2031 07:00:00 EST Subject: colonoscopy recall Due Date/Time: 06/25/2031 07:00:00 EDT Reminder/Recall Patient is due for screening colonoscopy 06/25/2031. [facility] Lab Reportson 06-23-2021 Lab Reports [id number]#1.00CD:127 [facility] Pre-Certification Formon Pre-Certification Form [id number]#1.00CD:127 [facility] Consent for Procedure/Surger yon 06-04-2021 Consent for Procedure/Surgery [id number]#1.00CD:127 [facility] Ambulatory Visit Summaryon 0 06-03-2021 Ambulatory Visit Summary CACHORRO DORADO :1975 Visit Date:06/03/2021 Ambulatory Visit Instructions Your Care Team Attending Physician - Francisca HALLMAN MD Primary Care Physician - ODALIS GU CNP [...] Urethral meatal stenosis Vitamin D deficiency Normal [facility] Physician Referralon 022 Physician Referral [id number]#1.00CD:127 Normal [facility] COVID Quick Testingon 2020 Result Negative [employer] Other Quick Fluon 03-26-2021 FLUAV Ab CF (S) [Titer] Negative [employer] Other FLUBV Ab CF (S) [Titer] Negative [employer] Other Vital Signs Date Time Vital Sign Value Performing Clinician Facility 03-10-2023 13:00-0500 Body height 166.37 cm Rambo Martinez Other [employer] Other 03-10-2023 13:00-0500 Body mass index (BMI) [Ratio] 52.11 kg/m2 Rambo Martinez Other [employer] Other 03-10-2023 13:00-0500 Body weight 144.24 kg Rambo Martinez Other [employer] Other 03-10-2023 13:00-0500 Diastolic blood pressure 94 mm[Hg] Rambo Martinez Other [employer] Other 03-10-2023 13:00-0500 SaO2% (BldA) [Mass fraction] 97 % Rambo Martinez Other [employer] Other 03-10-2023 13:00-0500 Systolic blood pressure 155 mm[Hg] Rambo Martinez Other [employer] Other 05-24-2022 09:15-0500 Body height 166.37 cm Rola Gant Other [employer] Other 05-24-2022 09:15-0500 Body mass index (BMI) [Ratio] 49.49 kg/m2 Rola Gant Other [employer] Other 05-24-2022 09:15-0500 Body temperature 97.8 [degF] Rola Gant Other [employer] Other 05-24-2022 09:15-0500 Body weight 136.99 kg Rola Gant Other [employer] Other 05-24-2022 09:15-0500 Respiratory rate 18 /min Rola Gant Other [employer] Other 05-24-2022 09:15-0500 SaO2% (BldA) [Mass fraction] 97 % Rola Gant Other [employer] Other 05-04-2022 10:15-0500 Body height 166.37 cm Yelitza Johnson Other [employer] Other 05-04-2022 10:15-0500 Body mass index (BMI) [Ratio] 50.11 kg/m2 Yelitza Johnson Other [employer] Other 05-04-2022 10:15-0500 Body weight 138.71 kg Yelitza Johnson Other [employer] Other 08-15-2021 12:20-0400 Body height 166.37 cm Jessica Floresault Other [employer] Other 08-15-2021 12:20-0400 Body mass index (BMI) [Ratio] 48.34 kg/m2 Jessica Iker Other [employer] Other 08-15-2021 12:20-0400 Body temperature 96.8 [degF] Jessica Iker Other [employer] Other 08-15-2021 12:20-0400 Body weight 133.81 kg Jessica Iker Other [employer] Other 08-15-2021 12:20-0400 Diastolic blood pressure 92 mm[Hg] Jessica Iker Other [employer] Other 08-15-2021 12:20-0400 Respiratory rate 18 /min Jessica Iker Other [employer] Other 08-15-2021 12:20-0400 SaO2% (BldA) [Mass fraction] 99 % Jessica Iker Other [employer] Other 08-15-2021 12:20-0400 Systolic blood pressure 135 mm[Hg] Jessica Iker Other [employer] Other 08-08-2021 13:25-0400 Body height 166.37 cm Padma Ramirez Other [employer] Other 08-08-2021 13:25-0400 Body mass index (BMI) [Ratio] 48.4 kg/m2 Padma Ashley Other [employer] Other 08-08-2021 13:25-0400 Body temperature 96.8 [degF] Padma Ashley Other [employer] Other 08-08-2021 13:25-0400 Body weight 133.99 kg Padma Ashley Other [employer] Other 08-08-2021 13:25-0400 Diastolic blood pressure 88 mm[Hg] Padma Ashley Other [employer] Other 08-08-2021 13:25-0400 Respiratory rate 16 /min Padma Nortonmond Other [employer] Other 08-08-2021 13:25-0400 SaO2% (BldA) [Mass fraction] 99 % Padma Ashley Other [employer] Other 08-08-2021 13:25-0400 Systolic blood pressure 133 mm[Hg] Padma Ashley Other [employer] Other 03-26-2021 11:15-0500 Body height 166.37 cm Rola Ginty Other [employer] Other 03-26-2021 11:15-0500 Body mass index (BMI) [Ratio] 46.86 kg/m2 Rola Ginty Other [employer] Other 03-26-2021 11:15-0500 Body temperature 97.6 [degF] Rola Ginty Other [employer] Other 03-26-2021 11:15-0500 Body weight 129.73 kg Rola Sabrinanty Other [employer] Other 03-26-2021 11:15-0500 Respiratory rate 18 /min Rola Ginty Other [employer] Other 03-26-2021 11:15-0500 SaO2% (BldA) [Mass fraction] 99 % Rola Sabrinanty Other [employer] Other Encounters Encounter Date Encounter Type Care Provider Facility Start: 04-27-2023 End: 04-27-2023 ambulatory ODALIS WHITHOLZ Not Available Start: 03-10-2023 End: 03-10-2023 ambulatory Odalis J Kalaniz Facility:[facility] Start: 03-10-2023 Office outpatient ne w 60 minutes Rambo Martinez [facility] Start: 03-10-2023 End: 03-10-2023 ambulatory Odalis J Matihholz Work Phone: [facility] Work Phone: Start: 03-10-2023 End: 03-10-2023 Patient encounter procedure Odalis Whitholz Work Phone: [facility] Work Phone: Start: 02-23-2023 End: 02-23-2023 ambulatory ODALIS AICHHOLZ Not Available Start: 01-25-2023 End: 01-25-2023 ambulatory Yelitza Johnson Other [employer] Other Start: 01-25-2023 Office outpatient visit 15 minutes Yelitza Johnson [facility] Start: 08-12-2022 ambulatory WET WHEELER ODALIS AICHHOLZ Facil ity:[facility] Start: 08-11-2022 ambulatory WET WHEELER ODALIS AICHHOLZ Facil ity:[facility] Start: 07-12-2022 End: 07-13-2022 ambulatory WET WHEELER ODALIS AICHHOLZ Facility:[facility] Start: 07-02-2022 End: 07-03-2022 ambulatory WET WHEELER ODALIS AICHHOLZ Facility:[facility] Start: 06-28-2022 End: 06-29-2022 ambulatory WET WHEELER ODALIS AICHHOLZ Facility:[facility] Start: 06-09-2022 End: 06-10-2022 ambulatory WET WHEELER ODALIS AICHMEAGANZ Facility:[facility] Start: 06-08-2022 End: 06-08-2022 ambulatory Yelitza Calvey Other [employer] Other Start: 06-08-2022 Office outpatient visit 15 minutes Yelitza Calvey [facility] Start: 05-24-2022 End: 05-24-2022 ambulatory Rola Gant Other [employer] Other Start: 05-24-2022 Office outpatient visit 25 minutes Rola Gant [facility] Start: 05-04-2022 End: 05-04-2022 ambulatory Yelitza Calvey Other [employer] Other Start: 05-04-2022 Office outpatient visit 15 minutes Yelitza Calvey [facility] Start: 04-14-2022 Office outpatient ne w 30 minutes Yelitza Calvey [facility] Start: 04-14-2022 End: 04-14-2022 ambulatory WET WHEELER ODALIS KALANIZ [employer] Other Start: 04-01-2022 End: 04-02-2022 ambulatory WET WHEELER ODALIS AICHHOLZ Facility:[facility] Start: 02-02-2022 End: 02-04-2022 ambulatory WET WHEELER ODALIS AICBarbMEAGANZ Facility:[facility] Start: 01-30-2022 End: 01-30-2022 ambulatory DOTTIE MANN . Facility:[facility] Start: 01-06-2022 End: 01-06-2022 ambulatory WET WHEELER ODALIS AICHMEAGANZ Facility:[facility] Start: 01-05-2022 End: 01-05-2022 ambulatory AIDEN GU Facility:[facility] Start: 12-19-2021 End: 12-19-2021 Patient encounter procedure DO Rylan Montes De Ocaley Work Phone: [facility] [place] Start: 11-26-2021 End: 11-27-2021 ambulatory AIDEN GU Facility:[facility] Start: 11-18-2021 End: 11-18-2021 ambulatory Rylan Montes De Ocaley Other [employer] Other Start: 11-18-2021 Office outpatient ne w 45 minutes Rylan Collado [facility] Start: 08-26-2021 End: 09-26-[address] PADMA RANDOLPH Facility:[facility] Start: 08-15-2021 End: 08-15-2021 ambulatory Jessica Dong Other [employer] Other Start: 08-15-2021 Office outpatient visit 15 minutes Jessica Dong [facility] Start: 08-08-2021 End: 08-08-2021 ambulatory Padma Ramirez Other [employer] Other Start: 08-08-2021 Office outpatient visit 15 minutes Padma Ramirez [facility] Start: 07-03-2021 End: 07-03-2021 Patient encounter procedure Francisca HALLMAN [facility] Start: 03-26-2021 End: 03-26-2021 ambulatory Rola Ginty Other [employer] Other Start: 03-26-2021 Office outpatient visit 15 minutes Rola Ginty [facility] Procedures Date Procedure Procedure Detail Performing Clinician Start: 06-24-2021 Colonoscopy Francisca HALLMAN Start: 06-24-2021 Esophagogastroduodenoscopy Francisca HALLMAN History of selective lumbar nerve block Francisca HALLMAN Laparoscopic cholecystectomy Francisca HALLMAN Plan of Treatment Date Care Activity Detail Author Start: 12-19-2021 MRI of left hand MR hand LT wo con F [facility] Immunizations Immunization Date Immunization Notes Care Provider Fa cility NEGATED: Highlighted row has not occurred!06-03-2021 influenza virus vaccine, unspecified formulation Francisca HALLMAN General [facility] [place] Payers Date Payer Category Payer Self-pay [id number] 1974 Unknown [id number] 2.16.84 0.1.601296.3.579.2.593 1974 Unknown [id number] 2.16.84 0.1.766747.3.579.2.593 1974 Unknown [id number] 2.16.84 0.1.556443.3.579.2.593 1974 Unknown [id number] 2.16.84 0.1.706506.3.579.2.593 1974 Unknown [id number] 2.16.84 0.1.965357.3.579.2.593 1974 Unknown [id number] 2.16.84 0.1.156430.3.579.2.593 1974 Unknown [id number] 2.16.84 0.1.105581.3.579.2.593 1974 Unknown [id number] 2.16.84 0.1.933303.3.579.2.593 1974 Unknown [id number] 2.16.84 0.1.868161.3.579.2.593 1974 Unknown [id number] 2.16.84 0.1.122643.3.579.2.593 1974 Unknown [id number] 2.16.84 0.1.834286.3.579.2.593 1974 Unknown [id number] 2.16.84 0.1.702262.3.579.2.593 1974 Unknown [id number] 2.16.84 0.1.598913.3.579.2.593 1974 Unknown [id number] 2.16.84 0.1.788045.3.579.2.593 1974 Unknown [id number] 2.16.84 0.1.473881.3.579.2.1259 1974 Unknown [id number] 2.16.840 .1.197022.3.579.2.1259 1959 Private Health Insurance [id number] 2.16.840.1.347111.19 1959 Private Health Insurance [id number] 2.16.840.1.033077.19 1959 Private Health Insurance [id number] 1959 Unknown [id number] 2.16. 840.1.669847.19 Unknown [id number] 2.16.8 40.1.459890.19 Unknown [id number] 2.16.8 40.1.580848.3.579.2.531 Social History Date Type Detail Facility Start: 06-03-2021 Tobacco smoking status Never s moked tobacco (finding) [employer] Other Tobacco smoking status Never [facility] Sex Assigned At Female [facility] Start: 1975 Sex Assigned At Female F [facility] Clinical Notes 06-03-2021 to 03-10-2023 Note [...] changes in symptoms and/or problems with treatment [employer] Other 10-31-2023 Evaluation note* Encounter Date Diagnosis Assessment Notes Treatment Notes Treatment Clinical Notes Dec, Unspecified sprain of left thumb, initial encounter (ICD-10 - S63.602A) Extensive discussion was had about the current condition and treatment options available. We will submit for a cortisone injection with [facility]. We discussed use of Voltaren gel and Lidocaine patch to the affected area. Activity as tolerated. [employer] Other 03-14-2023 Evaluation note* Encounter Date Diagnosis Assessment Notes Treatment Notes Treatment Clinical Notes May, Unspecified sprain of left thumb, initial encounter (ICD-10 - S63.602A) Discussed with patient she is progressing well from injury. Continue to progress activity as tolerated. Patient given order for neoprene sleeve Patient may continue working with wearing a neoprene sleeve/ brace for added protection [employer] Other 02-27-2023 Evaluation note* Encounter Date Diagnosis [...] for fever/discomfort, cool mist humidifier. May use [place] as needed for cough, do not take any other OTCs while using [place]. Patient to follow up with PCP in 2-3 days. Immediate eval if SOB, difficulty breathing, chest pain, dizziness, or other concerning symptoms. Patient verbalizes understanding and is agreeable to treatment plan [employer] Other 02-07-2023 Evaluation note* Encounter Date Diagnosis [...] splint for activities. Continue current work restrictions [employer] Other 01-18-2023 Evaluation note* Encounter Date Diagnosis Assessment Notes Treatment Notes Treatment Clinical Notes Mar, Unspecified sprain of left thumb, initial encounter (ICD-10 - S63.602A) We will submit for [facility] approval for cortisone injection MCP joint/UCL Continue current work restrictions [employer] Other 01-05-2023 NotePROCEDURE: XR SHOULDER LT 2V or > HISTORY: Pain of left shoulder joint ; acute; no known injury COMPARISON: None. FINDINGS: BONES:No fracture, acute abnormality, or significant arthropathy. SOFT TISSUES:No visible soft tissue swelling. EFFUSION:None visible. OTHER: Negative. IMPRESSION: 1. Normal examination. Electronically authenticated by: DEEP BENSON Date: 2022-04-01 10:27[facility]08-24-2022 Evaluation note* Encounter Date Diagnosis Assessment [...] as documented in the electronic medical record. [employer] Other 05-21-2022 Evaluation note* Encounter Date Diagnosis Assessment Notes Treatment Notes Treatment Clinical Notes July, Sprain of left thumb, unspecified site of digit, subsequent encounter (ICD-10 - S63.602D) patient symptoms are not getting any better. Recommend follow up with [facility] with possible one of Dr. Thompson for further evaluation or ortho at this point. Continue restrictions and use of brace [employer] Other 05-14-2022 Evaluation note* Encounter Date Diagnosis [...] today. Follow-up with the urgent care or [facility] occupational health in 1 week for [employer] Other 03-09-2022 NoteChief Complaint consultation for epigastric [...] Inhalation, q6hr, PRN Dic[place] (more content not included)...[facility]:Result Comment: Electronically Signed By: LEXX BAGLEY, Francisca Mcarthur\Date and Time Signed: 06/03/21 16:49 ESTEvaluation + Plan note No data available for this section [facility] Evaluation noteNort [facility] Other Evaluation noteNo assessment information available [facility] Work Phone: [facility] Other [facility] Narrative - Reported* Type Description Date Medical History Hypothyroidism Medical History Fibromyalgia Medical History Small fiber neuropathy Medical History Vitamin D deficiency Surgical History cholecystectomy [employer] Other [facility] Narrative - Reported* Type Description Date Medical History Hypothyroidism Medical History Fibromyalgia Medical History Small fiber neuropathy Medical History Vitamin D deficiency Medical History Osteoarthritis lower back Medical History degenerative disc disease Surgical History cholecystectomy [employer] Other [facility] Narrative - Reported* Type Description Date Medical History Hypothyroidism Medical History Fibromyalgia Medical History Small fiber neuropathy Medical History Vitamin D deficiency Medical History Osteoarthritis lower back Medical History degenerative disc disease Medical History obstructive sleep apnea Medical History restless leg syndrome Surgical History cholecystectomy [employer] Other Hospital Discharge instructions No data available for this section [facility] Summary Purpose Family History No Family History Records FoundNo Family History Records FoundNo Family History Records FoundNo Family History Records Found Advance Directives No Advanced Directives Records Found Advance Directive Response Recorded Date/ Time Advance Directives No August 12 2 12:46pm Advance Directive Response Recorded Date/ Time Advance Directives No August 12 11:46am Chief Complaint and Reason for Visit Chief Complaint S63.602A Chief Complaint dago intolerance of p ap Additional Source Comments INFORMATION SOURCE (unrecogn ized section and content) DATE CREATED AUTHOR 07/06/2021 [facility] DATE CREATED AUTHOR AUTHOR'S ORGANIZ ATION 08/12/2022 [facility] DATE CREATED AUTHOR AUTHOR'S ORGANIZ ATION 04/28/2023 [facility] EPIC DATE CREATED AUTHOR AUTHOR'S ORGANIZ ATION 05/06/2023 [facility] REASON FOR VISIT (unrecogniz ed section and [...] BE BASED ON THE PRIMARY CLINICAL RECORDS. [employer] provides no warranty or guarantee of the accuracy or completeness of information in this document.
[2023-06-01 11:28] LABS: Influenza Virus A Antigen Negative; Influenza Virus B Antigen Negative; Internal Control Within Normal Limits
[2023-06-01 16:31] LABS: SARS-CoV-2 NAA NOT DETECTED (NOT DETECTE)
== END 2023-06-01 10:11 | disposition home or self-care (01) ==
LOC: LAB 10:10
PROVIDERS: PCP Nurse Practitioner; Visit Provider Nurse Practitioner
DX: Z20.822 Contact with and (suspected) exposure to COVID-19 (principal); Z11.8 Encounter for screening for other infectious and parasitic diseases
CPT/HCPCS: 87635; 87804

== ENCOUNTER 2023-11-18 11:25 | Outpatient (REF) | payer OTHER, SELFPAY ==
[2023-11-18 13:19] LABS: Internal Control Within Normal Limits; SARS-CoV-2 Ag POSITIVE (NEGATIVE)
== END 2023-11-18 11:26 | disposition home or self-care (01) ==
LOC: LAB 11:25
PROVIDERS: PCP Nurse Practitioner; Visit Provider Nurse Practitioner
DX: J06.9 Acute upper respiratory infection, unspecified (principal)
CPT/HCPCS: 87811

== ENCOUNTER 2023-12-13 11:09 | Outpatient (OUT) | payer OTHER, SELFPAY ==
--- OUTSIDE RECORDS SUMMARY | 2023-12-13 11:14 | XMS_ITS | CCD ---
Author Organization [facility] Care Team Providers Care Refrigerated Cargo Clerk Name Role Phone ODALIS GU Primary Care Physician [phone] Rola Reinoso Unavailable Padma Ramirez Unavailable Jessica Dong Unavailable Rylan Collado Unavailable DO Rylan Collado Attending Provider Odalis Gu Primary Care Provider Yelitza Johnson Unavailable Rola Gant Unavailable AICHHOLZ, SENIOR TELECOMMUNICATIONS CONSULTANT ODALIS Attending Unavailable AICHHOLZ, SENIOR TELECOMMUNICATIONS CONSULTANT ODALIS Admitting Unavailable AICHHOLZ, SENIOR TELECOMMUNICATIONS CONSULTANT ODALIS Primary Care Unavailable DR RAMBO SEVERINO V Consulting Unavailable AICHHOLZ, SENIOR TELECOMMUNICATIONS CONSULTANT ODALIS Consulting Unavailable AICHHOLZ, SENIOR TELECOMMUNICATIONS CONSULTANT ODALIS Attending Unavailable AICHHOLZ, SENIOR TELECOMMUNICATIONS CONSULTANT ODALIS Consulting Unavailable AICHHOLZ, SENIOR TELECOMMUNICATIONS CONSULTANT ODALIS Admitting Unavailable AICHHOLZ, SENIOR TELECOMMUNICATIONS CONSULTANT ODALIS Primary Care Unavailable AICHHOLZ, SENIOR TELECOMMUNICATIONS CONSULTANT ODALIS Attending Unavailable AICHHOLZ, SENIOR TELECOMMUNICATIONS CONSULTANT ODALIS Consulting Unavailable AICHHOLZ, SENIOR TELECOMMUNICATIONS CONSULTANT ODALIS Admitting Unavailable AICHHOLZ, SENIOR TELECOMMUNICATIONS CONSULTANT ODALIS Primary Care Unavailable AICHHOLZ, SENIOR TELECOMMUNICATIONS CONSULTANT ODALIS Attending Unavailable AICHHOLZ, SENIOR TELECOMMUNICATIONS CONSULTANT ODALIS Consulting Unavailable AICHHOLZ, SENIOR TELECOMMUNICATIONS CONSULTANT ODALIS Admitting Unavailable AICHHOLZ, SENIOR TELECOMMUNICATIONS CONSULTANT ODALIS Primary Care Unavailable DR PADMA RANDOLPH Consulting Unavailable DR PADMA RANDOLPH Attending Unavailable AICHHOLZ, SENIOR TELECOMMUNICATIONS CONSULTANT ODALIS Primary Care Unavailable DR PADMA RANDOLPH Admitting Unavailable AICHHOLZ, SENIOR TELECOMMUNICATIONS CONSULTANT ODALIS Primary Care Unavailable DR RADU DENNIS Consulting Unavailable DR RADU DENNIS Attending Unavailable DR RADU DENNIS Admitting Unavailable KATHY CURRAN Consulting Unavailable FRANCISCA DOMINGUEZ Consulting Unavailable DORIS CROWE Consulting Unavailable MACKENZIE ., DOTTIE Consulting Unavailable MACKENZIE ., DOTTIE Attending Unavailable AICHHOLZ, SENIOR TELECOMMUNICATIONS CONSULTANT ODALIS Primary Care Unavailable MACKENZIE ., DOTTIE Admitting Unavailable AICHHOLZ, SENIOR TELECOMMUNICATIONS CONSULTANT ODALIS Primary Care Unavailable PAY ., DR DURHAM Consulting Unavailable PAY ., DR DURHAM Attending Unavailable PAY ., DR DURHAM Admitting Unavailable AICHHOLZ, SENIOR TELECOMMUNICATIONS CONSULTANT ODALIS Attending Unavailable AICHHOLZ, SENIOR TELECOMMUNICATIONS CONSULTANT ODALIS Primary Care Unavailable AICHHOLZ, SENIOR TELECOMMUNICATIONS CONSULTANT ODALIS Admitting Unavailable AICHHOLZ, SENIOR TELECOMMUNICATIONS CONSULTANT ODALIS Attending Unavailable AICHHOLZ, SENIOR TELECOMMUNICATIONS CONSULTANT ODALIS Primary Care Unavailable AICHHOLZ, SENIOR TELECOMMUNICATIONS CONSULTANT ODALIS Consulting Unavailable AICHHOLZ, SENIOR TELECOMMUNICATIONS CONSULTANT ODALIS Admitting Unavailable MARCELINO, DR DEEP Ruffin Consulting Unavailable AICHHOLZ, SENIOR TELECOMMUNICATIONS CONSULTANT ODALIS Attending Unavailable AICHHOLZ, SENIOR TELECOMMUNICATIONS CONSULTANT ODALIS Primary Care Unavailable AICHHOLZ, SENIOR TELECOMMUNICATIONS CONSULTANT ODALIS Consulting Unavailable AICHHOLZ, SENIOR TELECOMMUNICATIONS CONSULTANT ODALIS Admitting Unavailable AICHHOLZ, SENIOR TELECOMMUNICATIONS CONSULTANT ODALIS Attending Unavailable AICHHOLZ, SENIOR TELECOMMUNICATIONS CONSULTANT ODALIS Primary Care Unavailable MERE, DR RAMBO Hoang Consulting Unavailable AICHHOLZ, SENIOR TELECOMMUNICATIONS CONSULTANT ODALIS Admitting Unavailable AICHHOLZ, SENIOR TELECOMMUNICATIONS CONSULTANT ODALIS Consulting Unavailable AICHHOLZ, SENIOR TELECOMMUNICATIONS CONSULTANT ODALIS Attending Unavailable AICHHOLZ, SENIOR TELECOMMUNICATIONS CONSULTANT ODALIS Admitting Unavailable AICHHOLZ, SENIOR TELECOMMUNICATIONS CONSULTANT ODALIS Primary Care Unavailable AICHHOLZ, SENIOR TELECOMMUNICATIONS CONSULTANT ODALIS Consulting Unavailable AICHHOLZ, SENIOR TELECOMMUNICATIONS CONSULTANT ODALIS Attending Unavailable AICHHOLZ, SENIOR TELECOMMUNICATIONS CONSULTANT ODALIS Admitting Unavailable AICHHOLZ, SENIOR TELECOMMUNICATIONS CONSULTANT ODALIS Primary Care Unavailable MD Rambo Martinez Attending Provider Aichholz, Odalis J Primary Care Provider Aichholz, Odalis J Referring Provider [phone] Rambo Martinez Unavailable AICHHOLZ, ODALIS Attending Unavailable AICHHOLZ, ODALIS Attending Unavailable Aichholz, Odalis J Primary Care Provider [phone] DO Elizabeth Chan Attending Provider Elizabeth Chan Attending Unavailable Elizabeth Chan Admitting Unavailable Aichholz, Odalis J Primary Care Unavailable Aichholz, Odalis J Primary Care Unavailable Cj Andres Attending Unavailable Cj Andres Admitting Unavailable Rambo Martinez Attending Unavailable Rambo Martinez Admitting Unavailable Odalis Gu Referring Unavailable Odalis Gu Primary Care Unavailable CHRIS Andres Attending Provider Allergies Allergy Classification Reported Allergen(s) Allergy Type Date of Onset Reaction(s) Facility (15 sources) DULoxetine; Translations: [duloxetine] Drug Allergy 02-09-20 19 Eruption of skin (disorder) [facility] Other (5 sources) Nalbuphine; Translations: [nalbuphine] Drug Allergy 05-26-19 16 Headache (finding), Hallucinations (finding) [facility] (15 sources) Sulfacetamide; Translations: [sodium sulfacetamide ophthalmic] Drug Allergy 07-15-19 24 Eruption of skin (disorder) [facility] Other (1 source) Sulfonamides (Antibiotic); Translations: [sulfa drugs] Drug allergy Eruption of skin (disorder) [facility] CHORD (15 sources) topiramate; Translations: [topiramate] Drug Allergy 07-15-19 24 Clouded consciousness (finding) [facility] Other (12 sources) Nalbuphine; Translations: [Nubain] Drug Allergy 05-27-19 16 hallucinations and violent headache [facility] (1 source) DULoxetine Drug Allergy 02-10-20 19 [facility] (2 sources) Sulfonamides (Antibiotic) Drug allergy (disorder) 05-27-19 16 [facility] (1 source) topiramate Drug Allergy [facility] (1 source) DULoxetine Drug Allergy 07-21-19 [facility] (1 source) Nalbuphine Drug Allergy 07-21-19 [facility] (1 source) Sulfacetamide Drug Allergy 07-21-19 [facility] (1 source) topiramate Drug Allergy 07-21-19 [facility] Medications Current Medications Medication Drug Class(es) Dates Sig (Normalized) Sig (Original) [id number] 200 actuat albuterol 0.09 mg/actuat metered dose inhaler (14 sources) beta2-Adrenergic Agonist Start: 06-02-2023 take 2 puff(s) by inhalation every four to six hours as needed Albuterol Sulfate Active 2 PUFF INHALATION EVERY 4-6 HOURS June 02, 2023 1:00am [facility] puffs as needed Inhalation every 4-6 hours; Note: Source Status: Taking; Refills: 0; Qty: 1 each; Provider: Stalin Canela Start: 05-24-2022 take 2 puff(s) by in [...] 1.5 mg/ml oral solution (7 sources) Uncompetitive I-noeywc-X-asparta te Receptor Antagonist, Sigma-1 Agonist Start: 05-24-2022 take 10 mL by mouth every eight hours Manito DM 7.5-7.5 MG/5ML 10 mL Orally every 8 hours for 5 days Apr, Active Start: 03-26-2021 diclofenac sodium 75 mg delayed release oral tablet (13 sources) Nonsteroidal Anti-inflammatory Drug Start: 07-18-2023 take 1 tablet by mouth twice daily Diclofenac Sodium Active 75 MG PO Twice daily July 18, 2023 12:00am [facility] tablet Orally Twice a day; Note: Source Status: Taking; Refills: 1; Qty: 60 Tablet; Provider: Maciej Daniels take 1 tablet by [facility] every twelve hours Diclofenac Sodium 75 MG 1 tablet Orally Twice a day for 30 day(s) Active Diclofenac 75mg Tab-DR (1 source) Start: 06-01-2021 take 1 tablet by mouth once daily Diclofenac 75mg Tab-DR = 1 tab(s), Oral, Daily, Refills(s) 0 Start Date: 06/01/21 Status: Ordered dicyclomine hydrochloride 20 mg oral tablet (1 source) Anticholinergic Start: 10-07-2023 take 20 mg by mouth three times daily Dicyclomine Active 20 MG PO Three times daily October 07, 2023 12:00am ergocalciferol 1.25 mg oral capsule (5 sources) Provitamin D2 Compound Start: 06-02-2023 take 1 capsule by mouth two times weekly Ergocalciferol (Vitamin D2) (Vitamin D2) 1,250 mcg (50,000 unit) capsule Active 1250 MCG PO Twice a Week June 02, 2023 1:00am Start: 06-01-2021 take 1 capsule by mo [facility] every week Vitamin D 50,000 intl units (1.25 mg) oral capsule 50,000 International_Unit = 1 cap(s), Oral, qWeek, Refills(s) 0 Start Date: 06/01/21 Status: Ordered fluticasone (1 source) Corticosteroid Start: 06-01-2021 Flonase Refill(s) 0 Start Date: 06/01/21 Status: [...] Active levothyroxine sodium 0.2 mg oral tablet (19 sources) l-Thyroxine Start: 06-02-2023 take 200 ug by mouth once daily in the morning Levothyroxine Active 200 MCG PO Every morning June 02, 2023 1:00am Start: 06-02-2023 take 25 ug by mouth once daily in the morning Levothyroxine Active 25 MCG PO Every morning June 02, 2023 1:00am Start: 06-02-2023 Levothyroxine Active 200 MCG PO June 02, 2023 1:00am Start: 06-02-2023 Levothyroxine Active 25 MCG PO June 02, 2023 1:00am Start: 06-01-2021 take 1 tablet by mikey th once daily levothyroxine 200 mcg (0.2 mg) [...] Active losartan potassium 50 mg oral tablet (5 sources) Angiotensin 2 Receptor Kennedy Start: 06-02-2023 take 50 mg by mouth once daily in the morning Losartan Active 50 MG PO Every morning June 02, 2023 1:00am Losartan Potassi um 50 MG Oral for 30 Days Active methylPREDNISolone 4 mg oral tablet (6 sources) Corticosteroid Start: 05-24-2022 methylPREDNISo lone 4 MG as directed Orally for daily dose take half with breakfast, half with dinner for 6 days Apr, Active Start: 06-18-2017 Medrol (Driss) 4 MG as directed Orally May, Not-Taking montelukast 10 mg oral tablet (6 sources) Leukotriene Receptor Antagonist Start: 06-02-2023 take 10 mg by mouth once daily at bedtime Montelukast Active 10 MG PO Daily at bedtime June 02, 2023 1:00am Singulair 5 MG a s directed Orally Active omeprazole 40 mg delayed release oral capsule (14 sources) Proton Pump Inhibitor Start: 06-02-2023 End: 06-02-2023 take 40 mg by mouth twice daily Omeprazole Active 40 MG PO Twice daily 60 30 June 02, 2023 11:52am take 1 capsule by mouth once cleo ly Omeprazole 40 MG 1 capsule 30 minutes before morning meal Orally Once a day Active OXcarbazepine 300 mg oral tablet (15 sources) Anti-epileptic Agent Start: 06-02-2023 take 300 mg by mouth once daily at bedtime Oxcarbazepine Active 300 MG PO Daily at bedtime June 02, 2023 1:00am Start: 06-01-2021 Trileptal 300 mg Tab 750 mg = [...] Start Date: 06/01/21 Status: Ordered pramipexole dihydrochloride 0.75 mg oral tablet (7 sources) Nonergot Dopamine Agonist Start: 06-02-2023 take 0.75 mg by mouth once daily at bedtime Pramipexole Active 0.75 MG PO Daily at bedtime June 02, 2023 1:00am Start: 06-01-2021 take 1 tablet by mikey th at bedtime pramipexole 0.25 mg Tab 0.25 mg = 1 tab(s), Oral, Bedtime, Refills(s) 0 Start Date: 06/01/21 Status: Ordered Pramipexole Dihy drochloride 0.75 MG Oral for 30 Days Active sertraline 50 mg oral tablet (10 sources) Serotonin Reuptake Inhibitor Start: 06-02-2023 take 100 mg by mouth once daily in the morning Sertraline Active 100 MG PO Every morning June 02, 2023 1:00am Start: 06-02-2023 take 50 mg by mouth once daily at bedtime Sertraline Active 50 MG PO Daily at bedtime June 02, 2023 1:00am take 1 tablet by mikey th every twenty-four hours Zoloft 50 MG 1 [...] Date: 06/01/21 Status: Ordered Spironolactone A ctive sucralfate 1000 mg oral tablet (15 sources) Aluminum Complex Start: 06-02-2023 End: 06-02-2023 take 1 g by mouth three times daily Sucralfate Active 1 GM PO Three times daily June 02, 2023 11:53am Start: 07-03-2021 take 1 tablet by mikey th at bedtime sucralfate tab 120 EA, TAKE ONE TABLET BY MOUTH BEFORE MEALS AND AT BEDTIME, Refills(s) 0 Start Date: 07/03/21 Status: Ordered take 1 tablet by mikey th every twelve hours Sucralfate 1 GM 1 tablet on an empty stomach Orally Twice a day Active take 1 tablet by mikey th twice daily Sucralfate 1 GM 1 tablet on an empty stomach Orally Twice a day Active SUMAtriptan 25 mg oral tablet (1 source) Serotonin-1b and Serotonin-1d Receptor Agonist Start: 06-01-2021 take 1 tablet by mouth once Imitrex 25 mg Tab 25 mg = 1 tab(s), Oral, Once, Refills(s) 0 Start Date: 06/01/21 Status: Ordered Tens Units (Tens 502) device (4 sources) Start: 06-02-2023 Tens Units (Te ns 502) device Active 0 .Route June 02, 2023 1:00am As directed Start: 06-02-2023 Tens Units (Te ns 502) device Active 0 .ROUTE June 02, 2023 1:00am As directed 24 hr trospium chloride 60 mg extended [...] Drug Class(es) Dates Sig (Normalized) Sig (Original) amoxicillin 875 mg / clavulanate 125 mg oral tablet (4 sources) Penicillin-class Antibacterial Start: 06-02-2023 End: 07-15-2023 Amoxicillin-Pot Clavulanate Discontinued 1 TAB PO June 02, 2023 1:00am July 15, 2023 9:07am doxycycline monohydrate 100 mg oral capsule (4 sources) Tetracycline-class Drug Start: 06-18-2017 take 1 capsule by mouth every twelve hours Doxycycline Monohydrate 100 MG 1 capsule Orally every 12 hrs for 7 days May, Not-Taking Methocarbamol (4 sources) Muscle Relaxant Methocarbamol Not-Taking pregabalin (4 sources) Lyrica Not-Takin g TENS Unit (10 sources) Start: 11-08-2019 TENS [...] Classification Problem Date Documented Da te Episodic/Chronic Abdominal pain (11 sources) Abdominal pain; Translations: [Unspecified abdominal pain] 06-02-2023 Episodic Anxiety disorders (7 sources) Anxiety disorder, unspecified; Translations: [Claustrophobia] Onset: 2 Chronic Chronic obstructive pulmonary disease and bronchiectasis (1 source) Bronchitis, not specified as acute or chronic Episodic Disorders of lipid metabolism (2 sources) Hyperlipidemia; Translations: [Pure hypercholesterolemia, unspecified] Onset: 2 06-01-2021 Chronic Esophageal disorders (18 sources) Gastroesophageal reflux disease; Translations: [Gastro-esophageal reflux disease without esophagitis] Onset: 2 06-01-2021 Chronic Essential hypertension (7 sources) Essential (primary) hypertension; Translations: [Essential hypertension] Onset: 2 Chronic Gastritis and duodenitis (2 sources) Chronic superficial gastritis; Translations: [Chronic superficial gastritis without bleeding] Onset: 2 Chronic Headache; including migraine (7 sources) Migraine; Translations: [Migraine, unspecified, not intractable, without status migrainosus] 06-01-2021 Chronic Miscellaneous mental health disorders (2 sources) Chronic insomnia; Translations: [Psychophysiologic insomnia] Chronic Mood disorders (1 source) Major depressive disorder, single episode, unspecified; Translations: [OMAR DEPRESS D/O SINGLE EPIS UNS] Onset: 2 Chronic Nausea and vomiting (13 sources) Nausea; Translations: [Nausea] Onset: 4 06-02-2023 Episodic Nutritional deficiencies (5 sources) Vitamin D deficiency; Translations: [Vitamin D deficiency, unspecified] Onset: 3 06-01-2021 Chronic Osteoarthritis (1 source) Unspecified osteoarthritis, unspecified site; Translations: [UNSPECIFIED OSTEOARTHRITIS UNS SITE] Onset: 2 Chronic Other circulatory disease (1 source) Feeling of lump in throat 06-03-2021 Episodic Other connective tissue disease (15 sources) Fibromyalgia; Translations: [Fibromyalgia] 06-01-2021 Episodic Other diseases of bladder and urethra (1 source) Urethral stricture 06-01-2021 Episodic Other gastrointestinal disorders (1 source) Dysphagia 06-01-2021 Episodic Other gastrointestinal disorders (4 sources) Diarrhea; Translations: [Diarrhea, unspecified] 06-02-2023 Episodic Other gastrointestinal disorders (9 sources) Diarrhea, unspecified; Translations: [Diarrhea] Onset: 4 06-02-2023 Episodic Other hereditary and degenerative nervous system conditions (1 source) Restless legs; Translations: [Restless legs syndrome] Chronic Other hereditary and degenerative nervous system conditions (1 source) Restless legs syndrome Chronic Other liver diseases (4 sources) Lesion of liver; Translations: [Liver disease, unspecified] 07-15-2023 Chronic Other liver diseases (6 sources) Liver disease, unspecified; Translations: [Other specified disorders of liver] Onset: 4 07-15-2023 Chronic Other liver diseases (4 sources) Large liver; Translations: [Hepatomegaly, not elsewhere classified] 07-15-2023 Episodic Other liver diseases (5 sources) Hepatomegaly, not elsewhere classified; Translations: [Hepatomegaly] Onset: 4 07-15-2023 Episodic Other nervous system disorders (5 sources) Neuropathy; Translations: [Polyneuropathy, unspecified] 06-01-2021 Chronic Other nervous system disorders (10 [...] UNSPECIFIED] Onset: 2 Chronic Residual codes; unclassified (5 sources) Sleep apnea; Translations: [Sleep apnea, unspecified] 06-02-2023 Chronic Residual codes; unclassified (1 source) Obstructive [...] Spondylosis; intervertebral disc disorders; other back problems (14 sources) Arthritis of lumbosacral spine; Translations: [Spondylosis without myelopathy or radiculopathy, lumbosacral region] 06-02-2023 Chronic Sprains and strains (11 sources) Unspecified sprain of left thumb, initial encounter; Translations: [Unspecified sprain of left thumb, subsequent encounter] Onset: 2 Resolved: 2 Episodic Thyroid disorders (8 sources) Hypothyroidism; Translations: [Hypothyroidism, unspecified] Onset: 3 [...] 03-26-2021 Episodic Other aftercare (1 source) Other buttermaker (current) drug therapy; Translations: [[facility] CURRENT DRUG THERAPY] Onset: 02-10-2022 Episodic Other [...] Test Name Value Interpretation Reference Range Facility MR MRCPon 08-17-2023 MR MRCP [facility] [place] [place] [address] MRI Report Signed Patient: Cachorro Sebastian MR #: [id number] : 1975 Acct:[id number] Age/Sex: 47 / F ADM Date: 08/17/23 Loc: Room: Type: [facility] Attending Dr: Cj Andres APRN Copies to: Cj Andres APRN Ordering Provider: Cj Andres APRN Date of Service: 08/17/23 MR/MR MRCP: K76.9 - Liver disease, unspecified MRI OF THE ABDOMEN WITHOUT CONTRAST: MRCP CLINICAL HISTORY: Abdominal pain nausea and vomiting for 8 months. COMPARISON: CT abdomen and pelvis 04/14/2023. TECHNIQUE: Multisequence, multiplanar imaging of the abdomen was obtained without the use of IV contrast. MRCP imaging was also obtained. FINDINGS: Examination is suboptimal due to motion. The liver appears normal in contour with hepatic steatosis. No intrahepatic ductal dilatation is seen. No focal T2 abnormality is seen to suggest underlying liver lesion. Gallbladder has been removed. MRCP imaging demonstrates a normal caliber CBD without evidence of choledocholithiasis. No pancreatic divisum. Pancreatic duct appears normal in caliber. Spleen is grossly unremarkable. Pancreas is grossly unremarkable. Adrenal glands are grossly unremarkable. Visualized kidneys appear grossly unremarkable. Abdominal aorta is normal in caliber. No bulky lymphadenopathy or ascites. No pleural effusion. MR/MR MRCP IMPRESSION: NO MRI EVIDENCE OF BILIARY OBSTRUCTION. HEPATIC STEATOSIS. Impression dictated by: Jerry Sanchez Jr., DGoodOGood08/17/2023 2:13 PM Dictation Location: [place] [address] Transcribed By: [facility] 08/17/23 1413 Dictated By: Jerry Sanchez Jr, DO 08/17/23 1410 Signed By: 08/17/23 141 Normal [facility] HCG ( test) IA.rapi d Ql (U)Ordered By: Elizabeth Chan on 07-21-2023 HCG ( test) Ql (U) Negative [facility] HCG,Urineon 07-21-2023 Beta HCG ( test) Ql (U) Negative Normal [facility] Comment on above: Result Comment: PERF ORMED BY: [place] [address] PATHOLOGIST NEIGHBORHOOD AIDE SHANNAN PANTOJA M.D. Performed By: #### U HCG #### [address] [place] 07-21-2023 L Specimen: [id number] R eceived: 07/21/23 Status: CHARLEE Aquino Num: [id number] Spec Type: Surgical Subm Dr: Elizabeth Chan DO Tissues: A Small Intestine - Biopsy/Polyp (SMALL BOWEL BX) B GASTRIC FOR HP (GASTRIC HP) Procedures: HE/4, Gross/Micro L4/2, H PYLORI, IHC First AB Age/ Patient Sex Location Account Attending Physician Cachorro Sebastian 47/F [id number] Elizabeth Chna DO SPEC NUM: [id number] RECD: 07/21/23 STATUS: CHARLEE AQUINO NUM: [id number] COLTON: 07/21/23- SUBM DR: Elizabeth Chan DO ENTERED: 07/21/[address] [facility] [address]: SPEC TYPE: Surgical DEPT: S REC BY: [id number] ORDERED: HE/4, Gross/Micro L4/2, H PYLORI, IHC First AB ORDERED: HE/4, Gross/Micro L4/2, H PYLORI, IHC First AB Pathological Diagnosis A, small bowel biopsy: -Duodenal mucosa with focally noted villous structures without significant stromal chronic inflammation, erosion, villous blunting, or any obvious or significant lymphocytic exocytosis noticed, therefore also no obvious features of celiac sprue observed B, gastric biopsy: -Antral and oxyntic mucosa with superimposed changes of severe chronic reactive gastropathy and mild inactive chronic gastritis, including prominent reparative changes of the healed portion of chronic ulceration at the antral fragment still with the minor or mildly associated active erosion, otherwise without intestinal metaplasia or glandular atypia identified -H. pylori immunostain with appropriate control is also negative for identify Helicobacter organism Gross Description A. Received in formalin, labeled with the patient's name and small bowel is a 0.2 x 0.2 x 0.1 cm montiel mucosal tissue fragment, entirely submitted in A1. B. Received in formalin, labeled with the patient's name and gastric BX are 2 montiel mucosal tissue fragments measuring 0.5 x 0.2 x 0.1 cm and 0.4 x 0.2 x 0.1 cm, entirely submitted in -------- Specimen: [id number] Received: 07/21/23 Status: CHARLEE Aquino Num: [id number] Spec Type: Surgical Subm Dr: Elizabeth Chan DO Tissues: A Small Intestine - Biopsy/Polyp (SMALL BOWEL BX) B GASTRIC FOR HP (GASTRIC HP) Procedures: HE/4, Gross/Micro L4/2, H PYLORI, IHC First AB -------- Patient: Cachorro Sebastian [id number] (Continued) -------- Specimen: [id number] Received: 07/21/23 (Continued) Gross Description (Continued) Signed (signature on file) Guanaco Smallwood MD 08/08/23 1810 -------- Specimen: [id number] Received: 07/21/23 Status: CHARLEE Aquino Num: [id number] Spec Type: Surgical Subm Dr: Elizabeth Chan DO Tissues: A Small Intestine - Biopsy/Polyp (SMALL BOWEL BX) B GASTRIC FOR HP (GASTRIC HP) Procedures: HE/4, Gross/Micro L4/2, H PYLORI, IHC First AB -------- Patient: Cachorro Sebastian [id number] (Continued) -------- Specimen: [id number] Received: 07/21/23 (Continued) Gross Description (Continued) B1. Clinical history: GERD TW CPT Codes 51800 X2 [id number] -------- -------- Specimen: Received: 07/21/23 Status: CHARLEE Aquino Num: [id number] Spec Type: Surgical Subm Dr: Elizabeth Chan DO Tissues: A Small Intestine - Biopsy/Polyp (SMALL BOWEL BX) B GASTRIC FOR HP (GASTRIC HP) Procedures: HE/4, Gross/Micro L4/2, H PYLORI, IHC First AB -------- Patient: Cachorro Sebastian [id number] (Continued) -------- Signed (signature on file) Derrek-Edison Smallwood MD 08/08/231809 Normal [facility] Covid-19 PCR (CVDTBH)on 07-26 SARS-CoV-2 (COVID-19) RNA LILIANA+probe Ql (Unsp spec) Not detected Normal NOT DETECTED [facility] Comment on above: Performed By: #### C VDTBH #### [facility] [address] [place] [address] Dr. Verenice Smallwood SYMPTOMATIC COVID-19 ANTIGEN on 08-11-2022 EUA Statement SEE BELOW Normal [facility] Comment on above: Result Comment: This test [...] sooner. Performed By: #### C VDAGS #### [facility] [address] [place] [address] Dr. Verenice Smallwood SARS-CoV-2 (COVID-19) RNA LILIANA+probe Ql (Unsp spec) Negative Normal NEGATIVE [facility] [facility] Comment on above: Performed By: #### C VDAGS #### [facility] [address] [place] [address] Dr. Verenice Smallwood XR DEXA BONE DENSITYon [...] by: RAMBO SEVERINO Date: 2022-07-12 18:19 Normal [facility] PHOSPHORUSon 07-02-2022 Phosphate [Mass/Vol] 3.2 mg/dL Normal 2.6-4.7 [facility] Comment on above: Performed By: #### P HOS #### [facility] [address] [place] [address] Dr. Verenice Smallwood PROGESTERONEon 06-29-2022 Progesterone 0.4 ng/mL Normal [facility] Comment on above: Result Comment: Foll icular phase 0.1 - 0.9 Luteal phase 1.8 - 23.9 Ovulation phase 0.1 - 12.0 First trimester 11.0 - 44.3 Second trimester 25.4 - 83.3 Third trimester 58.7 - 214.0 Postmenopausal 0.0 - 0.1 Performed By: #### C VDTBH #### [facility] [address] [place] [address] Dr. Verenice Smallwood PTH INTACTon 06-29-2022 PTH, Intact 35 pg/mL Normal 15-65 [facility] Comment on above: Performed By: #### C RP, BMP #### [facility] [address] [place] [address] Dr. Verenice Smallwood CBC AUTO DIFFon 06-09-2022 BASO # 0.1 103/ul Normal 0.0-0.1 [facility] Comment on above: Performed By: #### C BC #### [facility] [address] [address] [address] Verenice Smallwood Basophils/100 WBC (Bld) 0.7 % Normal 0.2-2.0 [facility] Comment on above: Performed By: #### C BC #### [facility] [address] [address] [address] Verenice Smallwood EO # 0.1 103/ul Normal 0.0-0.7 [facility] Comment on above: Performed By: #### C BC #### [facility] [address] [place] [address] Dr. Verenice Smallwood Eosinophils/100 WBC (Bld) 1.6 % Normal 0.9-7.0 [facility] Comment on above: Performed By: #### C BC #### [facility] [address] [place] [address] Dr. Verenice Smallwood Erythrocyte distribution width (RBC) [Ratio] 12.9 % Normal 11.0-15.0 [facility] Comment on above: Performed By: #### C BC #### [facility] [address] [place] [address] Dr. Verenice Smallwood Hematocrit (Bld) [Volume fraction] 44.6 % Normal 36.0-48.0 [facility] Comment on above: Performed By: #### C BC #### [facility] [address] [place] [address] Dr. Verenice Smallwood Hemoglobin (Bld) [Mass/Vol] 14.6 g/dL Normal 12.0-16.0 [facility] Comment on above: Performed By: #### C BC #### [facility] [address] [place] [address] Dr. Verenice Smallwood IG # 0.10 10e3/ul Critically high 0.00-0.03 [facility] Comment on above: Performed By: #### C BC #### [facility] [address] [place] [address] Dr. Verenice Smallwood IG % 1.1 % Critically high 0.0-0.5 [facility] Comment on above: Performed By: #### C BC #### [facility] [address] [place] [address] Dr. Verenice Smallwood LYMPH # 2.4 103/ul Normal 1.2-3.8 [facility] Comment on above: Performed By: #### C BC #### [facility] [address] [place] [address] Dr. Verenice Smallwood Lymphocytes/100 WBC (Bld) 27.3 % Normal 20.5-60.0 [facility] Comment on above: Performed By: #### C BC #### [facility] [address] [place] [address] Dr. Verenice Smallwood MANUAL DIFF REQ NO Normal [facility] Comment on above: Performed By: #### C BC #### [facility] [address] [place] [address] Dr. Verenice Smallwood MCH (RBC) [Entitic mass] 30.2 pg Normal 26.7-34.0 [facility] Comment on above: Performed By: #### C BC #### [facility] [address] [place] [address] Dr. Verenice Smallwood MCHC (RBC) [Mass/Vol] 32.7 g/dL Normal 29.9-35.2 [facility] Comment on above: Performed By: #### C BC #### [facility] [address] [place] [address] Dr. Verenice Smallwood MCV (RBC) [Entitic vol] 92.1 fL Normal 81.0-99.0 [facility] Comment on above: Performed By: #### C BC #### [facility] [address] [place] [address] Dr. Verenice Smallwood MONO # 0.6 103/ul Normal 0.3-0.8 [facility] Comment on above: Performed By: #### C BC #### [facility] [address] [place] [address] Dr. Verenice Smallwood Monocytes/100 WBC (Bld) 6.3 % Normal 1.7-12.0 [facility] Comment on above: Performed By: #### C BC #### [facility] [address] [place] [address] Dr. Verenice Smallwood NEUT # 5.5 103/ul Normal 1.4-6.5 [facility] Comment on above: Performed By: #### C BC #### [facility] [address] [place] [address] Dr. Verenice Smallwood Neutrophils/100 WBC (Bld) 63.0 % Normal 43.0-75.0 [facility] Comment on above: Performed By: #### C BC #### [facility] [address] [place] [address] Dr. Verenice Smallwood Platelet mean volume (Bld) [Entitic vol] 8.4 fL Critically low 9.5-13.5 [facility] Comment on above: Performed By: #### C BC #### [facility] [address] [place] [address] Dr. Verenice Smallwood PLT 300 103/ul Normal 150-450 [facility] Comment on above: Performed By: #### C BC #### [facility] [address] [place] [address] Dr. Verenice Smallwood RBC 4.84 106/ul Normal 4.20-5.40 [facility] Comment on above: Performed By: #### C BC #### [facility] [address] [place] [address] Dr. Verenice Smallwood WBC 8.8 103/ul Normal 4.0-11.0 [facility] Comment on above: Performed By: #### C BC #### [facility] [address] [place] [address] Dr. Verenice Smallwood FREE T4on 06-09-2022 Free T4 [Mass/Vol] 1.08 ng/dL Normal 0.76-1.46 [facility] Comment on above: Performed By: #### C RP, BMP #### [facility] [address] [place] [address] Dr. Verenice Smallwood GLYCOHEMOGLOBIN A1Con 2022 ADA RECOMMENDATION SEE BELOW Normal [facility] Comment on above: Result Comment: ADA RECOMMENDED LIMIT 4.0 - 6.0 ADA THERAPEUTIC TARGET < 7.0 ACTION SUGGESTED > 7.0 Performed By: #### C BC #### [facility] [address] [place] [address] Dr. Verenice Smallwood Glucose [Mass/Vol] 123 mg/dL Normal [facility] Comment on above: Performed By: #### C BC #### [facility] [address] [place] [address] Dr. Verenice Smallwood HbA1c (Bld) [Mass fraction] 5.9 % Normal 4.5-6.2 [facility] Comment on above: Performed By: #### C BC #### [facility] [address] [place] [address] Dr. Verenice Smallwood LIPID PROFILEon 06-09-2022 CHOL-HDL RATIO NORM SEE BELOW Normal [facility] Comment on above: Result Comment: 3.3 - 4.4 LOW RISK 4.4 - 7.1 AVERAGE RISK 7.1 - 11.0 MODERATE RISK >11.0 HIGH RISK Performed By: #### C BC #### [facility] [address] [place] [address] Dr. Verenice Smallwood Cholesterol [Mass/Vol] 255 mg/dL Critically high <=200 [facility] Comment on above: Performed By: #### C BC #### [facility] [address] [place] [address] Dr. Verenice Smallwood Cholesterol in HDL [Mass/Vol] 56 mg/dL Normal 40-60 [facility] Comment on above: Performed By: #### C BC #### [facility] [address] [place] [address] Dr. Verenice Smallwood Cholesterol in LDL [Mass/Vol] 144.6 mg/dL Normal [facility] Comment on above: Performed By: #### C BC #### [facility] [address] [place] [address] Dr. Verenice Smallwood Cholesterol.total /Cholesterol in HDL [Mass ratio] 4.6 {ratio} Normal [facility] Comment on above: Performed By: #### C BC #### [facility] [address] [address] [address] Verenice Smallwood HDL NORMAL > or = 60 mg/dl - LO W CARDIOVASCULAR RISK <40 mg/dl - HIGH CARDIOVASCULAR RISK Normal [facility] Comment on above: Performed By: #### C BC #### [facility] [address] [address] [address] Verenice Smallwood LDL CALC NORMAL SEE BELOW Normal [facility] Comment on above: Result Comment: <100 mg/dl OPTIMAL 100 - 129 mg/dl NEAR OR ABOVE OPTIMAL 130 - 159 mg/dl BORDERLINE HIGH 160 - 189 mg/dl HIGH >190 mg/dl VERY HIGH Performed By: #### C BC #### [facility] [address] [address] [address] Verenice Smallwood Triglyceride [Mass/Vol] 272 mg/dL Critically high <=150 [facility] Comment on above: Performed By: #### C BC #### [facility] [address] [address] [address] Verenice Smallwood VLDL CALC 54.4 mg/dL Normal [facility] Comment on above: Performed By: #### C BC #### [facility] [address] [address] [address] Verenice Smallwood PROF 14(COMP METB)on 023 Albumin [Mass/Vol] 3.7 g/dL Normal 3.4-5.0 [facility] Comment on above: Performed By: #### C BC #### [facility] [address] [place] [address] Dr. Verenice Smallwood Albumin/Globulin [Mass ratio] 0.9 {ratio} Normal [facility] Comment on above: Performed By: #### C BC #### [facility] [address] [address] [address] Verenice Smallwood ALP [Catalytic activity/Vol] 80 U/L Normal 46-116 [facility] Comment on above: Performed By: #### C BC #### [facility] [address] [address] [address] Verenice Smallwood ALT [Catalytic activity/Vol] 29 U/L Normal 14-59 [facility] Comment on above: Performed By: #### C BC #### [facility] [address] [address] [address] Verenice Smallwood Anion gap [Moles/Vol] 13.4 mmol/L Normal [facility] Comment on above: Performed By: #### C BC #### [facility] [address] [address] [address] Verenice Smallwood AST [Catalytic activity/Vol] 24 U/L Normal 15-37 [facility] Comment on above: Performed By: #### C BC #### [facility] [address] [address] [address] Verenice Smallwood Bilirubin [Mass/Vol] 0.2 mg/dL Normal 0.2-1.0 [facility] Comment on above: Performed By: #### C BC #### [facility] [address] [address] [address] Verenice Smallwood Calcium [Mass/Vol] 9.7 mg/dL Normal 8.5-10.1 [facility] Comment on above: Performed By: #### C BC #### [facility] [address] [address] [address] Verenice Smallwood Chloride [Moles/Vol] 104 mmol/L Normal 98-107 [facility] Comment on above: Performed By: #### C BC #### [facility] [address] [place] [address] Dr. Verenice Smallwood CO2 [Moles/Vol] 25.4 mmol/L Normal 21.0-32.0 [facility] Comment on above: Performed By: #### C BC #### [facility] [address] [address] [address] Verenice Smallwood Creatinine [Mass/Vol] 0.77 mg/dL Normal 0.55-1.02 [facility] Comment on above: Performed By: #### C BC #### [facility] [address] [address] [address] Verenice Smallwood EGFR-AF GUYANESE >60 Normal >=60 [facility] Comment on above: Performed By: #### C BC #### [facility] [address] [place] [address] Dr. Verenice Smallwood EGFR-NON AF GUYANESE >60 Normal >=60 [facility] Comment on above: Performed By: #### C BC #### [facility] [address] [place] [address] Dr. Verenice Smallwood Globulin (S) [Mass/Vol] 4.1 g/dL Normal [facility] Comment on above: Performed By: #### C BC #### [facility] [address] [address] [address] Verenice Smallwood Glucose [Mass/Vol] 110 mg/dL Critically high 74-106 [facility] Comment on above: Performed By: #### C BC #### [facility] [address] [place] [address] Dr. Verenice Smallwood Potassium [Moles/Vol] 4.8 mmol/L Normal 3.5-5.1 [facility] Comment on above: Performed By: #### C BC #### [facility] [address] [place] [address] Dr. Verenice Smallwood Protein [Mass/Vol] 7.8 g/dL Normal 6.4-8.2 [facility] Comment on above: Performed By: #### C BC #### [facility] [address] [place] [address] Dr. Verenice Smallwood Sodium [Moles/Vol] 138 mmol/L Normal 136-145 [facility] Comment on above: Performed By: #### C BC #### [facility] [address] [place] [address] Dr. Vreenice Smallwood Urea nitrogen [Mass/Vol] 15.0 mg/dL Normal 7.0-18.0 [facility] Comment on above: Performed By: #### C BC #### [facility] [address] [place] [address] Dr. Verenice Smallwood Urea nitrogen/Creatini ne [Mass ratio] 19.5 mg/mg Normal [facility] Comment on above: Performed By: #### C BC #### [facility] [address] [place] [address] Dr. Verenice Smallwood TSHon 06-09-2022 TSH 1.964 uIU/mL Normal 0.358-3.740 [facility] Comment on above: Performed By: #### C BC #### [facility] [address] [place] [address] Dr. Verenice Smallwood UA RANDOM W/MICROSCOPICon BACTERIA TRACE Abnormal NONE SEEN [facility] Comment on above: Performed By: #### C BC #### [facility] [address] [place] [address] Dr. Verenice Smallwood Bilirubin Ql (U) Negative Normal NEGATIVE [facility] Comment on above: Performed By: #### C BC #### [facility] [address] [place] [address] Dr. Verenice Smallwood CAST NONE SEEN Normal NONE SEEN [facility] Comment on above: Performed By: #### C BC #### [facility] [address] [place] [address] Dr. Verenice Smallwood Clarity (U) CLEAR Normal CLEAR [facility] Comment on above: Performed By: #### C BC #### [facility] [address] [place] [address] Dr. Verenice Smallwood Color (U) LT. YELLOW Normal YELLOW [facility] Comment on above: Performed By: #### C BC #### [facility] [address] [place] [address] Dr. Verenice Smallwood Crystals LM Nom (Urine sed) NONE SEEN Normal NONE SEEN [facility] Comment on above: Performed By: #### C BC #### [facility] [address] [place] [address] Dr. Verenice Smallwood Epithelial cells LM Ql (Urine sed) FEW Abnormal NONE SEEN /RARE [facility] Comment on above: Performed By: #### C BC #### [facility] [address] [place] [address] Dr. Verenice Smallwood Glucose Ql (U) Negative Normal NEGATIVE [facility] Comment on above: Performed By: #### C BC #### [facility] [address] [place] [address] Dr. Verenice Smallwood Hemoglobin Ql (U) Negative Normal NEGATIVE [facility] Comment on above: Performed By: #### C BC #### [facility] [address] [place] [address] Dr. Verenice Smallwood Ketones Ql (U) Negative Normal NEGATIVE [facility] Comment on above: Performed By: #### C BC #### [facility] [address] [place] [address] Dr. Verenice Smallwood LEUKOCYTES Negative Normal NEGATIVE [facility] Comment on above: Performed By: #### C BC #### [facility] [address] [place] [address] Dr. Verenice Smallwood MUCOUS NONE SEEN Normal NONE SEEN [facility] Comment on above: Performed By: #### C BC #### [facility] [address] [place] [address] Dr. Verenice Smallwood Nitrite Ql (U) Negative Normal NEGATIVE [facility] Comment on above: Performed By: #### C BC #### [facility] [address] [place] [address] Dr. Verenice Smallwood pH (U) 6.0 [pH] Normal 5-9 [facility] Comment on above: Performed By: #### C BC #### [facility] [address] [place] [address] Dr. Verenice Smallwood RBC NONE SEEN Abnormal 0-2 [facility] Comment on above: Performed By: #### C BC #### [facility] [address] [place] [address] Dr. Verenice Smallwood SPEC GRAVITY 1.025 Normal 1.005-<=1.0 25 [facility] Comment on above: Performed By: #### C BC #### [facility] [address] [place] [address] Dr. Verenice Smallwood UA PROTEIN Negative Normal NEGATIVE/ TRACE [facility] Comment on above: Performed By: #### C BC #### [facility] [address] [place] [address] Dr. Verenice Smallwood Urobilinogen Qn (U) 0.2 {Brett'U}/dL Normal 0.2 - 1.0 [facility] Comment on above: Performed By: #### C BC #### [facility] [address] [place] [address] Dr. Verenice Smallwood WBC NONE SEEN Normal NONE SEEN [facility] Comment on above: Performed By: #### C BC #### [facility] [address] [place] [address] Dr. Verenice Smallwood VITAMIN D 25 OHon 06-09-2022 VIT D 25-OH 23.2 ng/mL Normal [facility] Comment on above: Performed By: #### C RP, BMP #### [facility] [address] [place] [address] Dr. Verenice Smallwood VIT D RANGES SEE BELOW Normal [facility] Comment on above: Result Comment: <20 ng/mL Vit D deficient 20 - <30 ng/mL Vit D insufficient 30 - 100 ng/mL Vit D sufficient >100 ng/mL Potential Toxicity Performed By: #### C RP, BMP #### [facility] [address] [place] [address] Dr. Verenice Smallwood COVID + FLU Quick Testingon 05-24-2022 SARS-CoV-2 (COVID-19) RNA LILIANA+probe Ql (Unsp spec) Negative [facility] NOTIK Other COVID + FLU Quick Testing Negative [facility] NOTIK Other CBC AUTO DIFFon 02-04-2022 BASO # 0.1 103/ul Normal 0.0-0.1 [facility] Comment on above: Performed By: #### C RP, BMP #### [facility] [address] [place] [address] Dr. Verenice Smallwood Basophils/100 WBC (Bld) 0.4 % Normal 0.2-2.0 [facility] Comment on above: Performed By: #### C RP, BMP #### [facility] [address] [place] [address] Dr. Verenice Smallwood EO # 0.0 103/ul Normal 0.0-0.7 [facility] Comment on above: Performed By: #### C RP, BMP #### [facility] [address] [place] [address] Dr. Verenice Smallwood Eosinophils/100 WBC (Bld) 0.1 % Critically low 0.9-7.0 [facility] Comment on above: Performed By: #### C RP, BMP #### [facility] [address] [place] [address] Dr. Verenice Smallwood Erythrocyte distribution width (RBC) [Ratio] 14.2 % Normal 11.0-15.0 [facility] Comment on above: Performed By: #### C RP, BMP #### [facility] [address] [place] [address] Dr. Verenice Smallwood Hematocrit (Bld) [Volume fraction] 41.6 % Normal 36.0-48.0 [facility] Comment on above: Performed By: #### C RP, BMP #### [facility] [address] [place] [address] Dr. Verenice Smallwood Hemoglobin (Bld) [Mass/Vol] 13.6 g/dL Normal 12.0-16.0 [facility] Comment on above: Performed By: #### C RP, BMP #### [facility] [address] [place] [address] Dr. Verenice Smallwood IG # 0.38 10e3/ul Critically high 0.00-0.03 [facility] Comment on above: Performed By: #### C RP, BMP #### [facility] [address] [place] [address] Dr. Verenice Smallwood IG % 2.6 % Critically high 0.0-0.5 [facility] Comment on above: Performed By: #### C RP, BMP #### [facility] [address] [place] [address] Dr. Verenice Smallwood LYMPH # 1.5 103/ul Normal 1.2-3.8 [facility] Comment on above: Performed By: #### C RP, BMP #### [facility] [address] [place] [address] Dr. Verenice Smallwood Lymphocytes/100 WBC (Bld) 10.6 % Critically low 20.5-60.0 [facility] Comment on above: Performed By: #### C RP, BMP #### [facility] [address] [place] [address] Dr. Verenice Smallwood MANUAL DIFF REQ NO Normal [facility] Comment on above: Performed By: #### C RP, BMP #### [facility] [address] [place] [address] Dr. Verenice Smallwood MCH (RBC) [Entitic mass] 29.5 pg Normal 26.7-34.0 [facility] Comment on above: Performed By: #### C RP, BMP #### [facility] [address] [place] [address] Dr. Verenice Smallwood MCHC (RBC) [Mass/Vol] 32.7 g/dL Normal 29.9-35.2 [facility] Comment on above: Performed By: #### C RP, BMP #### [facility] [address] [place] [address] Dr. Verenice Smallwood MCV (RBC) [Entitic vol] 90.2 fL Normal 81.0-99.0 [facility] Comment on above: Performed By: #### C RP, BMP #### [facility] [address] [place] [address] Dr. Verenice Smallwood MONO # 0.3 103/ul Normal 0.3-0.8 [facility] Comment on above: Performed By: #### C RP, BMP #### [facility] [address] [place] [address] Dr. Verenice Smallwood Monocytes/100 WBC (Bld) 2.3 % Normal 1.7-12.0 [facility] Comment on above: Performed By: #### C RP, BMP #### [facility] [address] [place] [address] Dr. Verenice Smallwood NEUT # 12.2 103/ul Critically high 1.4-6.5 [facility] Comment on above: Performed By: #### C RP, BMP #### [facility] [address] [place] [address] Dr. Verenice Smallwood Neutrophils/100 WBC (Bld) 84.0 % Critically high 43.0-75.0 [facility] Comment on above: Performed By: #### C RP, BMP #### [facility] [address] [address] [address] Verenice Smallwood Platelet mean volume (Bld) [Entitic vol] 8.4 fL Critically low 9.5-13.5 [facility] Comment on above: Performed By: #### C RP, BMP #### [facility] [address] [address] [address] Verenice Smallwood PLT 337 103/ul Normal 150-450 [facility] Comment on above: Performed By: #### C RP, BMP #### [facility] [address] [address] [address] Verenice Smallwood RBC 4.61 106/ul Normal 4.20-5.40 [facility] Comment on above: Performed By: #### C RP, BMP #### [facility] [address] [address] [address] Verenice Smallwood WBC 14.5 103/ul Critically high 4.0-11.0 [facility] Comment on above: Performed By: #### C RP, BMP #### [facility] [address] [address] [address] Verenice Smallwood CRPon 02-04-2022 CRP [Mass/Vol] mg/L Normal <=1.0 [facility] Comment on above: Performed By: #### C BC #### [facility] [address] [address] [address] Verenice Smallwood PROF 14(COMP METB)on 022 Albumin [Mass/Vol] 3.0 g/dL Critically low 3.4-5.0 [facility] Comment on above: Performed By: #### C BC #### [facility] [address] [address] [address] Verenice Smallwood Albumin/Globulin [Mass ratio] 0.8 {ratio} Normal [facility] Comment on above: Performed By: #### C BC #### [facility] [address] [address] [address] Verenice Smallwood ALP [Catalytic activity/Vol] 65 U/L Normal 46-116 [facility] Comment on above: Performed By: #### C BC #### [facility] [address] [address] [address] Verenice Smallwood ALT [Catalytic activity/Vol] 18 U/L Normal 14-59 [facility] Comment on above: Performed By: #### C BC #### [facility] [address] [address] [address] Verenice Smallwood Anion gap [Moles/Vol] 12.3 mmol/L Normal [facility] Comment on above: Performed By: #### C BC #### [facility] [address] [address] [address] Verenice Smallwood AST [Catalytic activity/Vol] 11 U/L Critically low 15-37 [facility] Comment on above: Performed By: #### C BC #### [facility] [address] [place] [address] Dr. Verenice Smallwood Bilirubin [Mass/Vol] 0.1 mg/dL Critically low 0.2-1.0 [facility] Comment on above: Performed By: #### C BC #### [facility] [address] [address] [address] Verenice Smallwood Calcium [Mass/Vol] 8.7 mg/dL Normal 8.5-10.1 [facility] Comment on above: Performed By: #### C BC #### [facility] [address] [address] [address] Verenice Smallwood Chloride [Moles/Vol] 101 mmol/L Normal 98-107 [facility] Comment on above: Performed By: #### C BC #### [facility] [address] [address] [address] Verenice Smallwood CO2 [Moles/Vol] 23.1 mmol/L Normal 21.0-32.0 [facility] Comment on above: Performed By: #### C BC #### [facility] [address] [address] [address] Verenice Smallwood Creatinine [Mass/Vol] 0.92 mg/dL Normal 0.55-1.02 [facility] Comment on above: Performed By: #### C BC #### [facility] [address] [address] [address] Verenice Smallwood EGFR-AF GUYANESE >60 Normal >=60 [facility] Comment on above: Performed By: #### C BC #### [facility] [address] [address] [address] Verenice Smallwood EGFR-NON AF GUYANESE >60 Normal >=60 [facility] Comment on above: Performed By: #### C BC #### [facility] [address] [address] [address] Verenice Smallwood Globulin (S) [Mass/Vol] 3.8 g/dL Normal [facility] Comment on above: Performed By: #### C BC #### [facility] [address] [place] [address] Dr. Verenice Smallwood Glucose [Mass/Vol] 161 mg/dL Critically high 74-106 [facility] Comment on above: Performed By: #### C BC #### [facility] [address] [address] [address] Verenice Smallwood Potassium [Moles/Vol] 4.4 mmol/L Normal 3.5-5.1 [facility] Comment on above: Performed By: #### C BC #### [facility] [address] [place] [address] Dr. Verenice Smallwood Protein [Mass/Vol] 6.8 g/dL Normal 6.4-8.2 [facility] Comment on above: Performed By: #### C BC #### [facility] [address] [place] [address] Dr. Verenice Smallwood Sodium [Moles/Vol] 132 mmol/L Critically low 136-145 [facility] Comment on above: Performed By: #### C BC #### [facility] [address] [address] [address] Verenice Smallwood Urea nitrogen [Mass/Vol] 25.0 mg/dL Critically high 7.0-18.0 [facility] Comment on above: Performed By: #### C BC #### [facility] [address] [place] [address] Dr. Verenice Smallwood Urea nitrogen/Creatini ne [Mass ratio] 27.2 mg/mg Normal [facility] Comment on above: Performed By: #### C BC #### [facility] [address] [place] [address] Dr. Verenice Smallwood CBC AUTO DIFFon 02-03-2022 BASO # 0.0 103/ul Normal 0.0-0.1 [facility] Comment on above: Performed By: #### C BC #### [facility] [address] [place] [address] Dr. Verenice Smallwood Basophils/100 WBC (Bld) 0.3 % Normal 0.2-2.0 [facility] Comment on above: Performed By: #### C BC #### [facility] [address] [place] [address] Dr. Verenice Smallwood EO # 0.0 103/ul Normal 0.0-0.7 [facility] Comment on above: Performed By: #### C BC #### [facility] [address] [place] [address] Dr. Verenice Smallwood Eosinophils/100 WBC (Bld) 0.0 % Critically low 0.9-7.0 [facility] Comment on above: Performed By: #### C BC #### [facility] [address] [place] [address] Dr. Verenice Smallwood Erythrocyte distribution width (RBC) [Ratio] 13.6 % Normal 11.0-15.0 [facility] Comment on above: Performed By: #### C BC #### [facility] [address] [place] [address] Dr. Verenice Smallwood Hematocrit (Bld) [Volume fraction] 40.5 % Normal 36.0-48.0 [facility] Comment on above: Performed By: #### C BC #### [facility] [address] [place] [address] Dr. Verenice Smallwood Hemoglobin (Bld) [Mass/Vol] 13.4 g/dL Normal 12.0-16.0 [facility] Comment on above: Performed By: #### C BC #### [facility] [address] [place] [address] Dr. Verenice Smallwood IG # 0.24 10e3/ul Critically high 0.00-0.03 [facility] Comment on above: Performed By: #### C BC #### [facility] [address] [place] [address] Dr. Verenice Smallwood IG % 2.0 % Critically high 0.0-0.5 [facility] Comment on above: Performed By: #### C BC #### [facility] [address] [place] [address] Dr. Verenice Smallwood LYMPH # 1.5 103/ul Normal 1.2-3.8 [facility] Comment on above: Performed By: #### C BC #### [facility] [address] [place] [address] Dr. Verenice Smallwood Lymphocytes/100 WBC (Bld) 12.3 % Critically low 20.5-60.0 [facility] Comment on above: Performed By: #### C BC #### [facility] [address] [place] [address] Dr. Verenice Smallwood MANUAL DIFF REQ NO Normal [facility] Comment on above: Performed By: #### C BC #### [facility] [address] [place] [address] Dr. Verenice Smallwood MCH (RBC) [Entitic mass] 29.8 pg Normal 26.7-34.0 [facility] Comment on above: Performed By: #### C BC #### [facility] [address] [place] [address] Dr. Verenice Smallwood MCHC (RBC) [Mass/Vol] 33.1 g/dL Normal 29.9-35.2 [facility] Comment on above: Performed By: #### C BC #### [facility] [address] [place] [address] Dr. Verenice Smallwood MCV (RBC) [Entitic vol] 90.2 fL Normal 81.0-99.0 [facility] Comment on above: Performed By: #### C BC #### [facility] [address] [place] [address] Dr. Verenice Smallwood MONO # 0.2 103/ul Critically low 0.3-0.8 [facility] Comment on above: Performed By: #### C BC #### [facility] [address] [place] [address] Dr. Verenice Smallwood Monocytes/100 WBC (Bld) 1.5 % Critically low 1.7-12.0 [facility] Comment on above: Performed By: #### C BC #### [facility] [address] [place] [address] Dr. Verenice Smallwood NEUT # 10.0 103/ul Critically high 1.4-6.5 [facility] Comment on above: Performed By: #### C BC #### [facility] [address] [place] [address] Dr. Verenice Smallwood Neutrophils/100 WBC (Bld) 83.9 % Critically high 43.0-75.0 [facility] Comment on above: Performed By: #### C BC #### [facility] [address] [place] [address] Dr. Verenice Smallwood Platelet mean volume (Bld) [Entitic vol] 8.5 fL Critically low 9.5-13.5 [facility] Comment on above: Performed By: #### C BC #### [facility] [address] [place] [address] Dr. Verenice Smallwood PLT 309 103/ul Normal 150-450 [facility] Comment on above: Performed By: #### C BC #### [facility] [address] [place] [address] Dr. Verenice Smallwood RBC 4.49 106/ul Normal 4.20-5.40 [facility] Comment on above: Performed By: #### C BC #### [facility] [address] [place] [address] Dr. Verenice Smallwood WBC 11.9 103/ul Critically high 4.0-11.0 [facility] Comment on above: Performed By: #### C BC #### [facility] [address] [place] [address] Dr. Verenice Smallwood CRPon 02-03-2022 CRP [Mass/Vol] mg/L Normal <=1.0 [facility] Comment on above: Performed By: #### C MP, CRP #### [facility] [address] [place] [address] Dr. Verenice Smallwood PROF 14(COMP METB)on 022 Albumin [Mass/Vol] 3.1 g/dL Critically low 3.4-5.0 [facility] Comment on above: Performed By: #### C MP, CRP #### [facility] [address] [place] [address] Dr. Verenice Smallwood Albumin/Globulin [Mass ratio] 0.8 {ratio} Normal [facility] Comment on above: Performed By: #### C MP, CRP #### [facility] [address] [place] [address] Dr. Verenice Smallwood ALP [Catalytic activity/Vol] 66 U/L Normal 46-116 [facility] Comment on above: Performed By: #### C MP, CRP #### [facility] [address] [place] [address] Dr. Verenice Smallwood ALT [Catalytic activity/Vol] 22 U/L Normal 14-59 [facility] Comment on above: Performed By: #### C MP, CRP #### [facility] [address] [place] [address] Dr. Verenice Smallwood Anion gap [Moles/Vol] 11.4 mmol/L Normal [facility] Comment on above: Performed By: #### C MP, CRP #### [facility] [address] [place] [address] Dr. Verenice Smallwood AST [Catalytic activity/Vol] 11 U/L Critically low 15-37 [facility] Comment on above: Performed By: #### C MP, CRP #### [facility] [address] [place] [address] Dr. Verenice Smallwood Bilirubin [Mass/Vol] 0.1 mg/dL Critically low 0.2-1.0 [facility] Comment on above: Performed By: #### C MP, CRP #### [facility] [address] [place] [address] Dr. Verenice Smallwood Calcium [Mass/Vol] 8.9 mg/dL Normal 8.5-10.1 [facility] Comment on above: Performed By: #### C MP, CRP #### [facility] [address] [place] [address] Dr. Verenice Smallwood Chloride [Moles/Vol] 102 mmol/L Normal 98-107 [facility] Comment on above: Performed By: #### C MP, CRP #### [facility] [address] [place] [address] Dr. Verenice Smallwood CO2 [Moles/Vol] 22.0 mmol/L Normal 21.0-32.0 [facility] Comment on above: Performed By: #### C MP, CRP #### [facility] [address] [place] [address] Dr. Verenice Smallwood Creatinine [Mass/Vol] 0.84 mg/dL Normal 0.55-1.02 [facility] Comment on above: Performed By: #### C MP, CRP #### [facility] [address] [place] [address] Dr. Verenice Smallwood EGFR-AF GUYANESE >60 Normal >=60 [facility] Comment on above: Performed By: #### C MP, CRP #### [facility] [address] [place] [address] Dr. Verenice Smallwood EGFR-NON AF GUYANESE >60 Normal >=60 [facility] Comment on above: Performed By: #### C MP, CRP #### [facility] [address] [place] [address] Dr. Verenice Smallwood Globulin (S) [Mass/Vol] 4.0 g/dL Normal [facility] Comment on above: Performed By: #### C MP, CRP #### [facility] [address] [place] [address] Dr. Verenice Smallwood Glucose [Mass/Vol] 158 mg/dL Critically high 74-106 [facility] Comment on above: Performed By: #### C MP, CRP #### [facility] [address] [place] [address] Dr. Verenice Smallwood Potassium [Moles/Vol] 4.4 mmol/L Normal 3.5-5.1 [facility] Comment on above: Performed By: #### C MP, CRP #### [facility] [address] [place] [address] Dr. Verenice Smallwood Protein [Mass/Vol] 7.1 g/dL Normal 6.4-8.2 [facility] Comment on above: Performed By: #### C MP, CRP #### [facility] [address] [place] [address] Dr. Verenice Smallwood Sodium [Moles/Vol] 131 mmol/L Critically low 136-145 [facility] Comment on above: Performed By: #### C MP, CRP #### [facility] [address] [place] [address] Dr. Verenice Smallwood Urea nitrogen [Mass/Vol] 20.0 mg/dL Critically high 7.0-18.0 [facility] Comment on above: Performed By: #### C MP, CRP #### [facility] [address] [place] [address] Dr. Verenice Smallwood Urea nitrogen/Creatini ne [Mass ratio] 23.8 mg/mg Normal [facility] Comment on above: Performed By: #### C MP, CRP #### [facility] [address] [place] [address] Dr. Verenice Smallwood CBC AUTO DIFFon 02-02-2022 BASO # 0.1 103/ul Normal 0.0-0.1 [facility] Comment on above: Performed By: #### C BC #### [facility] [address] [place] [address] Dr. Verenice Smallwood Basophils/100 WBC (Bld) 0.5 % Normal 0.2-2.0 [facility] Comment on above: Performed By: #### C BC #### [facility] [address] [place] [address] Dr. Verenice Smallwood EO # 0.1 103/ul Normal 0.0-0.7 [facility] Comment on above: Performed By: #### C BC #### [facility] [address] [place] [address] Dr. Verenice Smallwood Eosinophils/100 WBC (Bld) 1.2 % Normal 0.9-7.0 [facility] Comment on above: Performed By: #### C BC #### [facility] [address] [place] [address] Dr. Verenice Smallwood Erythrocyte distribution width (RBC) [Ratio] 14.3 % Normal 11.0-15.0 [facility] Comment on above: Performed By: #### C BC #### [facility] [address] [place] [address] Dr. Verenice Smallwood Hematocrit (Bld) [Volume fraction] 41.1 % Normal 36.0-48.0 [facility] Comment on above: Performed By: #### C BC #### [facility] [address] [place] [address] Dr. Verenice Smallwood Hemoglobin (Bld) [Mass/Vol] 13.7 g/dL Normal 12.0-16.0 [facility] Comment on above: Performed By: #### C BC #### [facility] [address] [place] [address] Dr. Verenice Smallwood IG # 0.16 10e3/ul Critically high 0.00-0.03 [facility] Comment on above: Performed By: #### C BC #### [facility] [address] [place] [address] Dr. Verenice Smallwood IG % 1.6 % Critically high 0.0-0.5 [facility] Comment on above: Performed By: #### C BC #### [facility] [address] [place] [address] Dr. Verenice Smallwood LYMPH # 3.1 103/ul Normal 1.2-3.8 [facility] Comment on above: Performed By: #### C BC #### [facility] [address] [place] [address] Dr. Verenice Smallwood Lymphocytes/100 WBC (Bld) 30.2 % Normal 20.5-60.0 [facility] Comment on above: Performed By: #### C BC #### [facility] [address] [place] [address] Dr. Verenice Smallwood MANUAL DIFF REQ NO Normal [facility] Comment on above: Performed By: #### C BC #### [facility] [address] [place] [address] Dr. Verenice Smallwood MCH (RBC) [Entitic mass] 30.2 pg Normal 26.7-34.0 [facility] Comment on above: Performed By: #### C BC #### [facility] [address] [place] [address] Dr. Verenice Smallwood MCHC (RBC) [Mass/Vol] 33.3 g/dL Normal 29.9-35.2 [facility] Comment on above: Performed By: #### C BC #### [facility] [address] [place] [address] Dr. Verenice Smallwood MCV (RBC) [Entitic vol] 90.5 fL Normal 81.0-99.0 [facility] Comment on above: Performed By: #### C BC #### [facility] [address] [place] [address] Dr. Verenice Smallwood MONO # 0.5 103/ul Normal 0.3-0.8 [facility] Comment on above: Performed By: #### C BC #### [facility] [address] [place] [address] Dr. Verenice Smallwood Monocytes/100 WBC (Bld) 4.7 % Normal 1.7-12.0 [facility] Comment on above: Performed By: #### C BC #### [facility] [address] [place] [address] Dr. Verenice Smallwood NEUT # 6.3 103/ul Normal 1.4-6.5 [facility] Comment on above: Performed By: #### C BC #### [facility] [address] [place] [address] Dr. Verenice Smallwood Neutrophils/100 WBC (Bld) 61.8 % Normal 43.0-75.0 [facility] Comment on above: Performed By: #### C BC #### [facility] [address] [place] [address] Dr. Verenice Smallwood Platelet mean volume (Bld) [Entitic vol] 8.6 fL Critically low 9.5-13.5 [facility] Comment on above: Performed By: #### C BC #### [facility] [address] [address] [address] Verenice Smallwood PLT 313 103/ul Normal 150-450 [facility] Comment on above: Performed By: #### C BC #### [facility] [address] [address] [address] Verenice Smallwood RBC 4.54 106/ul Normal 4.20-5.40 [facility] Comment on above: Performed By: #### C BC #### [facility] [address] [address] [address] Verenice Smallwood WBC 10.1 103/ul Normal 4.0-11.0 [facility] Comment on above: Performed By: #### C BC #### [facility] [address] [place] [address] Dr. Verenice Smallwood CRPon 02-02-2022 CRP 0.3 mg/dL Normal <=1.0 [facility] Comment on above: Performed By: #### C RP, BMP #### [facility] [address] [place] [address] LSPINE WO CONon [...] FRANCISCA DOMINGUEZ Date: 2022-02-02 06:54 Normal [facility] CULTURE URINEon 02-02-2022 CULTURE URINE Culture Observations : NO GROWTH. Normal [facility] Comment on above: Performed By: #### C , [facility] #### [facility] [address] [address] [address] Verenice Smallwood [facility]on SARS-CoV-2 (COVID-19) RNA LILIANA+probe Ql (Unsp spec) Not detected Normal NOT DETECTED [facility] Comment on above: Result Comment: When [...] for this test is supported by the [employer] and Human Service's declaration that [...] Performed By: #### C RP, BMP #### [facility] [address] [place] [address] Dr. Vreenice Smallwood PROF CHEM 8 (BAS METB)on Anion gap [Moles/Vol] 7.3 mmol/L Normal [facility] Comment on above: Performed By: #### C RP, BMP #### [facility] [address] [place] [address] Dr. Verenice Smallwood Calcium [Mass/Vol] 8.5 mg/dL Normal 8.5-10.1 [facility] Comment on above: Performed By: #### C RP, BMP #### [facility] [address] [place] [address] Dr. Verenice Smallwood Chloride [Moles/Vol] 103 mmol/L Normal 98-107 [facility] Comment on above: Performed By: #### C RP, BMP #### [facility] [address] [place] [address] Dr. Verenice Smallwood CO2 [Moles/Vol] 26.5 mmol/L Normal 21.0-32.0 [facility] Comment on above: Performed By: #### C RP, BMP #### [facility] [address] [place] [address] Dr. Verenice Smallwood Creatinine [Mass/Vol] 0.78 mg/dL Normal 0.55-1.02 [facility] Comment on above: Performed By: #### C RP, BMP #### [facility] [address] [place] [address] Dr. Verenice Smallwood EGFR-AF GUYANESE >60 Normal >=60 [facility] Comment on above: Performed By: #### C RP, BMP #### [facility] [address] [address] [address] Verenice Smallwood EGFR-NON AF GUYANESE >60 Normal >=60 [facility] Comment on above: Performed By: #### C RP, BMP #### [facility] [address] [address] [address] Verenice Smallwood Glucose [Mass/Vol] 115 mg/dL Critically high 74-106 [facility] Comment on above: Performed By: #### C RP, BMP #### [facility] [address] [address] [address] Verenice Smallwood Potassium [Moles/Vol] 3.8 mmol/L Normal 3.5-5.1 [facility] Comment on above: Performed By: #### C RP, BMP #### [facility] [address] [address] [address] Verenice Smallwood Sodium [Moles/Vol] 133 mmol/L Critically low 136-145 [facility] Comment on above: Performed By: #### C RP, BMP #### [facility] [address] [address] [address] Verenice Smallwood Urea nitrogen [Mass/Vol] 17.0 mg/dL Normal 7.0-18.0 [facility] Comment on above: Performed By: #### C RP, BMP #### [facility] [address] [address] [address] Verenice Smallwood Urea nitrogen/Creatini ne [Mass ratio] 21.8 mg/mg Normal [facility] Comment on above: Performed By: #### C RP, BMP #### [facility] [address] [address] [address] Verenice Smallwood SED RATE WESTERGRENon 2021 SED RATE 39 mm/hr Critically high <=20 The [facility] Comment on above: Performed By: #### C BC #### [facility] [address] [address] [address] Verenice Smallwood UA RANDOM W/MICROSCOPICon BACTERIA MODERATE Abnormal NONE SEEN [facility] Comment on above: Performed By: #### C BC #### [facility] [address] [place] [address] Dr. Verenice Smallwood Bilirubin Ql (U) Negative Normal NEGATIVE The [facility] Comment on above: Performed By: #### C BC #### [facility] [address] [place] [address] Dr. Verenice Smallwood CAST NONE SEEN Normal NONE SEEN [facility] Comment on above: Performed By: #### C BC #### [facility] [address] [place] [address] Dr. Verenice Smallwood Clarity (U) CLEAR Normal CLEAR [facility] Comment on above: Performed By: #### C BC #### [facility] [address] [place] [address] Dr. Verenice Smallwood Color (U) YELLOW Normal YELLOW [facility] Comment on above: Performed By: #### C BC #### [facility] [address] [place] [address] Dr. Verenice Smallwood Crystals LM Nom (Urine sed) NONE SEEN Normal NONE SEEN [facility] Comment on above: Performed By: #### C BC #### [facility] [address] [place] [address] Dr. Verenice Smallwood Epithelial cells LM Ql (Urine sed) FEW Abnormal NONE SEEN /RARE [facility] Comment on above: Performed By: #### C BC #### [facility] [address] [place] [address] Dr. Verenice Smallwood Glucose Ql (U) Negative Normal NEGATIVE The [facility] Comment on above: Performed By: #### C BC #### [facility] [address] [place] [address] Dr. Verenice Smallwood Hemoglobin Ql (U) Negative Normal NEGATIVE The [facility] Comment on above: Performed By: #### C BC #### [facility] [address] [place] [address] Dr. Verenice Smallwood Ketones Ql (U) Negative Normal NEGATIVE The [facility] Comment on above: Performed By: #### C BC #### [facility] [address] [place] [address] Dr. Verenice Smallwood LEUKOCYTES Negative Normal NEGATIVE [facility] Comment on above: Performed By: #### C BC #### [facility] [address] [place] [address] Dr. Verenice Smallwood MUCOUS NONE SEEN Normal NONE SEEN [facility] Comment on above: Performed By: #### C BC #### [facility] [address] [place] [address] Dr. Verenice Smallwood Nitrite Ql (U) Negative Normal NEGATIVE The [facility] Comment on above: Performed By: #### C BC #### [facility] [address] [place] [address] Dr. Verenice Smallwood pH (U) 6.0 [pH] Normal 5-9 [facility] Comment on above: Performed By: #### C BC #### [facility] [address] [place] [address] Dr. Verenice Smallwood RBC NONE SEEN Abnormal 0-2 [facility] Comment on above: Performed By: #### C BC #### [facility] [address] [place] [address] Dr. Verenice Smallwood SPEC GRAVITY >=1.030 Abnormal 1.005-<=1.0 25 [facility] Comment on above: Performed By: #### C BC #### [facility] [address] [place] [address] Dr. Verenice Smallwood UA PROTEIN Negative Normal NEGATIVE/ TRACE [facility] Comment on above: Performed By: #### C BC #### [facility] [address] [place] [address] Dr. Verenice Smallwood Urobilinogen Qn (U) 0.2 {Brett'U}/dL Normal 0.2 - 1.0 [facility] Comment on above: Performed By: #### C BC #### [facility] [address] [place] [address] Dr. Verenice Smallwood WBC 0-2 Abnormal NONE SEEN [facility] Comment on above: Performed By: #### C BC #### [facility] [address] [place] [address] Dr. Verenice Smallwood Covid-19 PCR [facility]on 10-1 1-2022 SARS-CoV-2 (COVID-19) RNA LILIANA+probe Ql (Unsp spec) Not detected Normal NOT DETECTED [facility] Comment on above: Result Comment: This test is not yet approved or cleared by the [place] FDA. When there are no FDA-approved or cleared tests available, and other criteria are met, FDA can make tests available under an emergency access mechanism called an Emergency Use Authorization (EUA). The EUA for this test is supported by the [place] of Health and Human Service's (HHS's) declaration [...] consistent with SARS-CoV-2. Performed By: #### C [facility] #### [facility] [address] [place] [address] Dr. Verenice Smallwood MG MAMM SCREEN 3D LAMIN CADon 11-26-2021 MG MAMM SCREEN 3D LAMIN CAD Patient: CACHORRO DORADO Exam Date: 11/26/2021 : 1975 Gender:F Ordering : A[facility]EN [facility] Admission #: [id number] Family : Order #: [id number] CLICK HERE TO VIEW EXAM RADIOLOGY REPORT [...] lung cancer at age 64. LOCATION: [facility] BREAST COMPOSITION: Scattered areas fibroglandular density. [...] Severino MD on 11/26/2021 at 12:38 Normal [facility] XR hand LT min 3V*on 022 XR hand LT min 3V* [facility] [employer] Other XR hand LT min 3V* [facility] [employer] Other XR hand LT min 3V* [address] [place] [address] [facility] Other XR hand LT min 3V* [place] [address] [facility] Other XR hand LT min 3V* XRay Report [facility] Other XR hand LT min 3V* Signed [facility] Other XR hand LT min 3V* Patient: Cachorro Sebastian [facility] Other XR hand LT min 3V* #: [id number] [facility] Other XR hand LT min 3V* : 1975 Acct:[id number] [facility] Other XR hand LT min 3V* Age/Sex: 45 / F ADM Date: 08/08/21 [facility] Other XR hand LT min 3V* Loc: [facility]Y Room: Type: REG CLI [facility] Other XR hand LT min 3V* Attending Dr: Padma XIAO [facility] Other XR hand LT min 3V* Ordering Provider: NINOSKA Mejia [facility] Other XR hand LT min 3V* Date of Service: 08/08/21 [facility] Other XR hand LT min 3V* XR/XR hand LT min 3V*: PAIN [facility] Other XR hand LT min 3V* Copies to: NINOSKA Mejia [facility] Other XR hand LT min 3V* Left hand 08/08/2021. [facility] Other XR hand LT min 3V* CLINICAL DATA: Left thumb pain after injury. [facility] Other XR hand LT min 3V* FINDINGS: 3 views of the left hand were obtained. [facility] Other XR hand LT min 3V* No acute fracture or dislocation is identified. No other bony abnormality is seen. No significant [facility] Other XR hand LT min 3V* soft tissue swelling is noted. [facility] Other XR hand LT min 3V* XR/XR hand LT min 3V* [facility] Other XR hand LT min 3V* IMPRESSION: No acute bony abnormality. [facility] Other XR hand LT min 3V* Impression dictated by: Eric Li Jr., M.D.08/08/2021 1:28 PM [facility] Other XR hand LT min 3V* Dictation Location: [address] [address] [facility] Other XR hand LT min 3V* Transcribed By: FRANK 08/08/21 [facility] Other XR hand LT min 3V* Dictated By: Eric Li Jr, MD 08/08/21 [facility] Other XR hand LT min 3V* Signed By: [facility] Other XR hand LT min 3V* 08/08/21 1328 [facility] Other Ambulatory Visit Summaryon 0 07-03-2021 Ambulatory Visit Summary CACHORRO DORADO :1975 Visit Date:07/03/2021 Ambulatory Visit Instructions Your Care Team Attending Physician - LEXX BAGLEY, Francisca Ruffin Primary Care Physician - RICCARDO WOLFE, ODALIS Braxton This Is Your Medications List albuterol (albuterol [...] meatal stenosis Vitamin D deficiency Normal [facility] Office/Clini c Noteon 07-03-2021 [...] 50,000 intl units (1.25 mg) oral capsule, 85106 International_Unit= 1 cap(s), Oral, qWeek Allergies DULoxetine [...] vaccine, inactivated - Not Given Patient Refuses [facility] Comment on above: Result Comment: Elec tronically Signed By: LEXX BAGLEY, Francisca Mcarthur\Date and Time Signed: 07/03/21 15:19 EDT Pathology Noteon 06-26-2021 Pathology Note [id number]#1.00CD:127 [facility] Outside Colonoscopyon 2021 Outside Colonoscopy [id number]#1.00CD:127 [facility] Reminderson 06-25-2021 Reminders - From: Leigh Ann Duncan LPN To: N - Clinical; Sent: 06/25/2021 09:44:37 EDT Show up: 05/25/2031 07:00:00 EST Subject: colonoscopy recall Due Date/Time: 06/25/2031 07:00:00 EDT Reminder/Recall Patient is due for screening colonoscopy 06/25/2031. [facility] Lab Reportson 06-23-2021 Lab Reports [id number]#1.00CD:127 [facility] Pre-Certification Formon Pre-Certification Form [id number]#1.00CD:127 [facility] Consent for Procedure/Surger yon 06-04-2021 Consent for Procedure/Surgery [id number]#1.00CD:127 Normal [facility] Ambulatory Visit Summaryon 0 06-03-2021 Ambulatory Visit [...] meatal stenosis Vitamin D deficiency Normal [facility] Physician Referralon 022 Physician Referral [id number]:127 Normal [facility] COVID Quick Testingon 2020 Result Negative [facility] Other Quick Fluon 03-26-2021 FLUAV Ab CF (S) [Titer] Negative [facility] Other FLUBV Ab CF (S) [Titer] Negative [facility] Other Vital Signs Date Time Vital Sign Value Performing Clinician Facility 10-07-2023 10:21-0400 Body height 170.18 cm Odalis Gu Work Phone: [facility] 10-07-2023 10:21-0400 Body mass index (BMI) [Ratio] 48.3 kg/m2 Odalis Aichholz Work Phone: [facility] 10-07-2023 10:21-0400 Body weight 140 kg Odalis Aichholz Work Phone: [facility] 07-21-2023 09:10-0400 Diastolic blood pressure 75 mm[Hg] Odalis Aichholz Work Phone: [facility] 07-21-2023 09:10-0400 Heart rate 64 /min Odalis Aichholz Work Phone: [facility] 07-21-2023 09:10-0400 Respiratory rate 18 /min Odalis Aichholz Work Phone: [facility] 07-21-2023 09:10-0400 SaO2% (BldA) [Mass fraction] 99 % Odalis Aichholz Work Phone: [facility] 07-21-2023 09:10-0400 Systolic blood pressure 118 mm[Hg] Odalis Aichholz Work Phone: [facility] 07-21-2023 07:22-0400 Body height 170.18 cm Odalis Aichholz Work Phone: [facility] 07-21-2023 07:22-0400 Body weight 140.61 kg Odalis Aichholz Work Phone: [facility] 07-15-2023 09:06-0400 Body height 165.1 cm [facility] 07-15-2023 09:06-0400 Body mass index (BMI) [Ratio] 50.6 kg/m2 [facility] 07-15-2023 09:06-0400 Body weight 138 kg [facility] 06-02-2023 10:31-0500 Body height 165.1 cm [facility] 06-02-2023 10:31-0500 Body mass index (BMI) [Ratio] 50.7 kg/m2 [facility] 06-02-2023 10:31-0500 Body weight 138.34 kg [facility] 06-02-2023 10:31-0500 Diastolic blood pressure 72 mm[Hg] [facility] 06-02-2023 10:31-0500 Heart rate 92 /min [facility] 06-02-2023 10:31-0500 Systolic blood pressure 118 mm[Hg] [facility] 03-10-2023 13:00-0500 Body height 166.37 cm Rambo Martinez Other [facility] [employer] Other 03-10-2023 13:00-0500 Body mass index (BMI) [Ratio] 52.11 kg/m2 Rambo Martinez Other [facility] Other 03-10-2023 13:00-0500 Body weight 144.24 kg Rambo Martinez Other [facility] Other 03-10-2023 13:00-0500 Diastolic blood pressure 94 mm[Hg] Rambo Martinez Other [facility] Other 03-10-2023 13:00-0500 SaO2% (BldA) [Mass fraction] 97 % Rambo Martinez Other [facility] Other 03-10-2023 13:00-0500 Systolic blood pressure 155 mm[Hg] Rambo Martinez Other [facility] Other 05-24-2022 09:15-0500 Body height 166.37 cm Rola Gant Other [facility] Other 05-24-2022 09:15-0500 Body mass index (BMI) [Ratio] 49.49 kg/m2 Rola Gant Other [facility] Other 05-24-2022 09:15-0500 Body temperature 97.8 [degF] Rola Gant Other [facility] Other 05-24-2022 09:15-0500 Body weight 136.99 kg Rola Gant Other [facility] Other 05-24-2022 09:15-0500 Respiratory rate 18 /min Rola Gant Other [facility] Other 05-24-2022 09:15-0500 SaO2% (BldA) [Mass fraction] 97 % Rola Gant Other [facility] Other 05-04-2022 10:15-0500 Body height 166.37 cm Yelitza Johnson Other [facility] Other 05-04-2022 10:15-0500 Body mass index (BMI) [Ratio] 50.11 kg/m2 Yelitza Johnson Other [facility] Other 05-04-2022 10:15-0500 Body weight 138.71 kg Yelitza Johnson Other [facility] Other 08-15-2021 12:20-0400 Body height 166.37 cm Jessica Dong Other [facility] Other 08-15-2021 12:20-0400 Body mass index (BMI) [Ratio] 48.34 kg/m2 Jessica Dong Other [facility] Other 08-15-2021 12:20-0400 Body temperature 96.8 [degF] Jessica Dong Other [facility] Other 08-15-2021 12:20-0400 Body weight 133.81 kg Jessica Dong Other [facility] Other 08-15-2021 12:20-0400 Diastolic blood pressure 92 mm[Hg] Jessica Dong Other [facility] Other 08-15-2021 12:20-0400 Respiratory rate 18 /min Jessica Dong Other [facility] Other 08-15-2021 12:20-0400 SaO2% (BldA) [Mass fraction] 99 % Jessica Dong Other [facility] Other 08-15-2021 12:20-0400 Systolic blood pressure 135 mm[Hg] Jessica Dong Other [facility] Other 08-08-2021 13:25-0400 Body height 166.37 cm Padma Nortonmond Other [facility] Other 08-08-2021 13:25-0400 Body mass index (BMI) [Ratio] 48.4 kg/m2 Padma Ashley Other [facility] Other 08-08-2021 13:25-0400 Body temperature 96.8 [degF] Padma Ashley Other [facility] Other 08-08-2021 13:25-0400 Body weight 133.99 kg Padma Ashley Other [facility] Other 08-08-2021 13:25-0400 Diastolic blood pressure 88 mm[Hg] Padma Nortonmond Other [facility] Other 08-08-2021 13:25-0400 Respiratory rate 16 /min Padmalaya Ramirez Other [facility] Other 08-08-2021 13:25-0400 SaO2% (BldA) [Mass fraction] 99 % Padma Ashley Other [facility] Other 08-08-2021 13:25-0400 Systolic blood pressure 133 mm[Hg] Padma Ramirez Other [facility] Other 03-26-2021 11:15-0500 Body height 166.37 cm Rola Ginty Other [facility] Other 03-26-2021 11:15-0500 Body mass index (BMI) [Ratio] 46.86 kg/m2 Rola Ginty Other [facility] Other 03-26-2021 11:15-0500 Body temperature 97.6 [degF] Rola Ginty Other [facility] Other 03-26-2021 11:15-0500 Body weight 129.73 kg Rola Ginty Other [facility] Other 03-26-2021 11:15-0500 Respiratory rate 18 /min Rola Ginty Other [facility] Other 03-26-2021 11:15-0500 SaO2% (BldA) [Mass fraction] 99 % Rola Ginty Other [facility] Other Encounters Encounter Date Encounter Type Care Provider Facility Start: 10-07-2023 End: 10-07-2023 ambulatory Odaliszackery Thornehholz Work Phone: [facility] Work Phone: Start: 10-07-2023 End: 10-07-2023 Patient encounter procedure Odalis Shermanholz Work Phone: [facility] Work Phone: Start: 08-17-2023 End: 08-17-2023 ambulatory Odalis Fox Matiloreleiholz Facility:[facility] Start: 08-17-2023 End: 08-17-2023 ambulatory Odalis Braxton Aichholz Work Phone: [facility] Work Phone: Start: 08-17-2023 End: 08-17-2023 Patient encounter procedure Odalis Bensonz Work Phone: [facility] [place] Work Phone: Start: 07-21-2023 Non-patient / Non-visit Odalis Shermanholz Work Phone: [facility] Work Phone: Start: 07-21-2023 End: 07-21-2023 Admission to same day surgery center Odalis Shermankayez Work Phone: [facility] Work Phone: Start: 07-21-2023 End: 07-21-2023 ambulatory Odalis Fox Aichholz Work Phone: [facility] Work Phone: Start: 07-15-2023 End: 07-15-[address] [facility] Work Phone: Start: 07-15-2023 End: 07-15-2023 Patient encounter procedure [facility] Work Phone: Start: 06-02-2023 End: 06-02-2023 Patient encounter procedure [facility] Work Phone: Start: 04-27-2023 End: 04-27-2023 ambulatory ODALIS BRIANNAHOLZ Not Available Start: 03-10-2023 End: 03-10-2023 ambulatory Rambo Martinez Facility:[facility] Start: 03-10-2023 Office outpatient ne w 60 minutes Rambo Martinez [facility] Start: 03-10-2023 End: 03-10-2023 ambulatory Odalis Braxton Matiloreleiholz Work Phone: [facility] Work Phone: Start: 03-10-2023 End: 03-10-2023 Patient encounter procedure Odalis Shermanholz Work Phone: [facility] Work Phone: Start: 02-23-2023 End: 02-23-2023 ambulatory ODALIS AICHHOLZ Not Available Start: 01-25-2023 End: 01-25-2023 ambulatory Yelitza Johnson Other [facility] Other Start: 01-25-2023 Office outpatient visit 15 minutes Yelitza Johnson [facility] Start: 08-12-2022 ambulatory SENIOR TELECOMMUNICATIONS CONSULTANT ODALIS AICHHOLZ Facil ity:[facility] Start: 08-11-2022 ambulatory SENIOR TELECOMMUNICATIONS CONSULTANT ODALIS AICHHOLZ Facil ity:[facility] Start: 07-12-2022 End: 07-13-2022 ambulatory SENIOR TELECOMMUNICATIONS CONSULTANT ODALIS AICHHOLZ Facility:[facility] Start: 07-02-2022 End: 07-03-2022 ambulatory SENIOR TELECOMMUNICATIONS CONSULTANT ODALIS AICHHOLZ Facility:[facility] Start: 06-28-2022 End: 06-29-2022 ambulatory SENIOR TELECOMMUNICATIONS CONSULTANT ODALIS AICHHOLZ Facility:[facility] Start: 06-09-2022 End: 06-10-2022 ambulatory SENIOR TELECOMMUNICATIONS CONSULTANT ODALIS AICHHOLZ Facility:[facility] Start: 06-08-2022 End: 06-08-2022 ambulatory Yelitza Johnson Other [facility] Other Start: 06-08-2022 Office outpatient visit 15 minutes Yelitzasimeon Johnson [facility] Start: 05-24-2022 End: 05-24-2022 ambulatory Rola Gant Other [facility] Other Start: 05-24-2022 Office outpatient visit 25 minutes Rola Gant [facility] Start: 05-04-2022 End: 05-04-2022 ambulatory Yelitzasimeon Johnson Other [facility] Other Start: 05-04-2022 Office outpatient visit 15 minutes Yelitza Calvkate [facility] Start: 04-14-2022 Office outpatient ne w 30 minutes Yelitza Calvey [facility] Start: 04-14-2022 End: 04-14-2022 ambulatory SENIOR TELECOMMUNICATIONS CONSULTANT ODALIS AICLYNDSAYZ [place] [employer] Other Start: 04-01-2022 End: 04-02-2022 ambulatory SENIOR TELECOMMUNICATIONS CONSULTANT ODALIS AICHHOLZ Facility:[facility] Start: 02-02-2022 End: 02-04-2022 ambulatory SENIOR TELECOMMUNICATIONS CONSULTANT ODALIS AICHHOLZ Facility:[facility] Start: 01-30-2022 End: 01-30-2022 ambulatory DOTTIEMERVIN MANN . Facility:[facility] Start: 01-06-2022 End: 01-06-2022 ambulatory SENIOR TELECOMMUNICATIONS CONSULTANT ODALIS AICHHOLZ Facility:[facility] Start: 01-05-2022 End: 01-05-2022 ambulatory SENIOR TELECOMMUNICATIONS CONSULTANT ODALIS AICHHOLZ Facility:[facility] Start: 12-19-2021 End: 12-19-2021 Patient encounter procedure DO Rylan Collado Work Phone: [facility] [place] Start: 11-26-2021 End: 11-27-2021 ambulatory SENIOR TELECOMMUNICATIONS CONSULTANT ODALIS AICHHOLZ Facility:[facility] Start: 11-18-2021 End: 11-18-2021 ambulatory Rylan Collado Other [facility] Other Start: 11-18-2021 Office outpatient ne w 45 minutes Rylan Collado [facility] Start: 08-26-2021 End: 09-26-[address] PADMA RANDOLPH Facility: Start: 08-15-2021 End: 08-15-2021 ambulatory Jessica Dong Other [facility] Other Start: 08-15-2021 Office outpatient visit 15 minutes Jessica Dong [facility] Start: 08-08-2021 End: 08-08-2021 ambulatory Padma Ramirez Other [facility] Other Start: 08-08-2021 Office outpatient visit 15 minutes Padma Ramirez [facility] Start: 07-03-2021 End: 07-03-2021 Patient encounter procedure Francisca HALLMAN [facility] [place] Start: 03-26-2021 End: 03-26-2021 ambulatory Rola Ginty Other [facility] Other Start: 03-26-2021 Office outpatient visit 15 minutes Rola Gintludwig [facility] Procedures Date Procedure Procedure Detail Performing Clinician Start: 08-17-2023 Magnetic resonance cholangiopancreatography Odalis Gu Work Phone: Start: 07-21-2023 Esophagogastroduodenoscopy Odalis Gu Work Phone: Start: 06-24-2021 Colonoscopy Francisca NILL Start: 06-24-2021 Esophagogastroduodenoscopy Francisca REYNOSOL History of selective lumbar nerve block Francisca NILL Laparoscopic cholecystectomy Francisca NILL Plan of Treatment Date Care Activity Detail Author Start: 07-21-2023 [facility] Start: 12-19-2021 MRI of left hand MR hand LT wo con [facility] Magnetic resonance cholangiopancreatography [facility] Patient Education Gastritis (DC) [facility] Work Phone: Immunizations Immunization Date Immunization Notes Care Provider Cristian hummel NEGATED: Highlighted row has not occurred!06-03-2021 influenza virus vaccine, unspecified formulation Francisca HALLMAN [facility] [place] Payers Date Payer Category Payer Private Health Insurance [id number] 2023 Self-pay [id number] 1975 Unknown [id number] 2.16.84 0.1.724633.3.579.2.593 1975 Unknown [id number] 2.16.84 0.1.923281.3.579.2.593 1975 Unknown [id number] 2.16.84 0.1.702584.3.579.2.593 1975 Unknown [id number] 2.16.84 0.1.398534.3.579.2.593 1975 Unknown [id number] 2.16.84 0.1.253962.3.579.2.593 1975 Unknown [id number] 2.16.84 0.1.543179.3.579.2.593 1974 Unknown [id number] 2.16.84 0.1.932423.3.579.2.593 1974 Unknown [id number] 2.16.84 0.1.123407.3.579.2.593 1975 Unknown [id number] 2.16.84 0.1.058959.3.579.2.593 1974 Unknown [id number] 2.16.84 0.1.403014.3.579.2.593 1974 Unknown [id number] 2.16.84 0.1.348448.3.579.2.593 1974 Unknown [id number] 2.16.84 0.1.588063.3.579.2.593 1974 Unknown [id number] 2.16.84 0.1.460930.3.579.2.593 1974 Unknown [id number] 2.16.84 0.1.067442.3.579.2.593 1974 Unknown [id number] 2.16.84 0.1.168654.3.579.2.1259 1975 Unknown [id number] 2.16.840 .1.122110.3.579.2.1259 1959 Private Health Insurance [id number] 2.16.840.1.781197.19 1959 Private Health Insurance [id number] 2.16.840.1.774221.19 1959 Private Health Insurance [id number] 1959 Unknown [id number] Unknown [id number] 2.16. 840.1.340233.19 Unknown [id number] 2.16.8 40.1.255007.19 Unknown [id number] 2.16.8 40.1.823347.3.579.2.531 Unknown [id number] 2.16.8 40.1.336289.3.579.2.531 Unknown [id number] 2.16.8 40.1.483510.3.579.2.531 Social History Date Type Detail Facility Start: 06-03-2021 End: 07-21-2023 Tobacco smoking status Never smoked tobacco (finding) [facility] Other Tobacco smoking status Never [facility] [place] Sex Assigned At Female Genera [facility] Start: 1975 Sex Assigned At Female F [facility] Goals Date Patient Goal Desired Activity /State Clinical Notes 06-03-2021 to 07-21-2023 Note Date & Type Note Facility 07-21-2023 Procedure note [facility] 03-10-2023 Evaluation note Encounter Date Diagnosis Assessment [...] changes in symptoms and/or problems with treatment [facility] Other 10-31-2023 Evaluation note* Encounter Date Diagnosis Assessment Notes Treatment Notes Treatment Clinical Notes Dec, Unspecified sprain of left thumb, initial encounter (ICD-10 - S63.602A) Extensive discussion was had about the current condition and treatment options available. We will submit for a cortisone injection with [facility]. We discussed use of Voltaren gel and Lidocaine patch to the affected area. Activity as tolerated. [facility] Other 03-14-2023 Evaluation note* Encounter Date Diagnosis Assessment Notes Treatment Notes Treatment Clinical Notes May, Unspecified sprain of left thumb, initial encounter (ICD-10 - S63.602A) Discussed with patient she is progressing well from injury. Continue to progress activity as tolerated. Patient given order for neoprene sleeve Patient may continue working with wearing a neoprene sleeve/ brace for added protection [facility] Other 02-27-2023 Evaluation note* Encounter Date Diagnosis [...] for fever/discomfort, cool mist humidifier. May use Manito as needed for cough, do not take any other OTCs while using Manito. Patient to follow up with PCP in 2-3 days. Immediate eval if SOB, difficulty breathing, chest pain, dizziness, or other concerning symptoms. Patient verbalizes understanding and is agreeable to treatment plan [facility] Other 02-07-2023 Evaluation note* Encounter Date Diagnosis [...] splint for activities. Continue current work restrictions [facility] Other 01-18-2023 Evaluation note* Encounter Date Diagnosis Assessment Notes Treatment Notes Treatment Clinical Notes Mar, Unspecified sprain of left thumb, initial encounter (ICD-10 - S63.602A) We will submit for [facility] approval for cortisone injection MCP joint/UCL Continue current work restrictions [facility] Other 01-05-2023 NotePROCEDURE: XR SHOULDER LT 2V or > HISTORY: Pain of left shoulder joint ; acute; no known injury COMPARISON: None. FINDINGS: BONES:No fracture, acute abnormality, or significant arthropathy. SOFT TISSUES:No visible soft tissue swelling. EFFUSION:None visible. OTHER: Negative. IMPRESSION: 1. Normal examination. Electronically authenticated by: DEEP BENSON Date: 2022-04-01 10:27[facility]08-24-2022 Evaluation note* Encounter Date Diagnosis Assessment Notes [...] as documented in the electronic medical record. [facility] Other 05-21-2022 Evaluation note* Encounter Date Diagnosis Assessment Notes Treatment Notes Treatment Clinical Notes July, Sprain of left thumb, unspecified site of digit, subsequent encounter (ICD-10 - S63.602D) patient symptoms are not getting any better. Recommend follow up with [facility] with possible one of Dr. Thompson for further evaluation or ortho at this point. Continue restrictions and use of brace [facility] Other 05-14-2022 Evaluation note* Encounter Date Diagnosis [...] today. Follow-up with the urgent care or [facility] occupational health in 1 week for recheck [facility] Other 03-09-2022 NoteChief Complaint consultation for epigastric [...] q6hr, PRN Diclof (more content not included)...[facility]Result Comment: Electronically Signed By: LEXX BAGLEY, Francisca Mcarthur\Date and Time Signed: 06/03/21 16:49 ESTEvaluation + Plan note No data available for this section General Surgery Ej Evaluation noteNorth Z[facility] Other Evaluation noteNo assessment information available [facility] Work Phone: Evaluation note* Diagnosis Onset Date Resolution Status Abdominal pain acute Diarrhea acute GERD (gastroesophageal reflux disease) acute Nausea acute Abdominal pain acute Diarrhea acute GERD (gastroesophageal reflux disease) acute Hepatomegaly acute Liver lesion acute Nausea acute [facility] Work Phone: Evaluation note* Diagnosis Onset Date Resolution Status Abdominal pain acute Diarrhea acute GERD (gastroesophageal reflux disease) acute Hepatomegaly acute Liver lesion acute Nausea acute Diarrhea acute GERD (gastroesophageal reflux disease) acute Liver lesion acute Nausea acute [facility] Work Phone: History and physical note Author Elizabeth Chan [facility] July 21, 2023 8:25am Note Date/Time July 21, 2023 7:4 2am [facility] [address] [place] [address] Gastroenterology H&P Signed Patient: Cachorro Sebastian MR#: [id number] : 1975 Acct:[id number] Age/Sex: 47 / F Adm Date: 4 Loc: Room: Type: [facility] Attending Dr: Elizabeth Chan DO Copies to: DO Odalis Multani NP-C~ Date of Service: 07/21/2023 HISTORY & PHYSICAL: Patient's history with special attention to the cardiovascular, pulmonary systems and the current problem was reviewed with the patient immediately prior to the procedure. Present medications and doses reviewed in the EMR. Allergies and pertinent laboratory tests were also reviewedat this time in the EMR. The physical examination, as below, was then performed. Indication, assessment and HPI: 47-year-old female who presents for EGD for nausea, GERD, epigastric pain, hx of PUD, diarrhea Family history of GI malignancy? No PHYSICAL EXAMINATION General appearance: cooperative, NAD Skin: No jaundice, no rash or lesions Head: NCAT Eyes: Anicteric Neck: Supple Lungs: Normal respiratory effort, no use of accessory muscles Abdomen: Soft, nondistended Neuro: No focal deficits, Ox3. REVIEW OF SYSTEMS Constitutional: Denies malaise, fevers Cardiovascular: Denies chest pain, palpitations Respiratory: Denies shortness of breath, wheezing Gastrointestinal: As per HPI Genitourinary: Denies dysuria, polyuria Musculoskeletal: Denies joint swelling, joint stiffness Neurological: Denies confusion, numbness, tingling Endocrine: Denies fatigue Written informed consent obtained from the patient. Risks (including but not limited to perforation, infection, bloating, bleeding, need for emergent surgeryand loss of life), benefits and alternatives explained and questions answered. The patient verbalized understanding. Based on history patient is an appropriate candidate for the procedure. Elziabeth Chan DO Documented By: Elizabeth Chan DO 07/21/23 0742 Signed By: <Electronically signed by Elizabeth Chan DO> 07/21/23 0857 [facility] Work Phone: History general N[facility]ative - [facility] NOT[facility] Other History general Narrative - Reported* Type Description Date Medical History Hypothyroidism Medical History Fibromyalgia Medical History Small fiber neuropathy Medical History Vitamin D deficiency Surgical History cholecystectomy [facility] Other [facility] general Narrative - Reported* Type Description Date Medical History Hypothyroidism Medical History Fibromyalgia Medical History Small fiber neuropathy Medical History Vitamin D deficiency Medical History Osteoarthritis lower back Medical History degenerative disc disease Surgical History cholecystectomy [facility] Other [facility] general Narrative - Reported* Type Description Date Medical History Hypothyroidism Medical History Fibromyalgia Medical History Small fiber neuropathy Medical History Vitamin D deficiency Medical History Osteoarthritis lower back Medical History degenerative disc disease Medical History obstructive sleep apnea Medical History restless leg syndrome Surgical History cholecystectomy [facility] Other Hospital Discharge instructions No data available for this section General Surgery Compology Summary Purpose Family History Relationship Condition Age at Onset Recorded Date/T ana Not Specified Chronic obstructive pulmonary disease Un known Hypothyroidism Unknown Relationship Condition Age at Onset Recorded Date/T ana mother Chronic obstructive pulmonary disease Unk nown Hypothyroidism Unknown Advance Directives Advance Directive Response Recorded Date/ Time Advance Directives No August 12 2 12:46pm Advance Directive Response Recorded Date/ Time Advance Directives No August 12 2 11:46am Chief Complaint and Reason for Visit Chief Complaint S63.602A Chief Complaint dago intolerance of p ap Chief Complaint REF BY [facility] FOR GERD/UPPER ABDOMEN PAIN 6 week follow up Reason for Visit Abdominal pain Diarrhea GERD (gastroesophageal reflux disease) Nausea Abdominal pain Diarrhea GERD (gastroesophageal reflux disease) Hepatomegaly Liver lesion Nausea Chief Complaint REF BY [facility] FOR GERD/UPPER ABDOMEN PAIN 6 week follow up gerd gerd Reason for Visit Abdominal pain Diarrhea GERD (gastroesophageal reflux disease) Nausea Abdominal pain Diarrhea GERD (gastroesophageal reflux disease) Hepatomegaly Liver lesion Nausea Chief Complaint REF BY [facility] FOR GERD/UPPER ABDOMEN PAIN 6 week follow up gerd gerd K76.9 Reason for Visit Abdominal pain Diarrhea GERD (gastroesophageal reflux disease) Nausea Abdominal pain Diarrhea GERD (gastroesophageal reflux disease) Hepatomegaly Liver lesion Nausea Chief Complaint 6 week follow up gerd gerd K76.9 follow up/ gerd Reason for Visit Abdominal pain Diarrhea GERD (gastroesophageal reflux disease) Hepatomegaly Liver lesion Nausea Diarrhea GERD (gastroesophageal reflux disease) Liver lesion Nausea Additional Source Comments INFORMATION SOURCE (unrecogn ized section and content) DATE CREATED AUTHOR 07/06/2021 [facility] DATE CREATED AUTHOR AUTHOR'S ORGANIZ ATION 08/12/2022 [facility] DATE CREATED AUTHOR AUTHOR'S ORGANIZ ATION 04/28/2023 [facility] EPIC DATE CREATED AUTHOR AUTHOR'S ORGANIZ ATION 08/19/2023 [facility] REASON FOR VISIT (unrecogniz ed section and [...] Primary Care Provider, Referring Provi shima Active Team Status: Inactive Member Role Status Dates Odalis Gu Primary Care Provider Active Sta rt: June 02, 2023 End: June 02, 2023 Cj Andres APRN Attending Provider Active Start: June 02, 2023 End: June 02, 2023 Team Status: Inactive Member Role Status Dates Odalis Gu Primary Care Provider Active Sta rt: July 15, 2023 End: July 15, 2023 Cj Andres APRN Attending Provider Active Start: July 15, 2023 End: July 15, 2023 Team Status: Inactive Member Role Status Dates Odalis Gu Primary Care Provider Active Sta rt: July 21, 2023 End: July 21, 2023 Elizabeth Chan DO Attending Provider Active St art: July 21, 2023 End: July 21, 2023 Team Status: Active Member Role Status Dates Odalis Gu Primary Care Provider Active Sta rt: July 21, 2023 Elizabeth Chan DO Attending Provider, Other Provider Active Start: July 21, 2023 Team Status: Inactive Member Role Status Dates Odalis Gu Primary Care Provider Active Sta rt: August 17, 2023 End: August 17, 2023 Cj Andres APRN Attending Provider Active Start: August 17, 2023 End: August 17, 2023 Team Status: Inactive Member Role Status Dates Odalis Braxton Riccardo Primary Care Provider Active Sta rt: October 07, 2023 End: October 07, 2023 Cj Andres APRN Attending Provider Active Start: October 07, 2023 End: October 07, 2023 Goals (unrecognized section and content) Goals may [...] BE BASED ON THE PRIMARY CLINICAL RECORDS. [facility] [employer] provides no warranty or guarantee of the accuracy or completeness of information in this document.
[2023-12-13 11:58] LABS: Basophils Absolute Auto 0.1 10^3/uL (0.0-0.1); Basophils Percent Auto 0.7 % (0.2-2.0); Eosinophils Absolute Auto 0.3 10^3/uL (0.0-0.7); Eosinophils Percent Auto 3.3 % (0.9-7.0); Hematocrit 38.3 % (36.0-48.0); Hemoglobin 12.4 g/dL (12.0-16.0); Immature Granulocytes Abs Auto 0.08 10^3/uL (0.00-0.03); Immature Granulocytes Pct Auto 0.9 % (0.0-0.5); Lymphocytes Absolute Auto 2.8 10^3/uL (1.2-3.8); Lymphocytes Percent Auto 31.4 % (20.5-60.0); Mean Corpuscular HGB Conc 32.4 g/dL (29.9-35.2); Mean Corpuscular Hemoglobin 29.1 pg (26.7-34.0); Mean Corpuscular Volume 89.9 fL (81.0-99.0); Mean Platelet Volume 8.5 fL (9.5-13.5); Monocytes Absolute Auto 0.4 10^3/uL (0.3-0.8); Monocytes Percent Auto 4.6 % (1.7-12.0); Neutrophils Absolute Auto 5.2 10^3/uL (1.4-6.5); Neutrophils Percent Auto 59.1 % (43.0-75.0); Platelet Count 302 10^3/uL (150-450); Red Blood Count 4.26 10^6/uL (4.20-5.40); Red Cell Distribution Width 14.6 % (11.0-15.0); White Blood Count 8.8 10^3/uL (4.0-11.0)
[2023-12-13 12:10] LABS: Microalbumin Urine Random <1.3 mg/dL (<=30.0)
[2023-12-13 12:19] LABS: Alanine Aminotransferase 26 U/L (14-59); Albumin Globulin Ratio 0.9; Albumin Level 3.4 g/dL (3.4-5.0); Alkaline Phosphatase 102 U/L (46-116); Anion Gap 14.8; Aspartate Amino Transferase 21 U/L (15-37); BUN Creatinine Ratio 17.4; Bilirubin Total 0.2 mg/dL (0.2-1.0); Calcium 9.2 mg/dL (8.5-10.1); Carbon Dioxide 24.5 mmol/L (21.0-32.0); Chloride 101 mmol/L (98-107); Chol HDL Ratio 3.6; Cholesterol 235 mg/dL (<=200); Estimated GFR (African America >60 (>=60); Estimated GFR (Non-African Ame >60 (>=60); Globulin 3.9 g/dL; Glucose 105 mg/dL (74-106); HDL Cholesterol 65 mg/dL (40-60); Potassium 4.3 mmol/L (3.5-5.1); Sodium 136 mmol/L (136-145); Thyroid Stimulating Hormone 6.872 uIU/mL (0.358-3.740); Total Protein 7.3 g/dL (6.4-8.2); Triglycerides 209 mg/dL (<=150); VLDL CHOLESTEROL 41.8 mg/dL
[2023-12-13 12:34] LABS: Bilirubin Urine NEGATIVE (NEGATIVE); Blood Urine NEGATIVE (NEGATIVE); Clarity Urine CLEAR (CLEAR); Color Urine LT. YELLOW (YELLOW); Glucose Urine UA NEGATIVE (NEGATIVE); Ketones Urine NEGATIVE (NEGATIVE); Leukocyte Esterase Urine NEGATIVE (NEGATIVE); Nitrite Urine NEGATIVE (NEGATIVE); Protein Urine NEGATIVE (NEG/TRACE); Specific Gravity Urine 1.025 (1.005-1.025); Urobilinogen Urine 0.2 EU/dL (0.2-1.0)
[2023-12-13 12:39] LABS: Urine Microscopic Indicated NO
[2023-12-13 12:39] LABS: Free T4 0.88 ng/dL (0.76-1.46)
[2023-12-16 17:07] LABS: Oxcarbazepine (Trileptal),S 13 ug/mL (10-35)
== END 2023-12-13 11:10 | disposition home or self-care (01) ==
LOC: LAB 11:10
PROVIDERS: PCP Nurse Practitioner; Visit Provider Nurse Practitioner
DX: I10 Essential (primary) hypertension (principal); K21.9 Gastro-esophageal reflux disease without esophagitis; E03.9 Hypothyroidism, unspecified; E55.9 Vitamin D deficiency, unspecified; E78.2 Mixed hyperlipidemia; Z51.81 Encounter for therapeutic drug level monitoring
CPT/HCPCS: 36415; 80053; 80061; 80183; 81003; 82043; 82306; 82570; 84439; 84443; 85025

== ENCOUNTER 2023-12-16 08:26 | Outpatient (OUT) | payer OTHER, SELFPAY ==
--- NOTE | 2023-12-16 08:29 | MM_ITS ---
Patient Name: CACHORRO DORADO MR#: [id number] : 1975 Exam Date: 12/16/2023 Ordering Doctor: AIDEN Gu CNP RADIOLOGY REPORT PROCEDURE: MM TOMOSYNTHESIS SCREENING BI COMPARISON: MG MAMM SCREEN 3D LAMIN CAD, 11/26/2021. MG MAMM SCREEN 3D LAMIN CAD, 07/25/2020. INDICATIONS: Screening mammogram Calculator Name NCI Breast Cancer Risk Assessment Tool 5 Year Breast Cancer Risk 0.60% Lifetime Breast Cancer Risk 6.10% Personal Breast Cancer No Personal Ovarian Cancer No Treatments None Family Cancers Grandmother-maternal with lung cancer at age ~65. LOCATION: [facility] BREAST COMPOSITION: There are scattered areas of fibroglandular density. FINDINGS: DIAGNOSTIC CATEGORY 2--BENIGN FINDING. NO CHANGE FROM COMPARISON. Scattered benign-appearing lymph nodes are present. RIGHT BREAST: No significant suspicious finding. LEFT BREAST: No significant suspicious finding. RECOMMENDATIONS: ROUTINE MAMMOGRAM AND CLINICAL EVALUATION IN 12 MONTHS. PLEASE NOTE: A NORMAL MAMMOGRAM DOES NOT EXCLUDE THE POSSIBILITY OF BREAST CANCER. A CLINICALLY SUSPICIOUS PALPABLE LUMP SHOULD BE BIOPSIED. Dictated by: Konstantin Toussaint MD on 12/16/2023 at 12:12 Approved by: Konstantin Toussaint MD on 12/16/2023 at 12:13
--- OUTSIDE RECORDS SUMMARY | 2023-12-16 08:40 | XMS_ITS | CCD ---
Author Organization [facility] Inform ion Partnership [facility] Care Team Providers Care Electric Car Operator Name Role Phone ODALIS GU Primary Care Physician [phone] Rola Reinoso Unavailable Padma Ramirez Unavailable Jessica Dong Unavailable Rylan Collado Unavailable DO Rylan Collado Attending Provider Odalis Gu Primary Care Provider [phone] Yelitza Johnson Unavailable Rola Gant Unavailable AICHHOLZ, ORTHOTIC/PROSTHETIC CLINICIAN ODALIS Attending Unavailable AICHHOLZ, ORTHOTIC/PROSTHETIC CLINICIAN ODALIS Admitting Unavailable AICHHOLZ, ORTHOTIC/PROSTHETIC CLINICIAN ODALIS Primary Care Unavailable DR RAMBO SEVERINO V Consulting Unavailable AICHHOLZ, ORTHOTIC/PROSTHETIC CLINICIAN ODALIS Consulting Unavailable AICHHOLZ, ORTHOTIC/PROSTHETIC CLINICIAN ODALIS Attending Unavailable AICHHOLZ, ORTHOTIC/PROSTHETIC CLINICIAN ODALIS Consulting Unavailable AICHHOLZ, ORTHOTIC/PROSTHETIC CLINICIAN ODALIS Admitting Unavailable AICHHOLZ, ORTHOTIC/PROSTHETIC CLINICIAN ODALIS Primary Care Unavailable AICHHOLZ, ORTHOTIC/PROSTHETIC CLINICIAN ODALIS Attending Unavailable AICHHOLZ, ORTHOTIC/PROSTHETIC CLINICIAN ODALIS Consulting Unavailable AICHHOLZ, ORTHOTIC/PROSTHETIC CLINICIAN ODALIS Admitting Unavailable AICHHOLZ, ORTHOTIC/PROSTHETIC CLINICIAN ODALIS Primary Care Unavailable AICHHOLZ, ORTHOTIC/PROSTHETIC CLINICIAN ODALIS Attending Unavailable AICHHOLZ, ORTHOTIC/PROSTHETIC CLINICIAN ODALIS Consulting Unavailable AICHHOLZ, ORTHOTIC/PROSTHETIC CLINICIAN ODALIS Admitting Unavailable AICHHOLZ, ORTHOTIC/PROSTHETIC CLINICIAN ODALIS Primary Care Unavailable DR PADMA RANDOLPH Consulting Unavailable DR PADMA RANDOLPH Attending Unavailable AICHHOLZ, ORTHOTIC/PROSTHETIC CLINICIAN ODALIS Primary Care Unavailable DR PADMA RANDOLPH Admitting Unavailable AICHHOLZ, ORTHOTIC/PROSTHETIC CLINICIAN ODALIS Primary Care Unavailable DR RADU DENNIS Consulting Unavailable JOSÉ MIGUEL ., DR LOVELACE Attending Unavailable JOSÉ MIGUEL ., DR LOVELACE Admitting Unavailable KATHY CURRAN Consulting Unavailable FRANCISCA DOMINGUEZ Consulting Unavailable DORIS CROWE Consulting Unavailable MACKENZIE ., DOTTIE Consulting Unavailable MACKENZIE ., DOTTIE Attending Unavailable AICHHOLZ, ORTHOTIC/PROSTHETIC CLINICIAN ODALIS Primary Care Unavailable MACKENZIE ., DOTTIE Admitting Unavailable AICHHOLZ, ORTHOTIC/PROSTHETIC CLINICIAN ODALIS Primary Care Unavailable PAY ., DR DURHAM Consulting Unavailable PAY ., DR DURHAM Attending Unavailable PAY ., DR DURHAM Admitting Unavailable AICHHOLZ, ORTHOTIC/PROSTHETIC CLINICIAN ODALIS Attending Unavailable AICHHOLZ, ORTHOTIC/PROSTHETIC CLINICIAN ODALIS Primary Care Unavailable AICHHOLZ, ORTHOTIC/PROSTHETIC CLINICIAN ODALIS Admitting Unavailable AICHHOLZ, ORTHOTIC/PROSTHETIC CLINICIAN ODALIS Attending Unavailable AICHHOLZ, ORTHOTIC/PROSTHETIC CLINICIAN ODALIS Primary Care Unavailable AICHHOLZ, ORTHOTIC/PROSTHETIC CLINICIAN ODALIS Consulting Unavailable AICHHOLZ, ORTHOTIC/PROSTHETIC CLINICIAN ODALIS Admitting Unavailable MARCELINO, DR DEEP Ruffin Consulting Unavailable AICHHOLZ, ORTHOTIC/PROSTHETIC CLINICIAN ODALIS Attending Unavailable AICHHOLZ, ORTHOTIC/PROSTHETIC CLINICIAN ODALIS Primary Care Unavailable AICHHOLZ, ORTHOTIC/PROSTHETIC CLINICIAN ODALIS Consulting Unavailable AICHHOLZ, ORTHOTIC/PROSTHETIC CLINICIAN ODALIS Admitting Unavailable AICHHOLZ, ORTHOTIC/PROSTHETIC CLINICIAN ODALIS Attending Unavailable AICHHOLZ, ORTHOTIC/PROSTHETIC CLINICIAN ODALIS Primary Care Unavailable MERE, DR RAMBO Hoang Consulting Unavailable AICHHOLZ, ORTHOTIC/PROSTHETIC CLINICIAN ODALIS Admitting Unavailable AICHHOLZ, ORTHOTIC/PROSTHETIC CLINICIAN ODALIS Consulting Unavailable AICHHOLZ, ORTHOTIC/PROSTHETIC CLINICIAN ODALIS Attending Unavailable AICHHOLZ, ORTHOTIC/PROSTHETIC CLINICIAN ODALIS Admitting Unavailable AICHHOLZ, ORTHOTIC/PROSTHETIC CLINICIAN ODALIS Primary Care Unavailable AICHHOLZ, ORTHOTIC/PROSTHETIC CLINICIAN ODALIS Consulting Unavailable AICHHOLZ, ORTHOTIC/PROSTHETIC CLINICIAN ODALIS Attending Unavailable AICHHOLZ, ORTHOTIC/PROSTHETIC CLINICIAN ODALIS Admitting Unavailable AICHHOLZ, ORTHOTIC/PROSTHETIC CLINICIAN ODALIS Primary Care Unavailable MD Rambo Martinez Attending Provider [phone] Aichholz, Odalis J Primary Care Provider [phone] Aichholz, Odalis J Referring Provider [phone] Rambo Martinez Unavailable Aichholz, Odalis J Primary Care Provider DO Elizabeth Chan Attending Provider Elizabeth Chan Attending Unavailable Elizabeth Chan Admitting Unavailable Aichholz, Odalis J Primary Care Unavailable Aichholz, Odalis J Primary Care Unavailable Cj Andres Attending Unavailable Cj Andres Admitting Unavailable Rambo Martinez Attending Unavailable Rambo Martinez Admitting Unavailable Odalis Gu Referring Unavailable Odalis Gu Primary Care Unavailable CHRIS Andres Attending Provider ODALIS GU Attending Unavailable ODALIS GU Attending Unavailable ODALIS GU Attending Unavailable Allergies Allergy Classification Reported Allergen(s) Allergy Type Date of Onset Reaction(s) Facility (15 sources) DULoxetine; Translations: [duloxetine] Drug Allergy 02-09-20 19 Eruption of skin (disorder) [facility] Other (5 sources) Nalbuphine; Translations: [nalbuphine] Drug Allergy 05-26-19 16 Headache (finding), Hallucinations (finding) [facility] (15 sources) Sulfacetamide; Translations: [sodium sulfacetamide ophthalmic] Drug Allergy 07-15-19 24 Eruption of skin (disorder) [facility] Other (1 source) Sulfonamides (Antibiotic); Translations: [sulfa drugs] Drug allergy Eruption of skin (disorder) [facility] (15 sources) topiramate; Translations: [topiramate] Drug Allergy 07-15-19 24 Clouded consciousness (finding) [facility] [employer] Other (12 sources) Nalbuphine; Translations: [Nubain] Drug Allergy 05-27-19 16 hallucinations and violent headache [facility] Repository (1 source) DULoxetine Drug Allergy 02-10-20 19 [facility] (2 sources) Sulfonamides (Antibiotic) Drug allergy (disorder) 05-27-19 16 [facility] (1 source) topiramate Drug Allergy [facility] (1 source) DULoxetine Drug Allergy 07-21-19 [facility] Rep[facility] (1 source) Nalbuphine Drug Allergy 07-21-19 [facility] Rep[facility] (1 source) Sulfacetamide Drug Allergy 07-21-19 [facility] (1 source) topiramate Drug Allergy 07-21-19 [facility] Medications Current Medications Medication Drug Class(es) Dates Sig (Normalized) Sig (Original) [id number] 200 actuat albuterol 0.09 mg/actuat metered dose [...] 1.5 mg/ml oral solution (7 sources) Uncompetitive E-sssmwj-J-asparta te Receptor Antagonist, Sigma-1 Agonist Start: 05-24-2022 take 10 mL by mouth every eight hours [place] DM 7.5-7.5 MG/5ML 10 mL Orally every [...] Provider: Maciej Daniels take 1 tablet by [facility] every twelve hours Diclofenac Sodium 75 MG [...] 1:00am Start: 06-01-2021 take 1 capsule by [facility] every week Vitamin D 50,000 intl units [...] Active 40 MG PO Twice daily 60 June 02, 2023 11:52am take 1 capsule [...] Episodic Other aftercare (1 source) Other terminal block assembler (current) drug therapy; Translations: [OTH BACK TACKER CURRENT DRUG THERAPY] Onset: 02-10-2022 Episodic Other [...] Test Name Value Interpretation Reference Range Facility [facility] 08-17-2023 MRCP [facility] [place] [address] MRI Report Signed Patient: Cachorro Sebastian MR #: [id number] : 1975 Acct:[id number] Age/Sex: 47 / F ADM Date: 08/17/23 Loc: Room: Type: [facility] Attending Dr: Cj Andres APRN Copies to: [...] STEATOSIS. Impression dictated by: Jerry Sanchez Jr., D.OGood08/17/2023 2:13 PM Dictation Location: [place] [address] Transcribed By: [facility] 08/17/23 1413 Dictated By: Jerry Sanchez Jr, DO 08/17/23 1410 Signed By: 08/17/23 1413 Normal [facility] HCG ( test) IA.rapi d Ql (U)Ordered By: Elizabeth Chan on 07-21-2023 HCG ( test) Ql (U) Negative [facility] HCG,Urineon 07-21-2023 Beta HCG ( test) Ql (U) Negative Normal [facility] Comment on above: Result Comment: PERF ORMED BY: [place] [address] PATHOLOGIST CORONARY CARE UNIT NURSE SHANNAN PANTOJA M.D. Performed By: #### U HCG #### [address] [place] 07-21-2023 L Specimen: [id number] R eceived: 07/21/23 Status: SOUT Req Num: [id number] Spec Type: Surgical Subm Dr: Elizabeth Chan DO Tissues: A Small Intestine - Biopsy/Polyp (SMALL BOWEL BX) B GASTRIC FOR HP (GASTRIC HP) Procedures: HE/4, Gross/Micro L4/2, H PYLORI, IHC First AB Age/ Patient Sex Location Account Attending Physician Cachorro Sebastian 47/F [id number] Elizabeth Chan DO SPEC NUM: [id number] RECD: 07/21/23 STATUS: CHARLEE AQUINO NUM: [id number] COLTON: 07/21/23- SUBM DR: Elizabteh Chan DO ENTERED: 07/21/23 [facility] DR: SPEC TYPE: Surgical DEPT: S ORDERED: HE/4, Gross/Micro L4/2, H PYLORI, IHC [...] 0.1 cm, entirely submitted in -------- Specimen: [id number] Received: 07/21/23 Status: CHARLEE Aquino Num: [id number] Spec Type: Surgical Subm Dr: Elizabeth Chan DO Tissues: A Small Intestine - Biopsy/Polyp (SMALL BOWEL BX) B GASTRIC FOR HP (GASTRIC HP) Procedures: HE/4, Gross/Micro L4/2, H PYLORI, IHC First AB -------- Patient: Senait LeCachorro Martinez [id number] (Continued) -------- Specimen: [id number] Received: 07/21/23 (Continued) Gross Description (Continued) Signed (signature on file) Guanaco Smallwood MD 08/08/23 1810 -------- Specimen: [id number] Received: 07/21/23 Status: CHARLEE Aquino Num: [id number] Spec Type: Surgical Subm Dr: Elizabeth Chan DO Tissues: A Small Intestine - Biopsy/Polyp (SMALL BOWEL BX) B GASTRIC FOR HP (GASTRIC HP) Procedures: HE/4, Gross/Micro L4/2, H PYLORI, IHC First AB -------- Patient: Cachorro Sebastian [id number] (Continued) -------- Specimen: [id number] Received: 07/21/23 (Continued) Gross Description (Continued) B1. Clinical history: GERD TW CPT Codes [id number] X2 [id number] -------- -------- Specimen: [id number] Received: 07/21/23 Status: CHARLEE Aquino Num: [id number] Spec Type: Surgical Subm Dr: Elizabeth Chan DO Tissues: A Small Intestine - Biopsy/Polyp (SMALL BOWEL BX) B GASTRIC FOR HP (GASTRIC HP) Procedures: HE/4, Gross/Micro L4/2, H PYLORI, IHC First AB -------- Patient: Cachorro Sebastian [id number] (Continued) -------- Signed (signature on file) Chin-Edison Smallwood MD 08/08/23 1810 Normal [facility] Covid-19 PCR (CVDTBH)on 07-26 SARS-CoV-2 (COVID-19) RNA LILIANA+probe Ql (Unsp spec) Not detected Normal NOT DETECTED [facility] Comment on above: Performed By: #### C VDTB #### [facility] [address] [place] [address] Dr. Verenice Smallwood SYMPTOMATIC COVID-19 ANTIGEN on 08-11-2022 EUA Statement SEE BELOW Normal [facility] Comment on above: Result Comment: This [...] sooner. Performed By: #### C VDAGS #### [facility] [address] [place] [address] Dr. Verenice Smallwood SARS-CoV-2 (COVID-19) RNA LILIANA+probe Ql (Unsp spec) Negative Normal NEGATIVE [facility] Comment on above: Performed By: #### C VDAGS #### [facility] [address] [place] [address] Dr. Verenice Smallwood XR DEXA BONE DENSITYon [...] by: RAMBO SEVERINO Date: 2022-07-12 18:[address] [facility] PHOSPHORUSon 07-02-2022 Phosphate [Mass/Vol] 3.2 mg/dL Normal 2.6-4.[address] [facility] Comment on above: Performed By: #### P HOS #### [facility] [address] [place] [address] Dr. Verenice Smallwood PROGESTERONEon 06-29-2022 Progesterone 0.4 ng/mL Normal [facility] Comment on above: Result Comment: Foll icular phase 0.1 - 0.9 Luteal phase 1.8 - 23.9 Ovulation phase 0.1 - 12.0 First trimester 11.0 - 44.3 Second trimester 25.4 - 83.3 Third trimester 58.7 - 214.0 Postmenopausal 0.0 - 0.1 Performed By: #### C VDTBH #### [facility] [address] [place] [address] Dr. Veernice Smallwood PTH INTACTon 06-29-2022 PTH, Intact 35 pg/mL Normal 15-[address] [facility] Comment on above: Performed By: #### C RP, BMP #### [facility] [address] [place] [address] [address] Verenice Smallwood CBC AUTO DIFFon 06-09-2022 BASO # 0.1 103/ul Normal 0.0-0.[address] [facility] Comment on above: Performed By: #### C BC #### [facility] [address] [place] [address] Dr. Verenice Smallwood Basophils/100 WBC (Bld) 0.7 % Normal 0.2-2.[address] [facility] Comment on above: Performed By: #### C BC #### [facility] [address] [place] [address] Dr. Verenice Smallwood EO # 0.1 103/ul Normal 0.0-0.[address] [facility] Comment on above: Performed By: #### C BC #### [facility] [address] [place] [address] Dr. Verenice Smallwood Eosinophils/100 WBC (Bld) 1.6 % Normal 0.9-7.[address] [facility] Comment on above: Performed By: #### C BC #### [facility] [address] [place] [address] Dr. Verenice Smallwood Erythrocyte distribution width (RBC) [Ratio] 12.9 % Normal 11.0-15.[address] [facility] Comment on above: Performed By: #### C BC #### [facility] [address] [place] [address] Dr. Verenice Smallwood Hematocrit (Bld) [Volume fraction] 44.6 % Normal 36.0-48.[address] [facility] Comment on above: Performed By: #### C BC #### [facility] [address] [place] [address] Dr. Verenice Smallwood Hemoglobin (Bld) [Mass/Vol] 14.6 g/dL Normal 12.0-16.[address] [facility] Comment on above: Performed By: #### C BC #### [facility] [address] [place] [address] Dr. Verenice Smallwood IG # 0.10 10e3/ul Critically high 0.00-0.03 [facility] Comment on above: Performed By: #### C BC #### [facility] [address] [place] [address] Dr. Verenice Smallwood IG % 1.1 % Critically high 0.0-0.5 [facility] Comment on above: Performed By: #### C BC #### [facility] [address] [place] [address] Dr. Verenice Smallwood LYMPH # 2.4 103/ul Normal 1.2-3.8 [facility] Comment on above: Performed By: #### C BC #### [facility] [address] [place] [address] Dr. Verenice Smallwood Lymphocytes/100 WBC (Bld) 27.3 % Normal 20.5-60.[address] [facility] Comment on above: Performed By: #### C BC #### [facility] [address] [place] [address] Dr. Verenice Smallwood MANUAL DIFF REQ NO Normal [facility] Comment on above: Performed By: #### C BC #### [facility] [address] [place] [address] Dr. Verenice Smallwood MCH (RBC) [Entitic mass] 30.2 pg Normal 26.7-34.[address] [facility] Comment on above: Performed By: #### C BC #### [facility] [address] [place] [address] Dr. Verenice Smallwood MCHC (RBC) [Mass/Vol] 32.7 g/dL Normal 29.9-35.2 [facility] Comment on above: Performed By: #### C BC #### [facility] [address] [place] [address] Dr. Verenice Smallwood MCV (RBC) [Entitic vol] 92.1 fL Normal 81.0-99.0 [facility] Comment on above: Performed By: #### C BC #### [facility] [address] [place] [address] Dr. Verenice Smallwood MONO # 0.6 103/ul Normal 0.3-0.8 [facility] Comment on above: Performed By: #### C BC #### [facility] [address] [place] [address] Dr. Verenice Smallwood Monocytes/100 WBC (Bld) 6.3 % Normal 1.7-12.0 [facility] Comment on above: Performed By: #### C BC #### [facility] [address] [place] [address] Dr. Verenice Smallwood NEUT # 5.5 103/ul Normal 1.4-6.5 [facility] Comment on above: Performed By: #### C BC #### [facility] [address] [place] [address] Dr. Verenice Smallwood Neutrophils/100 WBC (Bld) 63.0 % Normal 43.0-75.0 [facility] Comment on above: Performed By: #### C BC #### [facility] [address] [place] [address] Dr. Verenice Smallwood Platelet mean volume (Bld) [Entitic vol] 8.4 fL Critically low 9.5-13.5 [facility] Comment on above: Performed By: #### C BC #### [facility] [address] [place] [address] Dr. Verenice Smallwood PLT 300 103/ul Normal 150-450 [facility] Comment on above: Performed By: #### C BC #### [facility] [address] [place] [address] Dr. Verenice Smallwood RBC 4.84 106/ul Normal 4.20-5.40 [facility] Comment on above: Performed By: #### C BC #### [facility] [address] [place] [address] Dr. Verenice Smallwood WBC 8.8 103/ul Normal 4.0-11.0 [facility] Comment on above: Performed By: #### C BC #### [facility] [address] [place] [address] Dr. Verenice Smallwood FREE T4on 06-09-2022 Free T4 [Mass/Vol] 1.08 ng/dL Normal 0.76-1.46 [facility] Comment on above: Performed By: #### C RP, BMP #### [facility] [address] [place] [address] Dr. Verenice Smallwood GLYCOHEMOGLOBIN A1Con 2022 ADA RECOMMENDATION SEE BELOW Normal [facility] Comment on above: Result Comment: ADA RECOMMENDED LIMIT 4.0 - 6.0 ADA THERAPEUTIC TARGET < 7.0 ACTION SUGGESTED > 7.0 Performed By: #### C BC #### [facility] [address] [place] [address] [address] Verenice Smallwood Glucose [Mass/Vol] 123 mg/dL Normal [facility] Comment on above: Performed By: #### C BC #### [facility] [address] [place] [address] Dr. Verenice Smallwood HbA1c (Bld) [Mass fraction] 5.9 % Normal 4.5-6.[address] [facility] Comment on above: Performed By: #### C BC #### [facility] [address] [place] [address] Dr. Verenice Smallwood LIPID PROFILEon 06-09-2022 CHOL-HDL RATIO NORM SEE BELOW Normal [facility] Comment on above: Result Comment: 3.3 - 4.4 LOW RISK 4.4 - 7.1 AVERAGE RISK 7.1 - 11.0 MODERATE RISK >11.0 HIGH RISK Performed By: #### C BC #### [facility] [address] [place] [address] Dr. Verenice Smallwood Cholesterol [Mass/Vol] 255 mg/dL Critically high <=200 [facility] Comment on above: Performed By: #### C BC #### [facility] [address] [place] [address] Dr. Verenice Smallwood Cholesterol in HDL [Mass/Vol] 56 mg/dL Normal 40-60 [facility] Comment on above: Performed By: #### C BC #### [facility] [address] [place] [address] Dr. Verenice Smallwood Cholesterol in LDL [Mass/Vol] 144.6 mg/dL Normal [facility] Comment on above: Performed By: #### C BC #### [facility] [address] [place] [address] Dr. Verenice Smallwood Cholesterol.total /Cholesterol in HDL [Mass ratio] 4.6 {ratio} Normal [facility] Comment on above: Performed By: #### C BC #### [facility] [address] [place] [address] Dr. Verenice Smallwood HDL NORMAL > or = 60 mg/dl - LO W CARDIOVASCULAR RISK <40 mg/dl - HIGH CARDIOVASCULAR RISK Normal [facility] Comment on above: Performed By: #### C BC #### [facility] [address] [place] [address] Dr. Verenice Smallwood LDL CALC NORMAL SEE BELOW Normal [facility] Comment on above: Result Comment: <100 mg/dl OPTIMAL 100 - 129 mg/dl NEAR OR ABOVE OPTIMAL 130 - 159 mg/dl BORDERLINE HIGH 160 - 189 mg/dl HIGH >190 mg/dl VERY HIGH Performed By: #### C BC #### [facility] [address] [place] [address] Dr. Verenice Smallwood Triglyceride [Mass/Vol] 272 mg/dL Critically high <=150 [facility] Comment on above: Performed By: #### C BC #### [facility] [address] [place] [address] Dr. Verenice Smallwood VLDL CALC 54.4 mg/dL Normal [facility] Comment on above: Performed By: #### C BC #### [facility] [address] [place] [address] Dr. Verenice Smallwood PROF 14(COMP METB)on 023 Albumin [Mass/Vol] 3.7 g/dL Normal 3.4-5.[address] [facility] Comment on above: Performed By: #### C BC #### [facility] [address] [place] [address] Dr. Verenice Smallwood Albumin/Globulin [Mass ratio] 0.9 {ratio} Normal [facility] Comment on above: Performed By: #### C BC #### [facility] [address] [place] [address] Dr. Verenice Smallwood ALP [Catalytic activity/Vol] 80 U/L Normal 46-116 [facility] Comment on above: Performed By: #### C BC #### [facility] [address] [place] [address] Dr. Verenice Smallwood ALT [Catalytic activity/Vol] 29 U/L Normal 14-59 [facility] Comment on above: Performed By: #### C BC #### [facility] [address] [place] [address] Dr. Verenice Smallwood Anion gap [Moles/Vol] 13.4 mmol/L Normal [facility] Comment on above: Performed By: #### C BC #### [facility] [address] [place] [address] Dr. Verenice Smallwood AST [Catalytic activity/Vol] 24 U/L Normal 15-37 [facility] Comment on above: Performed By: #### C BC #### [facility] [address] [place] [address] Dr. Verenice Smallwood Bilirubin [Mass/Vol] 0.2 mg/dL Normal 0.2-1.[address] [facility] Comment on above: Performed By: #### C BC #### [facility] [address] [place] [address] Dr. Verenice Smallwood Calcium [Mass/Vol] 9.7 mg/dL Normal 8.5-10.1 [facility] Comment on above: Performed By: #### C BC #### [facility] [address] [place] [address] Dr. Verenice Smallwood Chloride [Moles/Vol] 104 mmol/L Normal 98-107 [facility] Comment on above: Performed By: #### C BC #### [facility] [address] [place] [address] Dr. Verenice Smallwood CO2 [Moles/Vol] 25.4 mmol/L Normal 21.0-32.0 [facility] Comment on above: Performed By: #### C BC #### [facility] [address] [place] [address] Dr. Verenice Smallwood Creatinine [Mass/Vol] 0.77 mg/dL Normal 0.55-1.02 [facility] Comment on above: Performed By: #### C BC #### [facility] [address] [place] [address] Dr. Verenice Smallwood EGFR-AF BRUNEIAN >60 Normal >=60 [facility] Comment on above: Performed By: #### C BC #### [facility] [address] [address] [address] Verenice Smallwood EGFR-NON AF BRUNEIAN >60 Normal >=[address] [facility] Comment on above: Performed By: #### C BC #### [facility] [address] [address] [address] Verenice Smallwood Globulin (S) [Mass/Vol] 4.1 g/dL Normal [facility] Comment on above: Performed By: #### C BC #### [facility] [address] [address] [address] Verenice Smallwood Glucose [Mass/Vol] 110 mg/dL Critically high 74-[address] [facility] Comment on above: Performed By: #### C BC #### [facility] [address] [place] [address] Dr. Verenice Smallwood Potassium [Moles/Vol] 4.8 mmol/L Normal 3.5-5.1 [facility] Comment on above: Performed By: #### C BC #### [facility] [address] [address] [address] Verenice Smallwood Protein [Mass/Vol] 7.8 g/dL Normal 6.4-8.2 [facility] Comment on above: Performed By: #### C BC #### [facility] [address] [address] [address] Verenice Smallwood Sodium [Moles/Vol] 138 mmol/L Normal 136-145 [facility] Comment on above: Performed By: #### C BC #### [facility] [address] [address] [address] Verenice Smallwood Urea nitrogen [Mass/Vol] 15.0 mg/dL Normal 7.0-18.0 [facility] Comment on above: Performed By: #### C BC #### [facility] [address] [address] [address] Verenice Smallwood Urea nitrogen/Creatini ne [Mass ratio] 19.5 mg/mg Normal [facility] Comment on above: Performed By: #### C BC #### [facility] [address] [place] [address] Dr. eVrenice Smallwood TSHon 06-09-2022 TSH 1.964 uIU/mL Normal 0.358-3.740 [facility] Comment on above: Performed By: #### C BC #### [facility] [address] [place] [address] Dr. Verenice Smallwood UA RANDOM W/MICROSCOPICon BACTERIA TRACE Abnormal NONE SEEN [facility] Comment on above: Performed By: #### C BC #### [facility] [address] [place] [address] Dr. Verenice Smallwood Bilirubin Ql (U) Negative Normal NEGATIVE [facility] Comment on above: Performed By: #### C BC #### [facility] [address] [place] [address] Dr. Verenice Smallwood CAST NONE SEEN Normal NONE SEEN [facility] Comment on above: Performed By: #### C BC #### [facility] [address] [place] [address] Dr. Verenice Smallwood Clarity (U) CLEAR Normal CLEAR [facility] Comment on above: Performed By: #### C BC #### [facility] [address] [place] [address] Dr. Verenice Smallwood Color (U) LT. YELLOW Normal YELLOW [facility] Comment on above: Performed By: #### C BC #### [facility] [address] [place] [address] Dr. Verenice Smallwood Crystals LM Nom (Urine sed) NONE SEEN Normal NONE SEEN [facility] Comment on above: Performed By: #### C BC #### [facility] [address] [place] [address] Dr. Verenice Smallwood Epithelial cells LM Ql (Urine sed) FEW Abnormal NONE SEEN /RARE [facility] Comment on above: Performed By: #### C BC #### [facility] [address] [place] [address] Dr. Verneice Smallwood Glucose Ql (U) Negative Normal NEGATIVE [facility] Comment on above: Performed By: #### C BC #### [facility] [address] [place] [address] Dr. Verenice Smallwood Hemoglobin Ql (U) Negative Normal NEGATIVE [facility] Comment on above: Performed By: #### C BC #### [facility] [address] [place] [address] Dr. Verenice Smallwood Ketones Ql (U) Negative Normal NEGATIVE [facility] Comment on above: Performed By: #### C BC #### [facility] [address] [place] [address] Dr. Verenice Smallwood LEUKOCYTES Negative Normal NEGATIVE [facility] Comment on above: Performed By: #### C BC #### [facility] [address] [place] [address] Dr. Verenice Smallwood MUCOUS NONE SEEN Normal NONE SEEN [facility] Comment on above: Performed By: #### C BC #### [facility] [address] [place] [address] Dr. Verenice Smallwood Nitrite Ql (U) Negative Normal NEGATIVE [facility] Comment on above: Performed By: #### C BC #### [facility] [address] [place] [address] Dr. Verenice Smallwood pH (U) 6.0 [pH] Normal 5-[address] [facility] Comment on above: Performed By: #### C BC #### [facility] [address] [place] [address] Dr. Verenice Smallwood RBC NONE SEEN Abnormal 0-2 [facility] Comment on above: Performed By: #### C BC #### [facility] [address] [place] [address] Dr. Verenice Smallwood SPEC GRAVITY 1.025 Normal 1.005-<=1.[address] [facility] Comment on above: Performed By: #### C BC #### [facility] [address] [place] [address] Dr. Verenice Smallwood UA PROTEIN Negative Normal NEGATIVE/ TRACE [facility] Comment on above: Performed By: #### C BC #### [facility] [address] [place] [address] Dr. Verenice Smallwood Urobilinogen Qn (U) 0.2 {Brett'U}/dL Normal 0.2 - 1.[address] [facility] Comment on above: Performed By: #### C BC #### [facility] [address] [place] [address] Dr. Verenice Smallwood WBC NONE SEEN Normal NONE SEEN [facility] Comment on above: Performed By: #### C BC #### [facility] [address] [place] [address] Dr. Verenice Smallwood VITAMIN D 25 OHon 06-09-2022 VIT D 25-OH 23.2 ng/mL Normal [facility] Comment on above: Performed By: #### C RP, BMP #### [facility] [address] [place] [address] Dr. Verenice Smallwood VIT D RANGES SEE BELOW Normal [facility] Comment on above: Result Comment: <20 ng/mL Vit D deficient 20 - <30 ng/mL Vit D insufficient 30 - 100 ng/mL Vit D sufficient >100 ng/mL Potential Toxicity Performed By: #### C RP, BMP #### [facility] [address] [place] [address] Dr. Verenice Smallwood COVID + FLU Quick Testingon 05-24-2022 SARS-CoV-2 (COVID-19) RNA LILIANA+probe Ql (Unsp spec) Negative [facility] [employer] Other COVID + FLU Quick Testing Negative [facility] [employer] Other CBC AUTO DIFFon 02-04-2022 BASO # 0.1 103/ul Normal 0.0-0.[address] [facility] Comment on above: Performed By: #### C RP, BMP #### [facility] [address] [place] [address] Dr. Verenice Smallwood Basophils/100 WBC (Bld) 0.4 % Normal 0.2-2.0 [facility] Comment on above: Performed By: #### C RP, BMP #### [facility] [address] [place] [address] Dr. Verenice Smallwood EO # 0.0 103/ul Normal 0.0-0.[address] [facility] Comment on above: Performed By: #### C RP, BMP #### [facility] [address] [place] [address] Dr. Verenice Smallwood Eosinophils/100 WBC (Bld) 0.1 % Critically low 0.9-7.[address] [facility] Comment on above: Performed By: #### C RP, BMP #### [facility] [address] [place] [address] Dr. Verenice Smallwood Erythrocyte distribution width (RBC) [Ratio] 14.2 % Normal 11.0-15.[address] [facility] Comment on above: Performed By: #### C RP, BMP #### [facility] [address] [place] [address] Dr. Verenice Smallwood Hematocrit (Bld) [Volume fraction] 41.6 % Normal 36.0-48.[address] [facility] Comment on above: Performed By: #### C RP, BMP #### [facility] [address] [place] [address] Dr. Verenice Smallwood Hemoglobin (Bld) [Mass/Vol] 13.6 g/dL Normal 12.0-16.[address] [facility] Comment on above: Performed By: #### C RP, BMP #### [facility] [address] [place] [address] Dr. Verenice Smallwood IG # 0.38 10e3/ul Critically high 0.00-0.03 [facility] Comment on above: Performed By: #### C RP, BMP #### [facility] [address] [place] [address] Dr. Verenice Smallwood IG % 2.6 % Critically high 0.0-0.5 [facility] Comment on above: Performed By: #### C RP, BMP #### [facility] [address] [place] [address] Dr. Verenice Smallwood LYMPH # 1.5 103/ul Normal 1.2-3.8 [facility] Comment on above: Performed By: #### C RP, BMP #### [facility] [address] [place] [address] Dr. Verenice Smallwood Lymphocytes/100 WBC (Bld) 10.6 % Critically low 20.5-60.[address] [facility] Comment on above: Performed By: #### C RP, BMP #### [facility] [address] [place] [address] Dr. Verenice Smallwood MANUAL DIFF REQ NO Normal [facility] Comment on above: Performed By: #### C RP, BMP #### [facility] [address] [place] [address] Dr. Verenice Smallwood MCH (RBC) [Entitic mass] 29.5 pg Normal 26.7-34.[address] [facility] Comment on above: Performed By: #### C RP, BMP #### [facility] [address] [place] [address] Dr. Verenice Smallwood MCHC (RBC) [Mass/Vol] 32.7 g/dL Normal 29.9-35.[address] [facility] Comment on above: Performed By: #### C RP, BMP #### [facility] [address] [place] [address] Dr. Verenice Smallwood MCV (RBC) [Entitic vol] 90.2 fL Normal 81.0-99.[address] [facility] Comment on above: Performed By: #### C RP, BMP #### [facility] [address] [place] [address] Dr. Verenice Smallwood MONO # 0.3 103/ul Normal 0.3-0.[address] [facility] Comment on above: Performed By: #### C RP, BMP #### [facility] [address] [place] [address] Dr. Verenice Smallwood Monocytes/100 WBC (Bld) 2.3 % Normal 1.7-12.0 [facility] Comment on above: Performed By: #### C RP, BMP #### [facility] [address] [place] [address] Dr. Verenice Smallwood NEUT # 12.2 103/ul Critically high 1.4-6.5 [facility] Comment on above: Performed By: #### C RP, BMP #### [facility] [address] [place] [address] Dr. Verenice Smallwood Neutrophils/100 WBC (Bld) 84.0 % Critically high 43.0-75.[address] [facility] Comment on above: Performed By: #### C RP, BMP #### [facility] [address] [place] [address] Dr. Verenice Smallwood Platelet mean volume (Bld) [Entitic vol] 8.4 fL Critically low 9.5-13.5 [facility] Comment on above: Performed By: #### C RP, BMP #### [facility] [address] [place] [address] Dr. Verenice Smallwood PLT 337 103/ul Normal 150-450 [facility] Comment on above: Performed By: #### C RP, BMP #### [facility] [address] [place] [address] Dr. Verenice Smallwood RBC 4.61 106/ul Normal 4.20-5.40 [facility] Comment on above: Performed By: #### C RP, BMP #### [facility] [address] [place] [address] Dr. Verenice Smallwood WBC 14.5 103/ul Critically high 4.0-11.0 [facility] Comment on above: Performed By: #### C RP, BMP #### [facility] [address] [place] [address] Dr. Verenice Smallwood CRPon 02-04-2022 CRP [Mass/Vol] mg/L Normal <=1.0 [facility] Comment on above: Performed By: #### C BC #### [facility] [address] [place] [address] Dr. Verenice Smallwood PROF 14(COMP METB)on 022 Albumin [Mass/Vol] 3.0 g/dL Critically low 3.4-5.[address] [facility] Comment on above: Performed By: #### C BC #### [facility] [address] [place] [address] Dr. Verenice Smallwood Albumin/Globulin [Mass ratio] 0.8 {ratio} Normal [facility] Comment on above: Performed By: #### C BC #### [facility] [address] [address] [address] Verenice Smallwood ALP [Catalytic activity/Vol] 65 U/L Normal 46-116 [facility] Comment on above: Performed By: #### C BC #### [facility] [address] [place] [address] Dr. Verenice Smallwood ALT [Catalytic activity/Vol] 18 U/L Normal 14-59 [facility] Comment on above: Performed By: #### C BC #### [facility] [address] [place] [address] Dr. Verenice Smallwood Anion gap [Moles/Vol] 12.3 mmol/L Normal [facility] Comment on above: Performed By: #### C BC #### [facility] [address] [place] [address] Dr. Verenice Smallwood AST [Catalytic activity/Vol] 11 U/L Critically low 15-[address] [facility] Comment on above: Performed By: #### C BC #### [facility] [address] [place] [address] Dr. Verenice Smallwood Bilirubin [Mass/Vol] 0.1 mg/dL Critically low 0.2-1.[address] [facility] Comment on above: Performed By: #### C BC #### [facility] [address] [place] [address] Dr. Verenice Smallwood Calcium [Mass/Vol] 8.7 mg/dL Normal 8.5-10.1 [facility] Comment on above: Performed By: #### C BC #### [facility] [address] [place] [address] Dr. Verenice Smallwood Chloride [Moles/Vol] 101 mmol/L Normal 98-107 [facility] Comment on above: Performed By: #### C BC #### [facility] [address] [place] [address] Dr. Verenice Smallwood CO2 [Moles/Vol] 23.1 mmol/L Normal 21.0-32.0 [facility] Comment on above: Performed By: #### C BC #### [facility] [address] [place] [address] Dr. Verenice Smallwood Creatinine [Mass/Vol] 0.92 mg/dL Normal 0.55-1.02 [facility] Comment on above: Performed By: #### C BC #### [facility] [address] [address] [address] Verenice Smallwood EGFR-AF BRUNEIAN >60 Normal >=60 [facility] Comment on above: Performed By: #### C BC #### [facility] [address] [address] [address] Verenice Smallwood EGFR-NON AF BRUNEIAN >60 Normal >=[address] [facility] Comment on above: Performed By: #### C BC #### [facility] [address] [address] [address] Verenice Smallwood Globulin (S) [Mass/Vol] 3.8 g/dL Normal [facility] Comment on above: Performed By: #### C BC #### [facility] [address] [place] [address] Dr. Verenice Smallwood Glucose [Mass/Vol] 161 mg/dL Critically high 74-[address] [facility] Comment on above: Performed By: #### C BC #### [facility] [address] [address] [address] Verenice Smallwood Potassium [Moles/Vol] 4.4 mmol/L Normal 3.5-5.1 [facility] Comment on above: Performed By: #### C BC #### [facility] [address] [address] [address] Verenice Smallwood Protein [Mass/Vol] 6.8 g/dL Normal 6.4-8.2 [facility] Comment on above: Performed By: #### C BC #### [facility] [address] [address] [address] Verenice Smallwood Sodium [Moles/Vol] 132 mmol/L Critically low 136-145 [facility] Comment on above: Performed By: #### C BC #### [facility] [address] [address] [address] Verenice Smallwood Urea nitrogen [Mass/Vol] 25.0 mg/dL Critically high 7.0-18.[address] [facility] Comment on above: Performed By: #### C BC #### [facility] [address] [address] [address] Verenice Smallwood Urea nitrogen/Creatini ne [Mass ratio] 27.2 mg/mg Normal [facility] Comment on above: Performed By: #### C BC #### [facility] [address] [address] [address] Verenice Smallwood CBC AUTO DIFFon 02-03-2022 BASO # 0.0 103/ul Normal 0.0-0.[address] [facility] Comment on above: Performed By: #### C BC #### [facility] [address] [place] [address] Dr. Verenice Smallwood Basophils/100 WBC (Bld) 0.3 % Normal 0.2-2.[address] [facility] Comment on above: Performed By: #### C BC #### [facility] [address] [place] [address] Dr. Verenice Smallwood EO # 0.0 103/ul Normal 0.0-0.[address] [facility] Comment on above: Performed By: #### C BC #### [facility] [address] [place] [address] Dr. Verenice Smallwood Eosinophils/100 WBC (Bld) 0.0 % Critically low 0.9-7.[address] [facility] Comment on above: Performed By: #### C BC #### [facility] [address] [place] [address] Dr. Verenice Smallwood Erythrocyte distribution width (RBC) [Ratio] 13.6 % Normal 11.0-15.[address] [facility] Comment on above: Performed By: #### C BC #### [facility] [address] [place] [address] Dr. Verenice Smallwood Hematocrit (Bld) [Volume fraction] 40.5 % Normal 36.0-48.[address] [facility] Comment on above: Performed By: #### C BC #### [facility] [address] [place] [address] Dr. Verenice Smallwood Hemoglobin (Bld) [Mass/Vol] 13.4 g/dL Normal 12.0-16.[address] [facility] Comment on above: Performed By: #### C BC #### [facility] [address] [address] [address] Verenice Smallwood IG # 0.24 10e3/ul Critically high 0.00-0.03 [facility] Comment on above: Performed By: #### C BC #### [facility] [address] [address] [address] Verenice Smallwood IG % 2.0 % Critically high 0.0-0.5 [facility] Comment on above: Performed By: #### C BC #### [facility] [address] [address] [address] Verenice Smallwood LYMPH # 1.5 103/ul Normal 1.2-3.[address] [facility] Comment on above: Performed By: #### C BC #### [facility] [address] [place] [address] Dr. Verenice Smallwood Lymphocytes/100 WBC (Bld) 12.3 % Critically low 20.5-60.[address] [facility] Comment on above: Performed By: #### C BC #### [facility] [address] [address] [address] Verenice Smallwood MANUAL DIFF REQ NO Normal [facility] Comment on above: Performed By: #### C BC #### [facility] [address] [place] [address] Dr. Verenice Smallwood MCH (RBC) [Entitic mass] 29.8 pg Normal 26.7-34.[address] [facility] Comment on above: Performed By: #### C BC #### [facility] [address] [place] [address] Dr. Verenice Smallwood MCHC (RBC) [Mass/Vol] 33.1 g/dL Normal 29.9-35.[address] [facility] Comment on above: Performed By: #### C BC #### [facility] [address] [place] [address] Dr. Verenice Smallwood MCV (RBC) [Entitic vol] 90.2 fL Normal 81.0-99.[address] [facility] Comment on above: Performed By: #### C BC #### [facility] [address] [address] [address] Verenice Smallwood MONO # 0.2 103/ul Critically low 0.3-0.8 [facility] Comment on above: Performed By: #### C BC #### [facility] [address] [address] [address] Verenice Smallwood Monocytes/100 WBC (Bld) 1.5 % Critically low 1.7-12.[address] [facility] Comment on above: Performed By: #### C BC #### [facility] [address] [address] [address] Verenice Smallwood NEUT # 10.0 103/ul Critically high 1.4-6.5 [facility] Comment on above: Performed By: #### C BC #### [facility] [address] [place] [address] Dr. Verenice Smallwood Neutrophils/100 WBC (Bld) 83.9 % Critically high 43.0-75.[address] [facility] Comment on above: Performed By: #### C BC #### [facility] [address] [place] [address] Dr. Verenice Smallwood Platelet mean volume (Bld) [Entitic vol] 8.5 fL Critically low 9.5-13.[address] [facility] Comment on above: Performed By: #### C BC #### [facility] [address] [place] [address] Dr. Verenice Smallwood PLT 309 103/ul Normal 150-450 [facility] Comment on above: Performed By: #### C BC #### [facility] [address] [address] [address] Verenice Smallwood RBC 4.49 106/ul Normal 4.20-5.40 [facility] Comment on above: Performed By: #### C BC #### [facility] [address] [address] [address] Verenice Smallwood WBC 11.9 103/ul Critically high 4.0-11.0 [facility] Comment on above: Performed By: #### C BC #### [facility] [address] [address] [address] Verenice Smallwood CRPon 02-03-2022 CRP [Mass/Vol] mg/L Normal <=1.0 [facility] Comment on above: Performed By: #### C MP, CRP #### [facility] [address] [address] [address] Verenice Smallwood PROF 14(COMP METB)on 022 Albumin [Mass/Vol] 3.1 g/dL Critically low 3.4-5.[address] [facility] Comment on above: Performed By: #### C MP, CRP #### [facility] [address] [place] [address] Dr. Verenice Smallwood Albumin/Globulin [Mass ratio] 0.8 {ratio} Normal [facility] Comment on above: Performed By: #### C MP, CRP #### [facility] [address] [place] [address] Dr. Verenice Smallwood ALP [Catalytic activity/Vol] 66 U/L Normal 46-[address] [facility] Comment on above: Performed By: #### C MP, CRP #### [facility] [address] [place] [address] [address] Verenice Smallwood ALT [Catalytic activity/Vol] 22 U/L Normal 14-[address] [facility] Comment on above: Performed By: #### C MP, CRP #### [facility] [address] [place] [address] [address] Verenice Smallwood Anion gap [Moles/Vol] 11.4 mmol/L Normal [facility] Comment on above: Performed By: #### C MP, CRP #### [facility] [address] [place] [address] Dr. Verenice Smallwood AST [Catalytic activity/Vol] 11 U/L Critically low 15-37 [facility] Comment on above: Performed By: #### C MP, CRP #### [facility] [address] [place] [address] Dr. Verenice Smallwood Bilirubin [Mass/Vol] 0.1 mg/dL Critically low 0.2-1.[address] [facility] Comment on above: Performed By: #### C MP, CRP #### [facility] [address] [place] [address] [address] Verenice Smallwood Calcium [Mass/Vol] 8.9 mg/dL Normal 8.5-10.1 [facility] Comment on above: Performed By: #### C MP, CRP #### [facility] [address] [place] [address] [address] Verenice Smallwood Chloride [Moles/Vol] 102 mmol/L Normal 98-107 [facility] Comment on above: Performed By: #### C MP, CRP #### [facility] [address] [place] [address] [address] Verenice Smallwood CO2 [Moles/Vol] 22.0 mmol/L Normal 21.0-32.0 [facility] Comment on above: Performed By: #### C MP, CRP #### [facility] [address] [place] [address] Dr. Verenice Smallwood Creatinine [Mass/Vol] 0.84 mg/dL Normal 0.55-1.02 [facility] Comment on above: Performed By: #### C MP, CRP #### [facility] [address] [place] [address] [address] Verenice Smallwood EGFR-AF BRUNEIAN >60 Normal >=60 [facility] Comment on above: Performed By: #### C MP, CRP #### [facility] [address] [place] [address] Dr. Verenice Smallwood EGFR-NON AF BRUNEIAN >60 Normal >=60 [facility] Comment on above: Performed By: #### C MP, CRP #### [facility] [address] [address] [address] Verenice Smallwood Globulin (S) [Mass/Vol] 4.0 g/dL Normal [facility] Comment on above: Performed By: #### C MP, CRP #### [facility] [address] [place] [address] [address] Verenice Smallwood Glucose [Mass/Vol] 158 mg/dL Critically high 74-106 [facility] Comment on above: Performed By: #### C MP, CRP #### [facility] [address] [place] [address] Dr. Verenice Smallwood Potassium [Moles/Vol] 4.4 mmol/L Normal 3.5-5.[address] [facility] Comment on above: Performed By: #### C MP, CRP #### [facility] [address] [place] [address] Dr. Verenice Smallwood Protein [Mass/Vol] 7.1 g/dL Normal 6.4-8.[address] [facility] Comment on above: Performed By: #### C MP, CRP #### [facility] [address] [place] [address] Dr. Verenice Smallwood Sodium [Moles/Vol] 131 mmol/L Critically low 136-[address] [facility] Comment on above: Performed By: #### C MP, CRP #### [facility] [address] [place] [address] Dr. Verenice Smallwood Urea nitrogen [Mass/Vol] 20.0 mg/dL Critically high 7.0-18.[address] [facility] Comment on above: Performed By: #### C MP, CRP #### [facility] [address] [place] [address] Dr. Verenice Smallwood Urea nitrogen/Creatini ne [Mass ratio] 23.8 mg/mg Normal [facility] Comment on above: Performed By: #### C MP, CRP #### [facility] [address] [place] [address] Dr. Verenice Smallwood CBC AUTO DIFFon 02-02-2022 BASO # 0.1 103/ul Normal 0.0-0.[address] [facility] Comment on above: Performed By: #### C BC #### [facility] [address] [place] [address] Dr. Verenice Smallwood Basophils/100 WBC (Bld) 0.5 % Normal 0.2-2.0 [facility] Comment on above: Performed By: #### C BC #### [facility] [address] [place] [address] Dr. Verenice Smallwood EO # 0.1 103/ul Normal 0.0-0.[address] [facility] Comment on above: Performed By: #### C BC #### [facility] [address] [address] [address] Verenice Smallwood Eosinophils/100 WBC (Bld) 1.2 % Normal 0.9-7.[address] [facility] Comment on above: Performed By: #### C BC #### [facility] [address] [place] [address] Dr. Verenice Smallwood Erythrocyte distribution width (RBC) [Ratio] 14.3 % Normal 11.0-15.[address] [facility] Comment on above: Performed By: #### C BC #### [facility] [address] [place] [address] Dr. Verenice Smallwood Hematocrit (Bld) [Volume fraction] 41.1 % Normal 36.0-48.[address] [facility] Comment on above: Performed By: #### C BC #### [facility] [address] [place] [address] Dr. Verenice Smallwood Hemoglobin (Bld) [Mass/Vol] 13.7 g/dL Normal 12.0-16.[address] [facility] Comment on above: Performed By: #### C BC #### [facility] [address] [place] [address] Dr. Verenice Smallwood IG # 0.16 10e3/ul Critically high 0.00-0.03 [facility] Comment on above: Performed By: #### C BC #### [facility] [address] [place] [address] Dr. Verenice Smallwood IG % 1.6 % Critically high 0.0-0.5 [facility] Comment on above: Performed By: #### C BC #### [facility] [address] [place] [address] Dr. Verenice Smallwood LYMPH # 3.1 103/ul Normal 1.2-3.[address] [facility] Comment on above: Performed By: #### C BC #### [facility] [address] [place] [address] Dr. Verenice Smallwood Lymphocytes/100 WBC (Bld) 30.2 % Normal 20.5-60.[address] [facility] Comment on above: Performed By: #### C BC #### [facility] [address] [place] [address] Dr. Verenice Smallwood MANUAL DIFF REQ NO Normal [facility] Comment on above: Performed By: #### C BC #### [facility] [address] [place] [address] Dr. Verenice Smallwood MCH (RBC) [Entitic mass] 30.2 pg Normal 26.7-34.[address] [facility] Comment on above: Performed By: #### C BC #### [facility] [address] [place] [address] Dr. Verenice Smallwood MCHC (RBC) [Mass/Vol] 33.3 g/dL Normal 29.9-35.[address] [facility] Comment on above: Performed By: #### C BC #### [facility] [address] [place] [address] Dr. Verenice Smallwood MCV (RBC) [Entitic vol] 90.5 fL Normal 81.0-99.[address] [facility] Comment on above: Performed By: #### C BC #### [facility] [address] [place] [address] Dr. Verenice Smallwood MONO # 0.5 103/ul Normal 0.3-0.[address] [facility] Comment on above: Performed By: #### C BC #### [facility] [address] [place] [address] Dr. Verenice Smallwood Monocytes/100 WBC (Bld) 4.7 % Normal 1.7-12.[address] [facility] Comment on above: Performed By: #### C BC #### [facility] [address] [place] [address] Dr. Verenice Smallwood NEUT # 6.3 103/ul Normal 1.4-6.5 [facility] Comment on above: Performed By: #### C BC #### [facility] [address] [place] [address] Dr. Verenice Smallwood Neutrophils/100 WBC (Bld) 61.8 % Normal 43.0-75.0 [facility] Comment on above: Performed By: #### C BC #### [facility] [address] [address] [address] Verenice Smallwood Platelet mean volume (Bld) [Entitic vol] 8.6 fL Critically low 9.5-13.[address] [facility] Comment on above: Performed By: #### C BC #### [facility] [address] [address] [address] Verenice Smallwood PLT 313 103/ul Normal 150-450 [facility] Comment on above: Performed By: #### C BC #### [facility] [address] [address] [address] Verenice Smallwood RBC 4.54 106/ul Normal 4.20-5.[address] [facility] Comment on above: Performed By: #### C BC #### [facility] [address] [address] [address] Verenice Smallwood WBC 10.1 103/ul Normal 4.0-11.0 [facility] Comment on above: Performed By: #### C BC #### [facility] [address] [address] [address] Verenice Smallwood CRPon 02-02-2022 CRP 0.3 mg/dL Normal <=1.[address] [facility] Comment on above: Performed By: #### C RP, BMP #### [facility] [address] [place] [address] LSPINE WO CONon [...] FRANCISCA DOMINGUEZ Date: 2022-02-02 06:54 Normal [facility] CULTURE URINEon 02-02-2022 CULTURE URINE Culture Observations : NO GROWTH. Normal [facility] Comment on above: Performed By: #### C , BMP #### [facility] [address] [place] [address] Dr. Verenice Smallwood Covid-19 PCR ([facility]on SARS-CoV-2 (COVID-19) RNA LILIANA+probe Ql (Unsp spec) Not detected Normal NOT DETECTED [facility] Comment on above: Result Comment: When diagnostic [...] for this test is supported by the [place] of Health and Human Service's declaration that [...] Performed By: #### C RP, BMP #### [facility] [address] [place] [address] Dr. Verenice Smallwood PROF CHEM 8 (BAS METB)on Anion gap [Moles/Vol] 7.3 mmol/L Normal [facility] Comment on above: Performed By: #### C RP, BMP #### [facility] [address] [place] [address] Dr. Verenice Smallwood Calcium [Mass/Vol] 8.5 mg/dL Normal 8.5-10.1 [facility] Comment on above: Performed By: #### C RP, BMP #### [facility] [address] [place] [address] Dr. Verenice Smallwood Chloride [Moles/Vol] 103 mmol/L Normal 98-107 [facility] Comment on above: Performed By: #### C RP, BMP #### [facility] [address] [place] [address] Dr. Verenice Smallwood CO2 [Moles/Vol] 26.5 mmol/L Normal 21.0-32.0 [facility] Comment on above: Performed By: #### C RP, BMP #### [facility] [address] [place] [address] Dr. Verenice Smallwood Creatinine [Mass/Vol] 0.78 mg/dL Normal 0.55-1.02 [facility] Comment on above: Performed By: #### C RP, BMP #### [facility] [address] [place] [address] Dr. Verenice Smallwood EGFR-AF BRUNEIAN >60 Normal >=60 [facility] Comment on above: Performed By: #### C RP, BMP #### [facility] [address] [address] [address] Verenice Smallwood EGFR-NON AF BRUNEIAN >60 Normal >=[address] [facility] Comment on above: Performed By: #### C RP, BMP #### [facility] [address] [address] [address] Verenice Smallwood Glucose [Mass/Vol] 115 mg/dL Critically high 74-[address] [facility] Comment on above: Performed By: #### C RP, BMP #### [facility] [address] [address] [address] Verenice Smallwood Potassium [Moles/Vol] 3.8 mmol/L Normal 3.5-5.[address] [facility] Comment on above: Performed By: #### C RP, BMP #### [facility] [address] [address] [address] Verenice Smallwood Sodium [Moles/Vol] 133 mmol/L Critically low 136-[address] [facility] Comment on above: Performed By: #### C RP, BMP #### [facility] [address] [address] [address] Verenice Smallwood Urea nitrogen [Mass/Vol] 17.0 mg/dL Normal 7.0-18.[address] [facility] Comment on above: Performed By: #### C RP, BMP #### [facility] [address] [address] [address] Verenice Smallwood Urea nitrogen/Creatini ne [Mass ratio] 21.8 mg/mg Normal [facility] Comment on above: Performed By: #### C RP, BMP #### [facility] [address] [address] [address] Verenice Smallwood SED RATE WESTERGRENon 2021 SED RATE 39 mm/hr Critically high <=20 [facility] Comment on above: Performed By: #### C BC #### [facility] [address] [address] [address] Verenice Smallwood UA RANDOM W/MICROSCOPICon BACTERIA MODERATE Abnormal NONE SEEN [facility] Comment on above: Performed By: #### C BC #### [facility] [address] [place] [address] Dr. Verenice Smallwood Bilirubin Ql (U) Negative Normal NEGATIVE [facility] Comment on above: Performed By: #### C BC #### [facility] [address] [place] [address] Dr. Verenice Smallwood CAST NONE SEEN Normal NONE SEEN [facility] Comment on above: Performed By: #### C BC #### [facility] [address] [place] [address] Dr. Verenice Smallwood Clarity (U) CLEAR Normal CLEAR [facility] Comment on above: Performed By: #### C BC #### [facility] [address] [place] [address] Dr. Verenice Smallwood Color (U) YELLOW Normal YELLOW [facility] Comment on above: Performed By: #### C BC #### [facility] [address] [place] [address] Dr. Verenice Smallwood Crystals LM Nom (Urine sed) NONE SEEN Normal NONE SEEN [facility] Comment on above: Performed By: #### C BC #### [facility] [address] [place] [address] Dr. Verenice Smallwood Epithelial cells LM Ql (Urine sed) FEW Abnormal NONE SEEN /RARE [facility] Comment on above: Performed By: #### C BC #### [facility] [address] [place] [address] Dr. Verenice Smallwood Glucose Ql (U) Negative Normal NEGATIVE [facility] Comment on above: Performed By: #### C BC #### [facility] [address] [place] [address] Dr. Verenice Smallwood Hemoglobin Ql (U) Negative Normal NEGATIVE [facility] Comment on above: Performed By: #### C BC #### [facility] [address] [place] [address] Dr. Verenice Smallwood Ketones Ql (U) Negative Normal NEGATIVE [facility] Comment on above: Performed By: #### C BC #### [facility] [address] [place] [address] Dr. Verenice Smallwood LEUKOCYTES Negative Normal NEGATIVE [facility] Comment on above: Performed By: #### C BC #### [facility] [address] [place] [address] Dr. Verenice Smallwood MUCOUS NONE SEEN Normal NONE SEEN [facility] Comment on above: Performed By: #### C BC #### [facility] [address] [place] [address] Dr. Verenice Smallwood Nitrite Ql (U) Negative Normal NEGATIVE [facility] Comment on above: Performed By: #### C BC #### [facility] [address] [place] [address] Dr. Verenice Smallwood pH (U) 6.0 [pH] Normal 5-[address] [facility] Comment on above: Performed By: #### C BC #### [facility] [address] [place] [address] Dr. Verenice Smallwood RBC NONE SEEN Abnormal 0-2 [facility] Comment on above: Performed By: #### C BC #### [facility] [address] [place] [address] Dr. Verenice Smallwood SPEC GRAVITY >=1.030 Abnormal 1.005-<=1.[address] [facility] Comment on above: Performed By: #### C BC #### [facility] [address] [place] [address] Dr. Verenice Smallwood UA PROTEIN Negative Normal NEGATIVE/ TRACE [facility] Comment on above: Performed By: #### C BC #### [facility] [address] [place] [address] Dr. Verenice Smallwood Urobilinogen Qn (U) 0.2 {Brett'U}/dL Normal 0.2 - 1.[address] [facility] Comment on above: Performed By: #### C BC #### [facility] [address] [place] [address] Dr. Verenice Smallwood WBC 0-2 Abnormal NONE SEEN [facility] Comment on above: Performed By: #### C BC #### [facility] [address] [place] [address] Dr. Verenice Smallwood Covid-19 PCR (CVD[facility])on 12-26 SARS-CoV-2 (COVID-19) RNA LILIANA+probe Ql (Unsp spec) Not detected Normal NOT DETECTED [facility] Comment on above: Result Comment: This test is not yet approved or cleared by the [place] FDA. When there are no FDA-approved or cleared tests available, and other criteria are met, FDA can make tests available under an emergency access mechanism called an Emergency Use Authorization (EUA). The EUA for this test is supported by the [place] of Health and Human Service's (HHS's) declaration [...] consistent with SARS-CoV-2. Performed By: #### [facility] #### [facility] [address] [place] [address] Dr. Verenice Smallwood MAMM SCREEN 3D LAMIN CADon 11-26-2021 MG MAMM SCREEN 3D LAMIN CAD Patient: CACHORRO DORADO Exam Date: 11/26/2021 : 1975 Gender:F [facility] #: [id number] Family : Order #: [id number] CLICK HERE TO VIEW EXAM RADIOLOGY REPORT [...] lung cancer at age 64. LOCATION: [facility] BREAST COMPOSITION: Scattered areas fibroglandular density. FINDINGS: [...] Severino MD on 11/26/2021 at 12:[address] [facility] XR hand LT min 3V*on 022 XR hand LT min 3V* [facility] [employer] Other XR hand LT min 3V* [facility] [employer] Other XR hand LT min 3V* [address] [place] [address] [employer] Other XR hand LT min 3V* AGUSTO Davison [address] [employer] Other XR hand LT min 3V* XRay Report [employer] Other XR hand LT min 3V* Signed [employer] Other XR hand LT min 3V* Patient: Cachorro Sebastian [employer] Other XR hand LT min 3V* #: [id number] [employer] Other XR hand LT min 3V* : 1975 Acct:[id number] [employer] Other XR hand LT min 3V* Age/Sex: 45 / F ADM Date: 08/08/21 [employer] Other XR hand LT min 3V* Loc: XDUCLY Room: Type: [facility] [employer] Other XR hand LT min 3V* Attending Dr: Padma Ramirez [employer] MANAGER-C [employer] Other XR hand LT min 3V* Ordering Provider: NINOSKA Mejia [employer] Other XR hand LT min 3V* Date of Service: 08/08/21 [employer] Other XR hand LT min 3V* XR/XR hand LT min 3V*: PAIN [employer] Other XR hand LT min 3V* Copies to: NINOSKA Mejia [employer] Other XR hand LT min 3V* Left hand 08/08/2021. [employer] Other XR hand LT min 3V* CLINICAL DATA: Left thumb pain after injury. [employer] Other XR hand LT min 3V* FINDINGS: 3 views of the left hand were obtained. [employer] Other XR hand LT min 3V* No acute fracture or dislocation is identified. No other bony abnormality is seen. No significant [employer] Other XR hand LT min 3V* soft tissue swelling is noted. [employer] Other XR hand LT min 3V* XR/XR hand LT min 3V* [employer] Other XR hand LT min 3V* IMPRESSION: No acute bony abnormality. [employer] Other XR hand LT min 3V* Impression dictated by: Eric Li Jr., M.D.08/08/2021 1:28 PM [employer] Other XR hand LT min 3V* Dictation Location: [place] [address] [employer] Other XR hand LT min 3V* Transcribed By: FRANK 08/08/21 1328 [employer] Other XR hand LT min 3V* Dictated By: Eric Li Jr, MD 08/08/21 1327 [employer] Other XR hand LT min 3V* Signed By: [employer] Other XR hand LT min 3V* 08/08/21 0239 [employer] Other Ambulatory Visit Summaryon 0 07-03-2021 Ambulatory [...] Urethral meatal stenosis Vitamin D deficiency Normal [facility] General Surgery Office/Clini c Noteon 07-03-2021 [...] 50,000 intl units (1.25 mg) oral capsule, 8[address] International_Unit= 1 cap(s), Oral, qWeek Allergies DULoxetine [...] vaccine, inactivated - Not Given Patient Refuses [facility] Comment on above: Result Comment: Elec tronically Signed By: LEXX BAGLEY, Francisca Mcarthur\Date and Time Signed: 07/03/21 15:19 EDT Pathology Noteon 06-26-2021 Pathology Note [id number]#1.00CD:127 [facility] Outside Colonoscopyon 2021 Outside Colonoscopy [id number]#1.00CD:127 [facility] Reminderson 06-25-2021 Reminders - From: Leigh Ann Duncan LPN To: GSN - Clinical; Sent: 06/25/2021 09:44:37 EDT Show up: 05/25/2031 07:00:00 EST Subject: colonoscopy recall Due Date/Time: 06/25/2031 07:00:00 EDT Reminder/Recall Patient is due for screening colonoscopy 06/25/2031. [facility] Lab Reportson 06-23-2021 Lab Reports [id number]#1.00CD:127 [facility] Pre-Certification Formon Pre-Certification Form [id number]#1.00CD:127 Normal [facility] Consent for Procedure/Surger yon 06-04-2021 Consent for Procedure/Surgery [id number]#1.00CD:127 Normal [facility] Ambulatory Visit Summaryon 0 06-03-2021 Ambulatory Visit Summary CACHORRO DOARDO :1975 Visit Date:06/03/2021 Ambulatory Visit Instructions Your [...] Urethral meatal stenosis Vitamin D deficiency Normal [facility] Physician Referralon 022 Physician Referral [id number]#1.00CD:127 Normal [facility] COVID Quick Testingon 2020 Result Negative [employer] Other Quick Fluon 03-26-2021 FLUAV Ab CF (S) [Titer] Negative [employer] Other FLUBV Ab CF (S) [Titer] Negative [employer] Other Vital Signs Date Time Vital Sign Value Performing Clinician Facility 10-07-2023 [id number] Body height 170.18 cm Odalis Aichholz Work Phone: [facility] 10-07-2023 10:21-0400 Body mass index (BMI) [Ratio] 48.3 kg/m2 Odalis Aichholz Work Phone: [facility] 10-07-2023 10:21-0400 Body weight 140 kg Odalis Aichholz Work Phone: [facility] 07-21-2023 09:10-0400 Diastolic blood pressure 75 mm[Hg] Odalis Aichholz Work Phone: [facility] 07-21-2023 09:10-0400 Heart rate 64 /min Odalis Aichholz Work Phone: [facility] 07-21-2023 09:10-0400 Respiratory rate 18 /min Odalis Aichholz Work Phone: [facility] 07-21-2023 09:10-0400 SaO2% (BldA) [Mass fraction] 99 % Odalis Aichholz Work Phone: [facility] 07-21-2023 09:10-0400 Systolic blood pressure 118 mm[Hg] Odalis Aichholz Work Phone: [facility] 07-21-2023 07:22-0400 Body height 170.18 cm Odalis Aichholz Work Phone: [facility] 07-21-2023 07:22-0400 Body weight 140.61 kg Odalis Aichholz Work Phone: [facility] 07-15-2023 09:06-0400 Body height 165.1 cm [facility] 07-15-2023 09:06-0400 Body mass index (BMI) [Ratio] 50.6 kg/m2 [facility] 07-15-2023 09:06-0400 Body weight 138 kg [facility] 06-02-2023 10:31-0500 Body height 165.1 cm [facility] 06-02-2023 10:31-0500 Body mass index (BMI) [Ratio] 50.7 kg/m2 [facility] 06-02-2023 10:31-0500 Body weight 138.34 kg [facility] 06-02-2023 10:31-0500 Diastolic blood pressure 72 mm[Hg] [facility] 06-02-2023 10:31-0500 Heart rate 92 /min [facility] 06-02-2023 10:31-0500 Systolic blood pressure 118 mm[Hg] [facility] 03-10-2023 13:00-0500 Body height 166.37 cm Rambo Martinez Other [facility] [employer] Other 03-10-2023 13:00-0500 Body mass index (BMI) [Ratio] 52.11 kg/m2 Rambo Martinez Other [employer] Other 03-10-2023 13:00-0500 Body weight 144.24 kg Rambo Martinez Other [employer] Other 03-10-2023 13:00-0500 Diastolic blood pressure 94 mm[Hg] Rambo Martinez Other [employer] Other 03-10-2023 13:00-0500 SaO2% (BldA) [Mass fraction] 97 % Rambo Martinez Other [employer] Other 03-10-2023 13:00-0500 Systolic blood pressure 155 mm[Hg] Rambo Martinez Other [employer] Other 05-24-2022 09:15-0500 Body height 166.37 cm Rola Gant Other [employer] Other 05-24-2022 09:15-0500 Body mass index (BMI) [Ratio] 49.49 kg/m2 Rola Gant Other [employer] Other 05-24-2022 09:15-0500 Body temperature 97.8 [degF] Rola Gant Other [employer] Other 05-24-2022 09:15-0500 Body weight 136.99 kg Rola Gant Other [employer] Other 05-24-2022 09:15-0500 Respiratory rate 18 /min Rola Gant Other [employer] Other 05-24-2022 09:15-0500 SaO2% (BldA) [Mass fraction] 97 % Rola Gant Other [employer] Other 05-04-2022 10:15-0500 Body height 166.37 cm Yelitza Johnson Other [employer] Other 05-04-2022 10:15-0500 Body mass index (BMI) [Ratio] 50.11 kg/m2 Yelitza Johnson Other [employer] Other 05-04-2022 10:15-0500 Body weight 138.71 kg Yelitza Johnson Other [employer] Other 08-15-2021 12:20-0400 Body height 166.37 cm Jessica Dong Other [employer] Other 08-15-2021 12:20-0400 Body mass index (BMI) [Ratio] 48.34 kg/m2 Jessica Dong Other [employer] Other 08-15-2021 12:20-0400 Body temperature 96.8 [degF] Jessica Dong Other [facility] Other 08-15-2021 12:20-0400 Body weight 133.81 kg Jessica Dong Other [facility] Other 08-15-2021 12:20-0400 Diastolic blood pressure 92 mm[Hg] Jessica Dong Other [employer] Other 08-15-2021 12:20-0400 Respiratory rate 18 /min Jessica Dong Other [facility] Other 08-15-2021 12:20-0400 SaO2% (BldA) [Mass fraction] 99 % Jessica Dong Other [employer] Other 08-15-2021 12:20-0400 Systolic blood pressure 135 mm[Hg] Jessica Dong Other [employer] Other 08-08-2021 13:25-0400 Body height 166.37 cm Padma Ashley Other [employer] Other 08-08-2021 13:25-0400 Body mass index (BMI) [Ratio] 48.4 kg/m2 Padma Ashley Other [facility] Other 08-08-2021 13:25-0400 Body temperature 96.8 [degF] Padma Ashley Other [facility] Other 08-08-2021 13:25-0400 Body weight 133.99 kg Padma Ashley Other [facility] Other 08-08-2021 13:25-0400 Diastolic blood pressure 88 mm[Hg] Padma Ashley Other [facility] Other 08-08-2021 13:25-0400 Respiratory rate 16 /min Padma Ashley Other [employer] Other 08-08-2021 13:25-0400 SaO2% (BldA) [Mass fraction] 99 % Padma Ashley Other [employer] Other 08-08-2021 13:25-0400 Systolic blood pressure 133 mm[Hg] Padma Nortonmond Other [facility] Other 03-26-2021 11:15-0500 Body height 166.37 cm Rola Ginty Other [employer] Other 03-26-2021 11:15-0500 Body mass index (BMI) [Ratio] 46.86 kg/m2 Rola Ginty Other [employer] Other 03-26-2021 11:15-0500 Body temperature 97.6 [degF] Rola Ginty Other [employer] Other 03-26-2021 11:15-0500 Body weight 129.73 kg Rola Ginty Other [facility] Other 03-26-2021 11:15-0500 Respiratory rate 18 /min Rola Ginty Other [employer] Other 03-26-2021 11:15-0500 SaO2% (BldA) [Mass fraction] 99 % Rola Ginty Other [facility] [employer] Other Encounters Encounter Date Encounter Type Care Provider Facility Start: 12-13-2023 End: 12-13-2023 ambulatory ODALIS SHERMANKAYEBrayden Not Available Start: 10-07-2023 End: 10-07-2023 ambulatory Odalis J Aichholz Work Phone: [facility] Work Phone: Start: 10-07-2023 End: 10-07-2023 Patient encounter procedure Odalis Bensonz Work Phone: [facility] Work Phone: Start: 08-17-2023 End: 08-17-2023 ambulatory Odalis Fox Matiloreleiholz Facility:[facility] Start: 08-17-2023 End: 08-17-2023 ambulatory Odalis J Matihholz Work Phone: [facility] Work Phone: Start: 08-17-2023 End: 08-17-2023 Patient encounter procedure Odalis Whitholz Work Phone: [facility] Work Phone: Start: 07-21-2023 Non-patient / Non-visit Odalis Shermanholz Work Phone: [facility] Work Phone: Start: 07-21-2023 End: 07-21-2023 Admission to same day surgery center Odalis Matiloreleikayez Work Phone: [facility] Work Phone: Start: 07-21-2023 End: 07-21-2023 ambulatory Odalis J Aichholz Work Phone: [facility] Work Phone: Start: 07-15-2023 End: 07-15-2023 ambulatory [facility] Work Phone: Start: 07-15-2023 End: 07-15-2023 Patient encounter procedure [facility] Work Phone: Start: 06-02-2023 End: 06-02-2023 Patient encounter procedure [facility] Work Phone: Start: 04-27-2023 End: 04-27-2023 ambulatory ODALIS ADELA Not Available Start: 03-10-2023 End: 03-10-2023 ambulatory Rambo Martinez Facility:[facility] Start: 03-10-2023 Office outpatient ne w 60 minutes Rambo Martinez [facility] Start: 03-10-2023 End: 03-10-2023 ambulatory Odalis Braxton Marcelionz Work Phone: [facility] Work Phone: Start: 03-10-2023 End: 03-10-2023 Patient encounter procedure Odalis Whitholz Work Phone: [facility] Work Phone: Start: 02-23-2023 End: 02-23-2023 ambulatory ODALIS WHITHOLZ Not Available Start: 01-25-2023 End: 01-25-2023 ambulatory Yelitza Johnson Other [facility] Other Start: 01-25-2023 Office outpatient visit 15 minutes Yelitza Johnson [facility] Start: 08-12-2022 ambulatory ORTHOTIC/PROSTHETIC CLINICIAN ODALIS AICHHOLZ Facil ity:[facility] Start: 08-11-2022 ambulatory ORTHOTIC/PROSTHETIC CLINICIAN ODALIS AICHHOLZ Facil ity:[facility] Start: 07-12-2022 End: 07-13-2022 ambulatory ORTHOTIC/PROSTHETIC CLINICIAN ODALIS AICHHOLZ Facility:[facility] Start: 07-02-2022 End: 07-03-2022 ambulatory ORTHOTIC/PROSTHETIC CLINICIAN ODALIS AICHHOLZ Facility:[facility] Start: 06-28-2022 End: 06-29-2022 ambulatory ORTHOTIC/PROSTHETIC CLINICIAN ODALIS AICHHOLZ Facility:[facility] Start: 06-09-2022 End: 06-10-2022 ambulatory ORTHOTIC/PROSTHETIC CLINICIAN ODALIS AICHHOLZ Facility:[facility] Start: 06-08-2022 End: 06-08-2022 ambulatory Yelitza Calvey Other [facility] Other Start: 06-08-2022 Office outpatient visit 15 minutes Yelitza Calvey [facility] Start: 05-24-2022 End: 05-24-2022 ambulatory Rola Montes De Ocaler Other [facility] Other Start: 05-24-2022 Office outpatient visit 25 minutes Rola Gant [facility] Start: 05-04-2022 End: 05-04-2022 ambulatory Yelitza Calvey Other [facility] Other Start: 05-04-2022 Office outpatient visit 15 minutes Yelitza Calvey [facility] Start: 04-14-2022 Office outpatient ne w 30 minutes Yelitza Calvey [facility] Start: 04-14-2022 End: 04-14-2022 ambulatory ORTHOTIC/PROSTHETIC CLINICIAN ODALIS AICHHOLZ [employer] Other Start: 04-01-2022 End: 04-02-2022 ambulatory ORTHOTIC/PROSTHETIC CLINICIAN ODALIS AICHHOLZ Facility:[facility] Start: 02-02-2022 End: 02-04-2022 ambulatory ORTHOTIC/PROSTHETIC CLINICIAN ODALIS AICHHOLZ Facility:[facility] Start: 01-30-2022 End: 01-30-2022 ambulatory DOTTIE MANN . Facility:[facility] Start: 01-06-2022 End: 01-06-2022 ambulatory ORTHOTIC/PROSTHETIC CLINICIAN ODALIS AICHHOLZ Facility:[facility] Start: 01-05-2022 End: 01-05-2022 ambulatory ORTHOTIC/PROSTHETIC CLINICIAN ODALIS AICHHOLZ Facility:[facility] Start: 12-19-2021 End: 12-19-2021 Patient encounter procedure DO Rylan Collado Work Phone: [facility] Start: 11-26-2021 End: 11-27-2021 ambulatory ORTHOTIC/PROSTHETIC CLINICIAN ODALIS AICHHOLZ Facility:[facility] Start: 11-18-2021 End: 11-18-2021 ambulatory Rylan Collado Other [facility] Other Start: 11-18-2021 Office outpatient ne w 45 minutes Rylan Collado [facility] Start: 08-26-2021 End: 09-26-[address] PADMA RANDOLPH Facility: Start: 08-15-2021 End: 08-15-2021 ambulatory Jessica Dong Other [facility] Other Start: 08-15-2021 Office outpatient visit 15 minutes Jessica Dong [facility] Start: 08-08-2021 End: 08-08-2021 ambulatory Padma Ramirez Other [facility] Other Start: 08-08-2021 Office outpatient visit 15 minutes Padma Ramirez [facility] Start: 07-03-2021 End: 07-03-2021 Patient encounter procedure Francisca HALLMAN [facility] Start: 03-26-2021 End: 03-26-2021 ambulatory Rola Ginty Other [facility] Other Start: 03-26-2021 Office outpatient visit 15 minutes Rola Ginty [facility] Procedures Date Procedure Procedure Detail Performing Clinician Start: 08-17-2023 Magnetic resonance cholangiopancreatography Odalis Gu Work Phone: Start: 07-21-2023 Esophagogastroduodenoscopy Odalis Gu Work Phone: Start: 06-24-2021 Colonoscopy Francisca HALLMAN Start: 06-24-2021 Esophagogastroduodenoscopy Francisca HALLMAN History of selective lumbar nerve block Francisca HALLMAN Laparoscopic cholecystectomy Francisca HALLMAN Plan of Treatment Date Care Activity Detail Author Start: 07-21-2023 [facility] Start: 12-19-2021 MRI of left hand MR hand LT wo con [facility] Magnetic resonance cholangiopancreatography [facility] Patient Education Gastritis (DC) [facility] Work Phone: Immunizations Immunization Date Immunization Notes Care Provider Fa cility NEGATED: Highlighted row has not occurred!06-03-2021 influenza virus vaccine, unspecified formulation Francisca HALLMAN [facility] Payers Date Payer Category Payer Private Health Insurance [id number] 2023 Self-pay [id number] 1975 Unknown [id number] 2.16.84 0.1.507502.3.579.2.593 1974 Unknown [id number] 2.16.84 0.1.151583.3.579.2.593 1974 Unknown [id number] 2.16.84 0.1.034139.3.579.2.593 1974 Unknown [id number] 2.16.84 0.1.482837.3.579.2.593 1974 Unknown [id number] 2.16.84 0.1.514411.3.579.2.593 1974 Unknown [id number] 2.16.84 0.1.695497.3.579.2.593 1974 Unknown [id number] 2.16.84 0.1.966091.3.579.2.593 1974 Unknown [id number] 2.16.84 0.1.429427.3.579.2.593 1974 Unknown [id number] 2.16.84 0.1.304279.3.579.2.593 1974 Unknown [id number] 2.16.84 0.1.347886.3.579.2.593 1974 Unknown [id number] 2.16.84 0.1.206514.3.579.2.593 1974 Unknown [id number] 2.16.84 0.1.841762.3.579.2.593 1974 Unknown [id number] 2.16.84 0.1.894098.3.579.2.593 1974 Unknown [id number] 2.16.84 0.1.570484.3.579.2.593 1974 Unknown [id number] 2.16.84 0.1.178909.3.579.2.1259 1974 Unknown [id number] 2.16.84 0.1.551805.3.579.2.1259 1974 Unknown [id number] 2.16.840 .1.266441.3.579.2.1259 1959 Private Health Insurance [id number] 2.16.840.1.564143.19 1959 Private Health Insurance [id number] 2.16.840.1.281984.19 1959 Unknown [id number] Private Health Insurance [id number] Unknown [id number] .16. 840.1.237386.19 Unknown [id number] .16.8 40.1.564864.19 Unknown [id number] 2.16.8 40.1.104399.3.579.2.531 Unknown [id number] .16.8 40.1.774303.3.579.2.531 Unknown [id number] 2.16.8 40.1.792611.3.579.2.531 Social History Date Type Detail Facility Start: 06-03-2021 End: 07-21-2023 Tobacco smoking status Never smoked tobacco (finding) [facility] Other Tobacco smoking status Never [facility] Sex Assigned At Female Altagracia [facility] Start: 1975 Sex Assigned At Female Tony [facility] Goals Date Patient Goal Desired Activity /State Clinical Notes 06-03-2021 to 07-21-2023 Note Date & Type Note Facility 07-21-2023 Procedure note [facility] 03-10-2023 Evaluation note Encounter Date Diagnosis Assessment [...] changes in symptoms and/or problems with treatment [facility] Other 10-31-2023 Evaluation note* Encounter Date Diagnosis Assessment Notes Treatment Notes Treatment Clinical Notes Dec, Unspecified sprain of left thumb, initial encounter (ICD-10 - S63.602A) Extensive discussion was had about the current condition and treatment options available. We will submit for a cortisone injection with [facility]. We discussed use of Voltaren gel and Lidocaine patch to the affected area. Activity as tolerated. [facility] Other 03-14-2023 Evaluation note* Encounter Date Diagnosis Assessment Notes Treatment Notes Treatment Clinical Notes May, Unspecified sprain of left thumb, initial encounter (ICD-10 - S63.602A) Discussed with patient she is progressing well from injury. Continue to progress activity as tolerated. Patient given order for neoprene sleeve Patient may continue working with wearing a neoprene sleeve/ brace for added protection [facility] Other 02-27-2023 Evaluation note* Encounter Date Diagnosis [...] for fever/discomfort, cool mist humidifier. May use Maitland as needed for cough, do not take any other OTCs while using M[place]land. Patient to follow up with PCP in 2-3 days. Immediate eval if SOB, difficulty breathing, chest pain, dizziness, or other concerning symptoms. Patient verbalizes understanding and is agreeable to treatment plan [facility] Other 02-07-2023 Evaluation note* Encounter Date Diagnosis [...] splint for activities. Continue current work restrictions [facility] Other 01-18-2023 Evaluation note* Encounter Date Diagnosis Assessment Notes Treatment Notes Treatment Clinical Notes Mar, Unspecified sprain of left thumb, initial encounter (ICD-10 - S63.602A) We will submit for [facility] approval for cortisone injection MCP joint/UCL Continue current work restrictions [facility] Other 01-05-2023 NotePROCEDURE: XR SHOULDER LT 2V or > HISTORY: Pain of left shoulder joint ; acute; no known injury COMPARISON: None. FINDINGS: BONES:No fracture, acute abnormality, or significant arthropathy. SOFT TISSUES:No visible soft tissue swelling. EFFUSION:None visible. OTHER: Negative. IMPRESSION: 1. Normal examination. Electronically authenticated by: DEEP BENSON Date: 2022-04-01 10:27[facility]08-24-2022 Evaluation note* Encounter Date Diagnosis Assessment [...] as documented in the electronic medical record. [facility] Other 05-21-2022 Evaluation note* Encounter Date Diagnosis Assessment Notes Treatment Notes Treatment Clinical Notes July, Sprain of left thumb, unspecified site of digit, subsequent encounter (ICD-10 - S63.602D) patient symptoms are not getting any better. Recommend follow up with [facility] with possible one of Dr. Thompson for further evaluation or ortho at this point. Continue restrictions and use of brace [facility] Other 05-14-2022 Evaluation note* Encounter Date Diagnosis [...] today. Follow-up with the urgent care or [facility] occupational health in 1 week for recheck [facility] Other 03-09-2022 NoteChief Complaint consultation for epigastric pain, GERD and dysphagia [facility] Staff 45 year old female presents on [...] Inhalation, q6hr, PRN Diclof (more content not included)...[facility]Result Comment: Electronically Signed By: LEXX BAGLEY, Francisca Mcarthur\Date and Time Signed: 06/03/21 16:49 ESTEvaluation + Plan note No data available for this section [facility] Evaluation [facility] [employer] Other Evaluation noteNo assessment information available [facility] Work Phone: Evaluation note* Diagnosis Onset Date Resolution Status Abdominal pain acute Diarrhea acute GERD (gastroesophageal reflux disease) acute Nausea acute Abdominal pain acute Diarrhea acute GERD (gastroesophageal reflux disease) acute Hepatomegaly acute Liver lesion acute Nausea acute [facility] Work Phone: Evaluation note* Diagnosis Onset Date Resolution Status Abdominal pain acute Diarrhea acute GERD (gastroesophageal reflux disease) acute Hepatomegaly acute Liver lesion acute Nausea acute Diarrhea acute GERD (gastroesophageal reflux disease) acute Liver lesion acute Nausea acute [facility] Work Phone: History and physical note Author Elizabeth Chan [facility] July 21, 2023 8:25am Note Date/Time July 21, 2023 7:4 2am [facility] [address] [place] [address] Gastroenterology H&P Signed Patient: Cachorro Sebastian MR#: [id number] : 1975 Acct:[id number] Age/Sex: 47 / F Adm Date: 4 Loc: Room: Type: [facility] Attending Dr: Elizabeth Chan DO Copies to: [...] is an appropriate candidate for the procedure. Elizabeth Chan DO Documented By: Elizabeth Chan DO 07/21/23 0742 Signed By: <Electronically signed by Elizabeth Chan DO> 07/21/23 0825 [facility] Work Phone: Hisrenw general [facility] [employer] Other Hisjmnb general Narrative - Reported* Type Description Date Medical History Hypothyroidism Medical History Fibromyalgia Medical History Small fiber neuropathy Medical History Vitamin D deficiency Surgical History cholecystectomy [facility] [employer] Other Hismisg general Narrative - Reported* Type Description Date Medical History Hypothyroidism Medical History Fibromyalgia Medical History Small fiber neuropathy Medical History Vitamin D deficiency Medical History Osteoarthritis lower back Medical History degenerative disc disease Surgical History cholecystectomy [facility] [employer] Other Hisjwrj general Narrative - Reported* Type Description Date Medical History Hypothyroidism Medical History Fibromyalgia Medical History Small fiber neuropathy Medical History Vitamin D deficiency Medical History Osteoarthritis lower back Medical History degenerative disc disease Medical History obstructive sleep apnea Medical History restless leg syndrome Surgical History cholecystectomy [facility] [employer] Other Hospital Discharge instructions No data available for this section General Surgery [facility] Summary Purpose Family History No Family History Records Found Relationship Condition Age at Onset Recorded Date/T ana Not Specified Chronic obstructive pulmonary disease Un known Hypothyroidism Unknown Relationship Condition Age at Onset Recorded Date/T ana mother Chronic obstructive pulmonary disease Unk nown Hypothyroidism Unknown Advance Directives No Advanced Directives Records Found [...] and content) DATE CREATED AUTHOR 07/06/2021 [facility] DATE CREATED AUTHOR AUTHOR'S ORGANIZ ATION 08/12/2022 [facility] DATE CREATED AUTHOR AUTHOR'S ORGANIZ ATION 08/19/2023 [facility] DATE CREATED AUTHOR AUTHOR'S ORGANIZ ATION 12/15/2023 [facility] EPIC REASON FOR VISIT (unrecogniz ed section and [...] Inactive Member Role Status Dates Odalis Braxton Matiloreleilata Primary Care Provider Active Sta rt: August 17, 2023 End: August 17, 2023 Cj Andres APRN Attending Provider Active Start: August 17, 2023 End: August 17, 2023 Team Status: Inactive Member Role Status Dates Odalis Braxton Matiloreleilata Primary Care Provider Active Sta rt: October [...] BE BASED ON THE PRIMARY CLINICAL RECORDS. [employer] provides no warranty or guarantee of the accuracy or completeness of information in this document.
== END 2023-12-16 08:27 | disposition home or self-care (01) ==
LOC: MAMMO 08:26
PROVIDERS: PCP Nurse Practitioner; Visit Provider Nurse Practitioner
DX: Z12.31 Encounter for screening mammogram for malignant neoplasm of breast (principal); Z80.1 Family history of malignant neoplasm of trachea, bronchus and lung
CPT/HCPCS: 77063; 77067